=== PATIENT | male | born 1960 | race Caucasian/White ===

== ENCOUNTER 2019-10-19 20:19 | Outpatient (REF) | payer BC, SELFPAY ==
[2019-10-19 19:56] LABS: Bilirubin Negative (Negative); Blood Trace-intact (Negative); Clarity Clear (Clear); Glucose Negative (Negative); Ketones Negative (Negative); Leukocyte Esterase Negative (Negative); Nitrite Negative (Negative); Urobilinogen 0.2 EU/dL (Up TO 0.2)
[2019-10-19 19:57] LABS: Anion Gap 8.8 mmol/L (3-11); BUN 17 mg/dL (7-18); CO2 26.2 mmol/L (21.0-32.0); CREATININE 0.94 mg/dL (0.70-1.30); Chloride 100 mmol/L (98-107); Glucose 104 mg/dL (74-106); Potassium 4.2 mmol/L (3.5-5.1); Sodium 135 mmol/L (136-145)
[2019-10-19 20:12] LABS: Bacteria Negative HPF (Negative); Epithelial Cells Negative HPF (Negative); RBC 0-2 HPF (0-2)
[2019-10-19 20:13] LABS: C & S Indicated? No; Casts Negative LPF (Negative); Crystals Moderate Amorphous HPF (Negative); Mucus Negative (Negative)
[2019-10-21 11:04] LABS: Hepatitis C Ab w Rflx HCV PCR Negative (Negative)
== END 2019-10-19 20:39 ==
LOC: NCHCN 20:19
PROVIDERS: PCP Family Medicine; Visit Provider Family Medicine
DX: Z00.00 Encounter for general adult medical examination without abnormal findings (principal); I10 Essential (primary) hypertension; R60.0 Localized edema; Z11.59 Encounter for screening for other viral diseases; Z87.448 Personal history of other diseases of urinary system
CPT/HCPCS: 80048; 86803; 81003; 81015

== ENCOUNTER 2020-06-06 16:02 | Outpatient (REF) | payer BC, SELFPAY ==
[2020-06-08 10:07] LABS: COVID-19 RT-PCR Result NEGATIVE (Negative)
== END 2020-06-06 16:22 ==
LOC: NCHCN 16:02
PROVIDERS: PCP Family Medicine; Visit Provider Nurse Practitioner Family
DX: Z20.828 Contact with and (suspected) exposure to other viral communicable diseases (principal)
CPT/HCPCS: U0003

== ENCOUNTER 2020-06-23 16:52 | Outpatient (REF) | payer BC, SELFPAY ==
[2020-06-27 13:53] LABS: COVID-19 RT-PCR UVMMC Result Negative (Negative)
== END 2020-06-23 17:12 ==
LOC: NCHCN 16:52
PROVIDERS: Visit Provider Nurse Practitioner Family
DX: Z20.822 Contact with and (suspected) exposure to COVID-19 (principal)
CPT/HCPCS: U0003

== ENCOUNTER 2020-10-26 16:48 | Outpatient (REF) | payer BC, SELFPAY ==
[2020-10-26 18:40] LABS: HGB 14.4 g/dL (13.5-17.5); MCH 28.5 pg (27.0-33.0); MCHC 33.5 % (32.0-36.0); MPV 9.3 fL (8.0-11.0); Platelet Count 346 10^3/uL (130-400); RBC 5.06 10^6/uL (4.36-5.78); RDW 13.3 % (11.8-14.1); RDW-SD 41.1 fL; WBC 7.28 10^3/uL (4.4-10.8)
[2020-10-26 19:07] LABS: ALT 25 U/L (16-63); AST 13 U/L (15-37); Albumin 4.3 g/dL (3.4-5.0); Alkaline Phosphatase 78 U/L (46-116); Anion Gap 10.4 mmol/L (3-11); BUN 26 mg/dL (7-18); Bilirubin, Total 0.4 mg/dL (0.2-1.0); CO2 24.6 mmol/L (21.0-32.0); CREATININE 1.1 mg/dL (0.70-1.30); Calcium 9.1 mg/dL (8.5-10.1); Chloride 104 mmol/L (98-107); Glucose 99 mg/dL (74-106); Lipase 78 U/L (73-393); Potassium 4.4 mmol/L (3.5-5.1); Sodium 139 mmol/L (136-145); Total Protein 7.2 g/dL (6.4-8.2)
[2020-10-26 21:42] LABS: Hemoglobin A1C 5.9 % (<5.7)
== END 2020-10-26 16:49 | disposition home or self-care (01) ==
LOC: NCHCN 16:48
PROVIDERS: PCP Family Medicine; Visit Provider Family Medicine
DX: I10 Essential (primary) hypertension (principal); R11.0 Nausea; R73.03 Prediabetes
CPT/HCPCS: 80053; 83690; 85027; 83036

== ENCOUNTER 2022-03-05 16:48 | Outpatient (REF) | payer SELFPAY ==
[2022-03-05 19:53] LABS: Anion Gap 9.5 mmol/L (3-11); BUN 25 mg/dL (7-18); CO2 26.5 mmol/L (21.0-32.0); CREATININE 1.2 mg/dL (0.70-1.30); Chloride 102 mmol/L (98-107); Estimated GFR 69.66 (mL/min/1.73m2); Glucose 120 mg/dL (74-106); Potassium 3.8 mmol/L (3.5-5.1); Sodium 138 mmol/L (136-145)
[2022-03-05 19:54] LABS: Hemoglobin A1C 5.6 % (<5.7)
== END 2022-03-05 16:49 | disposition home or self-care (01) ==
LOC: NCHCN 16:48
PROVIDERS: PCP Family Medicine; Visit Provider Family Medicine
DX: I10 Essential (primary) hypertension (principal); R73.03 Prediabetes
CPT/HCPCS: 80048; 83036

== ENCOUNTER 2022-06-25 18:41 | Outpatient (REF) | payer SELFPAY ==
[2022-06-25 21:47] LABS: Bilirubin Negative (Negative); Blood Small (Negative); Clarity Clear (Clear); Glucose Negative (Negative); Ketones Negative (Negative); Leukocyte Esterase Negative (Negative); Nitrite Negative (Negative); Specific Gravity 1.015 (1.005-1.025); Urobilinogen 0.2 EU/dL (Up TO 0.2)
[2022-06-25 22:05] LABS: Bacteria Rare HPF (Negative); C & S Indicated? No; Casts Negative LPF (Negative); Crystals Negative HPF (Negative); Epithelial Cells Rare HPF (Negative); Mucus Negative (Negative); WBC 0-2 HPF (0-5)
== END 2022-06-25 18:42 | disposition home or self-care (01) ==
LOC: LBN 18:41
PROVIDERS: PCP Family Medicine; Visit Provider Nurse Practitioner Gerontology
DX: R31.9 Hematuria, unspecified (principal)
CPT/HCPCS: 81003; 81015

== ENCOUNTER 2023-06-13 14:28 | Outpatient (REF) | payer SELFPAY ==
[2023-06-13 16:50] LABS: Calculated LDL 90 mg/dL (<100); Cholesterol 149 mg/dL (<200); HDL Cholesterol 41 mg/dL (40-60); Triglyceride 91 mg/dL (<150)
[2023-06-13 16:52] LABS: Hemoglobin A1C 5.9 % (<5.7)
[2023-06-14 19:49] LABS: HIV-1/2 Ag & Ab Screen Negative (Negative)
== END 2023-06-13 14:29 | disposition home or self-care (01) ==
LOC: NCHCN 14:28
PROVIDERS: PCP Family Medicine; Visit Provider Family Medicine
DX: Z00.00 Encounter for general adult medical examination without abnormal findings (principal); R73.03 Prediabetes; Z11.4 Encounter for screening for human immunodeficiency virus [HIV]; Z13.220 Encounter for screening for lipoid disorders
CPT/HCPCS: 80061; 87389; 83036

== ENCOUNTER 2023-07-24 17:32 | Outpatient (REF) | payer BC, SELFPAY ==
[2023-07-24 17:36] LABS: Bilirubin Negative (Negative); Blood Moderate (Negative); Clarity Clear (Clear); Glucose Negative (Negative); Ketones Negative (Negative); Leukocyte Esterase Negative (Negative); Nitrite Negative (Negative); Specific Gravity >= 1.030 (1.005-1.025); Urobilinogen 0.2 mg/dL (Up to 0.2); pH 5.5 (5-8)
[2023-07-24 17:43] LABS: Bacteria Negative HPF (Negative); Crystals Negative HPF (Negative); Epithelial Cells Rare HPF (Negative); Mucus Trace (Negative); WBC 0-2 HPF (0-5)
[2023-07-24 17:44] LABS: C & S Indicated? No
== END 2023-07-24 17:33 | disposition home or self-care (01) ==
LOC: LBN 17:32
PROVIDERS: PCP Family Medicine; Visit Provider Nurse Practitioner Gerontology
DX: N39.0 Urinary tract infection, site not specified (principal)
CPT/HCPCS: 81003; 81015

== ENCOUNTER 2023-12-23 10:49 | Inpatient (IN) | payer BC, SELFPAY ==
[2023-12-23] VITALS (53 sets, daily range): BP systolic 100–150; BP diastolic 54–106; PULSE 62–128; RESP 14–43; TEMP 36.6–39.2; O2SAT 92–99
--- NOTE | 2023-12-23 10:45 | RT.EKG_ITS ---
APPROVED REPORT Exam: Resting ECG Reason for Exam: sob Patient Location: E HR:115 bpm ECG Measurements Heart Rate 115 AXIS MT 151 P 12 QRSd 85 QRS -12 QT 341 T 63 QTc 471 Conclusion Sinus tachycardia 115 no stemi
--- NOTE | 2023-12-23 11:03 | ED.GENADUL_ITS ---
Discharge Plan Disposition Patient Disposition: Admit to [facility] Condition: Stable Discharge Details Chief Complaint: GenMedical Clinical Impression: Sepsis Primary Care Provider: Rosie Bess ED Provider: Juan Hanna Home Meds and New Rx's Prescriptions: No Action finasteride 5 mg tablet 5 mg PO DAILY Qty: 90 4RF tamsulosin [Flomax] 0.4 mg capsule 0.4 mg PO DAILY Qty: 90 3RF omeprazole 20 MG capsule,delayed release(DR/EC) 40 mg PO DAILY Qty: 90 Rx Instructions: 1 CAP QAM venlafaxine 75 mg capsule,extended release 24hr 75 mg PO DAILY Patient Comments: Pt takes 75 mg for 4 days and then takes 35 for 3 days. Pt is trying to taper this medication. Ok'd by pt's provider HPI General Date/Time Provider Initiated Documentation: 12/23/23 11:02 . HPI Narrative: 63 year-old male presents to ED today by POV/ambulating with a chief complaint of febrile illness- ongoing and mostly nocturnal for 2 weeks- states he has int ermittent chills, fever, nausea, dizziness, abdominal bloating, and decreased appetite- denies known weight-loss. He appears pale, diaphoretic and has shortness of breath, denies chest pain. Quality described as generalized body aches, states he has been developing fevers later in the day most days- has been dealing with hematuria at Urology chronically who urged his ED evaluation today, no radiation to severe headache, visual changes, gait abnormalities, slurred speech. Severity is described as moderate to severe. Palliating factors include nothing specific attempted. Provoking factors include nothing specific, no sick contacts, and denies any tick bites. Events leading up to the incident/Associated Symptoms: Patient states he had an HIV panel back in August but is heterosexual and monogamous with his . Patient not anticoagulated. Related Data Home Medications ?Medication ?Instructions ?Recorded ?Confirmed omeprazole 20 mg capsule,delayed 40 mg PO DAILY #90 tab-caps 01/01/13 12/23/23 release venlafaxine 75 mg capsule,extended 75 mg PO DAILY 04/18/21 12/23/23 release 24 hr finasteride 5 mg tablet 5 mg PO DAILY #90 tab-caps 07/24/23 12/23/23 tamsulosin 0.4 mg capsule (Flomax) 0.4 mg PO DAILY #90 caps 07/24/23 12/23/23 Previous Rx's ?Medication ?Instructions ?Recorded finasteride 5 mg tablet 5 mg PO DAILY #90 tab-caps 07/24/23 tamsulosin 0.4 mg capsule (Flomax) 0.4 mg PO DAILY #90 caps 07/24/23 Allergies Allergy/AdvReac Type Severity Reaction Status Date / Time hydrocodone bitartrate (From AdvReac Intermediate Nausea & Unverified 12/23/23 10:56 Vicodin) vomiting General Stated Complaint: GenMedical LACY: 3 Review of Systems All systems reviewed & are unremarkable except as noted in HPI and below Exam Narrative Exam Narrative: GENERAL APPEARANCE: Well-nourished, toxic, awake and alert, atraumatic, no acute distress. SKIN: Warm, pale, diaphoretic, intact, without rashes/lesions/ulcerations. HEAD: Normocephalic, atraumatic, normal hair distribution for gender/age. EYES: Pupils PERRLA, EOMs intact without nystagmus, normal conjunctiva, no exudates on lids/lashes. ENT: Nares patent, no circumoral cyanosis, no facial swelling NECK: Supple, trachea midline, painless cervical ROM. LUNGS/CHEST: Lungs CTA bilaterally- no rhonchi/rales/wheezes diffusely, non- labored respirations, normal A/P diameter, symmetrical expansion, no chest wall deformity HEART (CV/PV): Regular rate and rhythm without murmur, no peripheral edema, no JVD. ABDOMEN: Normoactive bowel sounds, soft, non-distended, no guarding, no tenderness. MSK: Normal ROM, no swelling/deformity to bilateral UEs or LEs, moving all extremities without weakness, no cyanosis, spine midline without tenderness, normal curvature. NEURO: Mental Status AAOx4 - alert to person, place, time, events No facial droop, no forehead involvement. Motor: No focal weakness - strength 5/5 in bilateral UEs and LEs, proximal and distal, symmetric. Sensory: sensation intact to light touch globally. Gait normal: patient ambulated without ataxia into ED room. PSYCH: euthymic, cooperative, pleasant, appropriate speech Course Vital Signs Vital signs: Vital Signs Temperature 36.6 C 12/23/23 10:52 Pulse 62 12/23/23 10:52 Respiratory Rate 14 12/23/23 10:52 Blood Pressure 109/77 12/23/23 10:52 Pulse Oximetry 99 12/23/23 10:52 Temperature 36.6 C 12/23/23 10:52 Temperature Source Oral 12/23/23 10:52 Pulse 62 12/23/23 10:52 Respiratory Rate 14 12/23/23 10:52 Blood Pressure 109/77 12/23/23 10:52 Blood Pressure Position Sitting 12/23/23 10:52 Pulse Oximetry 99 12/23/23 10:52 Oxygen Delivery Method Room Air 12/23/23 10:52 Oxygen Flow Rate 0 12/23/23 10:52 Pain Level 0 12/23/23 10:52 Medical Decision Making This dictation utilizes [id number] dictation software and may contain unedited grammatical errors. 63 year-old male presents to ED today by POV/ambulating with a chief complaint of febrile illness- ongoing and mostly nocturnal for 2 weeks- states he has intermittent chills, fever, nausea, dizziness, abdominal bloating, and decreased appetite- denies known weight-loss. He appears pale, diaphoretic and has shortness of breath, denies chest pain. Quality described as generalized body aches, states he has been developing fevers later in the day most days- has been dealing with hematuria at Urology chronically who urged his ED evaluation today, no radiation to severe headache, visual changes, gait abnormalities, slurred speech. Severity is described as moderate to severe. Palliating factors include nothing specific attempted. Provoking factors include nothing specific, no sick contacts, and denies any tick bites. Events leading up to the incident/Associated Symptoms: Patient states he had an HIV panel back in August but is heterosexual and monogamous with his . Patients' medical history: GERD, anxiety, hematuria, BPH with LUTS, history of substance abuse. Family and social history: Denies active substance use, otherwise healthy. Pertinent exam findings / vital signs include pale and diaphoretic, febrile, tachycardic, benign abdomen, benign cardiopulmonary exam, neuro intact. Differential / pathologies of concern include malignancy, sepsis, pneumonia, gastroenteritis or colitis or diverticulitis, PE, ACS. Diagnostic studies of: -CBC, BMP, lipase, liver panel, magnesium, D-dimer, procalcitonin, lactate, troponin I, TSH, tick and Lyme panel, blood cultures, EKG, CTA chest abdomen pelvis with contrast. -CBC shows no leukocytosis, shows anemia hemoglobin 13.3 just below normal -Platelets are 97 -D-dimer is significantly elevated at 2024 -Initial lactate 2.1, giving IV fluids and rechecking, procalcitonin 0.8-concern sepsis -TSH is low with normal T4 -Marked increase in LFTs, will add acute hepatitis panel -Bilirubin 1.0 with marked increase in conjugated bilirubin of 0.[address] -ESR is mildly elevated -Patient had a UA outpatient today- shows no infection, large blood -EKG without concerning arrhythmia or STEMI -CTA Chest/Abdomen/Pelvis - no acute findings Interventions of: -2L IVF, IV Cefepime, IV Vancomycin, IV APAP. ED Course/Assessment/Plan: 63-year-old male has been dealing with hematuria managed by urology, had an outpatient UA over there today where they sent him to the ED, he is not infected urine with large blood, has enlarged prostate with some outflow obstruction intermittently. He states he has had 2-week onset of intermittent fevers and chills and dizziness and nausea with abdominal bloating and decreased appetite, appears pale cool and diaphoretic, tachycardic and fever developed while in the ED today. CTA of the chest abdomen and pelvis is negative for any source of infection, his initial lactate is 2.1 and procalcitonin is 0.8 concerning for sepsis, his platelets are 97 which is new but he has been dealing with hematuria, likely needs cystoscopy done by Dr. Ferreira who is aware of the case, has some marked LFT increase and mild increase of conjugated bilirubin with again nothing seen on CT. Acute hepatitis panel and tick and Lyme panel are pending, blood cultures pending. Presented the case to the hospitalist Dr. 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 Findings not consistent with biliary cholangitis, PE, pneumonia, UTI, perforated viscus, colitis or gastroenteritis or diverticulitis. Disposition of sepsis. Patient verbalized understanding of the plan and return to ED criteria and engaged in shared decision making. Medical Records Medical records reviewed: Yes I reviewed the patient's medical records. Imaging Data Radiologic Study: Attestation: I personally reviewed and interpreted this imaging study as follows: Imaging: CT Scan Radiologist's impression: EXAM: CT THORAX ABD/PEL CTA CLINICAL HISTORY: elev d-dimer, poss malig, eval PE ABD vasc. TECHNIQUE: Imaging Protocol: Axial CT angiography was performed with multi- slice acquisition and multi-planar and/or 3D reconstructions. CONTRAST MATERIAL: Intravenous: Omnipaque 350 Contrast volume:structured data in ml Oral: / no COMPARISON: No exams were available for comparison FINDINGS: CHEST: Pulmonary Arteries: No evidence of filling defect to suggest pulmonary emboli. Tracheobronchial tree: Patent where visualized. Mediastinum and Elena: No dominant adenopathy or fluid collection. Pulmonary parenchyma: No consolidation or dominant measurable mass. No architectural distortion. Pleura: No effusion or pneumothorax. Heart: The heart is not dilated. No coronary artery calcifications are seen. Aorta: Thoracic aorta non-dilated. Minimal atherosclerotic changes. Bones: Normal. Tubes, Catheters, and Lines: None ABDOMEN AND PELVIS: Abdomen: Celiac axis/mesenteric arteries: No evidence of occlusion or significant stenosis. Renal Arteries: No evidence of occlusion or significant stenosis. There is a single renal artery perfusing each kidney. Aorta: No evidence of occlusion or significant stenosis. No aneurysm or dissection. Pelvis: Iliac Arteries: No evidence of occlusion or significant stenosis. Minimal atherosclerotic changes. Common Femoral Arteries: No evidence of occlusion or significant stenosis. ABDOMEN: Liver: Normal density. No measurable mass. Portal, Superior Mesenteric, and Splenic Veins: Unremarkable. Gallbladder and Biliary Tract: Status post cholecystectomy. No radiodense calculus or dilation. Pancreas: Normal density, no abnormal calcifications or inflammatory process. Spleen: Normal. Adrenals: No masses seen. Kidneys: Normal size, contour and axis. No radiodense stones or obstructive uropathy. No masses seen. Circumaortic left renal vein. Bowel: No obstruction or bowel wall thickening. Appendix is unremarkable. Diverticulosis. No evidence of diverticulitis. Peritoneal Cavity: No ascites, collection or mesenteric inflammatory response. Lymph Nodes: Within normal limits. Bones: Degenerative changes in the lumbar spine. Soft Tissues: Unremarkable. Bladder: Contrast in urinary bladder. Symmetric distention, no gross wall thickening. Reproductive Organs: Unremarkable as visualized. Lymph Nodes: Within normal limits. IMPRESSION: Normal CT Angiogram of the chest, abdomen and pelvis. No evidence of pulmonary emboli. No acute abnormality in the chest abdomen or pelvis. Lab Data Lab results reviewed: Yes I reviewed the patient's lab results. Labs: 12/23/23 13:21 Blood Blood Culture - Pending 12/23/23 13:21 Blood Blood Culture - Pending Laboratory Tests Range/Units 12/23/23 12/23/23 12/23/23 11:16 11:16 11:16 WBC (4.4-10.8) 10^3/uL 5.82 RBC (4.36-5.78) 10^6/uL 4.81 Hgb (13.5-17.5) g/dL 13.3 L Hct (40.0-50.0) % 39.1 L MCV (80-95) fL 81 MCH (27.0-33.0) pg 27.7 MCHC (32.0-36.0) % 34.0 RDW (11.8-14.1) % 13.8 Plt Count (130-400) 10^3/uL 97 L MPV (8.0-11.0) fL 9.4 Immature Gran % % 0.0 Neutrophils % % 72.0 Band Neutrophils % % 0 Lymphocytes % % 14.0 Atypical Lymphs % % 7 Monocytes % % 6.0 Eosinophils % % 1.0 Basophils % % 0.0 Nucleated RBC % (0.0-0.3) % 0.0 Absolute Neutrophils (1.2-6.7) 10^3/uL 4.19 Absolute Lymphocytes (1.2-3.4) 10^3/uL 1.22 Absolute Monocytes (0.1-0.8) 10^3/uL 0.35 Absolute Eosinophils (0.0-0.7) 10^3/uL 0.06 Absolute Basophils (0.0-0.2) 10^3/uL 0.00 RBC Morphology Normal ESR (0-20) mm/hr 25 H D-Dimer (<500) ng/mlFEU 2025 H VBG Lactate (0.6-1.4) mmol/L Sodium (136-145) mmol/L 135 L Potassium (3.5-5.1) mmol/L 3.4 L Chloride (98-107) mmol/L 98 Carbon Dioxide (21.0-32.0) mmol/L 26.9 Anion Gap (3-11) mmol/L 10.1 BUN (7-18) mg/dL 13 Creatinine (0.70-1.30) mg/dL 1.1 Est GFR (CKD-EPI 2020) (mL/min/1.73m2) 76.37 Glucose (74-106) mg/dL 132 H Calcium (8.5-10.1) mg/dL 8.7 Magnesium (1.8-2.4) mg/dL 1.9 Total Bilirubin (0.2-1.0) mg/dL 1.00 Conjugated Bilirubin (0.0-0.2) mg/dL 0.5 H AST (15-37) U/L 64 H ALT (16-63) U/L 151 H Alkaline Phosphatase (46-116) U/L 273 H Troponin I (< or =60) ng/L < 50 Cancelled Total Protein (6.4-8.2) g/dL 7.4 Albumin (3.4-5.0) g/dL 2.9 L Lipase (16-77) U/L 41 Procalcitonin ng/mL 0.8 TSH (0.36-3.74) uIU/mL 0.20 L Cancelled Free T4 (0.76-1.46) ng/dL 1.36 Range/Units 12/23/23 11:42 WBC (4.4-10.8) 10^3/uL RBC (4.36-5.78) 10^6/uL Hgb (13.5-17.5) g/dL Hct (40.0-50.0) % MCV (80-95) fL MCH (27.0-33.0) pg MCHC (32.0-36.0) % RDW (11.8-14.1) % Plt Count (130-400) 10^3/uL MPV (8.0-11.0) fL Immature Gran % % Neutrophils % % Band Neutrophils % % Lymphocytes % % Atypical Lymphs % % Monocytes % % Eosinophils % % Basophils % % Nucleated RBC % (0.0-0.3) % Absolute Neutrophils (1.2-6.7) 10^3/uL Absolute Lymphocytes (1.2-3.4) 10^3/uL Absolute Monocytes (0.1-0.8) 10^3/uL Absolute Eosinophils (0.0-0.7) 10^3/uL Absolute Basophils (0.0-0.2) 10^3/uL RBC Morphology ESR (0-20) mm/hr D-Dimer (<500) ng/mlFEU VBG Lactate (0.6-1.4) mmol/L 2.1 H Sodium (136-145) mmol/L Potassium (3.5-5.1) mmol/L Chloride (98-107) mmol/L Carbon Dioxide (21.0-32.0) mmol/L Anion Gap (3-11) mmol/L BUN (7-18) mg/dL Creatinine (0.70-1.30) mg/dL Est GFR (CKD-EPI 2020) (mL/min/1.73m2) Glucose (74-106) mg/dL Calcium (8.5-10.1) mg/dL Magnesium (1.8-2.4) mg/dL Total Bilirubin (0.2-1.0) mg/dL Conjugated Bilirubin (0.0-0.2) mg/dL AST (15-37) U/L ALT (16-63) U/L Alkaline Phosphatase (46-116) U/L Troponin I (< or =60) ng/L Total Protein (6.4-8.2) g/dL Albumin (3.4-5.0) g/dL Lipase (16-77) U/L Procalcitonin ng/mL TSH (0.36-3.74) uIU/mL Free T4 (0.76-1.46) ng/dL Quality:SDOH Health Related Social Needs: No Data to Display PFSH All Active Problems (Updated 12/23/23 @ 16:18 by TIFFANY Slaughter) Sepsis (Acute) Hematuria (Acute) BPH w urinary obs/LUTS (Acute) Medical History (Updated 12/23/23 @ 16:18 by TIFFANY Slaughter) GERD (gastroesophageal reflux disease) Anxiety PTSD (post-traumatic stress disorder) Surgical History (System 10/18/20 @ 10:03 by Anastasia Davies) Repair of inguinal hernia Bilateral EGD - IV Sedation Colonoscopy - IV Sedation Social History (System 10/18/20 @ 10:03 by Anastasia Davies) Smoking/Tobacco Use Status: Never Smoking risk assessment performed?: Yes Drug use: Current Sobriety
[2023-12-23 11:48] LABS: ESR 25 mm/hr (0-20); HCT 39.1 % (40.0-50.0); HGB 13.3 g/dL (13.5-17.5); MCH 27.7 pg (27.0-33.0); MCV 81 fL (80-95); MPV 9.4 fL (8.0-11.0); RBC 4.81 10^6/uL (4.36-5.78); RDW 13.8 % (11.8-14.1); RDW-SD 41.1 fL; WBC 5.82 10^3/uL (4.4-10.8)
[2023-12-23 11:53] LABS: Lactate 2.1 mmol/L (0.6-1.4)
[2023-12-23 12:07] LABS: Absolute Eosinophil Count 0.06 10^3/uL (0.0-0.7); Absolute Lymphocyte Count 1.22 10^3/uL (1.2-3.4); Absolute Monocyte Count 0.35 10^3/uL (0.1-0.8); Absolute Neutrophil Count 4.19 10^3/uL (1.2-6.7); Atypical Lymphocytes % 7 %; Bands % 0 %
[2023-12-23] MEDS: Normal Saline 1,000 ML 1000 ML IV ×2 (12:07→16:27)
[2023-12-23 12:09] LABS: Diff Comment Manual Differential; RBC Morphology Normal
[2023-12-23 12:11] LABS: Platelet Count 97 10^3/uL (130-400)
[2023-12-23 12:12] LABS: ALT 151 U/L (16-63); AST 64 U/L (15-37); Albumin 2.9 g/dL (3.4-5.0); Alkaline Phosphatase 273 U/L (46-116); Anion Gap 10.1 mmol/L (3-11); BUN 13 mg/dL (7-18); Bilirubin, Direct 0.5 mg/dL (0.0-0.2); CO2 26.9 mmol/L (21.0-32.0); CREATININE 1.1 mg/dL (0.70-1.30); Calcium 8.7 mg/dL (8.5-10.1); Chloride 98 mmol/L (98-107); Estimated GFR 76.37 (mL/min/1.73m2); Glucose 132 mg/dL (74-106); Lipase 41 U/L (16-77); Magnesium 1.9 mg/dL (1.8-2.4); Potassium 3.4 mmol/L (3.5-5.1); Sodium 135 mmol/L (136-145); Total Protein 7.4 g/dL (6.4-8.2); Troponin I < 50 ng/L (< or =60)
[2023-12-23 12:17] LABS: D-Dimer 2025 ng/mlFEU (<500)
[2023-12-23 12:21] LABS: Procalcitonin 0.8 ng/mL
[2023-12-23 12:30] LABS: FREE T4 1.36 ng/dL (0.76-1.46)
[2023-12-23] MEDS: ACETAMINOPHEN 1,000 MG/100 ML BTL 400 MG IVPB (13:29)
[2023-12-23] MEDS: Promethazine 25 MG TAB (13:55)
[2023-12-23] MEDS: Omnipaque 350 MG/ML 100 ML BTL IJ ×2 (14:46→15:12)
[2023-12-23] MEDS: Normal Saline - Diluent 50 ML VIAL IJ ×2 (14:47→15:13)
--- NOTE | 2023-12-23 15:12 | DI.CT_ITS ---
Exam(s) CT THORAX ABD/PEL CTA EXAM: CT THORAX ABD/PEL CTA CLINICAL HISTORY: elev d-dimer, poss malig, eval PE ABD vasc. TECHNIQUE: Imaging Protocol: Axial CT angiography was performed with multi-slice acquisition and m ulti-planar and/or 3D reconstructions. CONTRAST MATERIAL: Intravenous: Omnipaque 350 Contrast volume:structured data in ml Oral: / no COMPARISON: No exams were available for comparison FINDINGS: CHEST: Pulmonary Arteries: No evidence of filling defect to suggest pulmonary emboli. Tracheobronchial tree: Patent where visualized. Mediastinum and Elena: No dominant adenopathy or fluid collection. Pulmonary parenchyma: No consolidation or dominant measurable mass. No architectural distortion. Pleura: No effusion or pneumothorax. Heart: The heart is not dilated. No coronary artery calcifications are seen. Aorta: Thoracic aorta non-dilated. Minimal atherosclerotic changes. Bones: Normal. Tubes, Catheters, and Lines: None ABDOMEN AND PELVIS: Abdomen: Celiac axis/mesenteric arteries: No evidence of occlusion or significant stenosis. Renal Arteries: No evidence of occlusion or significant stenosis. There is a single renal artery per fusing each kidney. Aorta: No evidence of occlusion or significant stenosis. No aneurysm or dissection. Pelvis: Iliac Arteries: No evidence of occlusion or significant stenosis. Minimal atherosclerotic changes . Common Femoral Arteries: No evidence of occlusion or significant stenosis. ABDOMEN: Liver: Normal density. No measurable mass. Portal, Superior Mesenteric, and Splenic Veins: Unremarkable. Gallbladder and Biliary Tract: Status post cholecystectomy. No radiodense calculus or dilation. Pancreas: Normal density, no abnormal calcifications or inflammatory process. Spleen: Normal. Adrenals: No masses seen. Kidneys: Normal size, contour and axis. No radiodense stones or obstructive uropathy. No masses seen. Circumaortic left renal vein. Bowel: No obstruction or bowel wall thickening. Appendix is unremarkable. Diverticulosis. No evide nce of diverticulitis. Peritoneal Cavity: No ascites, collection or mesenteric inflammatory response. Lymph Nodes: Within normal limits. Bones: Degenerative changes in the lumbar spine. Soft Tissues: Unremarkable. Bladder: Contrast in urinary bladder. Symmetric distention, no gross wall thickening. Reproductive Organs: Unremarkable as visualized. Lymph Nodes: Within normal limits. IMPRESSION: Normal CT Angiogram of the chest, abdomen and pelvis. No evidence of pulmonary emboli. No acute abnormality in the chest abdomen or pelvis. RADIATION DOSE DELIVERED: Total DLP DATA REPOSITORY: All CT scans at this facility are submitted to the National Radiology Data Registry (NRDR) Dose Index Registry (DIR) with the [employer] ([employer]). RADIATION OPTIMIZATION: All CT scans at this facility use at least one of these dose optimization te chniques: automated exposure control; mA and/or kV adjustment per patient size (includes targeted exa ms where dose is matched to clinical indication); or iterative reconstruction.
--- NOTE | 2023-12-23 16:24 | HPE_ITS ---
Date of service: 12/23/23 Time of Service: 16:24 Assessment and Plan Assessment and plan (1) Sepsis: Status: Acute Assessment and plan: T max 39.2, HR 109, procal 0.8 blood cultures pending NS 2 liters in the ED NS at 125cc/hr On cefepime and Vancomycin (2) Fever of unknown origin: Status: Acute Assessment and plan: PRN Acetaminophen and ibuprofen Hepatitis and tick born-illness panels pending (3) Hematuria: Status: Acute Assessment and plan: Urology consult labs in AM (4) BPH w urinary obs/LUTS: Status: Acute Assessment and plan: on finesteride and tamsulosin (5) On deep vein thrombosis (DVT) prophylaxis: Status: Acute Assessment and plan: On Lovenox (6) Depression: Status: Chronic Assessment and plan: On effexor (7) Nausea: Status: Acute Assessment and plan: PRN antiemetics (8) Discharge planning issues: Status: Acute Assessment and plan: CM to f/u discussed with Dr. Delgado History of Present Illness History of Present Illness Chief Complaint: febrile illness X 2 weeks N arrative: This 63 years old male patient with past medical history of PTSD, depression, gastro esophageal reflux disease, substance abuse microscopic and gross hematuria, BPH with LUTS seen in urology this morning presented to the ED as per urology services directions at [facility] on 12/23/2023 for evaluation of left nocturnal febrile illness for over 2 weeks. The workup in the ED was significant for lactate of 2.9, procalcitonin of 0.8 without leukocytosis, platelets of 97, sodium of 135, potassium of 3.4, ESR 25 D-dimer of 2024 with a CTA of the chest abdomen and pelvis without evidence of pulmonary embolism,and no other acute findings. Workup was negative for UTI, blood cultures were drawn and pending. The hospitalist was consulted and patient was accepted to the medical surgical floor for evaluation and management sepsis of unknown source, fever of unknown etiology, and thrombocytopenia. In the ED the patient was treated with 2 L of normal saline bolus, cefepime and vancomycin, and IV acetaminophen and IV ketorolac for a Tmax of 39.2. When seen in the ED, the patient was without acute distress, denied pain, recent traveling, recent trauma, neck stiffness, night sweats, recent weight loss, headaches, vomiting, diarrhea. Reported having multiple indoor cats and getting scratches at times, but no fresh ones or opened wounds reported. Patient reports mild headache, blurry vision and dizziness with high fevers, reports intermittent nausea and 1 episode of diarrhea 2 days ago, hematurai, and traveling to [place] back in May 2023. Patient reported history of bacterial meningitis as a child as well as pancreatitis and cholecystectomy 4 years ago with complications at [facility]. The patient agreed to receive CPR and short-term intubation does the patient is a full code. Review of Systems All systems reviewed & are unremarkable except as noted in HPI and below PFSH All Active Problems (Updated 12/23/23 @ 17:44 by Danitza Holt APRN) Nausea (Acute) Fever of unknown origin (Acute) Fever (Acute) Depression (Chronic) Discharge planning issues (Acute) On deep vein thrombosis (DVT) prophylaxis (Acute) Sepsis (Acute) Hematuria (Acute) BPH w urinary obs/LUTS (Acute) Medical History (Updated 12/23/23 @ 17:44 by Danitza Holt APRN) Bacterial meningitis Pancreatitis, gallstone GERD (gastroesophageal reflux disease) Anxiety PTSD (post-traumatic stress disorder) Surgical History (Updated 12/23/23 @ 17:34 by Danitza Holt APRN) History of cholecystectomy Repair of inguinal hernia Bilateral EGD - IV Sedation Colonoscopy - IV Sedation Social History (System 10/18/20 @ 10:03 by Anastasia Davies) Smoking/Tobacco Use Status: Never Smoking risk assessment performed?: Yes Drug use: Current Sobriety Meds Allergies and Home Medications Allergies Allergy/AdvReac Type Severity Reaction Status Date / Time hydrocodone bitartrate (From AdvReac Intermediate Nausea & Unverified 12/23/23 10:56 Vicodin) vomiting Home Medications ?Medication ?Instructions ?Recorded ?Confirmed ?Type omeprazole 20 mg capsule,delayed 40 mg PO DAILY #90 tab-caps 01/01/13 12/23/23 History release venlafaxine 75 mg capsule,extended 75 mg PO DAILY 04/18/21 12/23/23 History release 24 hr finasteride 5 mg tablet 5 mg PO DAILY #90 tab-caps 07/24/23 12/23/23 Rx tamsulosin 0.4 mg capsule (Flomax) 0.4 mg PO DAILY #90 caps 07/24/23 12/23/23 Rx Results Labs 12/23/23 11:16 12/23/23 11:16 Labs: Laboratory Results - last 24 hr 12/23/23 12/23/23 12/23/23 11:16 11:16 11:16 WBC 5.82 RBC 4.81 Hgb 13.3 L Hct 39.1 L MCV 81 MCH 27.7 MCHC 34.0 RDW 13.8 Plt Count 97 L MPV 9.4 Immature Gran % 0.0 Neutrophils % 72.0 Band Neutrophils % 0 Lymphocytes % 14.0 Atypical Lymphs % 7 Monocytes % 6.0 Eosinophils % 1.0 Basophils % 0.0 Nucleated RBC % 0.0 Absolute Neutrophils 4.19 Absolute Lymphocytes 1.22 Absolute Monocytes 0.35 Absolute Eosinophils 0.06 Absolute Basophils 0.00 RBC Morphology Normal ESR 25 H D-Dimer 2025 H VBG Lactate Sodium 135 L Potassium 3.4 L Chloride 98 Carbon Dioxide 26.9 Anion Gap 10.1 BUN 13 Creatinine 1.1 Est GFR (CKD-EPI 2020) 76.37 Glucose 132 H Calcium 8.7 Magnesium 1.9 Total Bilirubin 1.00 Conjugated Bilirubin 0.5 H AST 64 H ALT 151 H Alkaline Phosphatase 273 H Troponin I < 50 Cancelled Total Protein 7.4 Albumin 2.9 L Lipase 41 Procalcitonin 0.8 TSH 0.20 L Cancelled Free T4 1.36 12/23/23 11:42 WBC RBC Hgb Hct MCV MCH MCHC RDW Plt Count MPV Immature Gran % Neutrophils % Band Neutrophils % Lymphocytes % Atypical Lymphs % Monocytes % Eosinophils % Basophils % Nucleated RBC % Absolute Neutrophils Absolute Lymphocytes Absolute Monocytes Absolute Eosinophils Absolute Basophils RBC Morphology ESR D-Dimer VBG Lactate 2.1 H Sodium Potassium Chloride Carbon Dioxide Anion Gap BUN Creatinine Est GFR (CKD-EPI 2020) Glucose Calcium Magnesium Total Bilirubin Conjugated Bilirubin AST ALT Alkaline Phosphatase Troponin I Total Protein Albumin Lipase Procalcitonin TSH Free T4 Last Vital Signs Temp 39.2 C H 12/23/23 13:06 Pulse 116 H 12/23/23 13:06 Resp 20 12/23/23 13:06 BP 137/64 12/23/23 13:06 Pulse Ox 96 12/23/23 13:06 Time Spent Time spent with Patient: >75 minutes Time was spent: preparing to see the patient(eg.review tests), obtaining and/or reviewing separately otained hiistory, ordering medications,tests, procedures, referring, communicating with other health healthcare facility administrator, indepentently interpreting results, counseling the patient and care coordination
[2023-12-23] MEDS: CEFEPIME 2 GM in Normal Saline 100 ML IVPB ×2 (16:27→23:25)
[2023-12-23] MEDS: Ketorolac 15 MG/ML VIAL IVP (16:32)
[2023-12-23] MEDS: VANCOMYCIN/WATER (PEG) 1.5 GM/300 ML BAG IVPB (16:45)
[2023-12-23 17:29] LABS: Lactate 0.8 mmol/L (0.9-1.7)
--- NOTE | 2023-12-23 17:43 | W.PC.ACHO ---
Registration Status: Primary Language: Preferred Language: ED Information & Data Chief Complaint GenMedical 12/23/23 16:39 Chief Complaint GenMedical 12/23/23 11:03 Triage Note Pt arrives to ED, sent from 12/23/23 10:52 urology stating he has been feeling unwell x 2 weeks. Pt has had intermittent chills , fever, nausea, dizziness, abdominal bloating and decreased appetite. Pt appears pale, diaphoretic. Pt endorses SOB but no CP No recent sick contacts per pt Medical / Surgical History (This Medical Record has been edited. Action required.) Bacterial meningitis Pancreatitis, gallstone GERD (gastroesophageal reflux disease) Anxiety PTSD (post-traumatic stress disorder) (This Medical Record has been edited. Action required.) History of cholecystectomy Repair of inguinal hernia EGD - IV Sedation Colonoscopy - IV Sedation Most Recent Vital Signs Temperature 37.5 C 12/23/23 17:26 Temperature Source Temporal Artery Scan 12/23/23 17:26 Pulse 107 H 12/23/23 17:26 Pulse 104 H 12/23/23 17:10 Respiratory Rate 26 H 12/23/23 17:26 Respiratory Effort Normal 12/23/23 16:39 Respiratory Depth Normal 12/23/23 16:39 Respiratory Pattern Normal 12/23/23 16:39 Blood Pressure 120/80 12/23/23 17:26 Blood Pressure Mean 86 12/23/23 17:00 Blood Pressure Position Sitting 12/23/23 16:39 Pulse Oximetry 95 12/23/23 17:26 Oxygen Delivery Method Room Air 12/23/23 17:26 Oxygen Flow Rate 0 12/23/23 17:26 Pain Level 0 12/23/23 17:26 Allergies hydrocodone bitartrate (From Vicodin) Adverse Reaction (Intermediate, Unverified 12/23/23 10:56) Nausea & vomiting Active Medications Generic Name Dose Route Start Last Admin Trade Name Freq PRN Reason Stop Dose Admin Vancomycin/PEG/NADA/Lysine/Water 1.5 gm in 300 mls @ 200 mls/hr 12/23/23 16:30 12/23/23 16:45 Vancocin Injection IVPB 12/23/23 17:59 200 mls/hr NOW ONE Administration Iohexol 100 ml 12/23/23 15:00 12/23/23 15:12 Omnipaque 350 Mg/Ml 100 Ml Btl IJ 01/22/24 23:59 100 ml DIRECTED BARBARA Administration Sodium Chloride 50 ml 12/23/23 15:00 12/23/23 15:13 Normal Saline - Diluent 50 Ml Vial IJ 50 ml .FOR DI USE BARBARA Administration IV IV Catheter Type [Right Saline Lock Antecubital] IV Catheter Gauge [Right 18 Antecubital] Diet Orders Category Date Time Status Heart Healthy Eating [DIET] Nutrition 12/23/23 Dinner Active Diagnostics 12/23/23 12/23/23 12/23/23 Range/Units 17:08 16:23 13:21 WBC (4.4-10.8) 10^3/uL RBC (4.36-5.78) 10^6/uL Hgb (13.5-17.5) g/dL Hct (40.0-50.0) % MCV (80-95) fL MCH (27.0-33.0) pg MCHC (32.0-36.0) % RDW (11.8-14.1) % Plt Count (130-400) 10^3/uL MPV (8.0-11.0) fL Immature Gran % % Neutrophils % % Band Neutrophils % % Lymphocytes % % Atypical Lymphs % % Monocytes % % Eosinophils % % Basophils % % Nucleated RBC % (0.0-0.3) % Absolute Neutrophils (1.2-6.7) 10^3/uL Absolute Lymphocytes (1.2-3.4) 10^3/uL Absolute Monocytes (0.1-0.8) 10^3/uL Absolute Eosinophils (0.0-0.7) 10^3/uL Absolute Basophils (0.0-0.2) 10^3/uL RBC Morphology ESR (0-20) mm/hr D-Dimer (<500) ng/mlFEU VBG Lactate 0.8 L (0.6-1.4) mmol/L Sodium (136-145) mmol/L Potassium (3.5-5.1) mmol/L Chloride (98-107) mmol/L Carbon Dioxide (21.0-32.0) mmol/L Anion Gap (3-11) mmol/L BUN (7-18) mg/dL Creatinine (0.70-1.30) mg/dL Est GFR (CKD-EPI 2020) (mL/min/1.73m2) Glucose (74-106) mg/dL Calcium (8.5-10.1) mg/dL Magnesium (1.8-2.4) mg/dL Total Bilirubin (0.2-1.0) mg/dL Conjugated Bilirubin (0.0-0.2) mg/dL AST (15-37) U/L ALT (16-63) U/L Alkaline Phosphatase (46-116) U/L Troponin I (< or =60) ng/L Total Protein (6.4-8.2) g/dL Albumin (3.4-5.0) g/dL Lipase (16-77) U/L Procalcitonin ng/mL TSH (0.36-3.74) uIU/mL Free T4 (0.76-1.46) ng/dL B. divergens/MO-1 PCR Babesia duncani (PCR) Babesia microti DNA PCR Lyme Disease Antibody E.chaffeensis DNA (PCR) E.ewingii/canis DNA PCR E.muris eauclairensis (PCR) Hepatitis A IgM Ab Pending Hep Bs Antigen Pending Hep B Core Total Ab Pending Hepatitis C Antibody Pending Pathology Consult Spec Pending A. phagocytophilum (PCR) Blood B. miyamotoi (PCR) 12/23/23 12/23/23 12/23/23 Range/Units 11:42 11:16 11:16 WBC (4.4-10.8) 10^3/uL RBC (4.36-5.78) 10^6/uL Hgb (13.5-17.5) g/dL Hct (40.0-50.0) % MCV (80-95) fL MCH (27.0-33.0) pg MCHC (32.0-36.0) % RDW (11.8-14.1) % Plt Count (130-400) 10^3/uL MPV (8.0-11.0) fL Immature Gran % % Neutrophils % % Band Neutrophils % % Lymphocytes % % Atypical Lymphs % % Monocytes % % Eosinophils % % Basophils % % Nucleated RBC % (0.0-0.3) % Absolute Neutrophils (1.2-6.7) 10^3/uL Absolute Lymphocytes (1.2-3.4) 10^3/uL Absolute Monocytes (0.1-0.8) 10^3/uL Absolute Eosinophils (0.0-0.7) 10^3/uL Absolute Basophils (0.0-0.2) 10^3/uL RBC Morphology ESR (0-20) mm/hr D-Dimer (<500) ng/mlFEU VBG Lactate 2.1 H (0.6-1.4) mmol/L Sodium (136-145) mmol/L Potassium (3.5-5.1) mmol/L Chloride (98-107) mmol/L Carbon Dioxide (21.0-32.0) mmol/L Anion Gap (3-11) mmol/L BUN (7-18) mg/dL Creatinine (0.70-1.30) mg/dL Est GFR (CKD-EPI 2020) (mL/min/1.73m2) Glucose (74-106) mg/dL Calcium (8.5-10.1) mg/dL Magnesium (1.8-2.4) mg/dL Total Bilirubin (0.2-1.0) mg/dL Conjugated Bilirubin (0.0-0.2) mg/dL AST (15-37) U/L ALT (16-63) U/L Alkaline Phosphatase (46-116) U/L Troponin I Cancelled (< or =60) ng/L Total Protein 7.4 (6.4-8.2) g/dL Albumin 2.9 L (3.4-5.0) g/dL Lipase 41 (16-77) U/L Procalcitonin 0.8 ng/mL TSH Cancelled 0.20 L (0.36-3.74) uIU/mL Free T4 1.36 (0.76-1.46) ng/dL B. divergens/MO-1 PCR Pending Babesia duncani (PCR) Pending Babesia microti DNA PCR Pending Lyme Disease Antibody Pending E.chaffeensis DNA (PCR) Pending E.ewingii/canis DNA PCR Pending E.muris eauclairensis (PCR) Pending Hepatitis A IgM Ab Hep Bs Antigen Hep B Core Total Ab Hepatitis C Antibody Pathology Consult Spec A. phagocytophilum (PCR) Pending Blood B. miyamotoi (PCR) Pending 12/23/23 Range/Units 11:16 WBC 5.82 (4.4-10.8) 10^3/uL RBC 4.81 (4.36-5.78) 10^6/uL Hgb 13.3 L (13.5-17.5) g/dL Hct 39.1 L (40.0-50.0) % MCV 81 (80-95) fL MCH 27.7 (27.0-33.0) pg MCHC 34.0 (32.0-36.0) % RDW 13.8 (11.8-14.1) % Plt Count 97 L (130-400) 10^3/uL MPV 9.4 (8.0-11.0) fL Immature Gran % 0.0 % Neutrophils % 72.0 % Band Neutrophils % 0 % Lymphocytes % 14.0 % Atypical Lymphs % 7 % Monocytes % 6.0 % Eosinophils % 1.0 % Basophils % 0.0 % Nucleated RBC % 0.0 (0.0-0.3) % Absolute Neutrophils 4.19 (1.2-6.7) 10^3/uL Absolute Lymphocytes 1.22 (1.2-3.4) 10^3/uL Absolute Monocytes 0.35 (0.1-0.8) 10^3/uL Absolute Eosinophils 0.06 (0.0-0.7) 10^3/uL Absolute Basophils 0.00 (0.0-0.2) 10^3/uL RBC Morphology Normal ESR 25 H (0-20) mm/hr D-Dimer 2025 H (<500) ng/mlFEU VBG Lactate (0.6-1.4) mmol/L Sodium 135 L (136-145) mmol/L Potassium 3.4 L (3.5-5.1) mmol/L Chloride 98 (98-107) mmol/L Carbon Dioxide 26.9 (21.0-32.0) mmol/L Anion Gap 10.1 (3-11) mmol/L BUN 13 (7-18) mg/dL Creatinine 1.1 (0.70-1.30) mg/dL Est GFR (CKD-EPI 2020) 76.37 (mL/min/1.73m2) Glucose 132 H (74-106) mg/dL Calcium 8.7 (8.5-10.1) mg/dL Magnesium 1.9 (1.8-2.4) mg/dL Total Bilirubin 1.00 (0.2-1.0) mg/dL Conjugated Bilirubin 0.5 H (0.0-0.2) mg/dL AST 64 H (15-37) U/L ALT 151 H (16-63) U/L Alkaline Phosphatase 273 H (46-116) U/L Troponin I < 50 (< or =60) ng/L Total Protein (6.4-8.2) g/dL Albumin (3.4-5.0) g/dL Lipase (16-77) U/L Procalcitonin ng/mL TSH (0.36-3.74) uIU/mL Free T4 (0.76-1.46) ng/dL B. divergens/MO-1 PCR Babesia duncani (PCR) Babesia microti DNA PCR Lyme Disease Antibody E.chaffeensis DNA (PCR) E.ewingii/canis DNA PCR E.muris eauclairensis (PCR) Hepatitis A IgM Ab Hep Bs Antigen Hep B Core Total Ab Hepatitis C Antibody Pathology Consult Spec A. phagocytophilum (PCR) Blood B. miyamotoi (PCR) 12/23/23 13:21 Blood Culture - Pending Blood 12/23/23 13:21 Blood Culture - Pending Blood Intake and Output - 24 Hour Total 12/23/23 10:49 thru 12/23/23 16:50 Intake Total 1200 Balance 1200 Weight 79.379 kg Intake: IV 1200 Falls Risk Assessment History of Falls No History 12/23/23 16:39 Contributing Factors No Factors 12/23/23 16:39 Ambulatory Aids Independent 12/23/23 16:39 Tubes/Lines None 12/23/23 16:39 Gait Evaluation No gait disturbance 12/23/23 16:39 Cognition No cognitive impairment 12/23/23 16:39 Fall Total Score 0 12/23/23 16:39 Level of Risk Standard/Low Risk 12/23/23 16:39 Problems (This Medical Record has been edited. Action required.) Fever of unknown origin (Acute) Depression (Chronic) Discharge planning issues (Acute) On deep vein thrombosis (DVT) prophylaxis (Acute) Sepsis (Acute) Hematuria (Acute) BPH w urinary obs/LUTS (Acute) v v v v v v v v v Sending and/or Receiving Nurses: Please use comment section below to note any information pertinent to the patient hand-off not included above. Information / Comments: Report given by GALINDO Radford from ER. Patient is AOx 4. Denied of abdominal pain. Temp 37.5. has on going Vancomycin IV infusing well. Oriented to call lights system. Spouse at bedside and aware of visiting hrs policy. Report received from:
[2023-12-23] MEDS: Normal Saline Flush 10 ML SYR IVP ×2 (18:10→20:21)
[2023-12-23] MEDS: Pantoprazole 40 MG VIAL IVP (18:11)
[2023-12-23] MEDS: Venlafaxine 75 MG CAPCR PO (20:22)
[2023-12-23] MEDS: Albuterol 2.5 MG/3 ML INH SOLN VIAL UPD (20:23)
[2023-12-23] MEDS: Ibuprofen 400 MG TAB PO (20:34)
[2023-12-23] MEDS: Acetaminophen 325 MG TAB 650 MG PO (23:23)
[2023-12-23] MEDS: Normal Saline 1,000 ML 125 ML IV (23:24)
[2023-12-23] MEDS: Benzonatate 200 MG CAP PO (23:58)
[2023-12-24 03:28] VITALS: BP 105/73; PULSE 83; RESP 17; TEMP 35.9; O2SAT 95
[2023-12-24] MEDS: VANCOMYCIN/WATER (PEG) 750 MG/150 ML BAG 150 MG IVPB (05:28)
[2023-12-24 06:55] LABS: Abs Immature Grans 0.02 10^3/uL (0.0-0.06); HCT 35.1 % (40.0-50.0); MCH 27.8 pg (27.0-33.0); MCHC 34.2 % (32.0-36.0); MCV 81 fL (80-95); MPV 10.1 fL (8.0-11.0); RBC 4.31 10^6/uL (4.36-5.78); RDW 14.3 % (11.8-14.1); RDW-SD 42.5 fL; WBC 4.66 10^3/uL (4.4-10.8)
[2023-12-24 07:04] LABS: Anion Gap 9.8 mmol/L (3-11); BUN 15 mg/dL (7-18); CO2 23.2 mmol/L (21.0-32.0); Chloride 107 mmol/L (98-107); Estimated GFR 85.63 (mL/min/1.73m2); Glucose 111 mg/dL (74-106); Potassium 3.4 mmol/L (3.5-5.1); Sodium 140 mmol/L (136-145)
[2023-12-24] MEDS: Omeprazole 20 MG CAPCR 40 MG PO (07:17)
[2023-12-24 07:21] LABS: Absolute Eosinophil Count 0.05 10^3/uL (0.0-0.7); Absolute Lymphocyte Count 1.35 10^3/uL (1.2-3.4); Absolute Monocyte Count 0.09 10^3/uL (0.1-0.8); Absolute Neutrophil Count 3.17 10^3/uL (1.2-6.7); Atypical Lymphocytes % 11 %; Bands % 0 %
[2023-12-24 07:22] LABS: Diff Comment Manual Differential; Platelet Count 68 10^3/uL (130-400); RBC Morphology Normal
[2023-12-24 07:26] VITALS: BP 105/76; PULSE 78; RESP 18; TEMP 36.5; O2SAT 96
[2023-12-24] MEDS: Finasteride 5 MG TAB PO (07:39)
[2023-12-24] MEDS: Normal Saline Flush 10 ML SYR IVP (07:39)
[2023-12-24] MEDS: Tamsulosin 0.4 MG CAPCR PO (07:39)
[2023-12-24] MEDS: CEFEPIME 2 GM in Normal Saline 100 ML IVPB (07:40)
--- NOTE | 2023-12-24 08:42 | INITIAL_ITS ---
Date of service: 12/24/23 Time of Service: 08:42 Care Management Initial Assmt Initial Assessment Reason for Hospitalization: sepsis Functional Status/Living Situation Patient Presentation: Sher was sitting up in bed visiting with his when CM met with him. He was very pleasant and easily engaged with CM. Sher has 3 step children, none of whom live locally. 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 Sher was admitted with sepsis. He has had nocturnal fevers for the past couple of weeks and a workup is in progress to determine the cause. On admission his temperature was 39.2 but has been below 38 since and his WBC is WNL. His blood pressure was stable however he has been tachycardic. Blood cultures are negative at 24 hours and a tick panel and hepatitis testing are pending. 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[employer]) Instrumental Activities of Daily Living (ADLs): Independent Medications Medication Management: No Issues/Barriers identified Advance Directives Advance Directives: Do you have an Advance Directive: N 04/06/13 13:42 AD On File at [facility]: N 09/06/12 12:26 Date Asked 12/23/23 12/23/23 10:56 AD Date Reviewed COLST On File at [facility] COLST Date Scanned Code Status Resuscitation Status Full Code Care Team Visit Care Team Role Provider Type Rosie Bess MD Primary Care Provider [facility] STAFF PHYSICIAN Josue Ferreira MD Other Providers [facility] STAFF PHYSICIAN TIFFANY Slaughter Emergency Provider PHYSICIANS EQUITY DIRECTOR Ramiro Delgado MD Admit Provider [facility] STAFF PHYSICIAN Attending Provider Discharge Potential Discharge Needs: PCP F/U Appt Anticipated Barriers to Discharge: None Identified Patient/Family Education Needs: Review discharge instructions, discuss Ask Me Three Transportation: Private vehicle Plan: Anticipate Sher will be discharged home when medically cleared with no new services. He will follow up with his PCP and plan of care and transport with family. CM will follow and continue to assess for discharge needs. PFSH All Active Problems (Updated 12/24/23 @ 10:19 by Danitza Holt APRN) Thrombocytopenia (Chronic) Nausea (Acute) Fever of unknown origin (Acute) Fever (Acute) Depression (Chronic) Discharge planning issues (Acute) On deep vein thrombosis (DVT) prophylaxis (Acute) Sepsis (Acute) Hematuria (Acute) BPH w urinary obs/LUTS (Acute) Medical History (Updated 12/24/23 @ 10:19 by Danitza Holt APRN) Bacterial meningitis Pancreatitis, gallstone GERD (gastroesophageal reflux disease) Anxiety PTSD (post-traumatic stress disorder) Surgical History (Updated 12/23/23 @ 17:34 by Danitza Holt APRN) History of cholecystectomy Repair of inguinal hernia Bilateral EGD - IV Sedation Colonoscopy - IV Sedation Social History (System 10/18/20 @ 10:03 by Anastasia Davies) Smoking/Tobacco Use Status: Never Smoking risk assessment performed?: Yes Drug use: Current Sobriety Housing: house SDOH(Care Management) Screening Will the Patient Participate in the Screening?: Yes Do you worry about having a steady place to live?: no Problems where you live: no known problems In the past 12 months, have you had to go without electric, gas, oil or water in your home?: no Have you or anyone in your house had to go without enough food to eat?: no Has lack of transportation kept you from medical appointments or from doing things needed for daily living?: no Has anyone in your support network made you feel unsafe for any reason?: no
[2023-12-24 10:00] LABS: Lyme Ab w Rflx to Lyme Confirm Equivocal (Negative)
--- NOTE | 2023-12-24 10:04 | W.PM.PROGNOT ---
Date of Service Date of service: 12/24/23 Time of Service: 10:04 Assessment and Plan Assessment and plan (1) Sepsis: Status: Acute Assessment and plan: T max 39.2 in the ED , HR 109, procal 0.8- No fever overnight blood cultures negative at 24 hours NS 2 liters in the ED NS at 125cc/hr will d/c if oral fluid tolerated Stop cefepime and Vancomycin: Burgdorfei + -Starting doxycycline (2) Fever of unknown origin: Status: Acute Assessment and plan: PRN Acetaminophen and ibuprofen Hepatitis pending tick born-illness panels: positive and as above (3) Thrombocytopenia: Status: Chronic Assessment and plan: Pathology consult for blood smear ordered yesterday and pending plat down to 68 from 97 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 Ferreira: platelet down to 68 today , might warrant delay labs in AM (5) BPH w urinary obs/LUTS: Status: Acute Assessment and plan: Continue finesteride and tamsulosin (6) On deep vein thrombosis (DVT) prophylaxis: Status: Acute Assessment and plan: Considered Lovenox but d/t platelets at 97 initially and now 68 , will start SCD's (7) Depression: Status: Chronic Assessment and plan: Conitnue home dose effexor (8) Nausea: Status: Acute Assessment and plan: PRN antiemetics (9) Discharge planning issues: Status: Acute Assessment and plan: CM to f/u discussed with Dr. Delgado Subjective Subjective Patient reports: no new complaints, feels better, tolerating liquids well, tolerating a regular diet, voiding w/o difficulty and flatus; denies still having pain, diarrhea, blood in stool, nausea, vomiting, shortness of breath or fever Exam Narrative Exam Narrative: HENMT:Facial structures with normal appearance Eyes: Well aligned, sclera is not white but not icteric Neck: Normal ROM, no meningeal signs Neuro:alert and oriented to self, person, place, situation; time off by one day ; No neurological focal deficit, PERRLA Chest:Chest is symmetrical and normal appearance Resp: Normal respiratory pattern, speaks in full sentences, unlabored breathing, clear lung bilaterally Cardio: regular rhythm, S1, S2, no murmur, capillary refill<3 sec., bilateral radial and dorsalis pedis pulses are positive GI: Abdomen is not distended, soft and diffusely tender to lower quadrants, bowel sounds are present : Negative Costovertebral angle tenderness Back/spine/Pelvis: No back tenderness, normal alignment Integumentary: No skin lesions or rash, no open wound reported Psych: RASS 0, congruent mood and normal affect. Objective Last Vital Signs Temp 36.5 C 12/24/23 07:26 Pulse 78 12/24/23 07:26 Resp 18 12/24/23 07:26 BP 105/76 12/24/23 07:26 Pulse Ox 96 12/24/23 07:26 Laboratory Results - last 24 hr 12/23/23 12/23/23 12/23/23 11:16 11:16 11:16 WBC 5.82 RBC 4.81 Hgb 13.3 L Hct 39.1 L MCV 81 MCH 27.7 MCHC 34.0 RDW 13.8 Plt Count 97 L MPV 9.4 Immature Gran % 0.0 Neutrophils % 72.0 Band Neutrophils % 0 Lymphocytes % 14.0 Atypical Lymphs % 7 Monocytes % 6.0 Eosinophils % 1.0 Basophils % 0.0 Nucleated RBC % 0.0 Absolute Neutrophils 4.19 Absolute Lymphocytes 1.22 Absolute Monocytes 0.35 Absolute Eosinophils 0.06 Absolute Basophils 0.00 RBC Morphology Normal ESR 25 H D-Dimer 2024 H VBG Lactate Sodium 135 L Potassium 3.4 L Chloride 98 Carbon Dioxide 26.9 Anion Gap 10.1 BUN 13 Creatinine 1.1 Est GFR (CKD-EPI 2020) 76.37 Glucose 132 H Calcium 8.7 Magnesium 1.9 Total Bilirubin 1.00 Conjugated Bilirubin 0.5 H AST 64 H ALT 151 H Alkaline Phosphatase 273 H Troponin I < 50 Cancelled Total Protein 7.4 Albumin 2.9 L Lipase 41 Procalcitonin 0.8 TSH 0.20 L Cancelled Free T4 1.36 12/23/23 12/23/23 12/24/23 11:42 17:08 06:00 WBC 4.66 RBC 4.31 L Hgb 12.0 L Hct 35.1 L MCV 81 MCH 27.8 MCHC 34.2 RDW 14.3 H Plt Count 68 L MPV 10.1 Immature Gran % 0.0 Neutrophils % 68.0 Band Neutrophils % 0 Lymphocytes % 18.0 Atypical Lymphs % 11 Monocytes % 2.0 Eosinophils % 1.0 Basophils % 0.0 Nucleated RBC % 0.0 Absolute Neutrophils 3.17 Absolute Lymphocytes 1.35 Absolute Monocytes 0.09 L Absolute Eosinophils 0.05 Absolute Basophils 0.00 RBC Morphology Normal ESR D-Dimer VBG Lactate 2.1 H 0.8 L Sodium 140 Potassium 3.4 L Chloride 107 Carbon Dioxide 23.2 Anion Gap 9.8 BUN 15 Creatinine 1.0 Est GFR (CKD-EPI 2020) 85.63 Glucose 111 H Calcium 8.0 L Magnesium Total Bilirubin Conjugated Bilirubin AST ALT Alkaline Phosphatase Troponin I Total Protein Albumin Lipase Procalcitonin TSH Free T4 Time Spent with Patient Time Spent with Patient: >50 minutes Time was spent: preparing to see the patient(eg.review tests), obtaining and/or reviewing separately otained hiistory, ordering medications,tests, procedures, referring, communicating with other health healthcare economics manager, indepentently interpreting results, counseling the patient and care coordination
[2023-12-24] MEDS: Normal Saline 1,000 ML 125 ML IV (10:08)
[2023-12-24] MEDS: Potassium Chloride 20 MEQ TABCR 40 MEQ PO (10:22)
[2023-12-24 10:51] LABS: Lyme IgG Ab Negative (Negative); Lyme IgM Ab Positive (Negative)
[2023-12-24 11:17] LABS: PTT Activated 27.2 sec (23.6-32.8)
--- NOTE | 2023-12-24 11:23 | PHACLINREV_ITS ---
Pharmacy Admission Review Admission Clinical Review Admission Pharmacy Review: Nausea (Acute) Fever of unknown origin (Acute) Discharge planning issues (Acute) On deep vein thrombosis (DVT) prophylaxis (Acute) Sepsis (Acute) Hematuria (Acute) BPH w urinary obs/LUTS (Acute) hydrocodone bitartrate (From Vicodin) Adverse Reaction (Intermediate, Unverified 12/23/23 10:56) Nausea & vomiting Resuscitation Status Full Code Height 5 ft 7 in Weight 83.053 kg Pharmacy Admission Review Renal Dosing Renal Dosing: BUN 15 mg/dL (7-18) 12/24/23 06:00 Creatinine 1.0 mg/dL (0.70-1.30) 12/24/23 06:00 Medications needing adjustments: Reviewed (CrCl 79.97 mL/min) List of meds needing interventions: Current medications are okay Anticoagulation Anticoagulation: Hgb 12.0 g/dL (13.5-17.5) L 12/24/23 06:00 Hct 35.1 % (40.0-50.0) L 12/24/23 06:00 Plt Count 68 10^3/uL (130-400) L 12/24/23 06:00 Creatinine 1.0 mg/dL (0.70-1.30) 12/24/23 06:00 DVT Prophylaxis: Intervened (Provider mentioned in H+P yesterday that they were going to start Lovenox. Reached out to provider because order was never put in. Wants to hold off due to PLT count of 68, put in order for SCDs) Relevant Labs Relevant Labs: ESR 25 mm/hr (0-20) H 12/23/23 11:16 Sodium 140 mmol/L (136-145) 12/24/23 06:00 Potassium 3.4 mmol/L (3.5-5.1) L 12/24/23 06:00 Chloride 107 mmol/L (98-107) 12/24/23 06:00 Magnesium 1.9 mg/dL (1.8-2.4) 12/23/23 11:16 Electrolytes, C-Reactive P, ESR: Reviewed (K 3.4 - 40mEq x1 given today, glucose 111) Cardiac Review Cardiac Review: Troponin I < 50 ng/L (< or =60) 12/23/23 11:16 Troponin I Cancelled 12/23/23 11:16 Blood Pressure 105/76 0726 Blood Pressure 105/73 0328 BP, HR, EF%: Reviewed (BP and HR WNL) QTc Review QTc: Reviewed (471 from 12/23/23) IV to PO Switch IV Medications: Reviewed (Vancomycin, prochlorperazine, ondansetron, and c efepime) Home Meds Home Med List reviewed: Reviewed Current Meds Current Medication Order Review: Intervened Comments: Had order for omeprazole PO and pantoprazole IV. Discontinued order for IV pantoprazole. Pharmacy Antibiotic Review Relevant Labs: Relevant Labs 12/23/23 11:16 Procalcitonin 0.8 WBC 4.66 10^3/uL (4.4-10.8) 12/24/23 06:00 Procalcitonin 0.8 ng/mL 12/23/23 11:16 Temperature 36.5 C Temperature 35.9 C Pharmacy Antibiotic Activity: C/S review and Reviewed, no change Comments: Patient is on cefepime and vancomycin, day 1, for sepsis with unknown source. Vancomycin 750mg q12h with predicted AUC of 474 and trough of 15.7. Level pending for today at 1200 (after dose #2), will adjust dose as needed. Blood cultures pending. Had elevated temp of 37.7 yesterday at 2323.
[2023-12-24 11:28] VITALS: BP 113/85; PULSE 88; RESP 18; TEMP 36.6; O2SAT 98
[2023-12-24 12:08] LABS: MRSA PCR Negative (Negative)
[2023-12-24 12:56] LABS: Vancomycin, Random 8.3 ug/mL
[2023-12-24] MEDS: Acetaminophen 325 MG TAB 650 MG PO ×2 (13:31→23:35)
[2023-12-24 14:21] LABS: Fibrinogen (Stat) (Littleton) 463 mg/dL (208-434)
[2023-12-24 15:03] VITALS: BP 114/78; PULSE 89; RESP 18; TEMP 37; O2SAT 96
--- NOTE | 2023-12-24 16:23 | W.UROLOGYCON ---
Date of service: 12/24/23 Time of Service: 16:23 Assessment and Plan Assessment and plan (1) Hematuria: Status: Acute Assessment and plan: We still need to complete his hematuria workup with a cystoscopy. We do not need additional renal imaging after his CT scans were done through the emergency department. I do not think there is any urgency or emergency to doing the cystoscopy unless he develops clot retention. We will see how his clinical picture changes over the next day or 2 before deciding when to do the cystoscopy. History of Present Illness History of Present Illness Chief Complaint: Hematuria Narrative: This is a 63-year-old gentleman who was seen in our office for hematuria. As part of his workup, we were planning on doing a renal ultrasound and cystoscopy in the office. When he came to our office yesterday, he described fevers and nausea. He was sent to the emergency department for further evaluation. He was admitted for a fever of unknown origin workup. While in the emergency room, he had a CT of the chest abdomen and pelvis. No renal abnormalities were identified. Since his admission, he tells me that he is feeling a bit better. He is not seeing gross hematuria or clots as of today. PFSH All Active Problems (Updated 12/26/23 @ 00:09 by ENE CHRISTY) Lyme disease (Acute) Thrombocytopenia (Chronic) Fever of unknown origin (Acute) Fever (Acute) Depression (Chronic) Hematuria (Acute) BPH w urinary obs/LUTS (Acute) Medical History (Updated 12/26/23 @ 00:09 by ENE CHRISTY) Bacterial meningitis Pancreatitis, gallstone GERD (gastroesophageal reflux disease) Anxiety PTSD (post-traumatic stress disorder) Surgical History (Updated 12/23/23 @ 17:34 by Danitza Holt APRN) History of cholecystectomy Repair of inguinal hernia Bilateral EGD - IV Sedation Colonoscopy - IV Sedation Social History (System 10/18/20 @ 10:03 by Anastasia Davies) Smoking/Tobacco Use Status: Never Smoking risk assessment performed?: Yes Drug use: Current Sobriety Housing: house Exam Narrative Exam Narrative: He does not appear toxic at this time His vital signs are documented elsewhere His abdomen is soft with no guarding or rebound tenderness He is awake and alert I reviewed his CT scan on the PACS system. There is no evidence of renal mass, no hydronephrosis and no filling defect in the ureter on the contrast study. Results Last Vital Signs Temp 37.0 C 12/24/23 15:03 Pulse 89 12/24/23 15:03 Resp 18 12/24/23 15:03 BP 114/78 12/24/23 15:03 Pulse Ox 96 12/24/23 15:03 Labs 12/25/23 05:56 12/25/23 05:56 Labs: Laboratory Results - last 24 hr 12/23/23 12/23/23 12/23/23 11:16 11:51 17:08 WBC RBC Hgb Hct MCV MCH MCHC RDW Plt Count MPV Immature Gran % Neutrophils % Band Neutrophils % Lymphocytes % Atypical Lymphs % Monocytes % Eosinophils % Basophils % Nucleated RBC % Absolute Neutrophils Absolute Lymphocytes Absolute Monocytes Absolute Eosinophils Absolute Basophils RBC Morphology APTT Fibrinogen VBG Lactate 0.8 L Sodium Potassium Chloride Carbon Dioxide Anion Gap BUN Creatinine Est GFR (CKD-EPI 2020) Glucose Calcium Random Vancomycin B.burgdorferi IgG Negative B.burgdorferi IgM Positive A Lyme Disease Antibody Equivocal A Lyme Ab Interpretation See Comment MRSA (TEM-PCR) Pathology Consult Spec SEE COMMENT 12/24/23 12/24/23 12/24/23 06:00 10:22 10:55 WBC 4.66 RBC 4.31 L Hgb 12.0 L Hct 35.1 L MCV 81 MCH 27.8 MCHC 34.2 RDW 14.3 H Plt Count 68 L MPV 10.1 Immature Gran % 0.0 Neutrophils % 68.0 Band Neutrophils % 0 Lymphocytes % 18.0 Atypical Lymphs % 11 Monocytes % 2.0 Eosinophils % 1.0 Basophils % 0.0 Nucleated RBC % 0.0 Absolute Neutrophils 3.17 Absolute Lymphocytes 1.35 Absolute Monocytes 0.09 L Absolute Eosinophils 0.05 Absolute Basophils 0.00 RBC Morphology Normal APTT 27.2 Fibrinogen 463 H VBG Lactate Sodium 140 Potassium 3.4 L Chloride 107 Carbon Dioxide 23.2 Anion Gap 9.8 BUN 15 Creatinine 1.0 Est GFR (CKD-EPI 2020) 85.63 Glucose 111 H Calcium 8.0 L Random Vancomycin B.burgdorferi IgG B.burgdorferi IgM Lyme Disease Antibody Lyme Ab Interpretation MRSA (TEM-PCR) Negative Pathology Consult Spec 12/24/23 12:27 WBC RBC Hgb Hct MCV MCH MCHC RDW Plt Count MPV Immature Gran % Neutrophils % Band Neutrophils % Lymphocytes % Atypical Lymphs % Monocytes % Eosinophils % Basophils % Nucleated RBC % Absolute Neutrophils Absolute Lymphocytes Absolute Monocytes Absolute Eosinophils Absolute Basophils RBC Morphology APTT Fibrinogen VBG Lactate Sodium Potassium Chloride Carbon Dioxide Anion Gap BUN Creatinine Est GFR (CKD-EPI 2020) Glucose Calcium Random Vancomycin 8.3 B.burgdorferi IgG B.burgdorferi IgM Lyme Disease Antibody Lyme Ab Interpretation MRSA (TEM-PCR) Pathology Consult Spec
[2023-12-24] MEDS: DOXYCYCLINE 100 MG in Normal Saline 100 ML IVPB (16:26)
[2023-12-24 19:29] VITALS: BP 139/76; PULSE 87; RESP 19; TEMP 37.3; O2SAT 96
[2023-12-24 20:31] LABS: Hepatitis A Antibody IgM Negative (Negative); Hepatitis B Core Antibody Negative (Negative); Hepatitis B surface Ag Negative (Negative); Hepatitis C Ab w Rflx HCV PCR Reactive (Negative)
[2023-12-24] MEDS: Venlafaxine 75 MG CAPCR PO (20:31)
[2023-12-24 23:22] VITALS: BP 139/92; PULSE 87; RESP 17; TEMP 37.4; O2SAT 97
[2023-12-24] MEDS: Benzonatate 200 MG CAP PO (23:35)
[2023-12-25 03:25] VITALS: BP 121/79; PULSE 74; RESP 16; TEMP 36.4; O2SAT 96
[2023-12-25] MEDS: DOXYCYCLINE 100 MG in Normal Saline 100 ML IVPB (03:59)
[2023-12-25 06:46] LABS: Abs Immature Grans 0.02 10^3/uL (0.0-0.06); HCT 31.7 % (40.0-50.0); HGB 10.8 g/dL (13.5-17.5); MCH 27.4 pg (27.0-33.0); MCHC 34.1 % (32.0-36.0); MCV 81 fL (80-95); MPV 9.8 fL (8.0-11.0); Platelet Count 111 10^3/uL (130-400); RBC 3.94 10^6/uL (4.36-5.78); RDW 14.6 % (11.8-14.1); RDW-SD 42.8 fL
[2023-12-25 07:02] LABS: Anion Gap 9.5 mmol/L (3-11); BUN 10 mg/dL (7-18); CO2 22.5 mmol/L (21.0-32.0); CREATININE 0.8 mg/dL (0.70-1.30); Calcium 8.1 mg/dL (8.5-10.1); Chloride 108 mmol/L (98-107); Estimated GFR 100.69 (mL/min/1.73m2); Glucose 105 mg/dL (74-106); Potassium 3.7 mmol/L (3.5-5.1); Sodium 140 mmol/L (136-145)
[2023-12-25 07:11] LABS: Absolute Lymphocyte Count 3.53 10^3/uL (1.2-3.4); Absolute Neutrophil Count 1.51 10^3/uL (1.2-6.7); Atypical Lymphocytes % 2 %
[2023-12-25 07:12] LABS: Absolute Eosinophil Count 0.06 10^3/uL (0.0-0.7); Diff Comment Manual Differential
[2023-12-25 07:13] LABS: RBC Morphology Normal
[2023-12-25 07:33] VITALS: BP 115/82; PULSE 73; RESP 14; TEMP 37.1; O2SAT 97
[2023-12-25] MEDS: Finasteride 5 MG TAB PO (07:52)
[2023-12-25] MEDS: Omeprazole 20 MG CAPCR 40 MG PO (07:53)
[2023-12-25] MEDS: Tamsulosin 0.4 MG CAPCR PO (07:53)
[2023-12-25] MEDS: Normal Saline Flush 10 ML SYR IVP (07:54)
[2023-12-25] MEDS: Docusate Sodium 100 MG CAP PO (07:57)
--- NOTE | 2023-12-25 08:39 | PDOC.CMPRO ---
Date of service: 12/25/23 Time of Service: 08:39 Care Management Progress Note Discharge Potential Discharge Needs: PCP F/U Appt Anticipated Barriers to Discharge: None Identified Patient/Family Education Needs: Review discharge instructions, discuss Ask Me Three Transportation: Private vehicle Plan: Anticipate Sher will be discharged home, likely with no new services. He will follow up with his PCP and plan of care and transport with family. CM will follow and continue to support discharge needs. SDOH(Care Management) Screening Will the Patient Participate in the Screening?: Yes Do you worry about having a steady place to live?: no Problems where you live: no known problems In the past 12 months, have you had to go without electric, gas, oil or water in your home?: no Have you or anyone in your house had to go without enough food to eat?: no Has lack of transportation kept you from medical appointments or from doing things needed for daily living?: no Has anyone in your support network made you feel unsafe for any reason?: no
--- NOTE | 2023-12-25 09:15 | RT.EKG_ITS ---
APPROVED REPORT Exam: Resting ECG Reason for Exam: Lyme disease Patient Location: I HR:78 bpm ECG Measurements Heart Rate 78 AXIS NH 171 P 36 QRSd 91 QRS -21 QT 391 T 34 QTc 445 Conclusion Sinus rhythm...normal P axis, V-rate 60- 99 Normal Electrocardiogram
--- NOTE | 2023-12-25 09:16 | W.PM.PROGNOT ---
Date of Service Date of service: 12/25/23 Time of Service: 09:17 Objective Last Vital Signs Temp 37.1 C 12/25/23 07:33 Pulse 73 12/25/23 07:33 Resp 14 12/25/23 07:33 BP 115/82 12/25/23 07:33 Pulse Ox 97 12/25/23 07:33 Laboratory Results - last 24 hr 12/23/23 12/23/23 12/24/23 11:16 11:51 10:22 WBC RBC Hgb Hct MCV MCH MCHC RDW Plt Count MPV Immature Gran % Neutrophils % Lymphocytes % Atypical Lymphs % Monocytes % Eosinophils % Basophils % Nucleated RBC % Absolute Neutrophils Absolute Lymphocytes Absolute Monocytes Absolute Eosinophils Absolute Basophils RBC Morphology APTT Fibrinogen Sodium Potassium Chloride Carbon Dioxide Anion Gap BUN Creatinine Est GFR (CKD-EPI 2020) Glucose Calcium Random Vancomycin B.burgdorferi IgG Negative B.burgdorferi IgM Positive A Lyme Disease Antibody Equivocal A Lyme Ab Interpretation See Comment MRSA (TEM-PCR) Negative Pathology Consult Spec SEE COMMENT 12/24/23 12/24/23 12/25/23 10:55 12:27 05:56 WBC 5.60 RBC 3.94 L Hgb 10.8 L Hct 31.7 L MCV 81 MCH 27.4 MCHC 34.1 RDW 14.6 H Plt Count 111 L D MPV 9.8 Immature Gran % 0.0 Neutrophils % 27.0 Lymphocytes % 61.0 Atypical Lymphs % 2 Monocytes % 9.0 Eosinophils % 1.0 Basophils % 0.0 Nucleated RBC % 0.0 Absolute Neutrophils 1.51 Absolute Lymphocytes 3.53 H Absolute Monocytes 0.50 Absolute Eosinophils 0.06 Absolute Basophils 0.00 RBC Morphology Normal APTT 27.2 Fibrinogen 463 H Sodium 140 Potassium 3.7 Chloride 108 H Carbon Dioxide 22.5 Anion Gap 9.5 BUN 10 Creatinine 0.8 Est GFR (CKD-EPI 2020) 100.69 Glucose 105 Calcium 8.1 L Random Vancomycin 8.3 B.burgdorferi IgG B.burgdorferi IgM Lyme Disease Antibody Lyme Ab Interpretation MRSA (TEM-PCR) Pathology Consult Spec
[2023-12-25] MEDS: Normal Saline 1,000 ML 125 ML IV (10:33)
[2023-12-25 11:05] VITALS: BP 118/82; PULSE 80; RESP 17; TEMP 36.4; O2SAT 95
--- NOTE | 2023-12-25 11:26 | DSE_ITS ---
Date of service: 12/25/23 Time of Service: 11:26 DS: Diagnosis Discharge Diagnosis (1) Sepsis: Status: Deleted (2) Fever of unknown origin: Status: Acute (3) Lyme disease: Status: Acute (4) Thrombocytopenia: Status: Chronic (5) Hematuria: Status: Acute (6) BPH w urinary obs/LUTS: Status: Acute (7) Depression: Status: Chronic (8) Nausea: Status: Resolved Discharge Plan Disposition Patient Disposition: Home Condition: Improving Discharge Details Reason For Visit: sepsis wo source fvr of unknown nataliia thrombocytopen Admit Date/Time: 12/23/23 16:23 Admit Provider: Ramiro Delgado Attending Provider: Ramiro Delgado Primary Care Provider: Rosie Bess [facility] Course Hospital Course: This 63 years old male patient with a past medical history of posttraumatic stress disorder, depression, gastroesophageal reflux disease, Substance abuse, microscopic and gross hematuria, BPH with LUTS seen in urology the morning of presentation presented to the ED at [facility] on 12/23/2023 as per urology service directions for evaluation of nocturnal febrile illness starting approximately 2 weeks ago. The workup in the ED was significant for a lactate of 2.9, procalcitonin of 0.8 without leukocytosis, platelets of 97, sodium of 135, potassium of 3.4, ESR of 25, D-dimer of [address] a of the chest abdomen and pelvis showed no evidence of pulmonary embolism and no other acute findings. Workup was also negative for UTI. The hospitalist was consulted and the patient was admitted to the medical surgical floor for evaluation and management of sepsis of unknown source, fever of unknown etiology, and thrombocytopenia. In the ED the patient was treated with 2 L of normal saline bolus, cefepime and vancomycin, IV acetaminophen and IV ketorolac were also administered for Tmax of 39.2. The patient was without acute distress, denied pain recent traveling recent trauma, neck stiffness, night sweats, recent weight loss, headache. The patient reported having multiple indoor cats and getting scratched at the time but wit hout fresh scratches or open wounds and no rash. The patient later reported mild headache, blurry vision and dizziness with high fevers as well as intermittent nausea and acute light sensitivity. The patient reported no history of bacterial meningitis as a child as well as pancreatitis and cholecystectomy 4 years ago with complication at [facility]. In the stay the patient continued to receive cefepime and doxycycline, blood cultures were negative at 24 hours. B. Burgdorferi IgM were positive pointing to acute Lyme disease infection. Cefepime and vancomycin were discontinued. Treatment was initiated with of doxycycline IV. The patient will be discharged home on oral doxycycline 100 mg twice a day for total of 21 days. Patient will be discharged on MiraLAX to prevent constipation and should stop it if he develops liquid stools. Other tick-born illness and hepatitis panel results were pending to be reviewed during follow-up with primary care practitioner. Hepatitis C antibody was reactive but HCV RNA result to diagnose acute infection is still pending, follow-up necessary by PCP. Urology was consulted and could not proceed with cystoscopy while the patient was admitted due to thrombocytopenia with platelet going down to 68; now platelets are at 111. Urology will contact him for an appointment. The patient chronic conditions were treated as his home med regimen. The patient will have to have a follow-up with his primary care provider within 7 days of discharge or as soon as possible. Patient was concerned in returning to work at the [employer] of next week and should stay home until Saturday, December [address] Delgado Home Meds and New Rx's Prescriptions: New polyethylene glycol 3350 17 gram Powder In Packet 17 g PO DAILY Qty: 14 0RF doxycycline hyclate 100 mg Capsule 100 mg PO BID Qty: 34 0RF Continued finasteride 5 mg tablet 5 mg PO DAILY Qty: 90 4RF tamsulosin [Flomax] 0.4 mg capsule 0.4 mg PO DAILY Qty: 90 3RF omeprazole 20 MG capsule,delayed release(DR/EC) 40 mg PO DAILY Qty: 90 Rx Instructions: 1 CAP QAM venlafaxine 75 mg capsule,extended release 24hr 75 mg PO DAILY Patient Comments: Pt takes 75 mg for 4 days and then takes 35 for 3 days. Pt is trying to taper this medication. Ok'd by pt's provider Discharge Instructions Instructions: Sepsis, Adult (DC) Stand Alone Forms: Nursing Discharge Form Referrals: Rosie Bess MD [Primary Care Provider] - (Message left with office to call you and make a follow up appointment for 1-2. If you do not hear from them today please call them tomorrow for a follow up. ) Activity:: Activity as Tolerated Equipment/Supplies:: No Equipment Needed Diet:: As Tolerated Discharge Orders Discharge Orders: Discharge Order (Routine); Ordered 12/25/23 Ordered By: Danitza Holt Discharge Data Discharge Date/Time-TO BE ENTERED AT DEPARTURE: 12/25/23 14:25 DS: Summary Time Spent with Patient providing and/or coordinating discharge services: Greater than 30 minutes Status at Discharge Functional status at discharge: independent ambulation Overall status at discharge: patient is progressing back to baseline Mental Status: mental status grossly normal Speech and Movement: speech and movement normal Mood: congruent mood Affect: normal affect Quality:SDOH Health Related Social Needs: No Data to Display Exam Narrative Exam Narrative: HENMT:Facial structures with normal appearance Eyes: Well aligned, sclera is non-icteric, + light sensitivity Neck: Normal ROM, no meningeal signs Neuro:alert and oriented to self, person, place, situation; time off by one day ; No neurological focal deficit Resp: Normal respiratory pattern, speaks in full sentences, unlabored breathing, clear lung bilaterally Cardio:EKG showed no diffused or contiguous ST elevation, no ST depression, SR HR 78, no murmur GI: Abdomen is not distended, non-tender, bowel sounds are present : Negative Costovertebral angle tenderness Back/spine/Pelvis: No back tenderness, normal alignment Integumentary: No lesions or rash on exposed skin, nor reported Psych: RASS 0, congruent mood and normal affect. Psych Mental Status: mental status grossly normal Speech and Movement: speech and movement normal Mood: congruent mood Affect: normal affect DS: Data Vitals/I&O Vitals and I&O: Vital Signs Temperature 36.4 C L 12/25/23 11:05 Temperature Source Skin 12/25/23 11:05 Pulse 80 12/25/23 11:05 Pulse Rhythm Regular 12/24/23 20:30 Pulse 104 H 12/23/23 17:10 Respiratory Rate 17 12/25/23 11:05 Respiratory Effort Normal, Non-Labored 12/24/23 20:30 Respiratory Depth Normal 12/24/23 20:30 Respiratory Pattern Normal 12/24/23 20:30 Blood Pressure 118/82 12/25/23 11:05 Blood Pressure Mean 86 12/23/23 17:00 Blood Pressure Position Sitting 12/23/23 16:39 Pulse Oximetry 95 12/25/23 11:05 Oxygen Delivery Method Room Air 12/25/23 11:05 Oxygen Flow Rate 0 12/25/23 11:05 Pain Level 0 12/25/23 11:05 Intake & Output 12/24/23 12/24/23 12/25/23 11:59 23:59 11:59 Intake Total 1100 / 1200 100 / 1200 1100 / 1100 Output Total 1325 / 2775 1450 / 2775 1475 / 1475 Balance -225 / -1575 -1350 / -1575 -375 / -375 Intake: IV 1100 / 1200 100 / 1200 1100 / 1100 Output: Urine 1325 / 2775 1450 / 2775 1475 / 1475 Other: Urine Color Light Radhika Yellow Yellow Urine Appearance Clear Clear Clear Urine Odor Strong Normal Normal Voiding Methods Urinal Urinal Toilet Data Completed and Pending Labs on day of discharge: Labs from last 24 hours 12/25/23 12/24/23 12/24/23 05:56 12:27 10:55 WBC 5.60 RBC 3.94 L Hgb 10.8 L Hct 31.7 L MCV 81 MCH 27.4 MCHC 34.1 RDW 14.6 H Plt Count 111 L D MPV 9.8 Immature Gran % 0.0 Neutrophils % 27.0 Lymphocytes % 61.0 Atypical Lymphs % 2 Monocytes % 9.0 Eosinophils % 1.0 Basophils % 0.0 Nucleated RBC % 0.0 Absolute Neutrophils 1.51 Absolute Lymphocytes 3.53 H Absolute Monocytes 0.50 Absolute Eosinophils 0.06 Absolute Basophils 0.00 RBC Morphology Normal APTT 27.2 Fibrinogen 463 H Sodium 140 Potassium 3.7 Chloride 108 H Carbon Dioxide 22.5 Anion Gap 9.5 BUN 10 Creatinine 0.8 Est GFR (CKD-EPI 2020) 100.69 Glucose 105 Calcium 8.1 L Random Vancomycin 8.3 MRSA (TEM-PCR) Pathology Consult Spec 12/24/23 12/23/23 10:22 11:51 WBC RBC Hgb Hct MCV MCH MCHC RDW Plt Count MPV Immature Gran % Neutrophils % Lymphocytes % Atypical Lymphs % Monocytes % Eosinophils % Basophils % Nucleated RBC % Absolute Neutrophils Absolute Lymphocytes Absolute Monocytes Absolute Eosinophils Absolute Basophils RBC Morphology APTT Fibrinogen Sodium Potassium Chloride Carbon Dioxide Anion Gap BUN Creatinine Est GFR (CKD-EPI 2020) Glucose Calcium Random Vancomycin MRSA (TEM-PCR) Negative Pathology Consult Spec SEE COMMENT Preliminary micro results at discharge 12/23/23 13:21 Blood Culture - Preliminary Blood NO GROWTH 24 HOURS 12/23/23 13:21 Blood Culture - Preliminary Blood NO GROWTH 24 HOURS PFSH All Active Problems (Updated 12/26/23 @ 00:09 by ENE CHRISTY) Lyme disease (Acute) Thrombocytopenia (Chronic) Fever of unknown origin (Acute) Fever (Acute) Depression (Chronic) Hematuria (Acute) BPH w urinary obs/LUTS (Acute) Medical History (Updated 12/26/23 @ 00:09 by ENE CHRISTY) Bacterial meningitis Pancreatitis, gallstone GERD (gastroesophageal reflux disease) Anxiety PTSD (post-traumatic stress disorder) Surgical History (Updated 12/23/23 @ 17:34 by Danitza Holt APRN) History of cholecystectomy Repair of inguinal hernia Bilateral EGD - IV Sedation Colonoscopy - IV Sedation Social History (System 10/18/20 @ 10:03 by Anastasia Davies) Smoking/Tobacco Use Status: Never Smoking risk assessment performed?: Yes Drug use: Current Sobriety Housing: house Time Spent with Patient Time Spent with Patient: <45 minutes Time was spent: preparing to see the patient(eg.review tests), obtaining and/or reviewing separately otained hiistory, ordering medications,tests, procedures, referring, communicating with other health care associate, indepentently interpreting results, counseling the patient and care coordination
[2023-12-25 12:11] LABS: HCV RNA Qualitative Undetected (Undetected)
--- NOTE | 2023-12-25 13:47 | CMDISCH_ITS ---
Date of service: 12/25/23 Time of Service: 13:47 LACE Index Scoring Tool Questions: Length of Stay (in days): 2 Was the patient admitted via the E.D.?: Yes E.D. Visits: 1 Answers: Total Score: 6 Risk of Readmission: Low Risk Care Management Discharge Plan Reason for Hospitalization: sepsis Discharge Plan: Don will be discharged home with no new services. He will follow up with his PCP and plan of care and transport with family. Patient/Family Education Needs: Review discharge instructions, activity, limitations, follow up plan and discuss Ask Me Three [facility] Health Related Social Needs: No Data to Display
[2023-12-25 21:19] LABS: B. miyamotoi PCR Negative (Negative); Babesia divergens/MO-1 Negative (Negative); Babesia duncani Negative (Negative); Babesia microti Negative (Negative); Ehrlichia chaffeensis Negative (Negative); Ehrlichia ewingii/canis Negative (Negative); Ehrlichia muris eauclairensis Negative (Negative)
[2023-12-26 08:19] LABS: Anaplasma phagocytophilum Positive (Negative)
== END 2023-12-25 14:25 | disposition home or self-care (01) | DRG 872 ==
LOC: ER 16:18 → MS 17:24
PROVIDERS: Nurse Practitioner Acute Care; Admitting Provider Family Medicine; Emergency Provider Physician Assistant; PCP Family Medicine; Visit Provider Family Medicine
DX: A41.89 Other specified sepsis (principal); N13.8 Other obstructive and reflux uropathy; A69.20 Lyme disease, unspecified; N40.1 Benign prostatic hyperplasia with lower urinary tract symptoms; F32.A Depression, unspecified; Z79.899 Other long term (current) drug therapy; R11.0 Nausea; D69.6 Thrombocytopenia, unspecified; K21.9 Gastro-esophageal reflux disease without esophagitis; F41.9 Anxiety disorder, unspecified; F43.10 Post-traumatic stress disorder, unspecified; R31.0 Gross hematuria
CPT/HCPCS: 00123; 36415; 71275; 80048; 80076; 83690; 84145; 85384; 85652; 86617; 86704; 86709; 86803; 87040; 87340; 87522; 87641; 87798; 93005; 96361; 96365; 96367; 96368; 96375; 99285; 74174; 80202; 83605; 83735; 84439; 84443; 84484; 85025; 85379; 85730; 86618; 93010; 94640; 99223; 99233; 99238; J0131; J0692; J1885; J2470; J3372; J3490; J7613

== ENCOUNTER 2024-01-22 14:42 | Outpatient (REF) | payer BC, SELFPAY ==
--- OUTSIDE RECORDS SUMMARY | 2024-01-22 14:45 | XMS_ITS | Data Portability ---
Author Organization [facility] Address [address] [place] [address] Care Team Providers Care Rehabilitation Tech Name Role Phone JOSEPH FERREIRA Urologist Assessment No assessment recorded. Plan of Treatment Reminders Order Date Submit Date Provider Last Modified By Organization Details Last Modified Time Details Appointments Follow Up 2023 01:20P M Not available Not available Not available Nurse Visit 2024 02:00P M Not available Not available Not available Annual Wellness Exam 2024 01:00P M Not available Not available Not available Lab HbA1c (hemoglob in A1c), blood - Right AC 1 tiger 1 [facility] 1 lav 2023 024 [facility] (Registration ), [address] [place] [address] [place], [address], 06/20/2023 10:04:38 lipid panel, serum - Right AC 1 tig 1 [facility] 1 lav [address] [facility] (Registration ), [address] [place] [address] [place], [address], 06/19/2023 09:46:26 HIV (1+2) Ab screen, serum - Right AC 1 tiger 1 [facility] 1 lav [address] [facility] (Registration ), [address] [place] [address] [place], [address], 06/19/2023 09:47:08 HbA1c (hemoglob in A1c), blood 2023 025 [facility] (Registration ), [address] [place] [address] [place], [address], 06/21/2023 07:03:34 BMP, serum or plasma 2023 025 [facility] (Registration ), [address] [place] [address] [place], [address], 06/21/2023 07:03:34 fecal occult blood, immunoass ay, stool 2023 025 [facility] (Registration ), [address] [place] [address] [place], [address], 06/21/2023 07:03:34 CBC w/ diff 2023 [email or web address] [address] [place] [address] [place], [address], 01/22/2024 14:08:57 CMP, serum or plasma 2023 024 [email or web address] [facility] (Registration ), [address] [place] [address] [place], [address], 01/22/2024 14:08:57 Referral None recorded. Procedures None recorded. Surgeries None recorded. Imaging None recorded. Medication Orders venlafaxi ne ER 75 mg capsule,e xtended release 24 hr 2023 024 [facility], [address] [place] [address], [facility] [address], [address], 10/18/2023 15:55:30 omeprazol e 40 mg capsule,d elayed release 2023 024 [facility], [address] [facility], [facility], [place], [address], 06/19/2023 17:44:56 finasteri de 5 mg tablet 2023 024 [facility], [address] [place] [address], [address], [place], [address], 06/19/2023 17:44:55 Patient TargetsNo targets recorded. Patient Instructions Encounter Date Encounter Id Patient Instructions Last Modified By Organization Details Last Modified Time 06/19/2023 [id number] learning about healthy weight Not available 06/19/2023 17:36:38 exercise [email or web address] Not available 2023 16:48:41 Try taking the omeprazole 30 minutes prior to dinner. Consider using CETIRIZINE (zyrtec) 10 mg once a day to see if that helps with the itching. Start hiking again. Please fill out your advanced directive. Consider getting an OMRON 3 BP cuff. Your blood pressure goal: More than half of BP readings should be in the 125-145 range on the top and under 85 on the bottom Not available 06/19/2023 13:37:47 Reason for Referral None Reported. Results Created Date Observation Date Name Description Value Unit Range Abnormal Flag LastModifiedBy Organization Detail LastModifiedTime 06/13/19 24 06/13/2023 HEMOG LOBIN A1C hemoglobin A1C 5.9 % <5.7 high Not Available Yuliya garcia [address] [place], [address] 06/13/2023 17:16:19 06/13/19 24 06/13/2023 LIPID 2 cholesterol 149 mg/dL <200 Not Available Shaquille [address] [facility] [place], [address] 06/13/2023 17:16:22 06/13/19 24 06/13/2023 LIPID 2 triglyceride 91 mg/dL <150 Not Available [facility] [address] [facility] [place], [address] 06/13/2023 17:16:22 06/13/19 24 06/13/2023 LIPID 2 HDL cholesterol 41 mg/dL 40-60 Not Available Kaiden leal [address] [facility] [place], [address] 06/13/2023 17:16:22 06/13/19 24 06/13/2023 LIPID 2 calculated LDL 90 mg/dL <100 Not Available Yuliya garcia [address] [place], [address] 06/13/2023 17:16:22 06/13/19 24 06/14/2023 HIV-1 /2 AG AB PRIYA Garcia HIV-1/2 Ag Ab screen Negati ve negati ve Not Available [address] [place], [address] 06/17/2023 08:47:19 07/24/19 24 07/24/2023 URINA LYSIS color Yellow yellow Not Available [address] [place], [address] 07/24/2023 17:41:35 07/24/19 24 07/24/2023 URINA LYSIS clarity Clear clear Not Available [address] [place], [address] 07/24/2023 17:41:35 07/24/19 24 07/24/2023 URINA LYSIS specific gravity >= 1.030 1.005- 1.025 high Not Available [address] [place], [address] 07/24/2023 17:41:35 07/24/19 24 07/24/2023 URINA LYSIS pH 5.5 5-8 normal Not Available [address] [place], [address] 07/24/2023 17:41:35 07/24/19 24 07/24/2023 URINA LYSIS leukocyte esterase Negati ve negati ve Not Available [address] [place], [address] 07/24/2023 17:41:35 07/24/19 24 07/24/2023 URINA LYSIS nitrite Negati ve negati ve Not Available [address] [place], [address] 07/24/2023 17:41:35 07/24/19 24 07/24/2023 URINA LYSIS protein Negati ve mg/dL neg-tr alise Not Available [address] [place], [address] 07/24/2023 17:41:35 07/24/19 24 07/24/2023 URINA LYSIS glucose Negati ve mg/dL negati ve Not Available [address] [place], [address] 07/24/2023 17:41:35 07/24/19 24 07/24/2023 URINA LYSIS ketones Negati ve mg/dL negati ve Not Available [address] [place], [address] 07/24/2023 17:41:35 07/24/19 24 07/24/2023 URINA LYSIS urobilinogen 0.2 mg/dL up to 0.2 Not Available [address] [place], [address] 07/24/2023 17:41:35 07/24/19 24 07/24/2023 URINA LYSIS bilirubin Negati ve negati ve Not Available [address] [place], [address] 07/24/2023 17:41:35 07/24/19 24 07/24/2023 URINA LYSIS blood Modera te negati ve abnormal Not Available [address] [place], [address] 07/24/2023 17:41:35 07/24/19 24 07/24/2023 URINA LYSIS color Yellow yellow Not Available [address] [place], [address] 07/24/2023 17:46:36 07/24/19 24 07/24/2023 URINA LYSIS clarity Clear clear Not Available [address] [place], [address] 07/24/2023 17:46:36 07/24/19 24 07/24/2023 URINA LYSIS specific gravity >= 1.030 1.005- 1.025 high Not Available [address] [place], [address] 07/24/2023 17:46:36 07/24/19 24 07/24/2023 URINA LYSIS pH 5.5 5-8 normal Not Available [address] [place], [address] 07/24/2023 17:46:36 07/24/19 24 07/24/2023 URINA LYSIS leukocyte esterase Negati ve negati ve Not Available [address] [place], [address] 07/24/2023 17:46:36 07/24/19 24 07/24/2023 URINA LYSIS nitrite Negati ve negati ve Not Available [address] [place], [address] 07/24/2023 17:46:36 07/24/19 24 07/24/2023 URINA LYSIS protein Negati ve mg/dL neg-tr alise Not Available [address] [place], [address] 07/24/2023 17:46:36 07/24/19 24 07/24/2023 URINA LYSIS glucose Negati ve mg/dL negati ve Not Available [address] [place], [address] 07/24/2023 17:46:36 07/24/19 24 07/24/2023 URINA LYSIS ketones Negati ve mg/dL negati ve Not Available [address] [place], [address] 07/24/2023 17:46:36 07/24/19 24 07/24/2023 URINA LYSIS urobilinogen 0.2 mg/dL up to 0.2 Not Available [address] [place], [address] 07/24/2023 17:46:36 07/24/19 24 07/24/2023 URINA LYSIS bilirubin Negati ve negati ve Not Available [address] [place], [address] 07/24/2023 17:46:36 07/24/19 24 07/24/2023 URINA LYSIS blood Modera te negati ve abnormal Not Available [address] [place], [address] 07/24/2023 17:46:36 07/24/19 24 07/24/2023 MICRO SCOPI C FINDI NGS WBC 0-2 hpf 0-5 Not Available Morris [address] [place], [address] 07/24/2023 17:46:37 07/24/19 24 07/24/2023 MICRO SCOPI C FINDI NGS RBC 5-10 hpf 0-2 abnormal Not Available Fabian houseradha [address] [place], [address] 07/24/2023 17:46:37 07/24/19 24 07/24/2023 MICRO SCOPI C FINDI NGS epithelial cells Rare hpf negati ve Not Available [address] [place], [address] 07/24/2023 17:46:37 07/24/19 24 07/24/2023 MICRO SCOPI C FINDI NGS bacteria Negati ve hpf negati ve Not Available [address] [place], [address] 07/24/2023 17:46:37 07/24/19 24 07/24/2023 MICRO SCOPI C FINDI NGS crystals Negati ve hpf negati ve Not Available [address] [place], [address] 07/24/2023 17:46:37 07/24/19 24 07/24/2023 MICRO SCOPI C FINDI NGS mucus Trace negati ve Not Available [address] [place], [address] 07/24/2023 17:46:37 07/24/19 24 07/24/2023 MICRO SCOPI C FINDI NGS C S indicated? No Not Available Yuliya [address] [place], [address] 07/24/2023 17:46:37 12/23/19 24 12/23/2023 ESR ESR 25 mm/HR 0-20 high Not Available [address] [place], [address] 12/23/2023 11:52:37 12/23/19 24 12/23/2023 LACTA TE lactate 2.1 mmol/ L 0.6-1. 4 high Not Available [address] [place], [address] 12/23/2023 11:55:37 12/23/19 24 12/23/2023 COMPL ETE BLOOD COUNT W/DIF F WBC 5.82 10_3/ uL 4.4-10 .8 normal Not Available [address] [place], [address] 12/23/2023 12:15:54 12/23/19 24 12/23/2023 COMPL ETE BLOOD COUNT W/DIF F RBC 4.81 10_6/ uL 4.36-5 .78 normal Not Available [address] [place], [address] 12/23/2023 12:15:54 12/23/19 24 12/23/2023 COMPL ETE BLOOD COUNT W/DIF F HGB 13.3 g/dL 13.5-1 7.5 low Not Available [address] [place], [address] 12/23/2023 12:15:54 12/23/19 24 12/23/2023 COMPL ETE BLOOD COUNT W/DIF F HCT 39.1 % 40.0-5 0.0 low Not Available [address] [place], [address] 12/23/2023 12:15:54 12/23/19 24 12/23/2023 COMPL ETE BLOOD COUNT W/DIF F MCV 81 fL 80-95 normal Not Available [address] [place], [address] 12/23/2023 12:15:54 12/23/19 24 12/23/2023 COMPL ETE BLOOD COUNT W/DIF F MCH 27.7 pg 27.0-3 3.0 normal Not Available [address] [place], [address] 12/23/2023 12:15:54 12/23/19 24 12/23/2023 COMPL ETE BLOOD COUNT W/DIF F MCHC 34.0 % 32.0-3 6.0 normal Not Available [address] [place], [address] 12/23/2023 12:15:54 12/23/19 24 12/23/2023 COMPL ETE BLOOD COUNT W/DIF F RDW 13.8 % 11.8-1 4.1 normal Not Available [address] [place], [address] 12/23/2023 12:15:54 12/23/19 24 12/23/2023 COMPL ETE BLOOD COUNT W/DIF F platelet count 97 10_3/ uL 130-40 0 low Not Available [address] [place], [address] 12/23/2023 12:15:54 12/23/19 24 12/23/2023 COMPL ETE BLOOD COUNT W/DIF F MPV 9.4 fL 8.0-11 .0 normal Not Available [address] [place], [address] 12/23/2023 12:15:54 12/23/19 24 12/23/2023 COMPL ETE BLOOD COUNT W/DIF F neutrophils % 72.0 % Not Available [address] [place], [address] 12/23/2023 12:15:54 12/23/19 24 12/23/2023 COMPL ETE BLOOD COUNT W/DIF F bands % 0 % Not Available [address] [place], [address] 12/23/2023 12:15:54 12/23/19 24 12/23/2023 COMPL ETE BLOOD COUNT W/DIF F lymphocytes % 14.0 % Not Available [address] [place], [address] 12/23/2023 12:15:54 12/23/19 24 12/23/2023 COMPL ETE BLOOD COUNT W/DIF F atypical lymphocytes % 7 % Not Available [address] [place], [address] 12/23/2023 12:15:54 12/23/19 24 12/23/2023 COMPL ETE BLOOD COUNT W/DIF F monocytes % 6.0 % Not Available [address] [place], [address] 12/23/2023 12:15:54 12/23/19 24 12/23/2023 COMPL ETE BLOOD COUNT W/DIF F eosinophils % 1.0 % Not Available [address] [place], [address] 12/23/2023 12:15:54 12/23/19 24 12/23/2023 COMPL ETE BLOOD COUNT W/DIF F basophils % 0.0 % Not Available Shaquille rollinsradha [address] [place], [address] 12/23/2023 12:15:54 12/23/19 24 12/23/2023 COMPL ETE BLOOD COUNT W/DIF F immature grans % 0.0 % Not Available [address] [place], [address] 12/23/2023 12:15:54 12/23/19 24 12/23/2023 COMPL ETE BLOOD COUNT W/DIF F nucleated RBC 0.0 % 0.0-0. 3 normal Not Available [address] [place], [address] 12/23/2023 12:15:54 12/23/19 24 12/23/2023 COMPL ETE BLOOD COUNT W/DIF F absolute neutrophil count 4.19 10_3/ uL 1.2-6. 7 normal Not Available [address] [place], [address] 12/23/2023 12:15:54 12/23/19 24 12/23/2023 COMPL ETE BLOOD COUNT W/DIF F absolute lymphocyte count 1.22 10_3/ uL 1.2-3. 4 normal Not Available [address] [place], [address] 12/23/2023 12:15:54 12/23/19 24 12/23/2023 COMPL ETE BLOOD COUNT W/DIF F absolute monocyte count 0.35 10_3/ uL 0.1-0. 8 normal Not Available [address] [place], [address] 12/23/2023 12:15:54 12/23/19 24 12/23/2023 COMPL ETE BLOOD COUNT W/DIF F absolute eosinophil count 0.06 10_3/ uL 0.0-0. 7 normal Not Available [address] [place], [address] 12/23/2023 12:15:54 12/23/19 24 12/23/2023 COMPL ETE BLOOD COUNT W/DIF F absolute basophil count 0.00 10_3/ uL 0.0-0. 2 normal Not Available [address] [place], [address] 12/23/2023 12:15:54 12/23/19 24 12/23/2023 COMPL ETE BLOOD COUNT W/DIF F diff comment Manual Differ ential Not Available [address] [place], [address] 12/23/2023 12:15:54 12/23/19 24 12/23/2023 COMPL ETE BLOOD COUNT W/DIF F RBC morphology Normal Not Available [address] [place], [address] 12/23/2023 12:15:54 12/23/19 24 12/23/2023 LIVER PANEL total protein 7.4 g/dL 6.4-8. 2 normal Not Available [address] [place], [address] 12/23/2023 12:15:56 12/23/19 24 12/23/2023 LIVER PANEL albumin 2.9 g/dL 3.4-5. 0 low Not Available [address] [place], [address] 12/23/2023 12:15:56 12/23/19 24 12/23/2023 LIVER PANEL bilirubin, total 1.00 mg/dL 0.2-1. 0 normal Not Available [address] [place], [address] 12/23/2023 12:15:56 12/23/19 24 12/23/2023 LIVER PANEL alk phos 273 U/L 46-116 high Not Available [facility] [address] [place], [address] 12/23/2023 12:15:56 12/23/19 24 12/23/2023 LIVER PANEL AST 64 U/L 15-37 high Not Available [facility] [address] [place], [address] 12/23/2023 12:15:56 12/23/19 24 12/23/2023 LIVER PANEL ALT 151 U/L 16-63 high Not Available [address] [place], [address] 12/23/2023 12:15:56 12/23/19 24 12/23/2023 LIVER PANEL bilirubin, conjugated 0.5 mg/dL 0.0-0. 2 high Not Available [address] [place], [address] 12/23/2023 12:15:56 12/23/19 24 12/23/2023 BASIC METAB OLIC PANEL calcium 8.7 mg/dL 8.5-10 .1 normal Not Available [address] [place], [address] 12/23/2023 12:15:56 12/23/19 24 12/23/2023 BASIC METAB OLIC PANEL glucose 132 mg/dL 74-106 high Not Available [facility] [address] [place], [address] 12/23/2023 12:15:56 12/23/19 24 12/23/2023 BASIC METAB OLIC PANEL BUN 13 mg/dL 7-18 normal Not Available [facility] [address] [place], [address] 12/23/2023 12:15:56 12/23/19 24 12/23/2023 BASIC METAB OLIC PANEL creatinine 1.1 mg/dL 0.70-1 .30 normal Not Available [address] [place], [address] 12/23/2023 12:15:56 12/23/19 24 12/23/2023 BASIC METAB OLIC PANEL estimated GFR 76.37 mL/min /1.73m 2 Not Available [address] [place], [address] 12/23/2023 12:15:56 12/23/19 24 12/23/2023 BASIC METAB OLIC PANEL sodium 135 mmol/ L 136-14 5 low Not Available [address] [place], [address] 12/23/2023 12:15:56 12/23/19 24 12/23/2023 BASIC METAB OLIC PANEL potassium 3.4 mmol/ L 3.5-5. 1 low Not Available [address] [place], [address] 12/23/2023 12:15:56 12/23/19 24 12/23/2023 BASIC METAB OLIC PANEL chloride 98 mmol/ L 98-107 normal Not Available [address] [place], [address] 12/23/2023 12:15:56 12/23/19 24 12/23/2023 BASIC METAB OLIC PANEL CO2 26.9 mmol/ L 21.0-3 2.0 normal Not Available [address] [place], [address] 12/23/2023 12:15:56 12/23/19 24 12/23/2023 BASIC METAB OLIC PANEL anion gap 10.1 mmol/ L 3-11 normal Not Available [address] [place], [address] 12/23/2023 12:15:56 12/23/19 24 12/23/2023 MAGNE SIUM magnesium 1.9 mg/dL 1.8-2. 4 normal Not Available [address] [place], [address] 12/23/2023 12:15:57 12/23/19 24 12/23/2023 TSH (W/RE F FT4) TSH (w/ref FT4) 0.20 uIU/m L 0.36-3 .74 low Not Available [address] [place], [address] 12/23/2023 12:15:57 12/23/19 24 12/23/2023 LIPAS E lipase 41 U/L 16-77 normal Not Available Fabian tate [address] [place], [address] 12/23/2023 12:15:58 12/23/19 24 12/23/2023 TROPO EFREN I troponin I < 50 NG/L < or =60 Not Available [address] [place], [address] 12/23/2023 12:15:58 12/23/19 24 12/23/2023 D-DIM ER D-dimer 5 NG/ml feu <500 high Not Available [address] [place], [address] 12/23/2023 12:19:46 12/23/19 24 12/23/2023 PROCA LCITO EFREN procalcitoni n 0.8 NG/mL Not Available [address] [place], [address] 12/23/2023 12:23:49 12/23/19 24 12/23/2023 BASIC METAB OLIC PANEL calcium 8.7 mg/dL 8.5-10 .1 normal Not Available [address] [place], [address] 12/23/2023 12:33:56 12/23/19 24 12/23/2023 BASIC METAB OLIC PANEL glucose 132 mg/dL 74-106 high Not Available [address] [place], [address] 12/23/2023 12:33:56 12/23/19 24 12/23/2023 BASIC METAB OLIC PANEL BUN 13 mg/dL 7-18 normal Not Available [address] [place], [address] 12/23/2023 12:33:56 12/23/19 24 12/23/2023 BASIC METAB OLIC PANEL creatinine 1.1 mg/dL 0.70-1 .30 normal Not Available [address] [place], [address] 12/23/2023 12:33:56 12/23/19 24 12/23/2023 BASIC METAB OLIC PANEL estimated GFR 76.37 mL/min /1.73m 2 Not Available [address] [place], [address] 12/23/2023 12:33:56 12/23/19 24 12/23/2023 BASIC METAB OLIC PANEL sodium 135 mmol/ L 136-14 5 low Not Available [address] [place], [address] 12/23/2023 12:33:56 12/23/19 24 12/23/2023 BASIC METAB OLIC PANEL potassium 3.4 mmol/ L 3.5-5. 1 low Not Available [address] [place], [address] 12/23/2023 12:33:56 12/23/19 24 12/23/2023 BASIC METAB OLIC PANEL chloride 98 mmol/ L 98-107 normal Not Available [address] [place], [address] 12/23/2023 12:33:56 12/23/19 24 12/23/2023 BASIC METAB OLIC PANEL CO2 26.9 mmol/ L 21.0-3 2.0 normal Not Available [address] [place], [address] 12/23/2023 12:33:56 12/23/19 24 12/23/2023 BASIC METAB OLIC PANEL anion gap 10.1 mmol/ L 3-11 normal Not Available [address] [place], [address] 12/23/2023 12:33:56 12/23/19 24 12/23/2023 MAGNE SIUM magnesium 1.9 mg/dL 1.8-2. 4 normal Not Available [address] [place], [address] 12/23/2023 12:33:56 12/23/19 24 12/23/2023 TSH (W/RE F FT4) TSH (w/ref FT4) 0.20 uIU/m L 0.36-3 .74 low Not Available [address] [place], [address] 12/23/2023 12:33:57 12/23/19 24 12/23/2023 FREE T4 free T4 1.36 NG/dL 0.76-1 .46 normal Not Available [address] [place], [address] 12/23/2023 12:33:57 12/23/19 24 12/23/2023 LIPAS E lipase 41 U/L 16-77 normal Not Available Fabian tate [address] [place], [address] 12/23/2023 12:33:58 12/23/19 24 12/23/2023 LACTA TE lactate 0.8 mmol/ L 0.9-1. 7 low Not Available [address] [place], [address] 12/23/2023 17:31:53 12/23/19 24 12/24/2023 LYME AB W RFLX TO LYME CONFI RM lyme Ab W rflx to lyme confirm Equivo eliza negati ve abnormal Not Available [address] [place], [address] 12/24/2023 10:52:43 12/23/19 24 12/24/2023 LYME AB W RFLX TO LYME CONFI RM lyme Ab W rflx to lyme confirm Equivo eliza negati ve abnormal Not Available [address] [place], [address] 12/24/2023 10:54:46 12/23/19 24 12/24/2023 LYME AB CONFI RMATI ON lyme IgG Ab Negati ve negati ve Not Available [address] [place], [address] 12/24/2023 10:54:46 12/23/19 24 12/24/2023 LYME AB CONFI RMATI ON lyme IgM Ab Positi ve negati ve abnormal Not Available [address] [place], [address] 12/24/2023 10:54:46 12/23/19 24 12/24/2023 LYME AB CONFI RMATI ON lyme Ab confirm interpretati on See Commen t Not Available [address] [place], [address] 12/24/2023 10:54:46 12/23/19 24 12/24/2023 PATH CONSU LT (MD ORDER ) path consult (md order) SEE COMMEN T Not Available [address] [place], [address] 12/24/2023 14:35:28 12/23/19 24 12/24/2023 BLOOD CULTU RE ( AGE => 12 YRS) blood culture ( age => 12 yrs) Not Available [address] [place], [address] 12/24/2023 15:30:40 12/23/19 24 12/24/2023 BLOOD CULTU RE ( AGE => 12 YRS) blood culture ( age => 12 yrs) Not Available [address] [place], [address] 12/24/2023 15:32:40 12/23/19 24 12/24/2023 ACUTE HEPAT ITIS PROFI LE hepatitis B surface Ag Negati ve negati ve Not Available [address] [place], [address] 12/25/2023 11:39:20 12/23/19 24 12/24/2023 ACUTE HEPAT ITIS PROFI LE hepatitis C Ab W rflx HCV PCR Reacti ve negati ve abnormal Not Available [address] [place], [address] 12/25/2023 11:39:20 12/23/19 24 12/24/2023 ACUTE HEPAT ITIS PROFI LE hepatitis A antibody IgM Negati ve negati ve Not Available [address] [place], [address] 12/25/2023 11:39:20 12/23/19 24 12/24/2023 ACUTE HEPAT ITIS PROFI LE hepatitis B core antibody Negati ve negati ve Not Available [address] [place], [address] 12/25/2023 11:39:20 12/23/19 24 12/25/2023 HCV RNA DETEC TION QUANT ITATI VE HCV RNA qualitative Undete cted undete cted Not Available [address] [place], [address] 12/25/2023 14:35:28 12/23/19 24 12/25/2023 BLOOD CULTU RE ( AGE => 12 YRS) blood culture ( age => 12 yrs) Not Available [address] [place], [address] 12/25/2023 15:31:03 12/23/19 24 12/25/2023 BLOOD CULTU RE ( AGE => 12 YRS) blood culture ( age => 12 yrs) Not Available [address] [place], [address] 12/25/2023 15:31:04 12/23/19 24 12/24/2023 LYME AB W RFLX TO LYME CONFI RM lyme Ab W rflx to lyme confirm Equivo eliza negati ve abnormal Not Available [address] [place], [address] 12/26/2023 08:22:40 12/23/19 24 12/25/2023 TICK- BORNE DNA PANEL , PCR, B ehrlichia chaffeensis Negati ve negati ve Not Available [address] [place], [address] 12/26/2023 08:22:41 12/23/19 24 12/25/2023 TICK- BORNE DNA PANEL , PCR, B ehrlichia ewingii/cani s Negati ve negati ve Not Available [address] [place], [address] 12/26/2023 08:22:41 12/23/19 24 12/25/2023 TICK- BORNE DNA PANEL , PCR, B ehrlichia muris eauclairensi s Negati ve negati ve Not Available [address] [place], [address] 12/26/2023 08:22:41 12/23/19 24 12/25/2023 TICK- BORNE DNA PANEL , PCR, B babesia microti Negati ve negati ve Not Available [address] [place], [address] 12/26/2023 08:22:41 12/23/19 24 12/25/2023 TICK- BORNE DNA PANEL , PCR, B babesia duncani Negati ve negati ve Not Available [address] [place], [address] 12/26/2023 08:22:41 12/23/19 24 12/25/2023 TICK- BORNE DNA PANEL , PCR, B babesia divergens/MO -1 Negati ve negati ve Not Available [address] [place], [address] 12/26/2023 08:22:41 12/23/19 24 12/25/2023 TICK- BORNE DNA PANEL , PCR, B B. miyamotoi PCR Negati ve negati ve Not Available [address] [place], [address] 12/26/2023 08:22:41 12/23/19 24 12/26/2023 TICK- BORNE DNA PANEL , PCR, B anaplasma phagocytophi lum Positi ve negati ve abnormal Not Available [address] [place], [address] 12/26/2023 08:22:41 12/23/19 24 12/24/2023 LYME AB CONFI RMATI ON lyme IgG Ab Negati ve negati ve Not Available [address] [place], [address] 12/26/2023 08:22:41 12/23/19 24 12/24/2023 LYME AB CONFI RMATI ON lyme IgM Ab Positi ve negati ve abnormal Not Available [address] [place], [address] 12/26/2023 08:22:41 12/23/19 24 12/24/2023 LYME AB CONFI RMATI ON lyme Ab confirm interpretati on See Commen t Not Available [address] [place], [address] 12/26/2023 08:22:41 12/23/19 24 12/26/2023 BLOOD CULTU RE ( AGE => 12 YRS) blood culture ( age => 12 yrs) Not Available [address] [place], [address] 12/26/2023 15:30:50 12/23/19 24 12/26/2023 BLOOD CULTU RE ( AGE => 12 YRS) blood culture ( age => 12 yrs) Not Available [address] [place], [address] 12/26/2023 15:30:52 12/23/19 24 12/27/2023 BLOOD CULTU RE ( AGE => 12 YRS) blood culture ( age => 12 yrs) Not Available [address] [place], [address] 12/27/2023 15:31:43 12/23/19 24 12/27/2023 BLOOD CULTU RE ( AGE => 12 YRS) blood culture ( age => 12 yrs) Not Available [address] [place], [address] 12/27/2023 15:31:45 12/23/19 24 12/28/2023 BLOOD CULTU RE ( AGE => 12 YRS) blood culture ( age => 12 yrs) Not Available [address] [place], [address] 12/28/2023 15:31:04 12/23/19 24 12/28/2023 BLOOD CULTU RE ( AGE => 12 YRS) blood culture ( age => 12 yrs) Not Available [address] [place], [address] 12/28/2023 15:33:04 12/24/19 24 12/24/2023 BASIC METAB OLIC PANEL calcium 8.0 mg/dL 8.5-10 .1 low Not Available [address] [place], [address] 12/24/2023 07:08:49 12/24/19 24 12/24/2023 BASIC METAB OLIC PANEL glucose 111 mg/dL 74-106 high Not Available [address], [address] 12/24/2023 07:08:49 12/24/19 24 12/24/2023 BASIC METAB OLIC PANEL BUN 15 mg/dL 7-18 normal Not Available [address] [place], [address] 12/24/2023 07:08:49 12/24/19 24 12/24/2023 BASIC METAB OLIC PANEL creatinine 1.0 mg/dL 0.70-1 .30 normal Not Available [address] [place], [address] 12/24/2023 07:08:49 12/24/19 24 12/24/2023 BASIC METAB OLIC PANEL estimated GFR 85.63 mL/min /1.73m 2 Not Available [address] [place], [address] 12/24/2023 07:08:49 12/24/19 24 12/24/2023 BASIC METAB OLIC PANEL sodium 140 mmol/ L 136-14 5 normal Not Available [address] [place], [address] 12/24/2023 07:08:49 12/24/19 24 12/24/2023 BASIC METAB OLIC PANEL potassium 3.4 mmol/ L 3.5-5. 1 low Not Available [address] [place], [address] 12/24/2023 07:08:49 12/24/19 24 12/24/2023 BASIC METAB OLIC PANEL chloride 107 mmol/ L 98-107 normal Not Available [address] [place], [address] 12/24/2023 07:08:49 12/24/19 24 12/24/2023 BASIC METAB OLIC PANEL CO2 23.2 mmol/ L 21.0-3 2.0 normal Not Available [address] [place], [address] 12/24/2023 07:08:49 12/24/19 24 12/24/2023 BASIC METAB OLIC PANEL anion gap 9.8 mmol/ L 3-11 normal Not Available [address] [place], [address] 12/24/2023 07:08:49 12/24/19 24 12/24/2023 COMPL ETE BLOOD COUNT W/DIF F WBC 4.66 10_3/ uL 4.4-10 .8 normal Not Available [address] [place], [address] 12/24/2023 07:24:51 12/24/19 24 12/24/2023 COMPL ETE BLOOD COUNT W/DIF F RBC 4.31 10_6/ uL 4.36-5 .78 low Not Available [address] [place], [address] 12/24/2023 07:24:51 12/24/19 24 12/24/2023 COMPL ETE BLOOD COUNT W/DIF F HGB 12.0 g/dL 13.5-1 7.5 low Not Available [address] [place], [address] 12/24/2023 07:24:51 12/24/19 24 12/24/2023 COMPL ETE BLOOD COUNT W/DIF F HCT 35.1 % 40.0-5 0.0 low Not Available [address] [place], [address] 12/24/2023 07:24:51 12/24/19 24 12/24/2023 COMPL ETE BLOOD COUNT W/DIF F MCV 81 fL 80-95 normal Not Available [address], [address] 12/24/2023 07:24:51 12/24/19 24 12/24/2023 COMPL ETE BLOOD COUNT W/DIF F MCH 27.8 pg 27.0-3 3.0 normal Not Available [address] [place], [address] 12/24/2023 07:24:51 12/24/19 24 12/24/2023 COMPL ETE BLOOD COUNT W/DIF F MCHC 34.2 % 32.0-3 6.0 normal Not Available [address] [place], [address] 12/24/2023 07:24:51 12/24/19 24 12/24/2023 COMPL ETE BLOOD COUNT W/DIF F RDW 14.3 % 11.8-1 4.1 high Not Available [address] [place], [address] 12/24/2023 07:24:51 12/24/19 24 12/24/2023 COMPL ETE BLOOD COUNT W/DIF F platelet count 68 10_3/ uL 130-40 0 low Not Available [address] [place], [address] 12/24/2023 07:24:51 12/24/19 24 12/24/2023 COMPL ETE BLOOD COUNT W/DIF F MPV 10.1 fL 8.0-11 .0 normal Not Available [address] [place], [address] 12/24/2023 07:24:51 12/24/19 24 12/24/2023 COMPL ETE BLOOD COUNT W/DIF F neutrophils % 68.0 % Not Available [address] [place], [address] 12/24/2023 07:24:51 12/24/19 24 12/24/2023 COMPL ETE BLOOD COUNT W/DIF F bands % 0 % Not Available [address] [place], [address] 12/24/2023 07:24:51 12/24/19 24 12/24/2023 COMPL ETE BLOOD COUNT W/DIF F lymphocytes % 18.0 % Not Available [address] [place], [address] 12/24/2023 07:24:51 12/24/19 24 12/24/2023 COMPL ETE BLOOD COUNT W/DIF F atypical lymphocytes % 11 % Not Available [address] [place], [address] 12/24/2023 07:24:51 12/24/19 24 12/24/2023 COMPL ETE BLOOD COUNT W/DIF F monocytes % 2.0 % Not Available [address] [place], [address] 12/24/2023 07:24:51 12/24/19 24 12/24/2023 COMPL ETE BLOOD COUNT W/DIF F eosinophils % 1.0 % Not Available [address] [place], [address] 12/24/2023 07:24:51 12/24/19 24 12/24/2023 COMPL ETE BLOOD COUNT W/DIF F basophils % 0.0 % Not Available [address] [place], [address] 12/24/2023 07:24:51 12/24/19 24 12/24/2023 COMPL ETE BLOOD COUNT W/DIF F immature grans % 0.0 % Not Available [address] [place], [address] 12/24/2023 07:24:51 12/24/19 24 12/24/2023 COMPL ETE BLOOD COUNT W/DIF F nucleated RBC 0.0 % 0.0-0. 3 normal Not Available [address] [place], [address] 12/24/2023 07:24:51 12/24/19 24 12/24/2023 COMPL ETE BLOOD COUNT W/DIF F absolute neutrophil count 3.17 10_3/ uL 1.2-6. 7 normal Not Available [address] [place], [address] 12/24/2023 07:24:51 12/24/19 24 12/24/2023 COMPL ETE BLOOD COUNT W/DIF F absolute lymphocyte count 1.35 10_3/ uL 1.2-3. 4 normal Not Available [address] [place], [address] 12/24/2023 07:24:51 12/24/19 24 12/24/2023 COMPL ETE BLOOD COUNT W/DIF F absolute monocyte count 0.09 10_3/ uL 0.1-0. 8 low Not Available [address] [place], [address] 12/24/2023 07:24:51 12/24/19 24 12/24/2023 COMPL ETE BLOOD COUNT W/DIF F absolute eosinophil count 0.05 10_3/ uL 0.0-0. 7 normal Not Available [address] [place], [address] 12/24/2023 07:24:51 12/24/19 24 12/24/2023 COMPL ETE BLOOD COUNT W/DIF F absolute basophil count 0.00 10_3/ uL 0.0-0. 2 normal Not Available [address] [place], [address] 12/24/2023 07:24:51 12/24/19 24 12/24/2023 COMPL ETE BLOOD COUNT W/DIF F diff comment Manual Differ ential Not Available [address] [place], [address] 12/24/2023 07:24:51 12/24/19 24 12/24/2023 COMPL ETE BLOOD COUNT W/DIF F RBC morphology Normal Not Available [address] [place], [address] 12/24/2023 07:24:51 12/24/19 24 12/24/2023 PTT ACTIV ATED PTT activated 27.2 sec 23.6-3 2.8 normal Not Available [address] [place], [address] 12/24/2023 11:30:49 12/24/19 24 12/24/2023 MRSA PCR MRSA PCR Negati ve negati ve Not Available [address] [place], [address] 12/24/2023 12:10:59 12/24/19 24 12/24/2023 KRISTOPHER CRANDALL vancomycin, random 8.3 ug/mL Not Available [address] [place], [address] 12/24/2023 12:58:06 12/24/19 24 12/24/2023 FIBRI NOGEN (STAT ) (ARAVIND LETON ) fibrinogen (stat) (olivia) 463 mg/dL 208-43 4 high Not Available [address] [place], [address] 12/24/2023 14:22:24 12/25/19 24 12/25/2023 BASIC METAB OLIC PANEL calcium 8.1 mg/dL 8.5-10 .1 low Not Available [address] [place], [address] 12/25/2023 07:06:20 12/25/19 24 12/25/2023 BASIC METAB OLIC PANEL glucose 105 mg/dL 74-106 normal Not Available [address] [place], [address] 12/25/2023 07:06:20 12/25/19 24 12/25/2023 BASIC METAB OLIC PANEL BUN 10 mg/dL 7-18 normal Not Available [address] [place], [address] 12/25/2023 07:06:20 12/25/19 24 12/25/2023 BASIC METAB OLIC PANEL creatinine 0.8 mg/dL 0.70-1 .30 normal Not Available [address] [place], [address] 12/25/2023 07:06:20 12/25/19 24 12/25/2023 BASIC METAB OLIC PANEL estimated GFR 100.69 mL/min /1.73m 2 Not Available [address] [place], [address] 12/25/2023 07:06:20 12/25/19 24 12/25/2023 BASIC METAB OLIC PANEL sodium 140 mmol/ L 136-14 5 normal Not Available [address] [place], [address] 12/25/2023 07:06:20 12/25/19 24 12/25/2023 BASIC METAB OLIC PANEL potassium 3.7 mmol/ L 3.5-5. 1 normal Not Available [address] [place], [address] 12/25/2023 07:06:20 12/25/19 24 12/25/2023 BASIC METAB OLIC PANEL chloride 108 mmol/ L 98-107 high Not Available [address] [place], [address] 12/25/2023 07:06:20 12/25/19 24 12/25/2023 BASIC METAB OLIC PANEL CO2 22.5 mmol/ L 21.0-3 2.0 normal Not Available [address] [place], [address] 12/25/2023 07:06:20 12/25/19 24 12/25/2023 BASIC METAB OLIC PANEL anion gap 9.5 mmol/ L 3-11 normal Not Available [address] [place], [address] 12/25/2023 07:06:20 12/25/19 24 12/25/2023 COMPL ETE BLOOD COUNT W/DIF F WBC 5.60 10_3/ uL 4.4-10 .8 normal Not Available [address] [place], [address] 12/25/2023 07:15:21 12/25/19 24 12/25/2023 COMPL ETE BLOOD COUNT W/DIF F RBC 3.94 10_6/ uL 4.36-5 .78 low Not Available [address] [place], [address] 12/25/2023 07:15:21 12/25/19 24 12/25/2023 COMPL ETE BLOOD COUNT W/DIF F HGB 10.8 g/dL 13.5-1 7.5 low Not Available [address] [place], [address] 12/25/2023 07:15:21 12/25/19 24 12/25/2023 COMPL ETE BLOOD COUNT W/DIF F HCT 31.7 % 40.0-5 0.0 low Not Available [address] [place], [address] 12/25/2023 07:15:21 12/25/19 24 12/25/2023 COMPL ETE BLOOD COUNT W/DIF F MCV 81 fL 80-95 normal Not Available [address], [address] 12/25/2023 07:15:21 12/25/19 24 12/25/2023 COMPL ETE BLOOD COUNT W/DIF F MCH 27.4 pg 27.0-3 3.0 normal Not Available [address] [place], [address] 12/25/2023 07:15:21 12/25/19 24 12/25/2023 COMPL ETE BLOOD COUNT W/DIF F MCHC 34.1 % 32.0-3 6.0 normal Not Available [address] [place], [address] 12/25/2023 07:15:21 12/25/19 24 12/25/2023 COMPL ETE BLOOD COUNT W/DIF F RDW 14.6 % 11.8-1 4.1 high Not Available [address] [place], [address] 12/25/2023 07:15:21 12/25/19 24 12/25/2023 COMPL ETE BLOOD COUNT W/DIF F platelet count 111 10_3/ uL 130-40 0 low Not Available [address] [place], [address] 12/25/2023 07:15:21 12/25/19 24 12/25/2023 COMPL ETE BLOOD COUNT W/DIF F MPV 9.8 fL 8.0-11 .0 normal Not Available [address] [place], [address] 12/25/2023 07:15:21 12/25/19 24 12/25/2023 COMPL ETE BLOOD COUNT W/DIF F neutrophils % 27.0 % Not Available [address] [place], [address] 12/25/2023 07:15:21 12/25/19 24 12/25/2023 COMPL ETE BLOOD COUNT W/DIF F lymphocytes % 61.0 % Not Available [address] [place], [address] 12/25/2023 07:15:21 12/25/19 24 12/25/2023 COMPL ETE BLOOD COUNT W/DIF F atypical lymphocytes % 2 % Not Available [address] [place], [address] 12/25/2023 07:15:21 12/25/19 24 12/25/2023 COMPL ETE BLOOD COUNT W/DIF F monocytes % 9.0 % Not Available [address] [place], [address] 12/25/2023 07:15:21 12/25/19 24 12/25/2023 COMPL ETE BLOOD COUNT W/DIF F eosinophils % 1.0 % Not Available [address] [place], [address] 12/25/2023 07:15:21 12/25/19 24 12/25/2023 COMPL ETE BLOOD COUNT W/DIF F basophils % 0.0 % Not Available [address] [place], [address] 12/25/2023 07:15:21 12/25/19 24 12/25/2023 COMPL ETE BLOOD COUNT W/DIF F immature grans % 0.0 % Not Available [address] [place], [address] 12/25/2023 07:15:21 12/25/19 24 12/25/2023 COMPL ETE BLOOD COUNT W/DIF F nucleated RBC 0.0 % 0.0-0. 3 normal Not Available [address] [place], [address] 12/25/2023 07:15:21 12/25/19 24 12/25/2023 COMPL ETE BLOOD COUNT W/DIF F absolute neutrophil count 1.51 10_3/ uL 1.2-6. 7 normal Not Available [address] [place], [address] 12/25/2023 07:15:21 12/25/19 24 12/25/2023 COMPL ETE BLOOD COUNT W/DIF F absolute lymphocyte count 3.53 10_3/ uL 1.2-3. 4 high Not Available [address] [place], [address] 12/25/2023 07:15:21 12/25/19 24 12/25/2023 COMPL ETE BLOOD COUNT W/DIF F absolute monocyte count 0.50 10_3/ uL 0.1-0. 8 normal Not Available [address] [place], [address] 12/25/2023 07:15:21 12/25/19 24 12/25/2023 COMPL ETE BLOOD COUNT W/DIF F absolute eosinophil count 0.06 10_3/ uL 0.0-0. 7 normal Not Available [address] [place], [address] 12/25/2023 07:15:21 12/25/19 24 12/25/2023 COMPL ETE BLOOD COUNT W/DIF F absolute basophil count 0.00 10_3/ uL 0.0-0. 2 normal Not Available [address] [place], [address] 12/25/2023 07:15:21 12/25/19 24 12/25/2023 COMPL ETE BLOOD COUNT W/DIF F diff comment Manual Differ ential Not Available [address] [place], [address] 12/25/2023 07:15:21 12/25/19 24 12/25/2023 COMPL ETE BLOOD COUNT W/DIF F RBC morphology Normal Not Available [facility] [address] [place], [address] 12/25/2023 07:15:21 12/23/19 24 12/23/2023 CT, chest + abdom en + pelvi s, w/ contr ast Patien t Name: Nuzhat hu Do nald Unit #: [id number] Loc: ER Jp valle Provid er: Whit valleJuan C PA Accoun t #: [id number] Status : REG ER Primar y Care Provid er: Rosie Bess M.D. Date of Exam: Sex: M : 1960 Age: 63 Exam(s ) a CT:CT thorax abd/pe l CTA Exam(s ) CT THORAX ABD/PE L CTA EXAM: CT THORAX ABD/PE L CTA CLINIC AL HISTOR Y: elev d-dime r, poss malig, eval PE ABD vasc. TECHNI QUE: Imagin g Protoc ol: Axial CT angiog erlin was perfor med with multi- slice acquis ition and multi- planar and/or 3D recons tructi ons. CONTRA ST MATERI AL: Intrav enous: Omnipa que [address] volume :struc tured data in ml Oral: / no COMPAR AYSE: No exams were availa ble for compar ayse FINDIN GS: CHEST: Pulmon illo Arteri es: No eviden ce of fillin g defect to sugges t pulmon lilo emboli . Trache obronc hial tree: Patent where visual ized. Medias tinum and Elena: No domina nt adenop athy or fluid collec tion. Pulmon lilo parenc hyma: No consol idatio n or domina nt measur able mass. No shelley ectura l distor tion. Pleura : No effusi on or pneumo thorax . Heart: The heart is not dilate d. No núñez ry artery calcif icatio ns are seen. Aorta: Thorac ic aorta non-di lated. Minima l athero sclero tic change s. Bones: Normal . Tubes, Cathet ers, and Lines: None ABDOME N AND PELVIS : Abdome n: Celiac axis/m esente giovanny arteri es: No eviden ce of occlus ion or signif icant stenos is. Renal Arteri es: No eviden ce of occlus ion or signif icant stenos is. There is a single renal artery perfus ing each kidney . Aorta: No eviden ce of occlus ion or signif icant stenos is. No aneury sm or dissec tion. Pelvis : Iliac Arteri es: No eviden ce of occlus ion or signif icant stenos is. Minima l athero sclero tic change s. Common Femora l Arteri es: No eviden ce of occlus ion or signif icant stenos is. ABDOME N: Liver: Normal densit y. No measur able mass. Portal , Superi or Mesent mitchell, and Spleni c Veins: Unrema rkable . Gallbl adder and Biliar y Tract: Status post cholec ystect shabnam. No radiod ense calcul us or dilati on. Pancre as: Normal densit y, no abnorm al calcif icatio ns or inflam matory proces s. Spleen : Normal . Adrena ls: No masses seen. Kidney s: Normal size, contou r and axis. No radiod ense stones or obstru ctive uropat hy. No masses seen. Circum aortic left renal vein. Bowel: No obstru ction or bowel wall thicke cameron. Append ix is unrema rkable . Divert iculos is. No eviden ce of divert iculit is. Perito jean-claude Cavity : No ascite s, collec tion or mesent mitchell inflam matory respon se. Lymph Nodes: Within normal limits . Bones: Degene rative change s in the lumbar spine. Soft Tissue s: Unrema rkable . Bladde r: Contra st in urinar y bladde r. Symmet giovanny disten tion, no gross wall thicke cameron. Reprod uctive Organs : Unrema rkable as visual ized. Lymph Nodes: Within normal limits . IMPRES KEE: Normal CT Angiog albino of the chest, abdome n and pelvis . No eviden ce of pulmon lilo emboli . No acute abnorm ality in the chest abdome n or pelvis . RADIAT ION DOSE DELIVE RED: Total DLP DATA REPOSI TORY: All CT scans at this facili ty are submit earl to the [facility] al Radiol ogy Data Regist ry (NRDR) Dose Index Regist ry (DIR) with the [place] [employer] of Radiol ogy (ACR). RADIAT ION OPTIMI ZATION : All CT scans at this facili ty use at least one of these dose optimi zation techni ques: automa earl exposu re contro l; mA and/or kV adjust ment per patien t size (inclu dariusz target ed exams where dose is matche d to clinic al indica tion); or iterat lydia recons tructi on. 023: Total DLP = 0.00 mGy-cm Ordere d By: Juan C Conteh CC: ------ ------ ------ ------ ------ ------ ------ ------ ------ ------ ------ ------ ---- Dictat ed By: Charlotte Adkins [id number] Transc ribed By: Kaz Kent 1533 This is privil eged, confid ential inform ation intend ed only for the provid er named. Any use or distri bution by any person other than this provid er is strict ly prohib ited. If you receiv e this report in error, please notify us immedi remaly at and return the origin al report to us at the addres s above. Thank- you. [email or web address] [facility] [address] , [place], [address] 12/23/2023 16:49:14 Result Notes None recorded. Problems Name Status Onset Date Resolution Date Notes Provider Name and Address Organization Details Recorded Time Gastroesophag eal reflux disease without esophagitis Active 2004 ROSIE BESS MD [address], [place], [address] , [facility] 4 07:33:06 Anxiety disorder Active [address], [place], [address] , [facility] 4 20:32:39 Prediabetes Active [address], [place], [address] , [facility] 4 20:32:15 Adult health examination Active [address], [place], [address] , [facility] 4 20:31:17 Posttraumatic stress disorder Active [address], [place], [address] , [facility] 4 20:32:07 Essential hypertension Active [address], [place], [address] , [facility] 4 20:32:11 Traumatic or non-traumatic injury Completed 201502/07/2016 12/19/2015 - Comments only - Rosie Bess MD - He agrees that he does not require any further narcotics for this. He is to use [id number] ter nonsteroidals or Tylenol. Problem Code: T14.8; Problem Code Type: ICD-10; Not Available [facility] 3 05:12:36 Acute sinusitis Completed 201809/24/2018 08/25/2018 - Comments only - John Pagan MD - Given worsening after 2 weeks of symptoms, will treat as bacterial sinusitis with amox/clav. Continue supportive care with guafenicine and nasal saline. Problem Code: J01.90; Problem Code Type: ICD-10; Not Available [facility] 3 05:12:36 Visual disturbance Completed 201906/14/2023 10/19/2019 - Comments only - Rosie Bess MD - referral to optometery. ?atypical migraine, trial of magnesium 400 and vitamin B2 400 mg daily Problem Code: H53.9; Problem Code Type: ICD-10; MD [address], [place], [address] , [facility] 4 07:41:51 Nausea Completed 202011/09/2020 10/26/2020 - Comments only - Rosie Bess MD - S./p gall bladder removal for gall stone pancreatitis. Will check LFTs and lipase, referral to GI to consider EGD. Hold on imaging. Problem Code: R11.0; Problem Code Type: ICD-10; Not Available [facility] 3 05:12:36 Benign prostatic hyperplasia Active 202003/19/2022 restart finsateride MD [address], [place], [address] , [facility] 4 07:32:48 HIV screening Completed 202104/02/2022 Problem Code: Z11.4; Problem Code Type: ICD-10; Not Available [facility] 3 05:12:37 Blood in urine Completed 201503/06/2023 10/07/2015 - Comments only - Rosie Bess MD - He is scheduled to have a cystoscopy through Dr. Ferreira's office. Problem Code: R31.9; Problem Code Type: ICD-10; Not Available [facility] 3 05:12:51 Impaired fasting glycemia Completed 201403/06/2023 Not Available [facility] 3 05:12:51 Dehydration Completed 201508/20/2016 Problem Code: E86.0; Problem Code Type: ICD-10; Not Available [facility] 3 05:12:52 Gastroesophag eal reflux disease Completed 200403/06/2023 Not Available [facility] 3 05:12:53 Elevated blood-pressur e reading without diagnosis of hypertension Completed 201511/23/2015 Problem Code: R03.0; Problem Code Type: ICD-10; Not Available [facility] 3 05:12:54 Hypopituitari sm Completed 201510/19/2019 Problem Code: E23.0; Problem Code Type: ICD-10; Not Available [facility] 3 05:12:54 Microscopic hematuria Completed 201503/06/2023 10/19/2019 - Comments only - Rosie Bess MD - 4 years since cystoscopy. U/A collected today. Refer back to Dr. Ferreira if positive again. restart finasteride as also helps with nocturia. Problem Code: R31.2; Problem Code Type: ICD-10; Not Available [facility] 3 05:12:55 Blood chemistry outside reference range Completed 201609/06/2017 Problem Code: R79.89; Problem Code Type: ICD-10; Not Available [facility] 3 05:12:56 Nondependent alcohol abuse in remission Completed 201103/06/2023 Problem Code: 305.03; Problem Code Type: ICD-9; Not Available [facility] 3 05:12:58 Localized edema Completed 201610/19/2019 Problem Code: R60.0; Problem Code Type: ICD-10; Not Available [facility] 3 05:12:58 Right lower quadrant pain Completed 201410/26/2020 Problem Code: R10.31; Problem Code Type: ICD-10; Not Available [facility] 3 05:13:02 Exposure to communicable disease Completed 201910/26/2020 Problem Code: Z20.828; Problem Code Type: ICD-10; Not Available [facility] 3 05:13:05 Stomatitis Completed 201508/20/2016 Problem Code: K12.1; Problem Code Type: ICD-10; Not Available [facility] 3 05:13:06 Pruritic rash Active [address], [place], [address] , [facility]. 4 07:35:03 Recurrent hematuria Active 2015 normal cystoscopy 2015, followed by urology; normal CT scan 12/2023, plan- yearly urinalysis and a repeat workup in 3 to 5 years if the hematuria persists. presumed due to prostate MD [address], [place], [address] , [facility] 4 13:25:39 Chronic alcoholism in remission Active [address], [place], [address] , [facility] 4 07:41:33 Lyme disease Active 2023 Lanette campos, [facility] 4 09:26:40 Problem Notes None recorded. Procedures Surgical History None recorded. Imaging Results Imaging Date Name Status LastModified by Organiz ation Details LastModified Time 12/23/2023 CT, chest + abdomen + pelvis, w/ contrast completed [email or web address] [facility] [address] , [place], [address] 12/23/2023 16:49:14 Procedure Notes None recorded. Medical Equipment None Reported. Allergies Allergen ID Allergen Name Allergen Category Reaction Reaction Severity Criticality Documentation Date Start Date Code Code System Note Provider Name and Address Organization Details Recorded Time acetamino phen / hydrocodo ne medicatio n nausea mild Not available 04/19/20232005 01171 2 RxNorm NAUSE A Aller gyCod e: '0012 [id number] 10'; Aller gyNam e: 'DHAVAL DIN'; Aller gyCon ceptT ype: 'NDC' ; Not Available [facility] 3 16:13:43 Medications Name Sig Start Date Stop Date Status Note LastModified by Organization Details LastModified Time venlafaxi ne ER 75 mg capsule,e xtended release 24 hr Take 1 capsule by mouth every day 10/17 completed Not Available Not Available Not Available doxycycli ne hyclate 100 mg capsule TAKE ONE CAPSULE BY MOUTH TWICE A DAY FOR 7 DAYS 01/21 completed Not Available Not Available Not Available citalopra m 40 mg tablet 1TAB qd 01/09 completed Not Available Not Available Not Available Vitamin C 500 mg tablet 1 tablet once a day 06/19 completed Not Available Not Available Not Available Lidocaine Viscous 2 % mucosal solution mix 50:50 with benadryl , swish and spit 20ml 4 x day prn throat pain active Not Available Not Available No t Available prazosin 1 mg capsule 1-2 caps at bedtime 08/20 completed Not Available Not Available Not Available Benadryl Allergy 12.5 mg/5 mL oral elixir mix 50:50 with lidocain e, swish and spit 20ml 4 x day prn throat pain 08/20 completed Not Available Not Available Not Available lisinopri l 20 mg tablet Take 1 tablet by mouth once a day 03/19 completed Not Available Not Available Not Available ondansetr on HCl 4 mg tablet Take 1 tab by mouth every 8 hours as needed for nausea 08/20 completed Not Available Not Available Not Available Seroquel 25 mg tablet 1/2 tab QHS Take as needed. 09/06 completed Not Available Not Available Not Available venlafaxi ne ER 150 mg capsule,e xtended release 24 hr TAKE 1 CAPSULE BY MOUTH ONCE DAILY WITH 75MG CAPSULE FOR TOTAL DOSE OF 225MG DAILY 2018 active Not Available Not Available Not Avai lable amlodipin e 5 mg tablet Take 1 tab by mouth daily 08/25 completed Not Available Not Available Not Available omeprazol e 40 mg capsule,d elayed release Take 1 capsule by mouth every day 2023 active Not Available Not Available Not Avai lable tramadol 50 mg tablet Take 1 tab by mouth daily as needed Fill at RA in [facility] only 09/06 completed Not Available Not Available Not Available bupropion HCl SR 100 mg tablet,12 hr sustained -release 1 po BID 09/29 completed Not Available Not Available Not Available amoxicill in 250 mg chewable tablet Take 1 chew by mouth three times daily 03/12 completed [facility] Not Available Not Available Not Available cyprohept adine 4 mg tablet Take 1-3 tabs by mouth daily at bedtime 08/[address] Lai Not Available Not Available Not Available meloxicam 7.5 mg tablet Take 1-2 tab by mouth daily 08/20 completed Not Available Not Available Not Available oxycodone -acetamin ophen 5 mg-325 mg tablet Take 1-2 tabs by mouth q4-6 hr as needed for pain 09/[address] [facility] only Not Available Not Available Not Available citalopra m 20 mg tablet 1.5TAB qd 04/28 completed Not Available Not Available Not Available oxycodone -acetamin ophen 10 mg-325 mg tablet 1 by mouth every 4-6 hours as needed. 10/25 completed Not Available Not Available Not Available amitripty line 10 mg tablet 1-2 TABS at bedtime 09/05 completed Not Available Not Available Not Available amlodipin e 10 mg tablet TAKE 1/2 qhs 2015 active Not Available Not Available Not Avai lable venlafaxi ne 37.5 mg tablet Take 1 tablet every day by oral route. 2023 active Not Available Not Available Not Avai lable triamcino lone acetonide 0.1 % topical ointment Apply a small amount to the skin twice daily active Not Available Not Available No t Available misoprost ol 200 mcg tablet 1 tab twice daily prn, take any time you take indometh acin 08/25 completed Not Available Not Available Not Available indometha bentley 50 mg capsule 1 cap q 6hrs Take as needed. 08/25 completed Not Available Not Available Not Available Effexor 75 mg tablet 1TAB daily 01/23 completed Not Available Not Available Not Available gabapenti n 300 mg capsule Take 1 caps po three times daily 02/15 completed [facility] Not Available Not Available Not Available lisinopri l 5 mg tablet Tae k2 by mouth daily(10 mg) 2015 active Not Available Not Available Not Avai lable Levaquin 500 mg tablet 1 TAB daily 09/15 completed Not Available Not Available Not Available finasteri de 5 mg tablet TAKE 1 TABLET BY MOUTH EVERY EVENING 2023 active Not Available Not Available Not Avai lable amoxicill in 875 mg-potass ium clavulana te 125 mg tablet one po BID x 7 days 09/08 completed Not Available Not Available Not Available Vitamin-C 500 mg tablet 1TAB daily 2011 active Not Available Not Available Not Avai lable oxycodone 10 mg tablet Take 1 tab by mouth every 4-6 hours as needed for pain 10/11 completed Not Available Not Available Not Available OxyContin 10 mg tablet,cr ush resistant ,extended release Take 1 tab by mouth at HS for severe pain to last 3 months 02/19 completed Not Available Not Available Not Available Vitals Date Recorded Body temperature Heart rate Respiratory rate Body weight Body mass index (BMI) Body height Systolic blood pressure Diastolic blood pressure Provider Name and Address Organization Details Last Updated DateTime 4 97.9 [degF] 78 /min 18 /min 21852.1 8 g 28.6 kg/m2 171.81 cm 128 mm[Hg] 86 mm[Hg] NÉSTOR ROMAN LPN [facility] 13:09:49 Date Recorded Body height Body mass index (BMI) Body weight Body temperature Oxygen saturation Oxygen saturation in Arterial blood by Pulse oximetry Respiratory rate Heart rate Systolic blood pressure Diastolic blood pressure Provider Name and Address Organization Details Last Updated DateTime 4 171.81 cm 28.7 kg/m2 72038.7 7 g 97.3 [degF] 98 % 98 % 16 /min 84 /min 122 mm[Hg] 86 mm[Hg] NÉSTOR ROMAN LPN [facility] 13:12:17 Social History Question Answer Notes LastModified by Organizat ion Details LastModified Time Tobacco Smoking Status Never Smoker NÉSTOR ROMAN LPN [facility] 06/19/2023 12:53:25 Would You Say That, In General, Your Health Is Good Information not available 06/19/2023 How Often Does Anyone, Including Family, Physically Hurt You? Never Information not available 06/19/2023 How Often Does Anyone, Including Family, Insult Or Talk Down To You? Never Information no t available 06/19/2023 How Often Does Anyone, Including Family, Threaten You With Harm? Never Information not available 06/19/2023 How Often Does Anyone, Including Family, Scream Or Curse At You? Never Information not available 06/19/2023 Within The Past 12 Months, You Worried That Your Food Would Run Out Before You Got Money To Buy More. Never True Information n ot available 06/19/2023 Within The Past 12 Months, The Food You Bought Just Didn't Last And You Didn't Have Money To Get More. Never True Information not available 06/19/2023 How Hard Is It For You To Pay For The Very Basics Like Food, Housing, Medical Care, And Heating? Would You Say It Is: Somewhat Hard Information not available 06/19/2023 In The Past 12 Months, Has Lack Of Reliable Transportation Kept You From Medical Appointments, Meetings, Work Or From Getting Things Needed For Daily Living? No Information not available 06/19/2023 What Is Your Housing Situation Today? I Have Housing. Information not available 06/19/2023 How Often In The Past Year Have You Used Marijuana (including Smoking, Vaping, Dabbing, Or Edibles)? Never Information not available 06/19/2023 How Often In The Past Year Have You Used Prescription Medications That Were Not Prescribed To You? Never Information not available 06/19/2023 How Often In The Past Year Have You Taken Your Own Prescription Medication More Than The Way It Was Prescribed Or For Different Reasons Than Its Intended Purpose? Never Information not available 06/19/2023 How Often In The Past Year Have You Used Other Drugs (for Example, Heroin, Cocaine, Meth, Salvia, Inhalants)? Never Information not available 06/19/2023 Have You Ever Used IV Drugs? No Information not available 06/19/2023 Date Of Most Recent SBINS 06/19/2023 Information not available 06/19/2023 What Was The Date Of Your Most Recent Tobacco Screening? 01/22/2024 Information n ot available 01/22/2024 Has Tobacco Cessation Counseling Been Provided? No Information not available 06/19/2023 Do You Or Have You Ever Used Any Other Forms Of Tobacco Or Nicotine? No Information not available 06/19/2023 Sex: Male Functional Status None recorded. Mental Status None recorded. Family History Relationship Description Onset Age of this Age Resolved Age Notes Father Family history of Arthritis Mother alive Father Alive Father Family history of Depression Mother Family history of Arthritis Mother alive Father Alive Medical History No medical history recorded. Immunizations Vaccine Type Date Status Provider Name and Address Organization Details Recorded Time Tdap 03/10/2012 completed Not Available [facility] 06:29:24 Tdap 03/19/2022 completed Not Available [facility] 06:29:25 Influenza, split virus, quadrivalent, PF 03/03/2021 completed Not Available [facility] 04/19/2023 06:29:25 Influenza, split virus, quadrivalent, PF 03/19/2022 completed Not Available [facility] 04/19/2023 06:29:25 zoster recombinant 10/26/[address] [facility] 04/19/2023 06:29:25 zoster recombinant 12/26/[address] [facility] 04/19/2023 06:29:25 COVID-19, mRNA, LNP-S, PF, 100 mcg/0.5mL dose or 50 mcg/0.25mL dose 09/19/2020 completed Not Available [facility] 04/19/20 06:29:26 COVID-19, mRNA, LNP-S, PF, 100 mcg/0.5mL dose or 50 mcg/0.25mL dose 10/17/2020 completed Not Available [facility] 04/19/20 06:29:26 COVID-19, mRNA, LNP-S, bivalent, PF, 30 mcg/0.3 mL dose 04/24/2022 completed Not Available [facility] 04/19/2023 06:29:26 influenza, unspecified formulation 02/20/2013 completed Not Available [facility] 04/19/2023 06:29:26 influenza, unspecified formulation 06/07/2014 completed Not Available [facility] 04/19/2023 06:29:26 Past Encounters Encounter ID Performer Location Encounter Start Date Encounter Closed Date Diagnosis/Indication Diagnosis SNOMED-CT Code [id number] Sherrell Kumari RN [facility] [address] [place] [address] 06/13/2023 14:07:48 06/13/2023 14:17:42 Adult health examination 288026926 Prediabetes 644287035 HIV screening 852694082 [id number] ROSIE BESS MD [facility] [address] [place] [address] 06/19/2023 12:59:56 06/19/2023 13:51:34 Screening for malignant neoplasm of colon 319285350 Adult [facility] th examination 965955477 Overweight 275871055 Essential hypertension 49615718 Prediabetes 171085581 Anxiety disorder 06 Benign pro static hyperplasia 593498134 Gastroesop hageal reflux disease without esophagitis 558304927 [id number] ROSIE BESS MD [facility] [address] [place] [address] 01/22/2024 13:02:19 01/22/2024 13:47:32 History of sepsis 29512624732220 0 History of hepatitis C 97042738489244 Anxiety disorder 0404956 06 Health Concerns Section Related Observation LastModified by Organization Detai ls LastModified Time None Recorded Concern Status LastModified by Organization Details LastModified Time None Recorded Advance Directives Directive None Recorded Payers Encounter Date Sequence Insurance Name Policy Number Policy Oropeza Covered Member ID Oropeza Member ID Guarantor Name 06/13/2023 1 *SELF PAY* Do lynn Patel 06/19/2023 1 *SELF PAY* Do lynn Patel 01/22/2024 1 [place] [facility] [id number] Gamaliel Patel [id number] Gamaliel Patel Notes Date Note Type Note Provider Name and Address Organization Details Recorded Time 06/19/2023 text/html HPI Notes: Here for Annual Exam. Interval history form was reviewed, including comprehensive ROS form. occasionally feels a bit nauseated and dizzy, not positional, dramamine helps. No associated headache. Some tinnitus. Still some itching of his legs (swears it was related to vaccines). That is overall better. 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 Anxiety/PTSD- Still having bad dreams. 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 Has lowered his dose down to just 75 mg daily, eventually would like to try lowering the dose. Hematuria- has upcoming appointment with urology- they have discussed cystoscopy and possible CT scan- he now has insurance, though worried about deductible costs. GERD- even with the daily omeprazole occasionally has some symptoms. BPH- finasteride is helpful, less nocturia. HTN- stopped medications as BP was so good when he lost weight, prefers not to restart. MD [address], [place], [address], [place] [facility]. 06/20/2023 10:17:04 01/22/2024 text/html HPI Notes: Kerri mckeon presented at [facility] ER 12/22 with fever, chills, and nausea. He was admitted and dx with lyme disease and treated with doxycycline hyclate for 3 weeks. No headaches, no joint pains. No chest pain, no palpitations. He is really feeling fine now. He saw Dr. Ferreira and 01/08 for f/u of hematuria, underwent in the office cystoscopy, and for imaging had normal CT scan when he was an inpatient at [facility]. Plan is annual U/A, repeat workup if hematuria persists for 3-5 years. To be sooner if hematuria increases or he develops symptoms. Dr Ferreira feels this is most likely his prostate He notes some Memory loss, short term. 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 Planning to stop the low dose, his does tell him he is a bit more irritable. MD [address]ina [address], [place], [address], [facility]. 01/22/2024 14:17:12
--- OUTSIDE RECORDS SUMMARY | 2024-01-22 14:46 | XMS_ITS | Encounter Summary ---
Author Organization [facility] [place] [address] Care Team Providers Care Return To Vendor Name Role Phone Rosie Bess MD Primary Care Provider [phone] Encounter Details Date Type Department Care Team (Late st Contact Info) Description 08/10/2016 Telephone [place] [phone] Marcela Uribe Social History Tobacco Use Types Packs/Day Years Used Date Smoking Tobacco: Never Smokeless Tobacco: Never Alcohol Use Standard Drinks/Week Comments No 0 (1 standard drink = 0.6 oz pur e alcohol) quit 4 years ago Sex and Gender Information Value Date Recorded Sex Assigned at Not on file Gender Identity Not on file Sexual Orientation Not on file documented as of this encounter Miscellaneous Notes * Telephone Encounter - Marcela Uribe - 08/10/2016 1:13 PM EST Mr. Patel called stating he is recovering quite well. He feels everything is going great. He is cancelling his post operative appointment scheduled for Saturday08/13/16 and will not be rescheduling at this time. He will call us should anything change. documented in this encounter Plan of Treatment Not on file documented as of this encounter Visit Diagnoses Not on filedocumented in this encounter Care Teams Return To Vendor Relationship Specialty Start Date End Date Rosie Bess MD [facility] [address] [place] [address] PCP - General Family Medicine 06/16/15 documented as of this encounter
--- OUTSIDE RECORDS SUMMARY | 2024-01-22 14:46 | XMS_ITS | Encounter Summary ---
Author Organization [facility] [place] [address] Care Team Providers Care Functional Tester Typewriters Name Role Phone Rosie Bess MD Primary Care Provider [phone] Encounter Details Date Type Department Care Team (Late st Contact Info) Description 02/29/2016 Telephone Acute [place] [phone] Mati Molina MD [facility] [place] [address] Social History Tobacco Use Types Packs/Day Years [...] encounter Miscellaneous Notes * Telephone Encounter - Mati Molina MD - 03/01/2016 10:06 AM EDT error documented in this encounter Plan of Treatment Not on file documented as of this encounter Visit Diagnoses Not on filedocumented in this encounter Care Teams Functional Tester Typewriters Relationship Specialty Start Date End Date Rosie Bess MD [address] [place] [address] DR [address] [place] [id number] PCP - General Family Medicine 06/16/15 documented as of this encounter
--- OUTSIDE RECORDS SUMMARY | 2024-01-22 14:46 | XMS_ITS | Encounter Summary ---
Author Organization [facility] Address [address] [place] [address] Care Team Providers Care Safety Professional Name Role Phone Rosie Bess MD Primary Care Provider [phone] Encounter Details Date Type Department Care Team (Late st Contact Info) Description 06/06/2020 Lab Requisition [facility] [place] Pathology & Laboratory Medicine - [facility] [address] [place] [address] Outr Resulting Lab, Provider Social History Tobacco Use Types Packs/Day Years Used Date Smoking Tobacco: Never Assessed Sex and Gender Information Value Date Recorded Sex Assigned at Not on file Gender Identity Not on file Sexual Orientation Not on file documented as of this encounter Plan of Treatment Not on file documented as of this encounter Procedures Procedure Name Priority Date/Time Associated Diagnosis Comments DO NOT ORDER STANDALONE - [facility] COVID TEST Today 06/06/2020 13:56 EST COVID-19 TESTING Routine 06/06/2020 13:5 6 EST documented in this encounter Results * DO NOT ORDER STANDALONE - [facility] COVID TEST (06/06/2020 13:56 EST) COVID-19 rt-PCR Result NEGATIVE Negative 06/08/2020 8:37 EST [facility] Comment: 2019-novel Coronavirus (2019-nCoV) not detected by the qRT-PCR assay. Consider testing for other respiratory viruses or re-collecting for 2019-nCoV testing. Note: Optimum timing for peak viral levels during infections caused by 2019-nCoV have not been determined. Collection of multiple specimens from the same patient may be necessary to detect the virus. Limitations Positive results are indicative of active infection with SARS-CoV-2 but do not rule out bacterial infection or co-infection with other viruses. The agent detected may not be the definite cause of disease. In addition, detection of viral RNA may not indicate the presence of infectious virus or that SARS-CoV-2 is the causative agent for clinical symptoms. Negative results do not preclude SARS-CoV-2 infection and should not be used as the sole basis for patient management decisions. Negative results must be combined with clinical observations, patient history, and epidemiological information. False negative results may also occur if amplification inhibitors are present in the specimen or if inadequate numbers of organisms are present in the specimen. Optimum specimen types and timing for peak viral levels during infections caused by SARS-CoV-2 have not been fully determined. Collection of multiple specimens (types and time points) from the same patient may be necessary to detect the virus. The test was validated for use with upper respiratory specimens obtained via nasopharyngeal or oropharyngeal swabs in VTM, UTM, M4, M5, M6, saline, and MTM media. The performance of this test has not been established for other specimens. Specimens collected using other FDA recommended Specimen Collection Materials listed in the FDA COVID-19 [employer] communication (September 03, 2019) are processed with the caveat that they were not all validated for use with this test and the result must be interpreted in this context. Furthermore, a false negative results may occur if a specimen is improperly collected, transported or handled. If the virus mutates in the RT-PCR target region, SARS-CoV-2 may not be detected or may be detected less predictably. Inhibitors or other types of interference may produce a false negative result. An interference study evaluating the effect of common cold medications was not performed. This test is not FDA-cleared but its performance characteristics were established by our CLIA-certified, CAP-accredited, high complexity laboratory in accordance with CLIA regulations, [employer] (CAP) guidelines (Aug 27, 2019), and FDA guidance (Aug 08, 2019). This test is only for use under the Food and Drug Administration's Emergency Use Authorization. Swab ENTIRE NASOPHARYNX / Unknown 06/06/2020 13:56 EST 06/06/2020 20:41 EST Provider Outr Resulting Lab MICROBIOLOGY - GENERAL ORDERABLES [facility] [place] * COVID-19 TESTING (06/06/2020 13:56 EST) COVID-19 rt-PCR Result NEGATIVE Negative 06/08/2020 10:02 EST [facility] Comment: 2019-novel Coronavirus (2019-nCoV) not detected by the qRT-PCR assay. Consider testing for other respiratory viruses or re-collecting for 2019-nCoV testing. Note: Optimum timing for peak viral levels during infections caused by 2019-nCoV have not been determined. Collection of multiple specimens from the same patient may be necessary to detect the virus. Limitations Positive results are indicative of active infection with SARS-CoV-2 but do not rule out bacterial infection or co-infection with other viruses. The agent detected may not be the definite cause of disease. In addition, detection of viral RNA may not indicate the presence of infectious virus or that SARS-CoV-2 is the causative agent for clinical symptoms. Negative results do not preclude SARS-CoV-2 infection and should not be used as the sole basis for patient management decisions. Negative results must be combined with clinical observations, patient history, and epidemiological information. False negative results may also occur if amplification inhibitors are present in the specimen or if inadequate numbers of organisms are present in the specimen. Optimum specimen types and timing for peak viral levels during infections caused by SARS-CoV-2 have not been fully determined. Collection of multiple specimens (types and time points) from the same patient may be necessary to detect the virus. The test was validated for use with upper respiratory specimens obtained via nasopharyngeal or oropharyngeal swabs in VTM, UTM, M4, M5, M6, saline, and MTM media. The performance of this test has not been established for other specimens. Specimens collected using other FDA recommended Specimen Collection Materials listed in the FDA COVID-19 [employer] communication (September 03, 2019) are processed with the caveat that they were not all validated for use with this test and the result must be interpreted in this context. Furthermore, a false negative results may occur if a specimen is improperly collected, transported or handled. If the virus mutates in the RT-PCR target region, SARS-CoV-2 may not be detected or may be detected less predictably. Inhibitors or other types of interference may produce a false negative result. An interference study evaluating the effect of common cold medications was not performed. This test is not FDA-cleared but its performance characteristics were established by our CLIA-certified, CAP-accredited, high complexity laboratory in accordance with CLIA regulations, [employer] (CAP) guidelines (Aug 27, 2019), and FDA guidance (Aug 08, 2019). This test is only for use under the Food and Drug Administration's Emergency Use Authorization. Performing Lab [facility] 06/08/2020 10:02 EST [facility] Swab 06/06/2020 13:5 6 EST 06/06/2020 20:41 EST Provider Outr Resulting Lab MICROBIOLOGY - GENERAL ORDERABLES [facility] [address] [place] [address] [facility] [place], [place] documented in this encounter Visit Diagnoses Not on filedocumented in this encounter Care Teams Safety Professional Relationship Specialty Start Date End Date Rosie Bess MD [address] [place] [phone] PCP - General 05/15/11 documented as of this encounter
--- OUTSIDE RECORDS SUMMARY | 2024-01-22 14:46 | XMS_ITS | Encounter Summary ---
Author Organization [facility] [place] [address] Care Team Providers Care Furnace Tender Name Role Phone Rosie Bess MD Primary Care Provider [phone] Reason for Visit * Reason Comments Follow-up Encounter Details Date Type Department Care Team (Late st Contact Info) Description 05/16/2016 8:45 AM EST Office [place] [address] Laura Lo MD [facility] [place] [address] Groin pain, chronic, right Social History Tobacco Use Types Packs/Day Years Used Date Smoking Tobacco: Never Smokeless Tobacco: Never Alcohol Use Standard Drinks/Week Comments No 0 (1 standard drink = 0.6 oz pur e alcohol) quit 4 years ago Sex and Gender Information Value Date Recorded Sex Assigned at Not on file Gender Identity Not on file Sexual Orientation Not on file documented as of this encounter Last Filed Vital Signs Vital Sign Reading Time Taken Comments Blood Pressure 133/76 05/16/2016 9:04 AM EST Pulse 84 05/16/2016 9:04 AM EST Temperature - - Respiratory Rate - - Oxygen Saturation 100% 05/16/2016 9:04 AM EST Inhaled Oxygen Concentration - - Weight 83.5 kg (184 lb) 05/16/2016 9:04 AM EST Height 172 cm (5' 7.72) 05/16/2016 9:04 AM EST Body Mass Index 28.21 05/16/2016 9:04 AM EST documented in this encounter Progress Notes * Laura Lo MD - 05/16/2016 8:45 AM EST Mr. Patel is a 55-year-old gentleman who was recently evaluated by Dr. Jose Weston for right groin pain. He apparently has had open bilateral inguinal hernia repair back in 2008, and has had persistent pain on the right side, which is now worse with prolonged periods of sitting and laying down. He is being evaluated and seen by the pain service. He has had some benefit with injection, but then it slowly returns. He has had some radiation around to his hip and down his leg, but primarily in his right groin and testicle. The pain sometimes wakes him up from sleep. He was evaluated by Dr. Weston and his note suggests neurectomy by Neurosurgery. He did not feel any recurrent hernia at this time. The patient did have a CT scan in the past. Past history includes hypertension and lap cholecystectomy for gallstone pancreatitis in 2015. He also has had the above noted hernia repairs. Medications and allergies were updated in the current medical record. No family history of any major malignancy or lymphomas in the groin. He is and lives with his . 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 He is a nondrinker, nonsmoker, and denies any drug use. On examination, one finds a relatively healthy-appearing gentleman in no apparent distress. On examination of his groin, I do feel a palpable, reducible, very small hernia on the right side. It is difficult to say how much of this is neurogenic pain versus recurrence. Given his previous repair performed open, I did offer him the option of laparoscopic repair with injection. If this settles things down, then I think we have resolved his issue. If he has persistent pain, then we can reconsider neurolysis at that time. He is agreeable to this plan, and he will schedule sometime in the new year. cc: Rosie Bess MD documented in this encounter Plan of Treatment Not on file documented as of this encounter Visit Diagnoses Diagnosis Groin pain, chronic, right documented in this encounter Care Teams Furnace Tender Relationship Specialty Start Date End Date Rosie Bess MD [address] [place] [address] PCP - General Family Medicine 06/16/15 documented as of this encounter
--- OUTSIDE RECORDS SUMMARY | 2024-01-22 14:46 | XMS_ITS | Encounter Summary ---
Author Organization [facility] [place] [address] Care Team Providers Care Pilot Can Router Name Role Phone Rosie Bess MD Primary Care Provider [phone] Reason for Visit * Auth/Cert - Closed Specialty Diagnoses / Procedures Referred By Contac t Referred To Contact Diagnoses Pancreatitis, gallstone ? OBSTRUCTED COMMON BILE DUCT Procedures IPI Referral ID Status Reason Start Date Expiration Date Visits Re quested Visits Authorized [id number] Closed 1 1 Encounter Details Date Type Department Care Team (Latest Contact Info) Description 06/16/2015 8:56 PM EST - 06/23/2015 10:00 AM [facility] Hospital Encounter [address] [place] [address] [place] [address] [place] [address] [place] [address] Darrell Stephenson MD [facility] [place] [address] Pain; Cholangiolitis Discharge Disposition: Home Social History Tobacco Use Types Packs/Day Years [...] Sign Reading Time Taken Comments Blood Pressure 146/83 06/23/2015 9:55 AM EST Pulse 87 06/23/2015 9:55 AM EST Temperature 37 ??C (98.6 ??F) 06/23/2015 9:55 AM EST Respiratory Rate 16 06/23/2015 9:55 AM EST Oxygen Saturation 97% 06/23/2015 9:55 AM EST Inhaled Oxygen Concentration - - Weight 81.6 kg (180 lb) 06/16/2015 8:59 PM EST p er Pt report Height 172.7 cm (5' 8) 06/16/2015 8:59 PM EST Body Mass Index 27.37 06/16/2015 8:59 PM EST documented in this encounter Discharge Summaries * Prabhakar Rashid MD - 06/23/2015 9:36 AM EST Discharge Summary Patient Name: Gamaliel Queen Patient Age: 54 y.o. Language: Portuguese Race: White Ethnicity: Not nor Admit date: 06/16/2015 Discharge date and time: 06/23/2015 Attending Physician: Baljit Gutierrez MD Discharge Physician: Baljit Gutierrez MD Follow-up Recommendations for Providers: - Please follow up with pain after patient's laparoscopic cholecystectomy - Please follow up with healing of surgical sites after laparoscopic cholecystectomy - Patient given prescription for a week of narcotic pain medications, please follow up with bowel movements Inpatient Provider Contact Information: For questions regarding this document or issues relating to this hospitalization on the Medical Service, please contact your inpatient physician through the [facility] Institutional Research Director . Issues afterhours and on weekends will be handled by the Hospitalist staff on-call. Discharge Diagnoses (Hospital Problems) and Secondary Diagnoses (Chronic Problems): Active Hospital Problems Diagnosis ??? Pancreatitis, gallstone Resolved Hospital Problems Diagnosis Date Resolved No resolved problems to display. There are no active non-hospital problems to display for this patient. Operations/Major Procedures: Operations: Procedure(s): ERCP 06/17/2015 Procedure(s): LAPAROSCOPIC CHOLECYSTECTOMY WITH CHOLANGIOGRAM 06/21/2015 Other Major Procedures: None History of Presentation: Per Dr. Mann's H&P from 06/16/15: 54 y/o man with hx of PTSD, IVDA and prior etoh abuse (in remission for 3 years) who presents in transfer for management of suspected gallstone pancreatitis. 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 At roughly 10 AM, he noted development of severe epigastric pain. He has a hx of mild abdominal pain that is due to an inguinal hernia, for which he occasionally takes ibuprofen or indocin, resulting in occasional episodes of epigastric discomfort if he does not take it with food. Initially, he was wondering if this was one of these episodes, however the pain was of different character and intensity. Specifically, he notes that the pain was sharp, located in the epigastrium and nonradiating, has persisted since onset, and was quite severe. He has not eaten since the onset of pain. No relieving or aggrevating factors that he had noted. In addition to the abdominal pain, he also noted development of nausea as well as vomiting (and has had about 7-8 episodes of nonbloody emesis). He has been constipated and has noted a slight increase in abdominal distension since this began. Additionally, he noted low grade fevers as well. No other associated symptoms, specifically he denies wt changes, rigors, oral ulcers, nose bleeds, cp, palpitations, dyspnea, cough, dysphagia/odynophagia, diarrhea, or LE swelling. Urine has been a bit darker over yesterday. These symptoms caused him to present to [facility] yesterday afternoon forfurther evaluation. At [facility] yesterday on admission, he was noted to have an elevated amylase + lipase in addition to cholestatic LFT's. A CT of his abdomen revealed stranding of the peripancreatic fat c/w mild pancreatitis. RUQ US could not visualize the CBD due to habitus and bowel gas. Multiple small gallstones andsludge were identified within the GB. There was a question regarding a small amount of pericholecystic fluid. An MRCP was attempted but aborted due to patient being unable to tolerate the imaging. He was treated symptomatically (morphine and phenergan), hydrated and kept NPO. He is being transferred to [facility] for ERCP. At this time, he has no new symptoms. Nausea and abdominal pain are well controlled on current meds. Hospital Course: # Gallstone pancreatitis/Ascending cholangitis - Patient was transferred from [facility] for evaluation with an ERCP at our facility. ERCP was negative,and this was attributed to the likelihood that his gallstones have passed. The patient had main symptoms of pain and nausea. His pain was treated with oxycodone and his nausea was treated with phenergan. He was also treated with antibiotic therapy with zosyn. When his fever and abdominal pain remitted, he underwent a laparoscopic cholecystectomy. The procedure was well tolerated, and the patient was discharged two days post op. Vital Signs at Discharge: BP: 146/83 mmHg, Heart Rate: 87, Temp: 37 ??C (98.6 ??F), Resp: 16, BMI (Calculated): 27.4 Height: 172.7 cm (5' 8) (06/16/152058) Weight - Scale: 81.647 kg (180 lb) (per Pt report) (06/16/152058) Functional and Cognitive Status: - Patient mentating at baseline Important Studies and Lab Data: Labs: Last 3 wbc, hgb, hct plt Recent Labs 06/23/15 0358 06/22/15 0549 06/21/15 0441 WBC 11.8* 12.3* 10.6* HGB 12.0* 11.9* 12.4* HCT 35.7* 34.9* 36.5* PLATELET 397* 366 325 Last 3 Lytes Recent Labs 06/23/15 0358 06/22/15 0549 06/21/15 0441 NA 138 140 139 K 4.2 3.5 3.9 CL 101 102 100 CO2 23 25 26 BUN 13 14 10 CREATININE 0.79* 0.80 0.91 Last 3 LFTs Recent Labs 06/22/15 0549 06/21/15 0441 06/20/15 0807 AST 34 29 20 ALT 96* 100* 111* ALKPHOS 200* 227* 210* BILITOT 0.6 0.9 1.0 BILIDIR 0.3 0.4* 0.4* Last 3 Coags Recent Labs 06/21/15 0441 06/16/15 2211 PT 14.9 15.3* INR 1.1 1.2* Studies: ERCP (06/17/2014) Findings: The major papilla was normal. The bile duct was deeply cannulated with the short-nosed traction sphincterotome. Contrast was injected. I personally interpreted the bile duct images. Image quality was excellent. Opacification of the entire biliary tree was successful. The maximum diameter of the ducts was 8 mm. The intra-hepatic and extra-hepatic biliary duct system was normal. A 12 mm biliary sphincterotomy was made with a braided traction (standard) sphincterotome using ERBE electrocautery. The sphincterotomy oozed blood. To discover objects, the biliary tree was swept with an 11.5 mm balloon starting at the bifurcation. Nothing was found, no pus, no stone, no sludge. Impression: - The major papilla appeared normal. - The cholangiogram was normal including patent cystic duct. - A sphincterotomy was performed. - The biliary tree was swept and nothing was found. Recommendation: Stone ppears to have passed. Continue supportive care for pancreatitis. Consult surgery re cholecystectomy. Pending Studies and Lab Data: None Discharge Conditions/Prognosis: - Gallstone Pancreatitis: Stable. The patient was treated with antibiotics and then underwent a laparoscopic cholecystectomy. The patient's pain has been improving and the patient is able to ambulateindependently. Discharge to: Home Updated Allergies/ADRs: No Known Allergies Immunizations Given this Hospitalization: There is no immunization history on file for this patient. Discharge Medications: Your Medications New Medications Dose Details acetaminophen 325 mg Tab Commonly known as: TYLENOL Take 2 tablets by mouth every 4 hours as needed for Pain or Fever. 650 mg Quantity: 30 tablet Refills: 1 oxyCODONE 5 mg Tab Commonly known as: ROXICODONE Take 1-2 tablets by mouth every 4 hours as needed for Pain (mild to moderate pain (1-6) take 1 tablet, for severe pain > 7/10 take 2 tablets). 5-10 mg Quantity: 30 tablet Refills: 0 polyethylene glycol 17 gram Pwpk Commonly known as: MIRALAX Take 17 g by mouth daily. 17 g Quantity: 14 each Refills: 0 senna-docusate 8.6-50 mg Tab Commonly known as: PERICOLACE Take 2 tablets by mouth 2 times daily. 2 tablet Quantity: 28 tablet Refills: 3 Continued medications, unchanged Dose Details ibuprofen 400 mg Tab Commonly known as: ADVIL;MOTRIN Take 400 mg by mouth every 6 hours as needed for Pain. 400 mg Refills: 0 omeprazole 40 mg Cpdr Commonly known as: PriLOSEC Take 40 mg by mouth daily. 40 mg Refills: 0 * venlafaxine 150 mg Cp24 Commonly known as: EFFEXOR-XR Take 150 mg by mouth daily. 150 mg Refills: 0 * venlafaxine 75 mg Cp24 Commonly known as: EFFEXOR-XR Take 75 mg by mouth daily. 75 mg Refills: 0 * Notice: This list has 2 medication(s) that are the same as other medications prescribed for you. Read the directions carefully, and ask your doctor or other care provider to review them with you. Smoking Status at Discharge: History Smoking status ??? Never Smoker Smokeless tobacco ??? Never Used Instructions Given to Patient at Discharge: Patient Instructions Instructions on Discharge to Home Why you were hospitalized - You were hospitalized after having sharp abdominal pain which prevented you from having an appetite. After getting a CT scan and ultrasound, you were diagnosed with gallstone pancreatitis. You were transferred to our hospital, and upon an ERCP the gallstones were revealed to have passed. Call your doctor or seek medical attention if you develop the following - chest pain, shortness of breath, fever, cough, abdominal pain, nausea/vomiting, or weakness in an arm or leg Specific instructions related to your condition: Changes in Your Medications: New Medications: Tylenol, Oxycodone, Miralax, and Senna Medication dose changes: None Stop these medications: None, please continue home ibuprofen, omeprazole, and venlafaxine Follow-up: Future Appointments Date Time Provider Department Center 07/20/2015 10:00 AM Maribell Au, SE[facility] Your Inpatient Doctor: Baljit Gutierrez MD Your Primary Care Provider: ROSIE BESS MD [phone] For questions regarding this document or issues relating to this hospitalization on the Medical Service, please contact your inpatient physician through the [facility] Institutional Research Director . Issues afterhours and on weekends will be handled by the Hospitalist staff on-call. Call your doctor for: ?? fevers greater than 101.3 ?? severe nausea or vomiting ?? increasing pain not controlled by pain medications ?? increasing redness or drainage from incisions ?? decreased urine output ?? if you stop passing gas or stop having bowel movements ?? any other new or concerning symptoms The number for questions is [phone] before 5 PM weekdays and [phone] after 5 PM and on weekends (ask for the General Surgery resident network operations specialist). Activity level: No heavy lifting greater than 10 pounds (about equal to a full gallon jug) for the next 4 weeks or until cleared to do so at follow-up appointment. Otherwise activity as tolerated by comfort level. Diet: Low fat diet Driving: No driving if you are taking narcotic pain medications (wait at least 6-8 hours since last dose). No driving if you are still sore from surgery as it may limit your ability to react quickly. Shower/Bath & Wound Care: You may shower and get the incision(s) wet. Do not scrub the incisions vigorously for the next 2-3 weeks. Do not soak the incision(s) (i.e. soaking in bath or swimming) until told you may do so by a doctor, as this may promote a wound infection. After your shower, gently pat the incisions dry with a towel, and leave them open to the air. If your incisions rub against your clothing and this causesirritation you may cover the incisions with simple gauze dressings until they heal completely. Yourstiches will dissolve and do not need to be removed. Narcotic bowel regimen: - Taking the narcotics that you will be taking puts you at high risk for severe constipation which can block your bowels. - Every day, take senna twice a day. Take 1 pill normally. - If you don't have a bowel movement in 24 hours, start taking 2 senna pills at a time (still twicea day) AND start taking.the miralax every daily until you have a bowel movement. - If you don't have a bowel movement in 48 hours, take a ducolax suppository or dulcolax pill - All of these meds are over the counter from a pharmacy/supermarket and are cheap General Instructions None Future Appointments Provider Department Dept Phone 07/20/2015 10:00 AM Maribell Au APRN General Surgery [phone] Discharge References/Attachments None documented in this encounter Discharge Instructions * Patient Instructions* Rosemary Teixeira MD - 06/18/2015 1:34 PM EST Instructions on Discharge to Home Why you were hospitalized - You were hospitalized after having sharp abdominal pain which prevented you from having an appetite. After getting a CT scan and ultrasound, you were diagnosed with gallstone pancreatitis. You were transferred to our hospital, and upon an ERCP the gallstones were revealed to have passed. Call your doctor or seek medical attention if you develop the following - chest pain, shortness of breath, fever, cough, abdominal pain, nausea/vomiting, or weakness in an arm or leg Specific instructions related to your condition: Changes in Your Medications: New Medications: Tylenol, Oxycodone, Miralax, and Senna Medication dose changes: None Stop these medications: None, please continue home ibuprofen, omeprazole, and venlafaxine Follow-up: Future Appointments Date Time Provider Department Center 07/20/2015 10:00 AM Maribell Au APRN [facility] Your Inpatient Doctor: Baljit Gutierrez MD Your Primary Care Provider: ROSIE BESS MD [phone] For questions regarding this document or issues relating to this hospitalization on the Medical Service, please contact your inpatient physician through the [facility] Institutional Research Director . Issues afterhours and on weekends will be handled by the Hospitalist staff on-call. Call your doctor for: ?? fevers greater than 101.3 ?? severe nausea or vomiting ?? increasing pain not controlled by pain medications ?? increasing redness or drainage from incisions ?? decreased urine output ?? if you stop passing gas or stop having bowel movements ?? any other new or concerning symptoms The number for questions is [phone] before 5 PM weekdays and [phone] after 5 PM and on weekends (ask for the General Surgery resident network operations specialist). Activity level: No heavy lifting greater than 10 pounds (about equal to a full gallon jug) for the next 4 weeks or until cleared to do so at follow-up appointment. Otherwise activity as tolerated by comfort level. Diet: Low fat diet Driving: No driving if you are taking narcotic pain medications (wait at least 6-8 hours since last dose). No driving if you are still sore from surgery as it may limit your ability to react quickly. Shower/Bath & Wound Care: You may shower and get the incision(s) wet. Do not scrub the incisions vigorously for the next 2-3 weeks. Do not soak the incision(s) (i.e. soaking in bath or swimming) until told you may do so by a doctor, as this may promote a wound infection. After your shower, gently pat the incisions dry with a towel, and leave them open to the air. If your incisions rub against your clothing and this causesirritation you may cover the incisions with simple gauze dressings until they heal completely. Yourstiches will dissolve and do not need to be removed. Narcotic bowel regimen: - Taking the narcotics that you will be taking puts you at high risk for severe constipation which can block your bowels. - Every day, take senna twice a day. Take 1 pill normally. - If you don't have a bowel movement in 24 hours, start taking 2 senna pills at a time (still twicea day) AND start taking.the miralax every daily until you have a bowel movement. - If you don't have a bowel movement in 48 hours, take a ducolax suppository or dulcolax pill - All of these meds are over the counter from a pharmacy/supermarket and are cheap documented in this encounter Medications at Time of Discharge Medication Sig Dispensed Refills Start Date End Date acetaminophen (TYLENOL) 325 mg Tablet Take 2 tablets by mouth every 4 hours as needed for Pain or Fever. 30 tablet 1 06/23/2015 omeprazole (PRILOSEC) 40 mg Capsule, Delayed Release(E.C.) Take 40 mg by mouth daily. venlafaxine (EFFEXOR-XR) 150 mg Capsule, Sust. Release 24 hr Take 150 mg by mouth daily. venlafaxine (EFFEXOR-XR) 75 mg Capsule, Sust. Release 24 hr Take 75 mg by mouth daily. oxyCODONE (ROXICODONE) 5 mg Tablet Take 1-2 tablets by mouth every 4 hours as needed for Pain (mild to moderate pain (1-6) take 1 tablet, for severe pain > 7/10 take 2 tablets). 30 tablet 0 06/23/2015 07/20/2015 senna-docusate (PERICOLACE) 8.6-50 mg Tablet Take 2 tablets by mouth 2 times daily. 28 tablet 3 06/23/2015 07/20/2015 polyethylene glycol (MIRALAX) 17 gram Powder in Packet Take 17 g by mouth daily. 14 each 0 06/23/2015 07/20/2015 ibuprofen (ADVIL;MOTRIN) 400 mg Tablet Take 400 mg by mouth every 6 hours as needed for Pain. 07/11/2016 documented as of this encounter Progress Notes * Baljit Gutierrez MD - 06/23/2015 3:04 PM EST Hospital Medicine - Attending Day of Discharge Documentation Discharge diagnosis Active Hospital Problems Diagnosis ??? Pancreatitis, gallstone Resolved Hospital Problems Diagnosis Date Resolved No resolved problems to display. Secondary Issues There are no active non-hospital problems to display for this patient. I have personally seen and examined the patient and they are ready for discharge. I spent <30 minutes (Day of Discharge Code 74654) involved in the final examination of the patient, discussion of the hospital stay, instructions for continuing care to all relevant caregivers, and preparation of discharge records, prescriptions and referral forms. Plans ? Discharge to home ? Follow-up scheduled with general surgery ? Please see the Discharge Summary for complete details of any medication changes and additional plans. * Lindsey Neil RN - 06/23/2015 9:51 AM EST Pt assessment benign this morning. Pt complained of minor pain in lap incision sites on RLQ and LLQof the abdomen. Oxycodone PRN was given before change of shift, pt reported having positive effects. Pt up independently in nation and room this morning. Ambulated multiple times around the unit with no noted effects. Pt ready for discharge today. arrived to bedside to bring pt home in personal vehicle. IV taken out. AVS reviwed with pt, questions were answered. Discharge paperwork completed. Pt given one time dose PRN oxycodone for pain management during transportation home. * Dori Zapata MD - 06/22/2015 9:31 AM EST General Surgery Inpatient Progress Note ID: Gamaliel Queen is a 54 y.o. male with hx of PTSD, IVDU, and prior [facility]OH [facility] ERCP on 06/17 was negative for stones; cholangiogram normal. Presumed to have resolving choledocholithiasis. Now s/p lap cholecystectomy with failed intraoperative IOC. 24hr events: - Taken to the OR for lap cholecystectomy, attempted IOC without adequate visualization of ductal anatomy - Afebrile, HD stable - No acute events overnight Subjective: Pain is well controlled. Tolerating full liquid diet, no n/v. Voiding spontaneously. No cp/sob. O: Last value Range last 24 hrs Temperature Temp: 37 ??C (98.6 ??F) Temp: [36.4 ??C (97.5 ??F)-37.2 ??C (99 ??F)] Heart Rate Heart Rate: 91 Heart Rate: [64-100] Blood Pressure BP: 127/69 mmHg BP: (88-131)/(48-83) BP (Arterial Line): -- Respiratory Rate Resp: 16 Resp: [13-26] SpO2 SpO2: 96 % SpO2: [91 %-99 %] I/O: 06/21 0701 - 06/22 0700 In: 3130 [P.O.:1520; I.V.:1610] Out: 1460 [Urine:1450] Diet: 45 gm Fat Restricted diet (Low Fat) Labs: Recent Labs 06/22/15 0549 06/21/15 0441 06/20/15 0807 WBC 12.3* 10.6* 9.7 HGB 11.9* 12.4* 12.6* HCT 34.9* 36.5* 37.7* PLATELET 366 325 311 NA 140 139 140 K 3.5 3.9 3.4* CL 102 100 101 CO2 25 26 25 BUN 14 10 8* CREATININE 0.80 0.91 0.82 GLUCOSE -- 99 94 INR -- 1.1 -- Physical Exam: General: Resting comfortably in bed, NAD HEENT: Anicteric sclerae, MMM CVS: RRR, no m/r/g Pulm: CTAB anteriorly Abd: Soft, NT, non distended. Incisions c/d/i. Skin: Warm, dry Ext: WWP, no edema Neuro: Grossly intact, nonfocal, moving all four extremities spontaneously ASSESSMENT: Gamaliel Queen is a 54 y.o. male admitted 06/16 for gallstone pancreatitis, clinical picture and labs suggest that this is resolving. Now s/p lap cholecystectomy with failed intraoperative IOC. Doing well, reports adequate pain control, no nausea/emesis, tolerating full liquid diet. Abdomen soft, incisions c/d/i, voiding. Total bilirubin of 0.6 (0.9), transaminits resolved. PLAN - Regular diet - PO pain regimen - Encourage ambulating, out of bed - Discharge per primary team criteria, would recommend f/u with Maribell Au in the General surgery clinic in 4 weeks. - He can shower tomorrow AM, wound care instructions added to provider instructions (in chart) - General surgery will continue to follow. DORI ZAPATA MD 06/22/2015 9:31 AM * Baljit Gutierrez MD - 06/22/2015 7:01 AM EST [facility] Medicine Progress Note Patient Name: Gamaliel Queen Date of Admission: 06/16/2015 ( Hospital Day 6 days ) Responsible Attending: Baljit Gutierrez MD ID: Gamaliel Queen is a 54 y.o. male with a history of PTSD, IVDU, EtOH, who present with acute epigastric pain found to have likely gallstone pancreatitis, and possible ascending cholangitis. Active Problems: Patient Active Problem List Diagnosis Code ??? Pancreatitis, gallstone K85.1 24 hr events/Subjective: - Had laparoscopic cholecystectomy yesterday AM - Patient had worsening pain refractory to oral agents last night, pain required IV medication - Has been able to pass gas, but has not yet had a bowel movement - This morning, abdominal pain more manageable at a level of 3-4/10 - Patient has been able to ambulate well since surgery - Denies nausea or vomiting - Denies chest pain, shortness of breath, or other complaints ROS: Denies CP, SOB, palpitations, dizziness/LH, LE swelling or pain Vitals: Last value Range last 24 hrs Temperature Temp: 36.7 ??C (98.1 ??F) Temp: [36.4 ??C (97.5 ??F)-37.2 ??C (99 ??F)] Heart Rate Heart Rate: 87 Heart Rate: [64-100] Blood Pressure BP: 125/83 mmHg BP: (88-131)/(48-83) Respiratory Rate Resp: 16 Resp: [13-26] SpO2 SpO2: 97 % SpO2: [91 %-99 %] Intake/Output Summary (Last 24 hours) at 06/22/15 0702 Last data filed at 06/22/15 0650 Gross per 24 hour Intake 3130 ml Output 1460 ml Net 1670 ml Patient Vitals for the past 168 hrs: Weight 06/16/159 81.647 kg (180 lb) Physical Exam: GEN: Male appearing stated age, sitting upright in bed in no apparent distress, no diaphoresis HEENT: Oropharynx clear CV: Normal rate and rhythm, nl S1 & S2, no m/r/g Pulm: Good inspiratory effort, CTAB, no w/r/r Abd: Soft and nondistended, mild tenderness to palpation near surgical sites and on right side of the abdomen. Surgical sites clean and non-irritated. Bowel sounds normal. Extremities: No edema, warm Neuro: A&O x 3, no focal deficits noted Lines: PIV Labs: Reviewed in eDH. WBC 12.3 BMP: Potassium now 3.5; Cr now 0.80 Cholestatic LFTs; ALT: 100 / AST: 29 yesterday - Today: ALT: 96 / AST: 34 Tbili: 0.6 (Dbili 0.3) AP: 200 Microbiology: Blood Culture (06/16/2015) - No growth after five days Blood Culture (06/19/2015) - No growth after three days Pertinent radiology/diagnostic studies: CT abdomen and pelvis with contrast (06/20/15) IMPRESSION: - 1 x 1 cm posterior pancreatic fluid collection the setting of peripancreatic and pancreatic parenchymal edema and inflammatory change without necrotic segment. ERCP (06/17/2015) Impression: - The major papilla appeared normal. - The cholangiogram was normal including patent cystic duct. - A sphincterotomy was performed. - The biliary tree was swept and nothing was found. Recommendation: Stone ppears to have passed. Continue supportive care for pancreatitis. Consult surgery re cholecystectomy. Assessment: Gamaliel Queen is a 54 y.o. male with a history of PTSD, IVDU in remission, EtOH in remission, who presents with acute epigastric pain found to have likely gallstone pancreatitis, and possible ascending cholangitis. No recent alcohol; TGs and calcium were normal. ERCP without evidenceof gallstones, likely passed. Plan to continue antibiotics for a short course (just defervesced andcultures pending). Supportive therapy for pancreatitis w/ fluids (transitioned to LR), antiemetics,early feeding if tolerated. Patient still febrile, although other symptoms are improving. Per surgery recommendation, the patient will likely undergo a cholecystectomy before discharge. The patient underwent a laparoscopic cholecystectomy yesterday and tolerated the procedure well. Hehas had pain requiring IV medications and has not yet had a bowel movement. If the patient's pain improves and he is able to have a bowel movement, he will be discharged. Plan: # Gallstone pancreatitis/Ascending cholangitis - ERCP w/o gallstones; TG and calcium normal; No recent alcohol - Oxycodone range order - If patient's pain continues to require IV medications, discharge must be delayed - Phenergan for nausea - Nausea continues to improve - Continue low fat diet - Per ID recommendation, patient's antibiotics can be discontinued prior to discharge - CT of abdomen yesterday revealed 1 cm x 1 cm posterior pancreatic fluid collection - Patient underwent laparoscopic cholecystectomy yesterday # Hx of depression/ PTSD - Continue venlafaxine at 225 mg daily # History of opiate abuse - Continue to treat abd pain, however be wary of potential for abuse # GERD - Continue pantoprazole 40 mg daily # Other Potassium repleted, at 3.9 today Lines: PIV Diet: Advanced to low fat diet DVT: ambulatory Code status: Full Code PRABHAKAR RASHID MD Blue Team - Pager [phone] 06/22/2015 Attending Attestation Please see Dr. Rashid's note for details of the patient history of presentation and data. I have discussed, reviewed and agree with the documented History, Physical findings, Assessment and Plan of care. I have examined the patient myself and personally reviewed all studies. In addition, I certify thatI am a D-H credentialed attending provider with admitting privileges and that the patient meets or has met medical necessity to require an inpatient IPI level of care meeting a minimum of two midnights or is on the [facility] inpatient only procedure list (status C) due to: uncontrolled pain requiring titration of medications to achieve optimal effect and to minimize immediate or severe side effects BALJIT GUTIERREZ MD 06/22/2015 * Joseph Valencia RN - 06/21/2015 11:50 AM EST 1150 PACU resident text paged to come see patient regarding low BP's when possible. Patient appropriate, no issues with mentation. 1152 Dr Tran at bedside to see patient. Aware of current vitals. No new orders received. Willcontinue to monitor. Patient relates decreasing pain levels and improved nausea after medication. 1155 at bedside. * Adele Rosales RN - 06/21/2015 10:53 AM EST Pt arrived restless to agitated. Not coherent of situation. Anesthesia gave precedex for help pt settle. Now back to sleep. 1116: Now awake, coherent, c/o right side abd pain. Repositioned self on left side. Tx pain with dilaudid. 1210: Pt now sleepy from compazine. left for lunch. 1218: Anesthesia OK with BP 95/57. He feels that his bp is related to precedex given upon arrival in the PACU. * Dori Zapata MD - 06/21/2015 8:25 AM EST General Surgery Inpatient Progress Note ID: Gamaliel Queen is a 54 y.o. male with hx of PTSD, IVDU, and prior [facility] ERCP on 06/17 was negative for stones; cholangiogram normal. Presumed to have resolving choledocholithiasis. 24hr events: - Afebrile, HD stable - No acute events overnight Subjective: Pain is well controlled. Tolerating low fat diet, no n/v. + flatus, +BM. Ambulating well. Voiding spontaneously. No cp/sob. O: Last value Range last 24 hrs Temperature Temp: 37.8 ??C (100 ??F) Temp: [36.4 ??C (97.5 ??F)-37.8 ??C (100 ??F)] Heart Rate Heart Rate: 89 Heart Rate: [79-89] Blood Pressure BP: 128/74 mmHg BP: (109-128)/(74-83) BP (Arterial Line): -- Respiratory Rate Resp: 18 Resp: [17-18] SpO2 SpO2: 97 % SpO2: [95 %-98 %] I/O: 06/20 0701 - 06/21 0700 In: 1800 [P.O.:1590; I.V.:10] Out: 1725 [Urine:1725] Diet: NPO diet (Hold Meds) Labs: Recent Labs 06/21/15 0441 06/20/15 0807 WBC 10.6* 9.7 HGB 12.4* 12.6* HCT 36.5* 37.7* PLATELET 325 311 NA 139 140 K 3.9 3.4* CL 100 101 CO2 26 25 BUN 10 8* CREATININE 0.91 0.82 GLUCOSE 99 94 INR 1.1 -- Physical Exam: General: Resting comfortably in bed, NAD HEENT: Anicteric sclerae, MMM CVS: RRR, no m/r/g Pulm: CTAB anteriorly Abd: Soft, NT, mildly distended Skin: Warm, dry Ext: WWP, no edema Neuro: Grossly intact, nonfocal, moving all four extremities spontaneously Imaging: XR abd - 06/19 - 1. Mild gaseous distention of ascending and transverse colon with non-distention of the proximal descending colon. This may be secondary to adjacent inflammation, as the single image from the outside hospital MRCP was suggestive of pancreatitis. Clinical correlation needed. 2. No small bowel dilatation to indicate obstruction. ERCP - 06/17 - Impression: - The major papilla appeared normal. - The cholangiogram was normal including patent cystic duct. - A sphincterotomy was performed. - The biliary tree was swept and nothing was found. RUQ U/S - 06/16 - the common duct was not visualized in this patient due to body habitus and bowel gas. Note is made of multiple small gallstones and sludge in the gallbladder CT Abdomen - 06/15 - mild, acute pancreatitis Micro: Blood cx 06/19: pending Blood cx 06/16: NGTD ASSESSMENT: Gamaliel Queen is a 54 y.o. male admitted 06/16 for gallstone pancreatitis, clinical picture and labs suggest that this is resolving. Plan to perform laparoscopic cholecystectomy with intraoperative cholangiogram today. Consent in the chart. PLAN Neuro: - Pain well-controlled with tylenol 650mg prn, 5-10mg oxycodone prn - Home venlafaxine CV: - HDS, no active issues Pulm: - Encourage IS and ambulation GI: - NPO for operative procedure. /FEK: - Voiding spontaneously ID: - No leukocytosis Heme: - SCDs - h/h stable Endo: - No active issues PPX: - SCDs, Protonix DISPO: Floor status Code status: Full DORI ZAPATA MD 06/21/2015 8:25 AM * Baljit Gutierrez MD - 06/21/2015 6:21 AM EST Hospital Medicine Progress Note Patient Name: Gamaliel Queen Date of Admission: 06/16/2015 ( Hospital Day 5 days ) Responsible Attending: Baljit Gutierrez MD ID: Gamaliel Queen is a 54 y.o. male with a history of PTSD, IVDU, EtOH, who present with acute epigastric pain found to have likely gallstone pancreatitis, and possible ascending cholangitis. Active Problems: Patient Active Problem List Diagnosis Code ??? Pancreatitis, gallstone K85.1 24 hr events/Subjective: - No acute overnight events - Abdominal pain remitted after yesterday morning and did not recur - Patient tolerated food well yesterday, notes that he did not eat much - Will get surgery today, somewhat apprehensive but relieved that his gallbladder will finally get removed - No abdominal pain now, no nausea - Denies chest pain, shortness of breath, or other complaints ROS: Denies CP, SOB, palpitations, dizziness/LH, LE swelling or pain Vitals: Last value Range last 24 hrs Temperature Temp: 37.8 ??C (100 ??F) Temp: [36.4 ??C (97.5 ??F)-37.8 ??C (100 ??F)] Heart Rate Heart Rate: 89 Heart Rate: [79-100] Blood Pressure BP: 128/74 mmHg BP: (109-145)/(74-89) Respiratory Rate Resp: 18 Resp: [17-18] SpO2 SpO2: 97 % SpO2: [95 %-98 %] Intake/Output Summary (Last 24 hours) at 06/21/15 0621 Last data filed at 06/21/15 0615 Gross per 24 hour Intake 1740 ml Output 1950 ml Net -210 ml Patient Vitals for the past 168 hrs: Weight 06/16/159 81.647 kg (180 lb) Physical Exam: GEN: Male appearing stated age, sitting comfortably in chair in no apparent distress, no diaphoresis HEENT: oropharynx clear CV: Normal rate and rhythm, nl S1 & S2, no m/r/g Pulm: Good inspiratory effort, CTAB, no w/r/r Abd: Soft and nondistended, mild diffuse tenderness to palpation improving greatly today. No rebound or guarding Extremities: No edema, warm Neuro: A&O x 3, no focal deficits Lines: PIV Labs: Reviewed in eDH. WBC 10.6 BMP: Potassium now 3.9; Cr now 0.91 Cholestatic LFTs; ALT: 111 / AST: 20 yesterday - Today: ALT: 100 / AST: 29 Tbili: 0.9 (Dbili 0.4) AP: 227 Lipase: 11 Microbiology: Blood Culture (06/16/2015) - No growth after four days Blood Culture (06/19/2015) - No growth after two days Pertinent radiology/diagnostic studies: CT abdomen and pelvis with contrast (06/20/15) IMPRESSION: - 1 x 1 cm posterior pancreatic fluid collection the setting of peripancreatic and pancreatic parenchymal edema and inflammatory change without necrotic segment. ERCP (06/17/2015) Impression: - The major papilla appeared normal. - The cholangiogram was normal including patent cystic duct. - A sphincterotomy was performed. - The biliary tree was swept and nothing was found. Recommendation: Stone ppears to have passed. Continue supportive care for pancreatitis. Consult surgery re cholecystectomy. Assessment: Gamaliel Queen is a 54 y.o. male with a history of PTSD, IVDU in remission, EtOH in remission, who presents with acute epigastric pain found to have likely gallstone pancreatitis, and possible ascending cholangitis. No recent alcohol; TGs and calcium were normal. ERCP without evidenceof gallstones, likely passed. Plan to continue antibiotics for a short course (just defervesced andcultures pending). Supportive therapy for pancreatitis w/ fluids (transitioned to LR), antiemetics,early feeding if tolerated. Patient still febrile, although other symptoms are improving. Per surgery recommendation, the patient will likely undergo a cholecystectomy before discharge. The patient had worsening abdominal pain yesterday, so surgery was delayed. After CT evaluation which showed only a 1 cm x 1 cm posterior pancreatic fluid collection and improvement of his pain throughout the day, cholecystectomy will take place today. Plan: # Gallstone pancreatitis/Ascending cholangitis - ERCP w/o gallstones; TG and calcium normal; No recent alcohol - Oxycodone range order - No pain this morning - Phenergan for nausea - Nausea continues to improve - Continue low fat diet - Continue zosyn (started 06/17/15) for a 7 day course STARTING TODAY AFTER SURGERY - CT of abdomen yesterday revealed 1 cm x 1 cm posterior pancreatic fluid collection - Patient will undergo cholecystectomy today # Hx of depression/ PTSD - Continue venlafaxine at 225 mg daily # History of opiate abuse - Continue to treat abd pain, however be wary of potential for abuse # GERD - Continue pantoprazole 40 mg daily # Other Potassium repleted, at 3.9 today Lines: PIV Diet: Advanced to low fat diet DVT: ambulatory Code status: Full Code PRABHAKAR RASHID MD Blue Team - Pager [phone] 06/21/2015 Attending Attestation Please see Dr. Rashid's note for details of the patient history of presentation and data. I have discussed, reviewed and agree with the documented History, Physical findings, Assessment and Plan of care. I have examined the patient myself and personally reviewed all studies. In addition, I certify thatI am a D-H credentialed attending provider with admitting privileges and that the patient meets or has met medical necessity to require an inpatient IPI level of care meeting a minimum of two midnights or is on the [facility] inpatient only procedure list (status C) due to: uncontrolled pain requiring titration of medications to achieve optimal effect and to minimize immediate or severe side effects BALJIT GUTIERREZ MD 06/21/15 * Baljit Gutierrez MD - 06/20/2015 7:18 AM EST [facility] Medicine Progress Note Patient Name: Gamaliel Queen Date of Admission: 06/16/2015 ( Hospital Day 4 days ) Responsible Attending: Baljit Gutierrez MD ID: Gamaliel Queen is a 54 y.o. male with a history of PTSD, IVDU, EtOH, who present with acute epigastric pain found to have likely gallstone pancreatitis, and possible ascending cholangitis. Active Problems: Patient Active Problem List Diagnosis Code ??? Pancreatitis, gallstone K85.1 24 hr events/Subjective: - No acute overnight events - Patient tolerated advancing of diet well yesterday - When patient awoke, he noted increased abdominal pain that felt like pancreatitis pain, feels that distention is less - Patient felt a little febrile - Patient denies nausea, chest pain, shortness of breath, or other complaints - Patient not having difficulty with bowel movements or difficulty urinating ROS: Denies CP, SOB, palpitations, dizziness/LH, LE swelling or pain Vitals: Last value Range last 24 hrs Temperature Temp: 37.6 ??C (99.7 ??F) Temp: [36.7 ??C (98.1 ??F)-37.6 ??C (99.7 ??F)] Heart Rate Heart Rate: 85 Heart Rate: [85-99] Blood Pressure BP: 138/89 mmHg BP: (119-149)/(78-92) Respiratory Rate Resp: 16 Resp: [16-22] SpO2 SpO2: 97 % SpO2: [96 %-99 %] Intake/Output Summary (Last 24 hours) at 06/20/15 0718 Last data filed at 06/20/15 0637 Gross per 24 hour Intake 2196 ml Output 2725 ml Net -529 ml Patient Vitals for the past 168 hrs: Weight 06/16/159 81.647 kg (180 lb) Physical Exam: GEN: Male appearing stated age, laying comfortably in bed in only mild distress, no diaphoresis HEENT: oropharynx clear CV: Normal rate and rhythm, nl S1 & S2, no m/r/g Pulm: Good inspiratory effort, CTAB, no w/r/r Abd: Soft and nondistended, mild diffuse tenderness to palpation, less tenderness in the epigastrium Extremities: No edema, warm Neuro: A&O x 3, no focal deficits Lines: PIV Labs: Reviewed in eDH. WBC 10.5 BMP significant for potassium of 3.1; Cr 0.77 Cholestatic LFTs; ALT: 191 / AST: 31 yesterday - Today: ALT: 139 / AST: 16 Tbili: 1.4 (Dbili 0.7) AP: 155 Lipase: 16 Microbiology: Blood Culture (06/16/2015) - No growth after two days Blood Culture (06/19/2015) - Pending Pertinent radiology/diagnostic studies: ERCP (06/17/2015) Impression: - The major papilla appeared normal. - The cholangiogram was normal including patent cystic duct. - A sphincterotomy was performed. - The biliary tree was swept and nothing was found. Recommendation: Stone ppears to have passed. Continue supportive care for pancreatitis. Consult surgery re cholecystectomy. Assessment: Gamaliel Queen is a 54 y.o. male with a history of PTSD, IVDU in remission, EtOH in remission, who presents with acute epigastric pain found to have likely gallstone pancreatitis, and possible ascending cholangitis. No recent alcohol; TGs and calcium were normal. ERCP without evidenceof gallstones, likely passed. Plan to continue antibiotics for a short course (just defervesced andcultures pending). Supportive therapy for pancreatitis w/ fluids (transitioned to LR), antiemetics,early feeding if tolerated. Patient still febrile, although other symptoms are improving. Per surgery recommendation, the patient will likely undergo a cholecystectomy before discharge. Due to some wo rsening abdominal pain today, the patient will not undergo cholecystectomy today. His worsening abdominal pain will be evaluated with a CT scan of the abdomen. Plan: # Gallstone pancreatitis/Ascending cholangitis - ERCP w/o gallstones; TG and calcium normal; No recent alcohol - Oxycodone range order - Pain tolerable at the moment, improving - Phenergan for nausea - Nausea continues to improve - Continue low fat diet - Continue zosyn (started 06/17/15) for a 5 day course - General surgery consulted, declines cholecystectomy today - CT of abdomen ordered to assess for necrotic pancreas or pancreatic pseudocyst # Hx of depression/ PTSD - Continue venlafaxine at 225 mg daily # History of opiate abuse - Continue to treat abd pain, however be wary of potential for abuse # GERD - Continue pantoprazole 40 mg daily # Other Replete hypokalemia (3.4) with oral K 40 meq. Recheck tomorrow Lines: PIV Diet: Advanced to low fat diet DVT: ambulatory Code status: Full Code PRABHAKAR RASHID MD Blue Team - Pager [phone] 06/20/2015 Attending Attestation Please see Dr. Rashid's note for details of the patient history of presentation and data. I have discussed, reviewed and agree with the documented History, Physical findings, Assessment and Plan of care. I have examined the patient myself and personally reviewed all studies. In addition, I certify thatI am a D-H credentialed attending provider with admitting privileges and that the patient meets or has met medical necessity to require an inpatient IPI level of care meeting a minimum of two midnights or is on the [facility] inpatient only procedure list (status C) due to: monitoring of fluid status given an inability to regulate fluid balance and the need for administration or restriction of fluids and uncontrolled pain requiring titration of medications to achieve optimal effect and to minimize immediate or severe side effects BALJIT GUTIERREZ MD 06/20/2015 * Marianne Greenwood MD - 06/19/2015 10:24 AM EST ID: Gamaliel Queen is a 54 y.o. male with hx of PTSD, IVDU, and prior [facility]. ERCP on 06/17 was negative for stones; cholangiogram normal. Presumed to have resolving choledocholithiasis. 24hr events: - Slept well, good pain control - Febrile at 3AM, no intervention Subjective: Feeling better this AM, just a bit bloated. Pain is well controlled. Tolerating low fat diet, no n/v. + flatus, +BM. Ambulating well. Voiding spontaneously. No cp/sob. O: Last value Range last 24hrs Temperature Temp: 37.5 ??C (99.5 ??F) Temp: [37 ??C (98.6 ??F)-39.2 ??C (102.6 ??F)] Heart Rate Heart Rate: 99 Heart Rate: [67-104] Blood Pressure BP: (!) 149/92 mmHg BP: (132-149)/(80-94) Respiratory Rate Resp: 22 Resp: [16-23] SpO2 SpO2: 96 % SpO2: [93 %-97 %] 06/18 0701 - 06/19 0700 In: 5552 [P.O.:3314; I.V.:1188] Out: 1375 [Urine:1375] 45 gm Fat Restricted diet (Low Fat) Physical Exam: General: Resting comfortably in bed, NAD HEENT: Anicteric sclerae, MMM CVS: RRR, no m/r/g Pulm: CTAB anteriorly Abd: Soft, NT, mildly distended Skin: Warm, dry Ext: WWP, no edema Neuro: Grossly intact, nonfocal, moving all four extremities spontaneously Lines/Drains: PIV Recent Labs 06/19/15 0520 06/18/15 0536 06/17/15 0634 06/16/15 2211 WBC 10.5* 11.6* 12.8* 12.0* HGB 11.8* 12.0* 13.2* 13.6* HCT 34.2* 35.1* 39.8* 41.2 PLATELET 274 243 236 232 PT -- -- -- 15.3* INR -- -- -- 1.2* Recent Labs 06/19/15 0520 06/18/15 0536 06/17/15 0634 06/16/15 2211 NA 136 138 142 142 K 3.1* 3.3* 3.7 4.3 CL 99 101 103 104 CO2 24 24 25 25 BUN 7* 10 11 14 CREATININE 0.77* 0.70* 0.90 0.88 GLUCOSE 94 117 95 90 CALCIUM 8.6 8.4* 8.7 8.8 MAGNESIUM -- -- -- 0.77 Lactate 1.1 Lipase 16 Imaging: XR abd - 06/19 - 1. Mild gaseous distention of ascending and transverse colon with non-distention of the proximal descending colon. This may be secondary to adjacent inflammation, as the single image from the outside hospital MRCP was suggestive of pancreatitis. Clinical correlation needed. 2. No small bowel dilatation to indicate obstruction. ERCP - 06/17 - Impression: - The major papilla appeared normal. - The cholangiogram was normal including patent cystic duct. - A sphincterotomy was performed. - The biliary tree was swept and nothing was found. RUQ U/S - 06/16 - the common duct was not visualized in this patient due to body habitus and bowel gas. Note is made of multiple small gallstones and sludge in the gallbladder CT Abdomen - 06/15 - mild, acute pancreatitis Micro: Blood cx 06/19: pending Blood cx 06/16: NGTD ASSESSMENT: Gamaliel Queen is a 54 y.o. male admitted 06/16 for gallstone pancreatitis, clinical picture and labs suggest that this is resolving. Will continue to follow and likely perform cholecystectomy prior to discharge. PLAN Neuro: - Pain well-controlled with tylenol 650mg prn, 5-10mg oxycodone prn - Home venlafaxine CV: - HDS, no active issues Pulm: - Encourage IS and ambulation GI: - Pancreatitis resolving, will likely perform cholecystectomy prior to discharge. Will discuss timing with staff, likely 06/20 or . - Low fat diet and NPO at 0000 06/20/2015 (Saturday night/Saturday morning) - Bowel regimen /FEK: - Voiding spontaneously ID: - Febrile x 1, self-limited, continue to monitor - No leukocytosis Heme: - SCDs - h/h stable Endo: - No active issues PPX: - SCDs, Protonix DISPO: Floor status Code status: Full MARIANNE GREENWOOD MD 06/19/2015 10:24 AM * Baljit Gutierrez MD - 06/19/2015 7:31 AM EST Hospital Medicine Progress Note Patient Name: Gamaliel Queen Date of Admission: 06/16/2015 ( Hospital Day 3 days ) Responsible Attending: Baljit Gutierrez MD ID: Gamaliel Queen is a 54 y.o. male with a history of PTSD, IVDU, EtOH, who present with acute epigastric pain found to have likely gallstone pancreatitis, and possible ascending cholangitis. Active Problems: Patient Active Problem List Diagnosis Code ??? Pancreatitis, gallstone K85.1 24 hr events/Subjective: - Overnight was febrile to 102.6 degrees with worsening abdominal pain and distention but no rebound or guarding - Episode seemed to resolve after bowel movement - Feels bloated this morning, no firmness in abdomen - Patient able to have bowel movements, denies urinary symptoms - Believes fevers, chills, and diaphoresis is improving - Nausea continues to improve, able to tolerate clear liquids. Would like diet to be advanced - Despite events of last night, he notes that abdominal pain is still overall improving ROS: Denies CP, SOB, palpitations, dizziness/LH, LE swelling or pain Vitals: Last value Range last 24 hrs Temperature Temp: 37.4 ??C (99.3 ??F) Temp: [37 ??C (98.6 ??F)-39.2 ??C (102.6 ??F)] Heart Rate Heart Rate: 104 Heart Rate: [67-104] Blood Pressure BP: 136/84 mmHg BP: (132-142)/(78-94) Respiratory Rate Resp: 23 Resp: [16-23] SpO2 SpO2: 93 % SpO2: [93 %-97 %] Intake/Output Summary (Last 24 hours) at 06/19/15 0731 Last data filed at 06/19/15 0700 Gross per 24 hour Intake 5552 ml Output 1375 ml Net 4177 ml Patient Vitals for the past 168 hrs: Weight 06/16/15 2059 81.647 kg (180 lb) Physical Exam: GEN: Male appearing stated age, sitting upright comfortably in bed in no apparent distress, no diaphoresis HEENT: oropharynx clear CV: Normal rate and rhythm, nl S1 & S2, no m/r/g Pulm: Good inspiratory effort, CTAB, no w/r/r Abd: soft, tenderness to palpation in the epigastrium but less tenderness in RUQ today, no rebound or guarding Extremities: No edema, warm Neuro: A&O x 3, no focal deficits Lines: PIV Labs: Reviewed in eDH. WBC 10.5 BMP significant for potassium of 3.1; Cr 0.77 Cholestatic LFTs; ALT: 191 / AST: 31 yesterday - Today: ALT: 139 / AST: 16 Tbili: 1.4 (Dbili 0.7) AP: 155 Lipase: 16 Microbiology: Blood Culture (06/16/2015) - No growth after two days Blood Culture (06/19/2015) - Pending Pertinent radiology/diagnostic studies: ERCP (06/17/2015) Impression: - The major papilla appeared normal. - The cholangiogram was normal including patent cystic duct. - A sphincterotomy was performed. - The biliary tree was swept and nothing was found. Recommendation: Stone ppears to have passed. Continue supportive care for pancreatitis. Consult surgery re cholecystectomy. Assessment: Gamaliel Queen is a 54 y.o. male with a history of PTSD, IVDU in remission, EtOH in remission, who presents with acute epigastric pain found to have likely gallstone pancreatitis, and possible ascending cholangitis. No recent alcohol; TGs and calcium were normal. ERCP without evidenceof gallstones, likely passed. Plan to continue antibiotics for a short course (just defervesced andcultures pending). Supportive therapy for pancreatitis w/ fluids (transitioned to LR), antiemetics,early feeding if tolerated. Patient still febrile, although other symptoms are improving. Per surgery recommendation, the patient will likely undergo a cholecystectomy before discharge. Plan: # Gallstone pancreatitis/Ascending cholangitis - ERCP w/o gallstones; TG and calcium normal; No recent alcohol - Oxycodone range order - Pain tolerable at the moment, improving - Phenergan for nausea - Nausea continues to improve - IV LR at 200cc/hr discontinued, as diet is being advanced - Continue zosyn (started 06/17/15) for a 5 day course - General surgery consulted, recommends cholecystectomy before discharge # Hx of depression/ PTSD - Continue venlafaxine at 225 mg daily # History of opiate abuse - Continue to treat abd pain, however be wary of potential for abuse # GERD - Continue pantoprazole 40 mg daily # Other Replete hypokalemia with oral K 40 meq for two doses. Recheck tomorrow Lines: PIV Diet: Advanced to low fat diet DVT: ambulatory Code status: Full Code PRABHAKAR RASHID MD Blue Team - Pager [phone] 06/19/2015 Attending Attestation Please see Dr. Rashid's note for details of the patient history of presentation and data. I have discussed, reviewed and agree with the documented History, Physical findings, Assessment and Plan of care. I have examined the patient myself and personally reviewed all studies. In addition, I certify thatI am a D-H credentialed attending provider with admitting privileges and that the patient meets or has met medical necessity to require an inpatient IPI level of care meeting a minimum of two midnights or is on the [facility] inpatient only procedure list (status C) due to: monitoring of fluid status given an inability to regulate fluid balance and the need for administration or restriction of fluids and uncontrolled pain requiring titration of medications to achieve optimal effect and to minimize immediate or severe side effects BALJIT GUTIERREZ MD 06/19/2015 * Anam Keating RN - 06/19/2015 5:12 AM EST made aware of Temp. Increase---in to see-------See N.O.--- * Baljit Gutierrez MD - 06/18/2015 7:42 AM EST [facility] Medicine Progress Note Patient Name: Gamaliel Queen Date of Admission: 06/16/2015 ( Hospital Day 2 days ) Responsible Attending: Ricardo Van MD ID: Gamaliel Queen is a 54 y.o. male with a history of PTSD, IVDU, EtOH, who present with acute epigastric pain found to have likely gallstone pancreatitis, and possible ascending cholangitis. Active Problems: Patient Active Problem List Diagnosis Code ??? Pancreatitis, gallstone K85.1 24 hr events/Subjective: - No acute events overnight - Has been febrile to 100 degrees - Believes fevers, chills, and diaphoresis is improving - Nausea seems to be improving, able to tolerate clear liquids - Abdominal pain also seems to be improving per patietn ROS: Denies CP, SOB, palpitations, dizziness/LH, LE swelling or pain Vitals: Last value Range last 24 hrs Temperature Temp: 37.8 ??C (100 ??F) Temp: [36.5 ??C (97.7 ??F)-37.8 ??C (100 ??F)] Heart Rate Heart Rate: 93 Heart Rate: [78-97] Blood Pressure BP: 132/82 mmHg BP: (109-144)/(57-82) Respiratory Rate Resp: 16 Resp: [16-18] SpO2 SpO2: 94 % SpO2: [94 %-98 %] Intake/Output Summary (Last 24 hours) at 06/18/15 0742 Last data filed at 06/17/15 1350 Gross per 24 hour Intake 725 ml Output 0 ml Net 725 ml Patient Vitals for the past 168 hrs: Weight 06/16/15 2059 81.647 kg (180 lb) Physical Exam: GEN: Man appearing stated age, sitting upright comfortably in bed in no apparent distress, no diaphoresis HEENT: oropharynx clear CV: Less tachycardic, normal rhythm, nl S1 & S2, no m/r/g Pulm: Good inspiratory effort, CTAB, no w/r/r Abd: soft, tenderness to palpation in the epigastrium and RUQ, no rebound or guarding Extrem: no edema, warm Neuro: A&O x 3, no focal deficits Lines: PIV Labs: Reviewed in eDH. WBC 11.6 BMP normal; Cr 0.70 Cholestatic LFTs; ALT 316 / AST 46 yesterday - Today: ALT 191 / AST 31 Tbili 3.6 (Dbili 2.8) AP 144 Microbiology: Blood Culture (06/16/2015)- pending Pertinent radiology/diagnostic studies: ERCP (06/17/2015) Impression: - The major papilla appeared normal. - The cholangiogram was normal including patent cystic duct. - A sphincterotomy was performed. - The biliary tree was swept and nothing was found. Recommendation: Stone ppears to have passed. Continue supportive care for pancreatitis. Consult surgery re cholecystectomy. Assessment: Gamaliel Queen is a 54 y.o. male with a history of PTSD, IVDU in remission, EtOH in remission, who presents with acute epigastric pain found to have likely gallstone pancreatitis, and possible ascending cholangitis. No recent alcohol; TGs and calcium were normal. ERCP without evidenceof gallstones, likely passed. Plan to continue antibiotics for a short course (just defervesced andcultures pending). Supportive therapy for pancreatitis w/ fluids (transitioned to LR), antiemetics,early feeding if tolerated. Patient still febrile, although other symptoms are improving. Will consult surgery for cholecystectomy when pancreatitis is resolved. Plan: # Gallstone pancreatitis/Ascending cholangitis - ERCP w/o gallstones; TG and calcium normal; No recent alcohol - Oxycodone range order - Pain tolerable at the moment - Phenergan for nausea - Nausea appears to be improving - IV LR at 200cc/hr - Continue zosyn (06/17-), consider transition to augmentin - Consider general surgery consult for cholecystectomy once pancreatitis resolves # Hx of depression/ PTSD - Continue venlafaxine at 225 mg daily # History of opiate abuse - Continue to treat abd pain, however be wary of potential for abuse # GERD - Continue pantoprazole 40 mg daily Lines: PIV DVT: ambulatory Code status: Full Code PRABHAKAR RASHID MD Blue Team - Pager [phone] 06/18/2015 Attending Attestation Please see Dr. Rashid's note for details of the patient history of presentation and data. I have discussed, reviewed and agree with the documented History, Physical findings, Assessment and Plan of care. I have examined the patient myself and personally reviewed all studies. In addition, I certify thatI am a D-H credentialed attending provider with admitting privileges and that the patient meets or has met medical necessity to require an inpatient IPI level of care meeting a minimum of two midnights or is on the [facility] inpatient only procedure list (status C) due to: monitoring of fluid status given an inability to regulate fluid balance and the need for administration or restriction of fluids, uncontrolled pain requiring titration of medications to achieve optimal effect and to minimize immediate or severe side effects and acute pancreatitis requiring urgent IV fluids/pain relief and ERCP. BALJIT GUTIERREZ MD 06/18/2015 * Gordon Vicente MD - 06/17/2015 6:55 PM EST [facility] Medicine Progress Note Patient Name: Gamaliel Queen Date of Admission: 06/16/2015 ( Hospital Day 1 day ) Responsible Attending: Ricardo Van MD ID: Gamaliel Queen is a 54 y.o. male with a history of PTSD, IVDU, EtOH, who present with acute epigastric pain found to have likely gallstone pancreatitis, and possible ascending cholangitis. Active Problems: Patient Active Problem List Diagnosis Code ??? Pancreatitis, gallstone K85.1 24 hr events/Subjective: - Admitted overnight - Febrile to 101F; started on zosyn and fluids (200 cc/hr) - Reports fever, chills, sweats - Tachycardic, but bps stable - Reports that his abdominal pain is improved this AM ROS: Denies CP, SOB, palpitations, dizziness/LH, LE swelling or pain Vitals: Last value Range last 24 hrs Temperature Temp: 37 ??C (98.6 ??F) Temp: [37 ??C (98.6 ??F)-38.4 ??C (101.1 ??F)] Heart Rate Heart Rate: 90 Heart Rate: [78-103] Blood Pressure BP: 133/78 mmHg BP: (125-151)/(72-97) Respiratory Rate Resp: 16 Resp: [16-24] SpO2 SpO2: 97 % SpO2: [93 %-97 %] Intake/Output Summary (Last 24 hours) at 06/17/15 1325 Last data filed at 06/17/15 0545 Gross per 24 hour Intake 1104 ml Output 250 ml Net 854 ml Patient Vitals for the past 168 hrs: Weight 06/16/15 2059 81.647 kg (180 lb) Physical Exam: GEN: diaphoretic man, lying uncomfortably in bed HEENT: oropharynx clear CV: tachycardic, nl S1 & S2, no m/r/g Pulm: comfortable, CTAB, no w/r/r Abd: soft, tenderness to palpation in the epigastrium and RUQ, no rebound or guarding Extrem: no edema, warm Neuro: A&O x 3, no focal deficits Lines: PIV Labs: Reviewed in eDH. WBC 12.8 BMP normal; Cr 0.90 Cholestatic LFTs; ALT 316 / AST 46 Tbili 2.1 (Dbili 1.4) AP 149 Microbiology: Blood Culture (06/16/2015)- pending Pertinent radiology/diagnostic studies: ERCP (06/17/2015) Impression: - The major papilla appeared normal. - The cholangiogram was normal including patent cystic duct. - A sphincterotomy was performed. - The biliary tree was swept and nothing was found. Recommendation: Stone ppears to have passed. Continue supportive care for pancreatitis. Consult surgery re cholecystectomy. Assessment: Gamaliel Queen is a 54 y.o. male with a history of PTSD, IVDU in remission, EtOH in remission, who presents with acute epigastric pain found to have likely gallstone pancreatitis, and possible ascending cholangitis. No recent alcohol; TGs and calcium were normal. ERCP without evidenceof gallstones, likely passed. Plan to continue antibiotics for a short course (just defervesced andcultures pending). Supportive therapy for pancreatitis w/ fluids (transitioned to LR), antiemetics,early feeding if tolerated. Plan: # Gallstone pancreatitis / Ascending cholangitis - ERCP w/o gallstones; TG and calcium normal; No recent alcohol - Oxycodone range order - Phenergan for nausea (zofran did not provide relief at [facility]) - IV LR at 200cc/hr - Continue zosyn (06/17-), consider transition to augmentin - Consider general surgery consult for cholecystectomy once pancreatitis resolves # Hx of depression/ PTSD - Continue effexor at home dose # History of opiate abuse - Continue to treat abd pain, however be wary of potential for abuse #GERD - Protonix Lines: PIV DVT: ambulatory Code status: Full Code GORDON VICENTE MD (PGY-3) Hospital Medicine- pager [phone] 06/17/2015 Associated attestation - Ricardo Van MD - 06/17/2015 7:20 PM EST M2 [facility] Medicine Service Attending Documentation Please see Dr. Vicente's note for details of the patient history of presentation and data. I have discussed, reviewed and agree with the documented History, Physical findings, Assessment and Plan ofcare. I have examined the patient myself and personally reviewed all studies. Additions to the history, physical, assessment and plan include the following: Please see addendum to initial H&P for full additions/plan for 06/17/2015. RICARDO VAN MD 06/17/2015 7:20 PM * Chelsie Rivas RN - 06/17/2015 11:21 AM EST Office of Care Management (OCM) / Field Reviewer(CM)/ Initial Assessment Discussed patient with Provider Team and in multidisciplinary discharge-planning rounds. Reviewed record and interviewed patient. Introduced/reviewed CM role and services accepted. REASON for HOSPITALIZATION: pancreatitis, gallstone PMH: No past medical history on file. PREVIOUS FUNCTIONAL STATUS: Patient reports that he functions independently at home and that he canperform all necessary ADL's and IADL's. Patient lives with his Michelle in a single family home in [place], [place]. 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 Patient denies the use of assistive devicesfor ambulation/mobility. CURRENT FUNCTIONAL STATUS: Patient is lying in bed during this interview. SOCIAL / FAMILY SUPPORTS: Patient reports good support consisting of family and friends ADVANCE DIRECTIVES: none on file HEALTH /PRESCRIPTION COVERAGE: [facility] CURRENT HOME/COMMUNITY SERVICES/EQUIPMENT: DME: none Home Health Agency: none Other: none [employer] AND FORMER [employer] REFERRAL: as needed PRIMARY CARE PHYSICIAN: ROSIE BESS MD [facility] [phone] / [facility] [id number] POTENTIAL DISCHARGE NEEDS: no needs anticipated, pending hospital course PATIENT/FAMILY EDUCATION NEEDS: plan of care, DC plan ANTICIPATED BARRIERS TO DISCHARGE: none TRANSPORTATION @ D/C: - Michelle PLAN: CM will continue to monitor progress, follow for continuity of care and assist with dischargeplanning while hospitalized. Chelsie Rivas RN, BSN Field Reviewer Pager [phone] Office of Care Management documented in this encounter H&P Notes * Christal Cadena MD - 06/17/2015 12:27 PM EST Gastroenterology & Hepatology Pre-Procedure History and Physical Procedure: ERCP Indication: choledocholithiasis possible ascending cholangitis Patient Active Problem List Diagnosis Code ??? Pancreatitis, gallstone K85.1 Medications: Reviewed in EDH No Known Allergies Social History/Family History: Reviewed in EDH. No changes Exam: Filed Vitals: 06/17/15 1155 BP: 133/78 Pulse: 90 Temp: Resp: 16 GEN: NAD, AAOX3 HEENT: NC/AT dryMM, anicteric Chest: CTAB Heart: RRR, nl s1, s2 Abdomen: normal bowel sounds, soft, non tender Assessment and Plan: Proceed with ERCP: ASA Grade: ASA 3 - Patient with moderate systemic disease with functional limitations Sedation plan: NAC Risks and benefits of the procedure were discussed with the patient. Consent has been signed. Christal Cadena MD Gastroenterology Fellow * Ricardo Van MD - 06/16/2015 9:31 PM EST Inpatient Internal Medicine- H&P Problem List: Active Hospital Problems Diagnosis ??? Pancreatitis, gallstone Resolved Hospital Problems Diagnosis Date Resolved No resolved problems to display. There are no active non-hospital problems to display for this patient. ID: Gamaliel Queen is a 54 y/o man with hx of PTSD, IVDA and prior etoh abuse (in remission for 3 years) who presents in transfer for management of suspected gallstone pancreatitis. PCP: ROSIE BESS MD History of Present Illness: 54 y/o man with hx of PTSD, IVDA and prior etoh abuse (in remission for 3 years) who presents in transfer for management of suspected gallstone pancreatitis. 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 At roughly 10 AM, he noted development of severe epigastric pain. He has a hx of mild abdominal pain that is due to an inguinal hernia, for which he occasionally takes ibuprofen or indocin, resulting in occasional episodes of epigastric discomfort if he does not take it with food. Initially, he was wondering if this was one of these episodes, however the pain was of different character and intensity. Specifically, he notes that the pain was sharp, located in the epigastrium and nonradiating, has persisted since onset, and was quite severe. He has not eaten since the onset of pain. No relieving or aggrevating factors that he had noted. In addition to the abdominal pain, he also noted development of nausea as well as vomiting (and has had about 7-8 episodes of nonbloody emesis). He has been constipated and has noted a slight increase in abdominal distension since this began. Additionally, he noted low grade fevers as well. No other associated symptoms, specifically he denies wt changes, rigors, oral ulcers, nose bleeds, cp, palpitations, dyspnea, cough, dysphagia/odynophagia, diarrhea, or LE swelling. Urine has been a bit darker over yesterday. These symptoms caused him to present to [facility] yesterday afternoon forfurther evaluation. At [facility] yesterday on admission, he was noted to have an elevated amylase + lipase in addition to cholestatic LFT's. A CT of his abdomen revealed stranding of the peripancreatic fat c/w mild pancreatitis. RUQ US could not visualize the CBD due to habitus and bowel gas. Multiple small gallstones andsludge were identified within the GB. There was a question regarding a small amount of pericholecystic fluid. An MRCP was attempted but aborted due to patient being unable to tolerate the imaging. He was treated symptomatically (morphine and phenergan), hydrated and kept NPO. He is being transferred to [facility] for ERCP. At this time, he has no new symptoms. Nausea and abdominal pain are well controlled on current meds. 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) Depression ETOH abuse (sober x 3 years) Opiate abuse (diverted morphine, has been through rehab and is fully detoxed) Prior To Admission Medications: Omeprazole Venlafaxine Indocin or ibuprofen prn Allergies: No Known Allergies Family History: No family hx of biliary disease or stones No fam history of pancreatitis or hepatitis Social History and Habits: Re , lives with Lifelong nonsmoker Has abstained from etoh for 3 years (former heavy drinker) No recent IVDA or opiate abuse (past abuse) Physical Exam: Last Set of Vitals and range of vitals over past 24 hours: Last value Range last 24 hrs Temperature Temp: 37.5 ??C (99.5 ??F) Temp: [37.5 ??C (99.5 ??F)] Heart Rate Heart Rate: 98 Heart Rate: [98] Blood Pressure BP: (!) 151/97 mmHg BP: (151)/(97) Respiratory Rate Resp: 22 Resp: [22] SpO2 SpO2: 95 % SpO2: [95 %] Gen:AAOX3, pleasant and in NAD HEENT: sclera anicteric, EOMI, no conjunctival pallor, no oral lesions Neck: no cervical LAD, Full range of motion, thyroid nontender without nodules and not enlarged, carotid pulses 2+, no bruits, JVP at 7cm Pulm: Normal respiratory effort, Lungs CTAB CV: RRR, s1 s2 normal, no murmurs, S3 gallop appreciated Abd: soft, ttp in epigastrium, no rebound or guarding, mildly distended, hypoactive BS throughout, no hepatosplenomegaly Ext: no edema, no clubbing, no cyanosis. DP pulses equal and full b/l. No active track reed Neuro: no focal deficits grossly noted. Laboratory (Last 24 Hours): From OSH WBC 13.7 Hgb: 13.1 Plts: 321 Na: 141 K: 3.4 Cl: 108 CO2: 27 BUN: 15 Cr: 1 Ca: 8 T bili: 2.4 D bili: 2.6 AST: 102 ALT: 502 Alk P: 162 T protein: 6.2 Albumin: 3.2 Triglycerides: 76 Amylase: 2559 Lipase: 2291 Trop: neg UA: moderate biluria Urine Tox Screen: positive for opiates (unclear if this was done after receiving morphine in their ed) Microbiology: 06/16/2015 Blood Cultures: pending Radiology: CXR - No acute CP process CT - stranding of the peripancreatic fat c/w mild pancreatitis. Ultrasound - could not visualize the CBD due to habitus and bowel gas. Multiple small gallstones andsludge were identified within the GB. There was a question regarding a small amount of pericholecystic fluid. MRCP - attempted but aborted due to patient being unable to tolerate the imaging. Other Studies: none Assessment: 54 y/o man with hx of PTSD, IVDA and prior etoh abuse (in remission for 3 years) who presents in transfer for management of suspected gallstone pancreatitis. At this time, he is HD stable and does not appear to be developing ascending cholangitis. Will continue with conservative mgmt for mild pancreatitis (npo, IVF, pain and nausea mgmt). Will admit to medicine with GI consult (must be called tomorrow AM), for likely ERCP tomorrow AM. Will defer on general surgery consultation at this time, however it may be reasonable to involve him once his biliary obstruction is resolved for discussion of elective cholecystectomy. Rest of plan as below: Plan: #Gallstone pancreatitis -NPO -oxycodone range order -Phenergan for nausea (zofran did not provide relief at [facility]) -IV NS at 200cc/hr -GI consult for ERCP -Consider general surgery consult once pancreatitis resolves #Hx of depression/ PTSD -Continue effexor at home dose #History of opiate abuse -Continue to treat abd pain, however be wary of potential for abuse #GERD -protonix FEN: IVNS / replete prn / npo T/L/D: PIV PPx: DVT: ambulatory GI (N/V/BM): none indicated Pain/Sedation/Anxiety/Sleep: oxy Code Status: Full Code Dispo: admit to medicine PCP: ROSIE BESS MD at [phone] A copy of this document will be sent to the patient's Primary Care Physician and/or Referring Physician. SANTI MANN MD 06/16/[address] Medicine Service Attending Documentation I certify that the patient requires: [X] inpatient care status due to IV antibiotics Please see Dr. Mann's note for details of the patient history of presentation and data. I havediscussed, reviewed and agree with the documented History, Physical findings, Assessment and Plan of care. I have examined the patient myself and personally reviewed all studies. Additions to the history, physical, assessment and plan include the following: Pt still has epigastric pain and diaphoresis. A/P: #. Pancreatitis: likely gallstone related. ERCP without obstruction (likely stone passed). Will c/ssurgery for discussion of cholecystectomy. Cont IVF. Advance diet as tolerated. #. Cholangitis: Given fever and obstructive LFTs agree with zosyn for likely cholangitis. As above,no obstruction currently on ERCP. F/u blood cultures. RICARDO VAN MD 06/17/2015 2:31 PM documented in this encounter Miscellaneous Notes * Plan of Care - Daylin Noe RN - 06/23/2015 5:44 AM EST Problem: General Plan of Care Goal: Plan of Care Review Outcome: Ongoing (Interventions Implemented as Appropriate) 06/23/15 0539 Plan of Care Review Plan of Care Outcome Status ongoing (interventions implemented as appropriate) Progress improving Coping/Psychosocial Response Interventions Plan of Care Reviewed with patient OUTCOME EVALUATION NOTE: OUTCOME SUMMARY: A/O X4. Calm and cooperative. Appeared to be awake most of night. C/O RUQ abdominal pain. Describedas a deep pain. PRN oxycodone utilized (see MAR) as well as one time order for IV dilaudid for break through pain. Dilaudid w/ good relief per pt report. Abdomen rounded, somewhat distended. + bowel sounds. Scheduled senna given as well as miralax and prune juice. Pt frequently ambulating independently. BM overnight per pt report. X4 bandaids covering lap sites. No new drainage. LL site w/ slight increase in bruising surrounding site. MD aware. Tolerating diet well. Denied N/V. Pt independentw/ turn/repositioning self in bed. Will cont to monitor. PLAN MOVING FORWARD: Pain management. INDIVIDUALIZED FALL PREVENTION: At medium risk to fall based on scoring system. Non skid socks worn. Call light w/ in reach. Bed in low position. Will cont to monitor. Assistance: Independent. Supervision: Able to make needs known. Surveillance: Purposeful roundingterence q4h VS. CPG GOAL OUTCOME EVALUATION: Goal: Individualization and Mutuality 06/16/152101 Mutuality/Individual Preferences What anxieties, fears or concerns do you have about your health or care? no What questions do you have about your health or care? no What information would help us give you more personalized care? history of PTSD, has bad dreams at times. If asleep pls talk first prior to touch Goal: Fall Prevention-Safe Patient Handling 06/22/15219906/23/15 0503 Musculoskeletal Interventions Activity/Level of Assistance independently -- Positioning -- independent Muscle Strengthening activity/mobility promoted;personal routines for BADL/IADL promoted;mobility in bed promoted -- Espinal Fall Risk History of Falling 0 -- Secondary Diagnosis 15 -- Ambulatory Aids 0 -- Intravenous Therapy/Heparin/Saline Lock 20 -- Gait/Transferring 0 -- Mental Status 0 -- Score 35 -- OTHER Espinal Fall Risk Med -- Safety Interventions Safety Precautions/Fall Reduction -- environmental modification;fall reduction program maintained;lighting adjusted for task/safety;low bed;nonskid shoes/slippers when out of bed;room near unit station Goal: Infection Control 06/22/152199 Coping/Psychosocial Response Interventions Counseling calming techniques promoted;emotional support provided;verbalization of feelings encouraged;understanding of situation facilitated;relaxation techniques promoted;reassurance provided;personal strengths integrated Safety Interventions Isolation Precautions standard precautions maintained Infection Prevention rest/sleep promoted;promote handwashing;nutrition promoted;hydration promoted;environmental surveillance Goal: Discharge Needs Assessment 06/16/15210106/20/15 0359 Discharge Needs Assessment Concerns to be Addressed -- no discharge needs identified Readmission Within the Last 30 Days -- no previous admission in last 30 days Equipment Needed After Discharge -- none Current Health Anticipated Changes Related to Illness -- none Self-Care Equipment Currently Used at Home -- none Living Environment Transportation Available family or friend will provide -- Problem: Skin Integrity Impairment, Risk/Actual (Adult, Obstetrics) Goal: Identify Signs and Symptoms and Related Risk Factors Signs and symptoms and related risk factors are identified upon initiation of Human Response Clinical Practice Guideline (CPG) 06/20/15 0359 Skin Integrity Impairment, Risk/Actual Personal Related Risk Factors (Skin Integrity Impairment, Risk/Actual) stress Physiological Related Risk Factors (Skin Integrity Impairment, Risk/Actual) infection;nutritional/hydration deficiency Treatment Related Related Risk Factors (Skin Integrity Impairment, Risk/Actual) medication Goal: Skin Integrity/Wound Healing Patient will demonstrate the desired outcomes. 06/23/15 0539 Skin Integrity Impairment, Risk/Actual (Adult, Obstetrics) Skin Integrity/Wound Healing making progress toward outcome Problem: Pain, Acute (Adult, Obstetrics) Goal: Identify Signs and Symptoms and Related Risk Factors Signs and symptoms and related risk factors are identified upon initiation of Human Response Clinical Practice Guideline (CPG) 06/20/15 0359 Pain, Acute Related Risk Factors (Acute Pain) disease process;stress Signs and Symptoms (Acute Pain) facial mask of pain/grimace;fatigue/weakness;verbalization of pain descriptors Goal: Acceptable Pain Control/Comfort Level Patient will demonstrate the desired outcomes. 06/23/15 0539 Pain, Acute (Adult, Obstetrics) Acceptable Pain Control/Comfort Level making progress toward outcome * Plan of Care - Deana Jha RN - 06/22/2015 5:49 PM EST Problem: General Plan of Care Goal: Plan of Care Review Outcome: Ongoing (Interventions Implemented as Appropriate) 06/22/15 0518 06/22/15 0832 Plan of Care Review Plan of Care Outcome Status ongoing (interventions implemented as appropriate) -- Progress improving -- Coping/Psychosocial Response Interventions Plan of Care Reviewed with -- patient OUTCOME EVALUATION NOTE: OUTCOME SUMMARY: Patient alert and oriented x 4. Patient admitted with pancreatitis - laparoscopic cholecystectomy completed - 4 incisional sites. Patient has upper right quadrant pain in his abdomen - PRN oxycodone given with only little affect. Team notified of patient's pain level - IV dilaudid one time dose orde red and on hold due to compromised IV site. Vascular access paged several times for new access site- have been reassured that they will come JOSR, though patient has been waiting 2+ hrs due to ill calls. Patient's diet has been advanced and doing well. Goal is for patient to have bettr pain control, continue to advance diet, and have a bowel movement before discharge. Incision sites are dry and intact with steri-trips and band-aids. PLAN MOVING FORWARD: Pain control, goal for bowel movement INDIVIDUALIZED FALL PREVENTION: call light in reach, non-skid socks, room near nurse station Assistance: independent Supervision: Patient rings appropriately, makes needs known Surveillance: Rounding hourly and as needed, masimo CPG GOAL OUTCOME EVALUATION: Goal: Individualization and Mutuality Outcome: Ongoing (Interventions Implemented as Appropriate) 06/16/152101 Mutuality/Individual Preferences What anxieties, fears or concerns do you have about your health or care? no What questions do you have about your health or care? no What information would help us give you more personalized care? history of PTSD, has bad dreams at times. If asleep pls talk first prior to touch Goal: Fall Prevention-Safe Patient Handling Outcome: Ongoing (Interventions Implemented as Appropriate) 06/22/15 0832 06/22/15 1734 Musculoskeletal Interventions Activity/Level of Assistance independently -- Positioning -- independent Muscle Strengthening activity/mobility promoted;mobility in bed promoted;personal routines for BADL/IADL promoted;up in chair encouraged for meals and activities -- Espinal Fall Risk History of Falling 0 -- Secondary Diagnosis 15 -- Ambulatory Aids 0 -- Intravenous Therapy/Heparin/Saline Lock 20 -- Gait/Transferring 0 -- Mental Status 0 -- Score 35 -- OTHER Espinal Fall Risk Med -- Safety Interventions Safety Precautions/Fall Reduction -- fall reduction program maintained Goal: Infection Control Outcome: Ongoing (Interventions Implemented as Appropriate) 06/22/15 0832 06/22/15 1734 Coping/Psychosocial Response Interventions Counseling verbalization of feelings encouraged -- Safety Interventions Isolation Precautions -- standard precautions maintained Infection Prevention hydration promoted;nutrition promoted;promote handwashing;rest/sleep promoted;environmental surveillance;bronchial hygiene promoted -- Goal: Discharge Needs Assessment Outcome: Ongoing (Interventions Implemented as Appropriate) 06/16/15210106/20/15358 Discharge Needs Assessment Concerns to be Addressed -- no discharge needs identified Readmission Within the Last 30 Days -- no previous admission in last 30 days Equipment Needed After Discharge -- none Current Health Anticipated Changes Related to Illness -- none Self-Care Equipment Currently Used at Home -- none Living Environment Transportation Available family or friend will provide -- Problem: Skin Integrity Impairment, Risk/Actual (Adult, Obstetrics) Goal: Identify Signs and Symptoms and Related Risk Factors Signs and symptoms and related risk factors are identified upon initiation of Human Response Clinical Practice Guideline (CPG) Outcome: Ongoing (Interventions Implemented as Appropriate) 06/20/15358 Skin Integrity Impairment, Risk/Actual Personal Related Risk Factors (Skin Integrity Impairment, Risk/Actual) stress Physiological Related Risk Factors (Skin Integrity Impairment, Risk/Actual) infection;nutritional/hydration deficiency Treatment Related Related Risk Factors (Skin Integrity Impairment, Risk/Actual) medication Goal: Skin Integrity/Wound Healing Patient will demonstrate the desired outcomes. Outcome: Ongoing (Interventions Implemented as Appropriate) 06/22/15517 Skin Integrity Impairment, Risk/Actual (Adult, Obstetrics) Skin Integrity/Wound Healing making progress toward outcome Problem: Pain, Acute (Adult, Obstetrics) Goal: Identify Signs and Symptoms and Related Risk Factors Signs and symptoms and related risk factors are identified upon initiation of Human Response Clinical Practice Guideline (CPG) Outcome: Ongoing (Interventions Implemented as Appropriate) 06/20/15358 Pain, Acute Related Risk Factors (Acute Pain) disease process;stress Signs and Symptoms (Acute Pain) facial mask of pain/grimace;fatigue/weakness;verbalization of pain descriptors Goal: Acceptable Pain Control/Comfort Level Patient will demonstrate the desired outcomes. Outcome: Ongoing (Interventions Implemented as Appropriate) 06/22/15517 Pain, Acute (Adult, Obstetrics) Acceptable Pain Control/Comfort Level making progress toward outcome * Plan of Care - Daylin Noe RN - 06/22/2015 5:32 AM EST Problem: General Plan of Care Goal: Plan of Care Review Outcome: Ongoing (Interventions Implemented as Appropriate) 06/22/15 0518 Plan of Care Review Plan of Care Outcome Status ongoing (interventions implemented as appropriate) Progress improving Coping/Psychosocial Response Interventions Plan of Care Reviewed with patient OUTCOME EVALUATION NOTE: OUTCOME SUMMARY: A/O X4. Calm and cooperative. Appeared to rest intermittently between care. C/O RUQ abdominal pain.Described as a deep soreness. PRN oxycodone utilized (see MAR) w/ fair effect. Break through pain7/10 this AM. No PRNs available. MD notified. One time of 0.3 mg IV dilaudid ordered and given (seeMMAILE). Good effect. Pain decreased to 3/10. Will cont to monitor. Lap sites X4. Band-aids in place. Scant drainage from previous shift. No new drainage noted. Tolerating clear diet well. Denies N/V. Able to turn/reposition self in bed. Will cont to monitor. PLAN MOVING FORWARD: Pain management. Advance diet as tolerated. INDIVIDUALIZED FALL PREVENTION: At medium risk to fall based on scoring system. Non skid socks worn. Call light w/ in reach. Bed in low position. Will cont to monitor. Assistance: Independent. Supervision: Able to make needs known. Surveillance: Purposeful rounding, terence, q4h VS. CPG GOAL OUTCOME EVALUATION: Goal: Individualization and Mutuality 06/16/152101 Mutuality/Individual Preferences What anxieties, fears or concerns do you have about your health or care? no What questions do you have about your health or care? no What information would help us give you more personalized care? history of PTSD, has bad dreams at times. If asleep pls talk first prior to touch Goal: Fall Prevention-Safe Patient Handling 06/21/15200506/22/15 0232 Musculoskeletal Interventions Activity/Level of Assistance independently -- Positioning -- independent Muscle Strengthening activity/mobility promoted;mobility in bed promoted;personal routines for BADL/IADL promoted -- Espinal Fall Risk History of Falling 0 -- Secondary Diagnosis 15 -- Ambulatory Aids 0 -- Intravenous Therapy/Heparin/Saline Lock 20 -- Gait/Transferring 0 -- Mental Status 0 -- Score 35 -- OTHER Espinal Fall Risk Med -- Safety Interventions Safety Precautions/Fall Reduction -- environmental modification;fall reduction program maintained;commode/urinal/bedpan at bedside;lighting adjusted for task/safety;low bed;room near unit station;nonskid shoes/slippers when out of bed Goal: Infection Control 06/21/152005 Coping/Psychosocial Response Interventions Counseling calming techniques promoted;emotional support provided;verbalization of feelings encouraged;understanding of situation facilitated;relaxation techniques promoted;reassurance provided;personal strengths integrated Safety Interventions Isolation Precautions standard precautions maintained Infection Prevention rest/sleep promoted;promote handwashing;nutrition promoted;environmental surveillance;hydration promoted Goal: Discharge Needs Assessment 06/16/15210106/20/15 0359 Discharge Needs Assessment Concerns to be Addressed -- no discharge needs identified Readmission Within the Last 30 Days -- no previous admission in last 30 days Equipment Needed After Discharge -- none Current Health Anticipated Changes Related to Illness -- none Self-Care Equipment Currently Used at Home -- none Living Environment Transportation Available family or friend will provide -- Problem: Skin Integrity Impairment, Risk/Actual (Adult, Obstetrics) Goal: Identify Signs and Symptoms and Related Risk Factors Signs and symptoms and related risk factors are identified upon initiation of Human Response Clinical Practice Guideline (CPG) 06/20/15 0359 Skin Integrity Impairment, Risk/Actual Personal Related Risk Factors (Skin Integrity Impairment, Risk/Actual) stress Physiological Related Risk Factors (Skin Integrity Impairment, Risk/Actual) infection;nutritional/hydration deficiency Treatment Related Related Risk Factors (Skin Integrity Impairment, Risk/Actual) medication Goal: Skin Integrity/Wound Healing Patient will demonstrate the desired outcomes. 06/22/15517 Skin Integrity Impairment, Risk/Actual (Adult, Obstetrics) Skin Integrity/Wound Healing making progress toward outcome Problem: Pain, Acute (Adult, Obstetrics) Goal: Identify Signs and Symptoms and Related Risk Factors Signs and symptoms and related risk factors are identified upon initiation of Human Response Clinical Practice Guideline (CPG) 06/20/15 0359 Pain, Acute Related Risk Factors (Acute Pain) disease process;stress Signs and Symptoms (Acute Pain) facial mask of pain/grimace;fatigue/weakness;verbalization of pain descriptors Goal: Acceptable Pain Control/Comfort Level Patient will demonstrate the desired outcomes. 06/22/15517 Pain, Acute (Adult, Obstetrics) Acceptable Pain Control/Comfort Level making progress toward outcome * Plan of Care - Emilia Patel RN - 06/21/2015 9:11 PM EST Problem: General Plan of Care Goal: Plan of Care Review Outcome: Ongoing (Interventions Implemented as Appropriate) 06/18/1531406/21/152005 Plan of Care Review Plan of Care Outcome Status ongoing (interventions implemented as appropriate) -- Progress improving -- Coping/Psychosocial Response Interventions Plan of Care Reviewed with -- patient OUTCOME EVALUATION NOTE: OUTCOME SUMMARY: Pt off unit for most of day, returning to unit just before 1400, from OR. Lap sites dressed with steri-strips and bandaids, all dressings c/d/i. Pt sleepy but easily aroused, oriented x4. On 3 L o2 from OR, titrated to 2L. Deferred taking AM meds until 1800. Pain 5/10 at 1800, 10 mg oxycodone administered. Pt making adequate amount of urine. On clear liq diet, advance as tolerated, taking in adequate fluids, popsicle and ice cream. PLAN MOVING FORWARD: Monitor lap sites for s/s infection/bleeding. Continue titrating O2 to room air, per pt baseline. Monitor and treat pain PRN. INDIVIDUALIZED FALL PREVENTION: Assistance: Independent with repositioning in bed. Surveillance: Terence, purposeful rounding. CPG GOAL OUTCOME EVALUATION: Goal: Infection Control Outcome: Ongoing (Interventions Implemented as Appropriate) 06/21/152005 Coping/Psychosocial Response Interventions Counseling calming techniques promoted;emotional support provided;verbalization of feelings encouraged;understanding of situation facilitated;relaxation techniques promoted;reassurance provided;personal strengths integrated Safety Interventions Isolation Precautions standard precautions maintained Infection Prevention rest/sleep promoted;promote handwashing;nutrition promoted;environmental surveillance;hydration promoted Problem: Skin Integrity Impairment, Risk/Actual (Adult, Obstetrics) Goal: Skin Integrity/Wound Healing Patient will demonstrate the desired outcomes. Outcome: Ongoing (Interventions Implemented as Appropriate) 06/18/15314 Skin Integrity Impairment, Risk/Actual (Adult, Obstetrics) Skin Integrity/Wound Healing making progress toward outcome Problem: Pain, Acute (Adult, Obstetrics) Goal: Acceptable Pain Control/Comfort Level Patient will demonstrate the desired outcomes. Outcome: Ongoing (Interventions Implemented as Appropriate) 06/18/15314 Pain, Acute (Adult, Obstetrics) Acceptable Pain Control/Comfort Level making progress toward outcome * Op Note - Lin Marquez - 06/21/2015 10:34 AM EST [facility] [place] Operative Note Patient Name: Gamaliel Queen : [id number] MR#: [id number] Case Date: 06/21/2015 Surgeon: Surgeon(s) and Role: * Darrell Stephenson MD - Primary * Lin Marquez MD Preoperative diagnosis: gallstone pancreatitis Postoperative diagnosis: gallstone pancreatitis Procedure(s): LAPAROSCOPIC CHOLECYSTECTOMY WITH CHOLANGIOGRAM Findings: Inflamed gallbladder with infundibulum bent on itself and long cystic duct. Attempted intraoperative cholangiogram, but unable to flush adequately without leaking around ductotomy. After several attempts and intraoperative consult by Dr. Lo, cholangiogram was aborted. Laparoscopic cholecystectomy performed. Anesthesia: General Estimated Blood Loss: 50ml Specimens removed during surgery: Gallbladder Drains: None Surgical Closure: Primary Closure - closure of ALL tissue levels during the original surgery regardless of wires, wickes, drains, or other devices extruding through the incision Disposition: awakened from anesthesia, extubated and taken to the recovery room in a stable condition, having suffered no apparent untoward event. Condition: doing well without problems (Please see the Surgical Encounter Summary for any Implant and Specimen details pertinent to this patient.) HPI/Surgical Indications: Gamaliel Queen is a 54 y.o. male with hx of PTSD, IVDU, and prior EtOH abuse transferred from [facility] on 06/16 for gallstone pancreatitis. ERCP on 06/17 was negative for stones; cholangiogram normal. His labs normalized and pain resolved. Plan was made for laparoscopic cholecystectomy with cholangiogram. Procedure Description: The patient was brought to the operating room and placed in the supine position on the operating table. General endotracheal anesthesia was induced. The abdomen was prepped and draped in the usual sterile fashion. Time out was performed where the correct patient, procedure, site, DVT prophylaxis, and preoperative antibiotics were confirmed prior to the beginning of the procedure. We first anesthetized the skin below the umbilicus with local anesthetic. A 2cm infraumbilical skinincision was made. Blunt dissection was used to separate the subcutaneous tissues to the level of the fascia. The fascia was exposed, gasped, elevated, and divided sharply. Two 0-vicryl sutures were placed through the fascia on either side of the wound in order to secure the Michelle trocar and for fascial closure at the completion of the case. The peritoneum was then grasped, elevated, and dividedsharply. A finger-sweep technique was used to confirm entry into the peritoneal cavity and to ensure that there were no adhesions of bowel to the anterior abdominal wall. The Michelle trocar was then inserted and secured with the previously placed vicryl sutures. Pneumoperitoneum was established. We inserted the 10 mm 30 degree laparoscope and surveyed the abdomen. We inspected the bowel beneath the Michelle trocar site and did not see any damage caused by our entry. Three additional trocars were then placed under direct vision. For each, the entry point into the peritoneal cavity was localized under direct vision using a small bore needle and the peritoneum, skin, and subcutaneous tissues were then infiltrated with local anesthetic. A 12 mm trocar was placed in an epigastric position such that it entered the abdomen to the right of the falciform ligament, and two additional 5 mm trocars were placed beneath the right costal margin along the midclavicular and anterior axillary lines. The gallbladder was then grasped with a locking grasper and elevated high into the right upper quadrant. The patient was placed in a head up position with the right side elevated. Dissection began atthe infundibulum which was bent on itself due to adhesions. These adhesions were freed bluntly. Theperitoneal sleeve covering the infundibulum of the gallbladder was divided and this was stripped away on the medial and lateral surfaces of the infundibulum. The peritoneal sleeve was divided at its junction with the liver on the medial and lateral surfaces of the body of the gallbladder. The infundibulum was grasped and retracted laterally. A gentle combination of sharp and blunt dissection was used to gradually expose and encircle both the cystic duct and cystic artery. Dissection continued until a critical view of safety was obtained where liver parenchyma was visible through an aperture between the gallbladder, cystic artery, and cystic duct. At this point in the procedure we elected to perform a cholangiogram. The cystic duct was occluded with clips at its junction with the gallbladder. A ductotomy was made sharply. The cholagiocatheter was introduced, fed into the cystic duct, secured with a clamp. When flushing with saline, however, significant leaking was noted around the catheter. Several attempts were made to re-thread the catheter without improvement. Dr. Lo was called as an intraoperative consult. Two more attempts were made to thread the cholangiogram catheter, but the leak persisted. A more distal ductotomy was then made and cholangiogram attempted again without success likely due to distal obstruction in the cystic duct. No stones were able to be milked out of the duct. Cholangiogram was then aborted. The cystic duct was completely dissected free and clearly entered the gallbladder so there was not concern aboutthe anatomy. We next placed two clips on the proximal end of the cystic duct, one on the distal end, and we divided the duct sharply between. In similar fashion the cystic artery was clipped twice proximally, once distally, and divided sharply in between. The gallbladder was then from the liver using the electrocautery and removed from the abdomen through the umbilical port site in a specimen bag. The gallbladder was sent to pathology as a specimen. Pneumoperitoneum was re-established. The gallbladder fossa was checked for hemostasis. The clips left on the cystic duct and artery were visualized and confirmed to be in good position. The RUQ was irrigated and all irrigant removed. The subcostal and epigastric trocars were removed under direct vision. Pneumoperitoneum was released. The fascia at the umbilicus was closed with the previously placed 0-vicryl. Bleeding from subcutaneous tissues in the port sites was closed with the electrocautery. The skin at all sites was closed with monocryl.The abdomen was washed and dried. Steri-strips and bandaids were applied. Pt tolerated the procedure well and without complication. He was awaken from anesthesia, extubated and taken back to PACU in stable condition having suffered no adverse events throughout the entiretyof the procedure. All counts were correct at the end of the procedure and Dr. Stephenson was scrubbed throughout the procedure. Infection Bundle used? N/A Associated attestation - Darrell Stephenson MD - 06/24/2015 5:40 PM EST Attestation: Case Date: 06/21/2015 I was present and I participated during the entire procedure (does not need to include opening and closing). DARRELL STEPHENSON MD 06/24/2015 * Brief Op Note - Lin Marquez - 06/21/2015 10:30 AM EST Brief Operative Note Patient Name: Gamaliel Queen : [id number] MR#: [id number] Case Date: 06/21/2015 Surgeon: Surgeon(s) and Role: * Darrell Stephenson MD - Primary * Lin Marquez MD Preoperative diagnosis: gallstone pancreatitis Postoperative diagnosis: gallstone pancreatitis Procedure(s): LAPAROSCOPIC CHOLECYSTECTOMY WITH CHOLANGIOGRAM Anesthesia: General Findings: Inflamed gallbladder with infundibulum bent on itself and long cystic duct. Attempted intraoperative cholangiogram, but unable to flush adequately without leaking around ductotomy. After several attempts and intraoperative consult by Dr. Lo, cholangiogram was aborted. Laparoscopic cholecystectomy performed. Complications: None Fluids: 1L crystalloid Estimated Blood Loss: 50ml Drains: None Disposition: awakened from anesthesia, extubated and taken to the recovery room in a stable condition, having suffered no apparent untoward event. Condition: doing well without problems (Please see the Surgical Encounter Summary for any Implant and Specimen details pertinent to this patient.) Infection Bundle used? N/A * Plan of Care - Dasha Olmedo RN - 06/21/2015 6:20 AM EST Problem: General Plan of Care Goal: Plan of Care Review Outcome: Ongoing (Interventions Implemented as Appropriate) 06/18/15 0315 06/20/15 2209 Plan of Care Review Plan of Care Outcome Status ongoing (interventions implemented as appropriate) -- Progress improving -- Coping/Psychosocial Response Interventions Plan of Care Reviewed with -- patient OUTCOME EVALUATION NOTE: OUTCOME SUMMARY: Pt admitted 06/16/15 with gallstone pancreatitis. Pt stable, plan for OR today for cholecystectomy. VSS. Pt continues to report mid upper abdominal pain - requested and received prn oxycodone 10 mg with fair reported effect. Pt denies n/v. NPO since MN except for sips of water with meds. IV abx administered as ordered. Will continue to monitor. PLAN MOVING FORWARD: Plan for OR today. Continue meds, assessments and to monitor VS as ordered. Medicate as needed and as ordered. INDIVIDUALIZED FALL PREVENTION: Call preutt within easy reach. Nonslip socks on when OOB. Assist as needed OOB. PT consult if needed. Assistance: Independent Supervision: Independent Surveillance: masimo monitor, monitor VS q 4 hours, hourly rounding CPG GOAL OUTCOME EVALUATION: Goal: Individualization and Mutuality Outcome: Ongoing (Interventions Implemented as Appropriate) 06/16/152101 Mutuality/Individual Preferences What anxieties, fears or concerns do you have about your health or care? no What questions do you have about your health or care? no What information would help us give you more personalized care? history of PTSD, has bad dreams at times. If asleep pls talk first prior to touch Goal: Fall Prevention-Safe Patient Handling Outcome: Ongoing (Interventions Implemented as Appropriate) 06/20/15220806/21/15 0532 06/21/15 0600 Musculoskeletal Interventions Activity/Level of Assistance -- independently -- Positioning -- -- independent Muscle Strengthening activity/mobility promoted -- -- Espinal Fall Risk History of Falling 0 -- -- Secondary Diagnosis 15 -- -- Ambulatory Aids 0 -- -- Intravenous Therapy/Heparin/Saline Lock 20 -- -- Gait/Transferring 0 -- -- Mental Status 0 -- -- Score 35 -- -- OTHER Espinal Fall Risk Med -- -- Safety Interventions Safety Precautions/Fall Reduction -- -- commode/urinal/bedpan at bedside;environmental modification;fall reduction program maintained;lighting adjusted for task/safety;low bed;nonskid shoes/slippers when out of bed;room near unit station Goal: Infection Control Outcome: Ongoing (Interventions Implemented as Appropriate) 06/20/152208 Coping/Psychosocial Response Interventions Counseling emotional support provided;reassurance provided Safety Interventions Isolation Precautions standard precautions maintained Infection Prevention environmental surveillance;rest/sleep promoted Goal: Discharge Needs Assessment Outcome: Ongoing (Interventions Implemented as Appropriate) 06/16/15210106/20/15 0359 Discharge Needs Assessment Concerns to be Addressed -- no discharge needs identified Readmission Within the Last 30 Days -- no previous admission in last 30 days Equipment Needed After Discharge -- none Current Health Anticipated Changes Related to Illness -- none Self-Care Equipment Currently Used at Home -- none Living Environment Transportation Available family or friend will provide -- Problem: Skin Integrity Impairment, Risk/Actual (Adult, Obstetrics) Goal: Identify Signs and Symptoms and Related Risk Factors Signs and symptoms and related risk factors are identified upon initiation of Human Response Clinical Practice Guideline (CPG) Outcome: Ongoing (Interventions Implemented as Appropriate) 06/20/15358 Skin Integrity Impairment, Risk/Actual Personal Related Risk Factors (Skin Integrity Impairment, Risk/Actual) stress Physiological Related Risk Factors (Skin Integrity Impairment, Risk/Actual) infection;nutritional/hydration deficiency Treatment Related Related Risk Factors (Skin Integrity Impairment, Risk/Actual) medication Goal: Skin Integrity/Wound Healing Patient will demonstrate the desired outcomes. Outcome: Ongoing (Interventions Implemented as Appropriate) 06/18/15314 Skin Integrity Impairment, Risk/Actual (Adult, Obstetrics) Skin Integrity/Wound Healing making progress toward outcome Problem: Pain, Acute (Adult, Obstetrics) Goal: Identify Signs and Symptoms and Related Risk Factors Signs and symptoms and related risk factors are identified upon initiation of Human Response Clinical Practice Guideline (CPG) Outcome: Ongoing (Interventions Implemented as Appropriate) 06/20/15358 Pain, Acute Related Risk Factors (Acute Pain) disease process;stress Signs and Symptoms (Acute Pain) facial mask of pain/grimace;fatigue/weakness;verbalization of pain descriptors Goal: Acceptable Pain Control/Comfort Level Patient will demonstrate the desired outcomes. Outcome: Ongoing (Interventions Implemented as Appropriate) 06/18/15314 Pain, Acute (Adult, Obstetrics) Acceptable Pain Control/Comfort Level making progress toward outcome * Plan of Care - Emilia Patel RN - 06/20/2015 8:00 PM EST Problem: General Plan of Care Goal: Plan of Care Review Outcome: Ongoing (Interventions Implemented as Appropriate) 06/18/1531406/20/15903 Plan of Care Review Plan of Care Outcome Status ongoing (interventions implemented as appropriate) -- Progress improving -- Coping/Psychosocial Response Interventions Plan of Care Reviewed with -- patient OUTCOME EVALUATION NOTE: OUTCOME SUMMARY: Pt alert and oriented, ringing call pruett appropriately for needs. NPO order removed for day, had abdominal CT, tolerated breakfast and lunch well but stated that he wasn't really interested in his dinner. Asked for ice cream for a snack. C/o pain 3-5/10 throughout day in generalized abdomen, stating it's not such a sharp pain anymore, but it just hurts all over. IV antibiotics infused as ordered. Independent in room and with all ALDs today, steady gait. PLAN MOVING FORWARD: NPO at midnight for cholecystectomy tomorrow. Monitor pain and treat PRN. INDIVIDUALIZED FALL PREVENTION: Assistance: Independent with all repositioning and ADLs. Surveillance: Masimo, purposeful rounding. CPG GOAL OUTCOME EVALUATION: Goal: Infection Control Outcome: Ongoing (Interventions Implemented as Appropriate) 06/20/15 0904 06/20/15 1005 Coping/Psychosocial Response Interventions Counseling calming techniques promoted;emotional support provided;reassurance provided;relaxation techniques promoted -- Safety Interventions Isolation Precautions -- standard precautions maintained Infection Prevention environmental surveillance;rest/sleep promoted -- Problem: Skin Integrity Impairment, Risk/Actual (Adult, Obstetrics) Goal: Skin Integrity/Wound Healing Patient will demonstrate the desired outcomes. Outcome: Ongoing (Interventions Implemented as Appropriate) 06/18/15314 Skin Integrity Impairment, Risk/Actual (Adult, Obstetrics) Skin Integrity/Wound Healing making progress toward outcome Problem: Pain, Acute (Adult, Obstetrics) Goal: Acceptable Pain Control/Comfort Level Patient will demonstrate the desired outcomes. Outcome: Ongoing (Interventions Implemented as Appropriate) 06/18/15314 Pain, Acute (Adult, Obstetrics) Acceptable Pain Control/Comfort Level making progress toward outcome * Plan of Care - Dasha Olmedo RN - 06/20/2015 4:07 AM EST Problem: General Plan of Care Goal: Plan of Care Review Outcome: Ongoing (Interventions Implemented as Appropriate) 06/18/1531406/19/152112 Plan of Care Review Plan of Care Outcome Status ongoing (interventions implemented as appropriate) -- Progress improving -- Coping/Psychosocial Response Interventions Plan of Care Reviewed with -- patient OUTCOME EVALUATION NOTE: OUTCOME SUMMARY: Pt admitted 06/16/15 with gallstone pancreatitis. Pt currently improving but continues to experience abdominal pain. Medicated prn several times overnight with 10 mg oxycodone with fair effect. VSS. Denies n/v, tolerating liquids overnight until 2400 when he was made NPO in anticipation of possible surgery. Will continue to monitor. PLAN MOVING FORWARD: Continue to monitor VS, labs, assessments. NPO for possible OR today 06/20/15. IV abx and other meds as ordered. Medicate as needed for pain and nausea. Inform MD of any changes. INDIVIDUALIZED FALL PREVENTION: Call pruett within easy reach. Assist as needed OOB. Nonslip socks onwhen OOB, PT consult if needed. Assistance: Independent Supervision: Independent Surveillance: Terence, monitor VS q 4 hours, hourly rounding CPG GOAL OUTCOME EVALUATION: Goal: Individualization and Mutuality Outcome: Ongoing (Interventions Implemented as Appropriate) 06/16/152101 Mutuality/Individual Preferences What information would help us give you more personalized care? history of PTSD, has bad dreams at times. If asleep pls talk first prior to touch Goal: Fall Prevention-Safe Patient Handling Outcome: Ongoing (Interventions Implemented as Appropriate) 06/19/15211206/20/15 0000 06/20/15 0355 Musculoskeletal Interventions Activity/Level of Assistance -- independently -- Positioning -- -- independent Muscle Strengthening -- -- -- Espinal Fall Risk History of Falling 0 -- -- Secondary Diagnosis 15 -- -- Ambulatory Aids 0 -- -- Intravenous Therapy/Heparin/Saline Lock 20 -- -- Gait/Transferring 0 -- -- Mental Status 0 -- -- Score 35 -- -- OTHER Espinal Fall Risk Med -- -- Safety Interventions Safety Precautions/Fall Reduction -- -- commode/urinal/bedpan at bedside;environmental modification;lighting adjusted for task/safety;low bed 06/20/15 0359 Musculoskeletal Interventions Activity/Level of Assistance -- Positioning -- Muscle Strengthening activity/mobility promoted Espinal Fall Risk History of Falling -- Secondary Diagnosis -- Ambulatory Aids -- Intravenous Therapy/Heparin/Saline Lock -- Gait/Transferring -- Mental Status -- Score -- OTHER Espinal Fall Risk -- Safety Interventions Safety Precautions/Fall Reduction -- Goal: Infection Control Outcome: Ongoing (Interventions Implemented as Appropriate) 06/19/15211206/20/15 0000 Coping/Psychosocial Response Interventions Counseling emotional support provided;reassurance provided -- Safety Interventions Isolation Precautions -- standard precautions maintained Infection Prevention environmental surveillance;rest/sleep promoted -- Goal: Discharge Needs Assessment Outcome: Ongoing (Interventions Implemented as Appropriate) 06/16/15210106/20/15 035 Discharge Needs Assessment Concerns to be Addressed -- no discharge needs identified Readmission Within the Last 30 Days -- no previous admission in last 30 days Equipment Needed After Discharge -- none Current Health Anticipated Changes Related to Illness -- none Self-Care Equipment Currently Used at Home -- none Living Environment Transportation Available family or friend will provide -- Problem: Skin Integrity Impairment, Risk/Actual (Adult, Obstetrics) Goal: Identify Signs and Symptoms and Related Risk Factors Signs and symptoms and related risk factors are identified upon initiation of Human Response Clinical Practice Guideline (CPG) Outcome: Ongoing (Interventions Implemented as Appropriate) 06/20/15358 Skin Integrity Impairment, Risk/Actual Personal Related Risk Factors (Skin Integrity Impairment, Risk/Actual) stress Physiological Related Risk Factors (Skin Integrity Impairment, Risk/Actual) infection;nutritional/hydration deficiency Treatment Related Related Risk Factors (Skin Integrity Impairment, Risk/Actual) medication Goal: Skin Integrity/Wound Healing Patient will demonstrate the desired outcomes. Outcome: Ongoing (Interventions Implemented as Appropriate) 06/18/15314 Skin Integrity Impairment, Risk/Actual (Adult, Obstetrics) Skin Integrity/Wound Healing making progress toward outcome Problem: Pain, Acute (Adult, Obstetrics) Goal: Identify Signs and Symptoms and Related Risk Factors Signs and symptoms and related risk factors are identified upon initiation of Human Response Clinical Practice Guideline (CPG) Outcome: Ongoing (Interventions Implemented as Appropriate) 06/20/15358 Pain, Acute Related Risk Factors (Acute Pain) disease process;stress Signs and Symptoms (Acute Pain) facial mask of pain/grimace;fatigue/weakness;verbalization of pain descriptors Goal: Acceptable Pain Control/Comfort Level Patient will demonstrate the desired outcomes. Outcome: Ongoing (Interventions Implemented as Appropriate) 06/18/15314 Pain, Acute (Adult, Obstetrics) Acceptable Pain Control/Comfort Level making progress toward outcome * Plan of Care - Annie Herr RN - 06/19/2015 11:24 AM EST Problem: General Plan of Care Goal: Plan of Care Review Outcome: Ongoing (Interventions Implemented as Appropriate) 06/18/1531406/19/15 0735 Plan of Care Review Plan of Care Outcome Status ongoing (interventions implemented as appropriate) -- Progress improving -- Coping/Psychosocial Response Interventions Plan of Care Reviewed with -- patient OUTCOME EVALUATION NOTE: OUTCOME SUMMARY: Pt A&Ox4. Lung sounds clear to dim throughout all lobes. Sating in high 90's on RA. No cardiovascular s/s. VSS. Pt advanced to low fat diet. Tolerating food and liquids well. Pain more adequatelycontrolled than previous days. No other occurences. Nursing staff will continue to closely monitor and notify MD of any acute changes. PLAN MOVING FORWARD: Possible d/c home tomorrow if pt continues to tolerate diet and pain stays controlled. INDIVIDUALIZED FALL PREVENTION: urinal at bedside. Non-skid shoes worn when OOB. Room near nurses station. Assistance: Independent. Supervision: Independent. Surveillance: Terence monitored. Purposeful rounding. CPG OUTCOME EVALUATION: Goal: Individualization and Mutuality Outcome: Ongoing (Interventions Implemented as Appropriate) 06/16/152101 Mutuality/Individual Preferences What anxieties, fears or concerns do you have about your health or care? no What questions do you have about your health or care? no What information would help us give you more personalized care? history of PTSD, has bad dreams at times. If asleep pls talk first prior to touch Goal: Fall Prevention-Safe Patient Handling Outcome: Ongoing (Interventions Implemented as Appropriate) 06/19/1535 06/19/15 0744 06/19/15 1003 Espinal Fall Risk History of Falling 0 -- -- Secondary Diagnosis 15 -- -- Ambulatory Aids 0 -- -- Intravenous Therapy/Heparin/Saline Lock 20 -- -- Gait/Transferring 0 -- -- Mental Status 0 -- -- Score 35 -- -- OTHER Espinal Fall Risk Med -- -- Safety Interventions Safety Precautions/Fall Reduction -- -- commode/urinal/bedpan at bedside;lighting adjusted for task/safety;nonskid shoes/slippers when out of bed;room near unit station Musculoskeletal Interventions Activity/Level of Assistance -- up ad pamela -- Positioning -- -- independent Goal: Infection Control Outcome: Ongoing (Interventions Implemented as Appropriate) 06/19/15 0735 06/19/15 1003 Coping/Psychosocial Response Interventions Counseling calming techniques promoted -- Safety Interventions Isolation Precautions -- standard precautions maintained Infection Prevention hydration promoted;nutrition promoted;rest/sleep promoted -- Goal: Discharge Needs Assessment Outcome: Ongoing (Interventions Implemented as Appropriate) 06/16/152101 Living Environment Transportation Available family or friend will provide Problem: Skin Integrity Impairment, Risk/Actual (Adult, Obstetrics) Goal: Identify Signs and Symptoms and Related Risk Factors Signs and symptoms and related risk factors are identified upon initiation of Human Response Clinical Practice Guideline (CPG) Outcome: Ongoing (Interventions Implemented as Appropriate) Goal: Skin Integrity/Wound Healing Patient will demonstrate the desired outcomes. Outcome: Ongoing (Interventions Implemented as Appropriate) 06/18/15314 Skin Integrity Impairment, Risk/Actual (Adult, Obstetrics) Skin Integrity/Wound Healing making progress toward outcome Problem: Pain, Acute (Adult, Obstetrics) Goal: Identify Signs and Symptoms and Related Risk Factors Signs and symptoms and related risk factors are identified upon initiation of Human Response Clinical Practice Guideline (CPG) Outcome: Ongoing (Interventions Implemented as Appropriate) Goal: Acceptable Pain Control/Comfort Level Patient will demonstrate the desired outcomes. Outcome: Ongoing (Interventions Implemented as Appropriate) 06/18/15314 Pain, Acute (Adult, Obstetrics) Acceptable Pain Control/Comfort Level making progress toward outcome * Med Student Consult - My [facility] - 06/19/2015 9:31 AM EST SURGICAL ONCOLOGY DAILY PROGRESS NOTE Patient Name: Gamaliel Queen Patient Age: 54 y.o. Birthdate: 1960 Admit date: 06/16/2015 Attending Physician: Baljit Gutierrez MD ID: Gamaliel Queen is a 54 y.o. male with hx of PTSD, IVDU, and prior [facility] ERCP on 06/17 was negative for stones; cholangiogram normal. Presumed to have resolving choledocholithiasis. 24hr events: - Slept well, good pain control - Febrile at 3AM, no intervention Subjective: Feeling better this AM, just a bit bloated. Pain is well controlled. Tolerating low fat diet, no n/v. + flatus, +BM. Ambulating well. Voiding spontaneously. No cp/sob. O: Last value Range last 24hrs Temperature Temp: 37.5 ??C (99.5 ??F) Temp: [37 ??C (98.6 ??F)-39.2 ??C (102.6 ??F)] Heart Rate Heart Rate: 99 Heart Rate: [67-104] Blood Pressure BP: (!) 149/92 mmHg BP: (132-149)/(80-94) Respiratory Rate Resp: 22 Resp: [16-23] SpO2 SpO2: 96 % SpO2: [93 %-97 %] 06/18 700 - 06/19 699 In: 5552 [P.O.:3314; I.V.:1188] Out: 1375 [Urine:1375] 45 gm Fat Restricted diet (Low Fat) Physical Exam: General: Resting comfortably in bed, NAD HEENT: Anicteric sclerae, MMM CVS: RRR, no m/r/g Pulm: CTAB anteriorly Abd: Soft, NT, mildly distended Skin: Warm, dry Ext: WWP, no edema Neuro: Grossly intact, nonfocal, moving all four extremities spontaneously Lines/Drains: PIV Recent Labs 06/19/15 0520 06/18/15 0536 06/17/15 0634 06/16/15 2211 WBC 10.5* 11.6* 12.8* 12.0* HGB 11.8* 12.0* 13.2* 13.6* HCT 34.2* 35.1* 39.8* 41.2 PLATELET 274 243 236 232 PT -- -- -- 15.3* INR -- -- -- 1.2* Recent Labs 06/19/15 0520 06/18/15 0536 06/17/15 0634 06/16/15 2211 NA 136 138 142 142 K 3.1* 3.3* 3.7 4.3 CL 99 101 103 104 CO2 24 24 25 25 BUN 7* 10 11 14 CREATININE 0.77* 0.70* 0.90 0.88 GLUCOSE 94 117 95 90 CALCIUM 8.6 8.4* 8.7 8.8 MAGNESIUM -- -- -- 0.77 Lactate 1.1 Lipase 16 Imaging: XR abd - 06/19 - 1. Mild gaseous distention of ascending and transverse colon with non-distention of the proximal descending colon. This may be secondary to adjacent inflammation, as the single image from the outside hospital MRCP was suggestive of pancreatitis. Clinical correlation needed. 2. No small bowel dilatation to indicate obstruction. ERCP - 06/17 - Impression: - The major papilla appeared normal. - The cholangiogram was normal including patent cystic duct. - A sphincterotomy was performed. - The biliary tree was swept and nothing was found. RUQ U/S - 06/16 - the common duct was not visualized in this patient due to body habitus and bowel gas. Note is made of multiple small gallstones and sludge in the gallbladder CT Abdomen - 06/15 - mild, acute pancreatitis Micro: Blood cx 06/19: pending Blood cx 06/16: NGTD ASSESSMENT: Gamaliel Queen is a 54 y.o. male admitted 06/16 for gallstone pancreatitis, clinical picture and labs suggest that this is resolving. Will continue to follow and likely perform cholecystectomy prior to discharge. PLAN Neuro: - Pain well-controlled with tylenol 650mg prn, 5-10mg oxycodone prn - Home venlafaxine CV: - HDS, no active issues Pulm: - Encourage IS and ambulation GI: - Pancreatitis resolving, will likely perform cholecystectomy prior to discharge - Low fat diet - Bowel regimen /FEK: - Voiding spontaneously ID: - Febrile x 1, self-limited, continue to monitor - No leukocytosis Heme: - SCDs - h/h stable Endo: - No active issues PPX: - SCDs, Protonix DISPO: Floor status Code status: Full My Garza, MS4 Pgr. [phone] * Plan of Care - Anam Keating RN - 06/19/2015 4:14 AM EST Problem: General Plan of Care Goal: Plan of Care Review Outcome: Ongoing (Interventions Implemented as Appropriate) 06/18/1531406/18/152047 Plan of Care Review Plan of Care Outcome Status ongoing (interventions implemented as appropriate) -- Progress improving -- Coping/Psychosocial Response Interventions Plan of Care Reviewed with -- patient OUTCOME EVALUATION NOTE: OUTCOME SUMMARY: Oxycodone for pain control about Q 4 hr--Tolerating clears well---Able to sleep between care--- PLAN MOVING FORWARD: ADAT--Monitor pain level-- INDIVIDUALIZED FALL PREVENTION: Assistance: Independent in room--will ring if assist needed--- Supervision: RN/LESLEY--- Surveillance: PRIMITIVO and Q1hr purposeful rounding--- CPG GOAL OUTCOME EVALUATION: Goal: Individualization and Mutuality Outcome: Ongoing (Interventions Implemented as Appropriate) 06/16/152101 Mutuality/Individual Preferences What anxieties, fears or concerns do you have about your health or care? no What questions do you have about your health or care? no What information would help us give you more personalized care? history of PTSD, has bad dreams at times. If asleep pls talk first prior to touch Goal: Fall Prevention-Safe Patient Handling Outcome: Ongoing (Interventions Implemented as Appropriate) 06/18/152047 Espinal Fall Risk History of Falling 0 Secondary Diagnosis 15 Ambulatory Aids 0 Intravenous Therapy/Heparin/Saline Lock 20 Gait/Transferring 0 Mental Status 0 Score 35 OTHER Espinal Fall Risk Med Safety Interventions Safety Precautions/Fall Reduction environmental modification;lighting adjusted for task/safety;nonskid shoes/slippers when out of bed;room near unit station Musculoskeletal Interventions Activity/Level of Assistance up ad pamela Positioning independent Goal: Infection Control Outcome: Ongoing (Interventions Implemented as Appropriate) 06/18/1573906/18/152047 Coping/Psychosocial Response Interventions Counseling calming techniques promoted -- Safety Interventions Isolation Precautions -- standard precautions maintained Infection Prevention hydration promoted;rest/sleep promoted -- Goal: Discharge Needs Assessment Outcome: Ongoing (Interventions Implemented as Appropriate) 06/16/152101 Living Environment Transportation Available family or friend will provide Problem: Skin Integrity Impairment, Risk/Actual (Adult, Obstetrics) Goal: Identify Signs and Symptoms and Related Risk Factors Signs and symptoms and related risk factors are identified upon initiation of Human Response Clinical Practice Guideline (CPG) Outcome: Ongoing (Interventions Implemented as Appropriate) Goal: Skin Integrity/Wound Healing Patient will demonstrate the desired outcomes. Outcome: Ongoing (Interventions Implemented as Appropriate) 06/18/15 0315 Skin Integrity Impairment, Risk/Actual (Adult, Obstetrics) Skin Integrity/Wound Healing making progress toward outcome Problem: Pain, Acute (Adult, Obstetrics) Goal: Identify Signs and Symptoms and Related Risk Factors Signs and symptoms and related risk factors are identified upon initiation of Human Response Clinical Practice Guideline (CPG) Outcome: Ongoing (Interventions Implemented as Appropriate) Goal: Acceptable Pain Control/Comfort Level Patient will demonstrate the desired outcomes. Outcome: Ongoing (Interventions Implemented as Appropriate) 06/18/15 0315 Pain, Acute (Adult, Obstetrics) Acceptable Pain Control/Comfort Level making progress toward outcome * Plan of Care - Annie Herr RN - 06/18/2015 6:40 PM EST Problem: General Plan of Care Goal: Plan of Care Review Outcome: Ongoing (Interventions Implemented as Appropriate) 06/18/1531406/18/15 0740 Plan of Care Review Plan of Care Outcome Status ongoing (interventions implemented as appropriate) -- Progress improving -- Coping/Psychosocial Response Interventions Plan of Care Reviewed with -- patient OUTCOME EVALUATION NOTE: OUTCOME SUMMARY: Pt A&Ox4. Lung sounds clear throughout all lobes. Sating in high 90's on RA. No cardiovascular s/s. VSS. Pt tolerating clear liquids without any problems. Drinking plenty of fluids. Pain and nausea meds administered x2. Family at bedside. Resting comfortably throughout shift. No other occurences. Nursing staff will continue to closely monitor and notify MD of any acute changes. PLAN MOVING FORWARD: Advance diet tomorrow and d/c on Saturday if pt tolerates. INDIVIDUALIZED FALL PREVENTION: urinal at bedside. Room near nurses station. Non-skid shoes worn when OOB. Assistance: Independent. Supervision: Independent. Surveillance: Masimo monitored. Purposeful rounding. CPG OUTCOME EVALUATION: Goal: Individualization and Mutuality Outcome: Ongoing (Interventions Implemented as Appropriate) 06/16/152101 Mutuality/Individual Preferences What anxieties, fears or concerns do you have about your health or care? no What questions do you have about your health or care? no What information would help us give you more personalized care? history of PTSD, has bad dreams at times. If asleep pls talk first prior to touch Goal: Fall Prevention-Safe Patient Handling Outcome: Ongoing (Interventions Implemented as Appropriate) 06/18/15 0740 06/18/15 1600 Espinal Fall Risk History of Falling 0 -- Secondary Diagnosis 15 -- Ambulatory Aids 0 -- Intravenous Therapy/Heparin/Saline Lock 20 -- Gait/Transferring 0 -- Mental Status 0 -- Score 35 -- OTHER Espinal Fall Risk Med -- Safety Interventions Safety Precautions/Fall Reduction -- commode/urinal/bedpan at bedside;environmental modification;fall reduction program maintained;lighting adjusted for task/safety;low bed;nonskid shoes/slippers when out of bed;room near unit station Musculoskeletal Interventions Activity/Level of Assistance independently -- Positioning -- independent Goal: Infection Control Outcome: Ongoing (Interventions Implemented as Appropriate) 06/18/15 0740 06/18/15 1600 Coping/Psychosocial Response Interventions Counseling calming techniques promoted -- Safety Interventions Isolation Precautions -- standard precautions maintained Infection Prevention hydration promoted;rest/sleep promoted -- Goal: Discharge Needs Assessment Outcome: Ongoing (Interventions Implemented as Appropriate) 06/16/15 210 Living Environment Transportation Available family or friend will provide Problem: Skin Integrity Impairment, Risk/Actual (Adult, Obstetrics) Goal: Identify Signs and Symptoms and Related Risk Factors Signs and symptoms and related risk factors are identified upon initiation of Human Response Clinical Practice Guideline (CPG) Outcome: Ongoing (Interventions Implemented as Appropriate) Goal: Skin Integrity/Wound Healing Patient will demonstrate the desired outcomes. Outcome: Ongoing (Interventions Implemented as Appropriate) 06/18/15 0315 Skin Integrity Impairment, Risk/Actual (Adult, Obstetrics) Skin Integrity/Wound Healing making progress toward outcome Problem: Pain, Acute (Adult, Obstetrics) Goal: Identify Signs and Symptoms and Related Risk Factors Signs and symptoms and related risk factors are identified upon initiation of Human Response Clinical Practice Guideline (CPG) Outcome: Ongoing (Interventions Implemented as Appropriate) Goal: Acceptable Pain Control/Comfort Level Patient will demonstrate the desired outcomes. Outcome: Ongoing (Interventions Implemented as Appropriate) 06/18/15 0315 Pain, Acute (Adult, Obstetrics) Acceptable Pain Control/Comfort Level making progress toward outcome * Consult Note - Karli Roman MD - 06/18/2015 2:02 PM EST [facility] Department of Surgery Inpatient Consult Note Consultation Requested by: Baljit Gutierrez MD History of Present Illness: We are seeing Gamaliel Queen today at the request of Baljit Lorenz MD for evaluation and advice about gallstone pancreatitis. This patient was admitted two days ago after presenting to [facility] with complaints of abdominal pain and nausea and vomiting. He was found to have elevated LFTs and lipase at the OSH and a CT Abdomen with findings of mild pancreatitis. A RUQ U/S was performed but could not visualize the CBD. The patient underwent ERCP yesterday, the duct was successfully cannulated and swept and there were no stones. The cholangiogram was normal. The impression is that the patient likely had choledocholithiasis that has passed and is symptomatically improving from his pancreatitis. Past Medical History: PTSD IVDA H/O Alcohol abuse Past Surgical History Bilateral inguinal hernia repair Medications Omeprazole Venlafaxine Allergies No Known Allergies Family History: noncontributory Social History: and lives with his Non smoker Has been sober for 3 years but previously abused alcohol No recent drug use Review of Systems: As stated above, otherwise negative Physical Exam: Temp: [36.5 ??C (97.7 ??F)-37.8 ??C (100 ??F)] Heart Rate: [78-97] Resp: [16-18] BP: (132-144)/(68-87) SpO2: [94 %-97 %] Gen: NAD, pleasant gentleman CV:RRR Pulm: CTAB Abd: protuberant, nontympanitic, tender to deep palpation in the epigastrium, no rebound or guarding Ext:warm and well perfused Data independently reviewed: Recent Results (from the past 24 hour(s)) Basic Metabolic Panel (non-fasting) Result Value Ref Range Glucose Lvl 117 65 - 199 mg/dL BUN 10 10 - 20 mg/dL Creatinine 0.70 (L) 0.80 - 1.50 mg/dL Sodium 138 135 - 145 mmol/L Potassium 3.3 (L) 3.5 - 5.0 mmol/L Chloride 101 98 - 107 mmol/L CO2 24 22 - 31 mmol/L Anion Gap 13 5 - 15 mmol/L Calcium 8.4 (L) 8.5 - 10.5 mg/dL Estimated GFR >60 >=60 Hepatic Function Panel Result Value Ref Range Total Protein 5.8 (L) 6.1 - 8.0 gm/dL Albumin 3.1 (L) 3.2 - 5.2 gm/dL AST 31 0 - 39 unit/L ALT 191 (H) 0 - 55 unit/L Alk Phos 144 (H) 40 - 120 unit/L Total Bilirubin 3.3 (H) 0.2 - 1.3 mg/dL Bili, Direct 2.8 (H) 0.0 - 0.3 mg/dL Hemogram Result Value Ref Range WBC 11.6 (H) 4.0 - 10.0 x10(3)/mcL RBC 4.27 (L) 4.63 - 6.08 x10(6)/mcL Hemoglobin 12.0 (L) 13.7 - 17.5 gm/dL Hematocrit 35.1 (L) 40.0 - 51.0 % MCV 82.2 79.0 - 92.0 fL MCH 28.1 25.6 - 32.2 pg MCHC 34.2 32.0 - 36.5 gm/dL Platelets 243 145 - 370 x10(3)/mcL RDWSD 43.1 35.0 - 46.0 fL RDWCV 14.4 10.9 - 14.4 % MPV 9.4 9.0 - 12.0 fL Differential, Automated Result Value Ref Range Neutrophils % 81.0 % Neutr Abs (ANC) 9.41 (H) 1.50 - 6.30 x10(3)/mcL Lymphocytes % 9.6 % Lymphocytes Abs 1.1 1.0 - 3.6 x10(3)/mcL Monocytes % 8.2 % Monocyte Abs 1.0 0.2 - 1.0 x10(3)/mcL Eosinophils % 0.9 % Eosinophils Abs 0.1 0.0 - 0.5 x10(3)/mcL Basophils % 0.1 % Basophils Abs 0.0 0.0 - 0.2 x10(3)/mcL Immature Gran % 0.20 % Christy Gran Abs 0.02 0.00 - 0.05 x10(3)/mcL CT Abdomen - 06/15 - mild, acute pancreatitis RUQ U/S - 06/16 - the common duct was not visualized in this patient due to body habitus and bowel gas. Note is made of multiple small gallstones and sludge in the gallbladder ERCP - 06/17 - Impression: - The major papilla appeared normal. - The cholangiogram was normal including patent cystic duct. - A sphincterotomy was performed. - The biliary tree was swept and nothing was found. Impression: 54yoM with resolving gallstone pancreatitis. We recommend interval cholecystectomy during this hospitalization, once the patient's pain has entirely resolved. This plan was communicated with the patient and he is agreeable. We will continue to follow. - Would recommend trending lipase as another indicator of his resolving pancreatitis. - Will continue to follow with abdominal exams. Interval cholecystectomy recommended before discharge. Thank you for this consult. * Plan of Care - Srinivasa Black RN - 06/18/2015 3:24 AM EST Problem: General Plan of Care Goal: Plan of Care Review Outcome: Ongoing (Interventions Implemented as Appropriate) 06/18/15 0315 Plan of Care Review Plan of Care Outcome Status ongoing (interventions implemented as appropriate) Progress improving Coping/Psychosocial Response Interventions Plan of Care Reviewed with patient OUTCOME EVALUATION NOTE: OUTCOME SUMMARY: Pt AO, VSS. Able to make needs known appropriately. Up ad pamela. Repositioning independently in bed. Pt c/o constant abdominal pain, medicated w/ IV dilaudid and Toradol w/ good effect per report. C/o intermittent nausea, medicated w/ IV phenergan w/ good effect. Maintenance fluids infusing as ordered. NPO overnight as ordered. Appeared to rest comfortably between care, will continue to monitor andnotify MD of acute changes. PLAN MOVING FORWARD: IV hydration Pain and nausea control Possible NG placement? INDIVIDUALIZED FALL PREVENTION: Assistance: None Supervision: Independent Surveillance: Room near nurses station, hourly rounding, call light w/ in reach, Masimo on. CPG GOAL OUTCOME EVALUATION: Goal: Individualization and Mutuality Outcome: Ongoing (Interventions Implemented as Appropriate) Goal: Fall Prevention-Safe Patient Handling Outcome: Ongoing (Interventions Implemented as Appropriate) 06/17/15 1940 06/17/15 2200 Espinal Fall Risk History of Falling 0 -- Secondary Diagnosis 15 -- Ambulatory Aids 0 -- Intravenous Therapy/Heparin/Saline Lock 20 -- Gait/Transferring 0 -- Mental Status 0 -- Score 35 -- OTHER Espinal Fall Risk Med -- Safety Interventions Safety Precautions/Fall Reduction -- commode/urinal/bedpan at bedside;fall reduction program maintained;environmental modification;lighting adjusted for task/safety;low bed Musculoskeletal Interventions Activity/Level of Assistance up ad pamela -- Positioning -- independent Goal: Infection Control Outcome: Ongoing (Interventions Implemented as Appropriate) 06/17/15 194 Coping/Psychosocial Response Interventions Counseling emotional support provided;calming techniques promoted Safety Interventions Isolation Precautions standard precautions maintained Infection Prevention environmental surveillance;bronchial hygiene promoted;hydration promoted;rest/sleep promoted;promote handwashing;nutrition promoted Goal: Discharge Needs Assessment Outcome: Ongoing (Interventions Implemented as Appropriate) Problem: Skin Integrity Impairment, Risk/Actual (Adult, Obstetrics) Goal: Identify Signs and Symptoms and Related Risk Factors Signs and symptoms and related risk factors are identified upon initiation of Human Response Clinical Practice Guideline (CPG) Outcome: Ongoing (Interventions Implemented as Appropriate) Goal: Skin Integrity/Wound Healing Patient will demonstrate the desired outcomes. Outcome: Ongoing (Interventions Implemented as Appropriate) 06/18/15 0315 Skin Integrity Impairment, Risk/Actual (Adult, Obstetrics) Skin Integrity/Wound Healing making progress toward outcome Problem: Pain, Acute (Adult, Obstetrics) Goal: Identify Signs and Symptoms and Related Risk Factors Signs and symptoms and related risk factors are identified upon initiation of Human Response Clinical Practice Guideline (CPG) Outcome: Ongoing (Interventions Implemented as Appropriate) Goal: Acceptable Pain Control/Comfort Level Patient will demonstrate the desired outcomes. Outcome: Ongoing (Interventions Implemented as Appropriate) 06/18/15 0315 Pain, Acute (Adult, Obstetrics) Acceptable Pain Control/Comfort Level making progress toward outcome * Plan of Care - Annie Herr RN - 06/17/2015 6:48 PM EST Problem: General Plan of Care Goal: Plan of Care Review Outcome: Ongoing (Interventions Implemented as Appropriate) 06/17/15 0745 Coping/Psychosocial Response Interventions Plan of Care Reviewed with patient;spouse OUTCOME EVALUATION NOTE: OUTCOME SUMMARY: Pt A&Ox4. Lung sounds clear to dim throughout all lobes. Sating in high 90's on RA. No cardiovascular s/s. VSS. Pt down for ERCP at approximately 1300. No abnormal pancreas findings. MD believes stone must have passed on its own. Nausea and pain meds administered once during day shift. Pt resting comfortably. No other occurences. Nursing staff will continue to closely monitor and notify MD ofany acute changes. PLAN MOVING FORWARD: Consult with surgery about possible cholecystectomy. INDIVIDUALIZED FALL PREVENTION: non-skid shoes worn when OOB. Room near nurses station. Assistance: SBA Supervision: Eyes on per 24 hour protocol Surveillance: Masimo monitored. Purposeful rounding. Bed alarm. CPG OUTCOME EVALUATION: Goal: Individualization and Mutuality Outcome: Ongoing (Interventions Implemented as Appropriate) 06/16/152101 Mutuality/Individual Preferences What anxieties, fears or concerns do you have about your health or care? no What questions do you have about your health or care? no What information would help us give you more personalized care? history of PTSD, has bad dreams at times. If asleep pls talk first prior to touch Goal: Fall Prevention-Safe Patient Handling Outcome: Ongoing (Interventions Implemented as Appropriate) 06/17/1574406/17/1584406/17/151751 Espinal Fall Risk History of Falling 0 -- -- Secondary Diagnosis 15 -- -- Ambulatory Aids 0 -- -- Intravenous Therapy/Heparin/Saline Lock 20 -- -- Gait/Transferring 0 -- -- Mental Status 0 -- -- Score 35 -- -- OTHER Espinal Fall Risk Med -- -- Safety Interventions Safety Precautions/Fall Reduction -- -- environmental modification;lighting adjusted for task/safety;nonskid shoes/slippers when out of bed;room near unit station Musculoskeletal Interventions Activity/Level of Assistance -- up ad pamela;with stand by assist -- Positioning -- -- independent Goal: Infection Control Outcome: Ongoing (Interventions Implemented as Appropriate) 06/17/1574406/17/151751 Safety Interventions Isolation Precautions -- standard precautions maintained Infection Prevention hydration promoted;rest/sleep promoted -- Coping/Psychosocial Response Interventions Counseling calming techniques promoted -- Goal: Discharge Needs Assessment Outcome: Ongoing (Interventions Implemented as Appropriate) 06/16/152101 Living Environment Transportation Available family or friend will provide Problem: Skin Integrity Impairment, Risk/Actual (Adult, Obstetrics) Goal: Identify Signs and Symptoms and Related Risk Factors Signs and symptoms and related risk factors are identified upon initiation of Human Response Clinical Practice Guideline (CPG) Outcome: Ongoing (Interventions Implemented as Appropriate) Goal: Skin Integrity/Wound Healing Patient will demonstrate the desired outcomes. Outcome: Ongoing (Interventions Implemented as Appropriate) Problem: Pain, Acute (Adult, Obstetrics) Goal: Identify Signs and Symptoms and Related Risk Factors Signs and symptoms and related risk factors are identified upon initiation of Human Response Clinical Practice Guideline (CPG) Outcome: Ongoing (Interventions Implemented as Appropriate) Goal: Acceptable Pain Control/Comfort Level Patient will demonstrate the desired outcomes. Outcome: Ongoing (Interventions Implemented as Appropriate) * Consult Note - Filomena York MD - 06/17/2015 11:13 AM EST [facility] Section of Gastroenterology and Hepatology Initial Inpatient Consultation Patient Name: Gamaliel Queen : 1960 Referring provider: Medicine Date of Consult: 06/17/14 Reason for Consult: Gallstone pancreatitis History of Present Illness: Gamaliel Queen is a 54 y.o. with pMH of PTSD, IVDA and prior ETOH abuse (in remission for 3 years) transfer for suspected gallstone pancreatitis. Patient reports being well until yesterday when he notice severe epigastric pain with associated nausea but no vomiting. Denies any fever, chills. Found to have cholestatic LFT's AST/ALT: 43/316 T.bili: 2.1 Alk phos: 149. Overnight fevers 101.4 with tachycardia started on zosyn with fevers defervesce. A CT of his abdomen revealed stranding of the peripancreatic fat c/w mild pancreatitis. RUQ US could not visualize the CBD but noted to have multiple small gallstones and sludge were identified within the GB. There was a question regarding a small amount of pericholecystic fluid. An MRCP attempted however patient did not tolerated. Currently reports ongoing epigastric with some nausea, sweats andchills. Review of Systems: Constitutional: no weight loss HEENT: no visual changes, no URI symptoms Cardio: no chest pain Resp: no SOB, wheezing or cough Heme: denies easy bruising GI: see HPI : no dysuria Integumentary: no new rashes Musculoskeletal: no new joint pains Neuro: no new numbness, weakness in extremities All other systems negative except as above in HPI PMHx PTSD, IVDA and prior ETOH abuse PSHx None Social History: reports that he has never smoked. He has never used smokeless tobacco. He reports that he does not drink alcohol or use illicit drugs. Family History: family history is not on file. No hx of colon Cancer, pancreatic cancer No Known Allergies Prescriptions prior to admission Medication Sig Dispense Refill Last Dose ??? ibuprofen (ADVIL;MOTRIN) 400 mg Tablet Take 400 mg by mouth every 6 hours as needed for Pain. ??? omeprazole (PRILOSEC) 40 mg Capsule, Delayed Release(E.C.) Take 40 mg by mouth daily. ??? venlafaxine (EFFEXOR-XR) 150 mg Capsule, Sust. Release 24 hr Take 150 mg by mouth daily. ??? venlafaxine (EFFEXOR-XR) 75 mg Capsule, Sust. Release 24 hr Take 75 mg by mouth daily. Current meds: ??? venlafaxine 225 mg Oral Daily ??? sodium chloride 0.9 % 5 mL Intravenous BID ??? senna-docusate 2 tablet Oral BID ??? piperacillin-tazobactam 3.375 g Intravenous Q8H ??? pantoprazole 40 mg Oral Daily Physical exam: Filed Vitals: 06/17/15 0749 BP: 125/72 Pulse: 78 Temp: 37 ??C (98.6 ??F) Resp: 18 Gen: WN/WD, alert, NAD HEENT: sweats, dry MM Neck: soft, supple, no cervical LAD CVS: RRR s1 s2 present no m/r/g Lungs: CTABL, no wheezing Abd: soft, NT, BS+ tenderness LUQ Rectal: deferred Ext: no c/c/e Skin: No rash, lesion Labs: Lab Results Component Value Date SODIUM 142 06/17/2015 POTASSIUM 3.7 06/17/2015 CHLORIDE 103 06/17/2015 CO2 25 06/17/2015 BUN 11 06/17/2015 CREATININE 0.90 06/17/2015 GLUCOSE LVL 95 06/17/2015 Lab Results Component Value Date ALT 316* 06/17/2015 AST 46* 06/17/2015 ALKPHOS 149* 06/17/2015 BILITOT 2.1* 06/17/2015 Lab Results Component Value Date WBC 12.8* 06/17/2015 HGB 13.2* 06/17/2015 HCT 39.8* 06/17/2015 MCV 85.2 06/17/2015 PLATELET 236 06/17/2015 Radiology: A CT of his abdomen revealed stranding of the peripancreatic fat c/w mild pancreatitis. RUQ US could not visualize the CBD but noted to have multiple small gallstones and sludge were identified within the GB. Endoscopy: None Impression: Gamaliel Queen is a 54 y.o. with pMH of PTSD, IVDA and prior ETOH abuse (in remissionfor 3 years) transfer for suspected gallstone pancreatitis found to have cholestatic LFT's concerning for choledocholithiasis vs passing of stone with possible ascending cholangitis. He will eventually need his gallbladder removed prior to discharge after resolution of his pancreatitis. Recommendations: # please change NS to LR aggressive fluid LR at 250 cc/hr # ERCP today at 1pm anesthesia # trend daily LFT's # continue zosyn # consult surgery for CCY Patient was seen and discussed with Dr. York. Recommendations reviewed with Primary team. Christal Cadena MD Gastroenterology Fellow Attending Addendum: I have seen and examined the patient with Dr. Cadena and agree with her note as above. Filomena York MD * Plan of Care - Emilia Mclain RN - 06/17/2015 8:32 AM EST Problem: General Plan of Care Goal: Plan of Care Review Outcome: Ongoing (Interventions Implemented as Appropriate) OUTCOME EVALUATION NOTE: OUTCOME SUMMARY: Patient arrived to unit via stretcher; transfer from outside hospital. Patient is alert and oriented x4; Pleasant, calm, and cooperative with all tasks this shift. Patient c/o abdominal pain this shift -12/17 receiving prn Oxycodone per order x2 with good effect noted as patient denies any pain at this time. Pt c/o nausea with prn Phenergan given per order with good effect. Patient's HR low 100s-90s, respirations 22-24, BP initially slightly elevated 151/97 decreased to 125/72, T: 101.1 at 00:00; MD Mann made aware of SIRS bundle triggered and increased temperature; states not wantingto draw lactate at this time.New prn Tylenol received and given per order with good effect as temp 99.1 at 05:13. Patient c/o headache, but has subsided shortly after receiving Tylenol. Pt receiving 200ml normal saline IVF tolerating well and Zosyn per order, see AUG. UA sent, blood cultures drawn,and labs drawn this shift. Will continue to monitor patient and update MD with any changes. PLAN MOVING FORWARD: Continue to monitor cardiac status. Continue to monitor and treat nausea and pain as needed. Continue to monitor temperature and for signs/symptoms of infection. Continue with IV antibiotics and IVF. INDIVIDUALIZED FALL PREVENTION:Room near nurses station, bed in low position with wheels locked, and non skid slipper socks utilized. Assistance: Independently; SBA Supervision: Bed alarm; Call light in reach and has been ringing appropriately. Surveillance: Masimo and purposeful rounding. CPG OUTCOME EVALUATION: Goal: Individualization and Mutuality Outcome: Ongoing (Interventions Implemented as Appropriate) Goal: Fall Prevention-Safe Patient Handling Outcome: Ongoing (Interventions Implemented as Appropriate) Goal: Infection Control Outcome: Ongoing (Interventions Implemented as Appropriate) Goal: Discharge Needs Assessment Outcome: Ongoing (Interventions Implemented as Appropriate) Problem: Skin Integrity Impairment, Risk/Actual (Adult, Obstetrics) Goal: Identify Signs and Symptoms and Related Risk Factors Signs and symptoms and related risk factors are identified upon initiation of Human Response Clinical Practice Guideline (CPG) Outcome: Ongoing (Interventions Implemented as Appropriate) Goal: Skin Integrity/Wound Healing Patient will demonstrate the desired outcomes. Outcome: Ongoing (Interventions Implemented as Appropriate) Problem: Pain, Acute (Adult, Obstetrics) Goal: Identify Signs and Symptoms and Related Risk Factors Signs and symptoms and related risk factors are identified upon initiation of Human Response Clinical Practice Guideline (CPG) Outcome: Ongoing (Interventions Implemented as Appropriate) Goal: Acceptable Pain Control/Comfort Level Patient will demonstrate the desired outcomes. Outcome: Ongoing (Interventions Implemented as Appropriate) documented in this encounter Plan of Treatment Pending Results Name Type Priority Associated Diagnoses Date /Time XR ERCP Imaging Routine 06/17/2015 12: 37 PM EST FILM LIBRARY-FLUORO OR [id number] ONL Imaging Routine 06/21/2015 9:4 0 AM EST Scheduled Orders Name Type Priority Associated Diagnoses Orde r Schedule XR ERCP Imaging Routine Once PRN (for Radiant use) for 1 Occurrences starting 06/17/2015 until 06/17/2015 FILM LIBRARY-FLUORO OR [id number] ONL Imaging Routine Once PRN (f or Radiant use) for 1 Occurrences starting 06/21/2015 until 06/21/2015 documented as of this encounter Procedures Procedure Name Priority Date/Time Associated Diagnosis Comments TERRITORY SALES EXECUTIVE SCAN 06/24/2015 12:00 AM EST BMP W/FASTING GLUCOSE Routine 06/23/2015 3:58 AM EST HEMOGRAM Routine 06/23/2015 3:58 AM EST DIFFERENTIAL, AUTOMATED Routine 06/23/19 16 3:58 AM EST CBC (WITH DIFF) Routine 06/23/2015 3:58 AM EST BMP W/FASTING GLUCOSE Routine 06/22/2015 5:49 AM EST HEMOGRAM Routine 06/22/2015 5:49 AM EST DIFFERENTIAL, AUTOMATED Routine 06/22/19 16 5:49 AM EST CBC (WITH DIFF) Routine 06/22/2015 5:49 AM EST HEPATIC FUNCTION PANEL Routine 6 5:49 AM EST SPECIMEN TO PATHOLOGY Routine 06/21/2015 10:03 AM EST LAPAROSCOPIC CHOLECYSTECTOMY WITH CHOLANGIOGRAM (WRVU 11.47) Yes 06/21/2015 7:32 AM EST gallstone pancreatitis HEMOGRAM Routine 06/21/2015 4:41 AM EST DIFFERENTIAL, AUTOMATED Routine 06/21/19 16 4:41 AM EST ABO/RH TYPING Routine 06/21/2015 4:41 AM EST PROTHROMBIN TIME Routine 06/21/2015 4:41 AM EST CBC (WITH DIFF) Routine 06/21/2015 4:41 AM EST ANTIBODY SCREEN Routine 06/21/2015 4:41 AM EST TYPE AND SCREEN ([facility]P/MAURICE) Routine 06/21/2015 4:41 AM EST LIPASE Routine 06/21/2015 4:41 AM EST COMPREHENSIVE METABOLIC PANEL Routine 06/21/2015 4:[address] ABDOMEN AND PELVIS W CONTRAST Routine 06/20/2015 11:34 AM EST LAPAROSCOPIC CHOLECYSTECTOMY WITH CHOLANGIOGRAM Routine 06/20/2015 10:39 AM EST HEMOGRAM Routine 06/20/2015 8:07 AM EST DIFFERENTIAL, AUTOMATED Routine 06/20/19 16 8:07 AM EST CBC (WITH DIFF) Routine 06/20/2015 8:07 AM EST COMPREHENSIVE METABOLIC PANEL Routine 06/20/2015 8:07 AM EST XR ABDOMEN 1 VIEW STAT 06/19/2015 8:0 9 AM EST BLOOD CULTURE STAT 06/19/2015 5:30 AM EST HEMOGRAM Routine 06/19/2015 5:20 AM EST DIFFERENTIAL, AUTOMATED Routine 06/19/19 16 5:20 AM EST LACTATE, WHOLE BLOOD Routine 06/19/2015 5:20 AM EST BLOOD CULTURE STAT 06/19/2015 5:20 AM EST CBC (WITH DIFF) Routine 06/19/2015 5:20 AM EST LIPASE Routine 06/19/2015 5:20 AM EST AMYLASE Routine 06/19/2015 5:20 AM EST HEPATIC FUNCTION PANEL Routine 6 5:20 AM EST BASIC METABOLIC PANEL Routine 06/19/2015 5:20 AM EST HEMOGRAM Routine 06/18/2015 5:36 AM EST DIFFERENTIAL, AUTOMATED Routine 06/18/19 16 5:36 AM EST CBC (WITH DIFF) Routine 06/18/2015 5:36 AM EST HEPATIC FUNCTION PANEL Routine 6 5:36 AM EST BASIC METABOLIC PANEL Routine 06/18/2015 5:36 AM EST ERCP Routine 06/17/2015 12:57 PM EST ERCP (WRVU 5.85) 06/17/2015 12:5 6 PM EST choledochiliathsis HEMOGRAM Routine 06/17/2015 6:34 AM EST DIFFERENTIAL, AUTOMATED Routine 06/17/19 16 6:34 AM EST CBC (WITH DIFF) Routine 06/17/2015 6:34 AM EST HEPATIC FUNCTION PANEL Routine 6 6:34 AM EST BASIC METABOLIC PANEL Routine 06/17/2015 6:34 AM EST URINALYSIS WITH REFLEX CULTURE Routine 06/16/2015 11:01 PM EST HEMOGRAM Routine 06/16/2015 10:11 PM EST DIFFERENTIAL, AUTOMATED Routine 06/16/19 16 10:11 PM EST BLOOD CULTURE STAT 06/16/2015 10:11 PM EST PROTHROMBIN TIME Routine 06/16/2015 10:1 1 PM EST CBC (WITH DIFF) Routine 06/16/2015 10:11 PM EST MAGNESIUM Routine 06/16/2015 10:11 PM EST HEPATIC FUNCTION PANEL Routine 6 10:11 PM EST BASIC METABOLIC PANEL Routine 06/16/2015 10:11 PM EST BLOOD CULTURE STAT 06/16/2015 10:07 PM EST FILM LIBRARY STORAGE ONLY MR ABDOMEN Routine 06/16/2015 12:05 AM EST Pain documented in this encounter Results * 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 (06/24/2015 12:00 AM EST) Anatomical Region Laterality Modality Other Scanning Provider MEDIA MGR SCAN EXT O RDR/RSLT * (ABNORMAL) Differential, Automated (06/23/2015 3:58 AM EST) Neutrophil % 78.9 % CERNER MILLENNIUM Neutrophil Absolute 9.29(H) 1.50 - 6.30 x10(3)/mc L CERNER MILLENNIUM Lymph % 11.7 % CERNER MILLENNIUM Lymphocytes Abs 1.4 1.0 - 3.6 x10(3)/mc L CERNER MILLENNIUM Monocyte % 7.0 % CERNER MILLENNIUM Monocyte Abs 0.8 0.2 - 1.0 x10(3)/mc L CERNER MILLENNIUM Eos % 1.7 % CERNER MILLENNIUM Eosinophils Abs 0.2 0.0 - 0.5 x10(3)/mc L CERNER MILLENNIUM Basophil % 0.3 % CERNER MILLENNIUM Baso Absolute 0.0 0.0 - 0.2 x10(3)/mc L CERNER MILLENNIUM Immature Gran % 0.40 % CERN ER MILLENNIUM Comment: Immature granulocytes(IG's)percentage and absolute count will include metamyelocytes, myelocytes, and promyelocytes. Blood smears from CBCs yielding IG's will be scanned manually for concordance. If this scan disagrees with the automated IG or if promyelocytes are noted, a manual differential will be performed. Immature Gran Absolute 0.05 0.00 - 0.05 x10(3)/mc L CERNER MILLENNIUM Blood specimen (specimen) 06/23/2015 3:58 AM EST 06/23/2015 4:11 AM EST Narrative Resulting Agency Comment Spec In Lab Baljit Gutierrez MD HEMATOLOGY ORDERABLE S CERNER MILLENNIUM * (ABNORMAL) Hemogram (06/23/2015 3:58 AM EST) White Blood Cell 11.8(H) 4.0 - 10.0 x10(3)/mc L CERNER MILLENNIUM Red Blood Cell 4.27(L) 4.63 - 6.08 x10(6)/mc L CERNER MILLENNIUM Hemoglobin 12.0(L) 13.7 - 17.5 gm/dL CERNER MILLENNIUM Hematocrit 35.7(L) 40.0 - 51.0 % CERNER MILLENNIUM Mean Cell Volume 83.6 79.0 - 92.0 fL CERNER MILLENNIUM Mean Cell Hemoglobin 28.1 25.6 - 32.2 pg CERNER MILLENNIUM Mean Cell Hemoglobin Concentration 33.6 32.0 - 36.5 gm/dL CERNER MILLENNIUM Platelet 397(H) 145 - 370 x10(3)/mc L CERNER MILLENNIUM RDW Standard Deviation 45.1 35.0 - 46.0 fL CERNER MILLENNIUM RDW coefficient of variation 14.7(H) 10.9 - 14.4 % CERNER MILLENNIUM Mean Platelet Volume 9.3 9.0 - 12.0 fL CERNER MILLENNIUM Blood specimen (specimen) 06/23/2015 3:58 AM EST 06/23/2015 4:11 AM EST Narrative Resulting Agency Comment Spec In Lab Baljit Gutierrez MD HEMATOLOGY ORDERABLE S PORSCHE WELSH * (ABNORMAL) BMP w/fasting Glucose (06/23/2015 3:58 AM EST) Glucose Fasting 108(H) 65 - 99 mg/dL CERNER MILLENNIUM Comment: ?Fasting* Glucose Interpretive Criteria Normal ?65-99 mg/dL Impaired Fasting glucose ?100-125 mg/dL Consistent with Diabetes Mellitus ? >or= 126 mg/dL *Fasting is defined as no caloric intake for at least 8 hours In the absence of unequivocal hyperglycemia a plasma glucose value of >or= 126 mg/dL should be repeated on a subsequent day. Diagnosis and Classification of Diabetes Mellitus, Position Statement from the [place] [employer]. ??Diabetes Care, Volume 33, Supplement 1, Jun 2009 Blood Urea Nitrogen 13 10 - 20 mg/dL CERNER MILLENNIUM Creatinine 0.79(L) 0.80 - 1.50 mg/dL CERNER MILLENNIUM Comment: Please note that the pediatric reference intervals supplied above were not validated at [facility]. Results from pediatric patients should be interpreted in conjunction to the patient's age, height and muscle mass. Sodium 138 135 - 145 mmol/L CERNER MILLENNIUM Potassium 4.2 3.5 - 5.0 mmol/L CERNER MILLENNIUM Comment: Please note: ??Patients with WBC >100,000 may have falsely elevated Potassium levels. ??For accurate Potassium quantification in these patients send serum separator tube (gold top) for subsequent determinations. ??Contact the Clinical Chemistry Laboratory if there are any questions. Chloride 101 98 - 107 mmol/L CERNER MILLENNIUM Carbon Dioxide 23 22 - 31 mmol/L CERNER MILLENNIUM Anion Gap 14 5 - 15 mmol/L CERNER MILLENNIUM Calcium 8.8 8.5 - 10.5 mg/dL CERNER MILLENNIUM Est Glomerular Filtration Rate >60 >=60 CERNER MILLENNIUM Comment: This estimated GFR (eGFR) value was calculated using the MDRD equation which has been validated on patients between the ages of 18 and 70. The MDRD should not be used to assess kidney function in patients < 18 years of age or in patients with extremes of body mass, or in patients with acute kidney failure. This value should be multiplied by 1.2 for patients. For further information please copy and paste the following links into your internet browser. [email or web address] Blood specimen (specimen) 06/23/2015 3:58 AM EST 06/23/2015 4:11 AM EST Narrative Resulting Agency Comment Spec In Lab Baljit Gutierrez MD CHEMISTRY ORDERABLES Performing Organization Address City/State/[facility] de Phone Number CERGILLES MILLENNIUM * (ABNORMAL) Hepatic Function Panel (06/22/2015 5:49 AM EST) Pathologist [facility] Protein, Total 6.6 6.1 - 8.0 gm/dL CERNER MILLENNIUM Albumin 3.3 3.2 - 5.2 gm/dL CERNER MILLENNIUM Aspartate Aminotransferase 34 0 - 39 unit/L CERNER MILLENNIUM Alanine Aminotransferase 96(H) 0 - 55 unit/L CERNER MILLENNIUM Alkaline Phosphatase 200(H) 40 - 120 unit/L CERNER MILLENNIUM Bilirubin, Total 0.6 0.2 - 1.3 mg/dL CERNER MILLENNIUM Bilirubin, Direct 0.3 0.0 - 0.3 mg/dL CERNER MILLENNIUM Blood specimen (specimen) Venous Draw / Unknown 06/22/2015 5:49 AM EST 06/22/2015 6:18 AM EST Narrative Resulting Agency Comment Spec In Lab Baljit Gutierrez MD CHEMISTRY ORDERABLES Performing Organization Address [facility] Co de Phone Number PORSCHE FARFANENNIUM * (ABNORMAL) Differential, Automated (06/22/2015 5:49 AM EST) Pathologist [facility] Neutrophil % 77.6 % CERNER MILLENNIUM Neutrophil Absolute 9.58(H) 1.50 - 6.30 x10(3)/mc L CERNER MILLENNIUM Lymph % 12.2 % CERNER MILLENNIUM Lymphocytes Abs 1.5 1.0 - 3.6 x10(3)/mc L CERNER MILLENNIUM Monocyte % 9.2 % CERNER MILLENNIUM Monocyte Abs 1.1(H) 0.2 - 1.0 x10(3)/mc L CERNER MILLENNIUM Eos % 0.5 % CERNER MILLENNIUM Eosinophils Abs 0.1 0.0 - 0.5 x10(3)/mc L CERNER MILLENNIUM Basophil % 0.2 % CERNER MILLENNIUM Baso Absolute 0.0 0.0 - 0.2 x10(3)/mc L CERNER MILLENNIUM Immature Gran % 0.30 % CERN ER MILLENNIUM Comment: Immature granulocytes(IG's)percentage and absolute count will include metamyelocytes, myelocytes, and promyelocytes. Blood smears from CBCs yielding IG's will be scanned manually for concordance. If this scan disagrees with the automated IG or if promyelocytes are noted, a manual differential will be performed. Immature Gran Absolute 0.04 0.00 - 0.05 x10(3)/mc L CERNER MILLENNIUM Blood specimen (specimen) 06/22/2015 5:49 AM EST 06/22/2015 6:16 AM EST Narrative Resulting Agency Comment Spec In Lab Baljit Gutierrez MD HEMATOLOGY ORDERABLE S Performing Organization Address City/State/[facility] Co de Phone Number CERGILLES FARFANENNIUM * (ABNORMAL) Hemogram (06/22/2015 5:49 AM EST) White Blood Cell 12.3(H) 4.0 - 10.0 x10(3)/mc L CERNER MILLENNIUM Red Blood Cell 4.20(L) 4.63 - 6.08 x10(6)/mc L CERNER MILLENNIUM Hemoglobin 11.9(L) 13.7 - 17.5 gm/dL CERNER MILLENNIUM Hematocrit 34.9(L) 40.0 - 51.0 % CERNER MILLENNIUM Mean Cell Volume 83.1 79.0 - 92.0 fL CERNER MILLENNIUM Mean Cell Hemoglobin 28.3 25.6 - 32.2 pg CERNER MILLENNIUM Mean Cell Hemoglobin Concentration 34.1 32.0 - 36.5 gm/dL CERNER MILLENNIUM Platelet 366 145 - 370 x10(3)/mc L CERNER MILLENNIUM RDW Standard Deviation 44.9 35.0 - 46.0 fL CERNER MILLENNIUM RDW coefficient of variation 14.8(H) 10.9 - 14.4 % CERNER MILLENNIUM Mean Platelet Volume 9.3 9.0 - 12.0 fL CERNER MILLENNIUM Blood specimen (specimen) 06/22/2015 5:49 AM EST 06/22/2015 6:16 AM EST Narrative Resulting Agency Comment Spec In Lab Baljit Gutierrez MD HEMATOLOGY ORDERABLE S PORSCHE PINKIUM * BMP w/fasting Glucose (06/22/2015 5:49 AM EST) [facility] Glucose Fasting 96 65 - 99 mg/dL CERNER MILLENNIUM Comment: ?Fasting* Glucose Interpretive Criteria Normal ?65-99 mg/dL Impaired Fasting glucose ?100-125 mg/dL Consistent with Diabetes Mellitus ? >or= 126 mg/dL *Fasting is defined as no caloric intake for at least 8 hours In the absence of unequivocal hyperglycemia a plasma glucose value of >or= 126 mg/dL should be repeated on a subsequent day. Diagnosis and Classification of Diabetes Mellitus, Position Statement from the [place] [employer]. ??Diabetes Care, Volume 33, Supplement 1, Jun 2009 Blood Urea Nitrogen 14 10 - 20 mg/dL CERNER MILLENNIUM Creatinine 0.80 0.80 - 1.50 mg/dL CERNER MILLENNIUM Comment: Please note that the pediatric reference intervals supplied above were not validated at [facility]. Results from pediatric patients should be interpreted in conjunction to the patient's age, height and muscle mass. Sodium 140 135 - 145 mmol/L CERNER MILLENNIUM Potassium 3.5 3.5 - 5.0 mmol/L CERNER MILLENNIUM Comment: Please note: ??Patients with WBC >100,000 may have falsely elevated Potassium levels. ??For accurate Potassium quantification in these patients send serum separator tube (gold top) for subsequent determinations. ??Contact the Clinical Chemistry Laboratory if there are any questions. Chloride 102 98 - 107 mmol/L CERNER MILLENNIUM Carbon Dioxide 25 22 - 31 mmol/L CERNER MILLENNIUM Anion Gap 13 5 - 15 mmol/L CERNER MILLENNIUM Calcium 8.7 8.5 - 10.5 mg/dL CERNER MILLENNIUM Est Glomerular Filtration Rate >60 >=60 CERNER MILLENNIUM Comment: This estimated GFR (eGFR) value was calculated using the MDRD equation which has been validated on patients between the ages of 18 and 70. The MDRD should not be used to assess kidney function in patients < 18 years of age or in patients with extremes of body mass, or in patients with acute kidney failure. This value should be multiplied by 1.2 for patients. For further information please copy and paste the following links into your internet browser. [email or web address] Blood specimen (specimen) 06/22/2015 5:49 AM EST 06/22/2015 6:16 AM EST Narrative Resulting Agency Comment Spec In Lab Baljit Gutierrez MD CHEMISTRY ORDERABLES Performing Organization Address City/[facility] Co de Phone Number PORSCHE WELSH * Specimen to Pathology (surgical or derm) (06/21/2015 10:03 AM EST) AP Specimen 06/21/2015 10:0 3 AM EST 06/21/2015 10:03 AM EST Narrative PORSCHE PINKIUM - 06/21/2015 10:03 AM EST Specimen requisition ordered. ??Separate Pathology report to follow Baljit Gutierrez MD PATHOLOGY/CYTOLOGY O RDERABLES Performing Organization Address [facility] Co de Phone Number PORSCHE WELSH * Antibody screen (06/21/2015 4:41 AM EST) Ab Screen Interp Negative PORSCHE PINKIUM Expires at [id number] on: 06/24/2015 PORSCHE PINKIUM Blood specimen (specimen) 06/21/2015 4:41 AM EST 06/21/2015 5:25 AM EST Narrative Resulting Agency Comment Spec In Lab Baljit Gutierrez MD BLOOD BANK LAB ORDER EMMANUEL Performing Organization Address City/[facility]/ZIP Co de Phone Number PORSCHE WELSH * ABO/Rh Typing (06/21/2015 4:41 AM EST) ABORH Type A Neg PORSCHE PINKIUM Blood specimen (specimen) 06/21/2015 4:41 AM EST 06/21/2015 5:25 AM EST Narrative Resulting Agency Comment Spec In Lab Baljit Gutierrez MD BLOOD BANK LAB ORDER EMMANUEL CERGILLES MILLENNIUM * (ABNORMAL) Differential, Automated (06/21/2015 4:41 AM EST) Neutrophil % 82.3 % CERNER MILLENNIUM Neutrophil Absolute 8.76(H) 1.50 - 6.30 x10(3)/mc L CERNER MILLENNIUM Lymph % 8.3 % CERNER MILLENNIUM Lymphocytes Abs 0.9(L) 1.0 - 3.6 x10(3)/mc L CERNER MILLENNIUM Monocyte % 6.7 % CERNER MILLENNIUM Monocyte Abs 0.7 0.2 - 1.0 x10(3)/mc L CERNER MILLENNIUM Eos % 2.3 % CERNER MILLENNIUM Eosinophils Abs 0.2 0.0 - 0.5 x10(3)/mc L CERNER MILLENNIUM Basophil % 0.2 % CERNER MILLENNIUM Baso Absolute 0.0 0.0 - 0.2 x10(3)/mc L CERNER MILLENNIUM Immature Gran % 0.20 % CERN ER MILLENNIUM Comment: Immature granulocytes(IG's)percentage and absolute count will include metamyelocytes, myelocytes, and promyelocytes. Blood smears from CBCs yielding IG's will be scanned manually for concordance. If this scan disagrees with the automated IG or if promyelocytes are noted, a manual differential will be performed. Immature Gran Absolute 0.02 0.00 - 0.05 x10(3)/mc L CERNER MILLENNIUM Blood specimen (specimen) 06/21/2015 4:41 AM EST 06/21/2015 5:15 AM EST Narrative Resulting Agency Comment Spec In Lab Baljit Gutierrez MD HEMATOLOGY ORDERABLE S CERGILLES FARFANENNIUM * (ABNORMAL) Hemogram (06/21/2015 4:41 AM EST) White Blood Cell 10.6(H) 4.0 - 10.0 x10(3)/mc L CERNER MILLENNIUM Red Blood Cell 4.39(L) 4.63 - 6.08 x10(6)/mc L CERNER MILLENNIUM Hemoglobin 12.4(L) 13.7 - 17.5 gm/dL CERNER MILLENNIUM Hematocrit 36.5(L) 40.0 - 51.0 % CERNER MILLENNIUM Mean Cell Volume 83.1 79.0 - 92.0 fL CERNER MILLENNIUM Mean Cell Hemoglobin 28.2 25.6 - 32.2 pg CERNER MILLENNIUM Mean Cell Hemoglobin Concentration 34.0 32.0 - 36.5 gm/dL CERNER MILLENNIUM Platelet 325 145 - 370 x10(3)/mc L CERNER MILLENNIUM RDW Standard Deviation 43.1 35.0 - 46.0 fL CERNER MILLENNIUM RDW coefficient of variation 14.2 10.9 - 14.4 % CERNER MILLENNIUM Mean Platelet Volume 9.3 9.0 - 12.0 fL CERNER MILLENNIUM Blood specimen (specimen) 06/21/2015 4:41 AM EST 06/21/2015 5:15 AM EST Narrative Resulting Agency Comment Spec In Lab Baljit Gutierrez MD HEMATOLOGY ORDERABLE S Performing Organization Address City/[facility] Co de Phone Number PORSCHE WELSH * Prothrombin Time (06/21/2015 4:41 AM EST) Prothrombin Time 14.9 12.0 - 15.0 sec CERNER MILLENNIUM Comment: Transfusion Committee Guidelines: INR less than 2.0, PTT less than OR equal to 43.5 seconds, or Fibrinogen greater than or equal to 100 mg/dl indicate adequate procoagulant activity for hemostasis in patients without underlying bleeding disorders. International Normalization Ratio 1.1 0.9 - 1.1 CERNER MILLENNIUM Blood specimen (specimen) 06/21/2015 4:41 AM EST 06/21/2015 5:15 AM EST Narrative Resulting Agency Comment Spec In Lab Baljit Gutierrez MD HEMATOLOGY ORDERABLE S PORSCHE PINKIUM * Lipase (06/21/2015 4:41 AM EST) Lipase 11 0 - 60 unit/L CERNER MILLENNIUM Blood specimen (specimen) 06/21/2015 4:41 AM EST 06/21/2015 5:15 AM EST Narrative Resulting Agency Comment Spec In Lab Baljit Gutierrez MD CHEMISTRY ORDERABLES CERNER MILLENNIUM * (ABNORMAL) Comprehensive metabolic panel (non-fasting) (06/21/2015 4:41 AM EST) Glucose 99 65 - 199 mg/dL CERNER MILLENNIUM Comment:Diabetes: >=200 mg/d L plus symptoms Blood Urea Nitrogen 10 10 - 20 mg/dL CERNER MILLENNIUM Creatinine 0.91 0.80 - 1.50 mg/dL CERNER MILLENNIUM Comment: Please note that the pediatric reference intervals supplied above were not validated at [facility]. Results from pediatric patients should be interpreted in conjunction to the patient's age, height and muscle mass. Sodium 139 135 - 145 mmol/L CERNER MILLENNIUM Potassium 3.9 3.5 - 5.0 mmol/L CERNER MILLENNIUM Comment: Please note: ??Patients with WBC >100,000 may have falsely elevated Potassium levels. ??For accurate Potassium quantification in these patients send serum separator tube (gold top) for subsequent determinations. ??Contact the Clinical Chemistry Laboratory if there are any questions. Chloride 100 98 - 107 mmol/L CERNER MILLENNIUM Carbon Dioxide 26 22 - 31 mmol/L CERNER MILLENNIUM Anion Gap 13 5 - 15 mmol/L CERNER MILLENNIUM Calcium 9.1 8.5 - 10.5 mg/dL CERNER MILLENNIUM Protein, Total 6.7 6.1 - 8.0 gm/dL CERNER MILLENNIUM Albumin 3.6 3.2 - 5.2 gm/dL CERNER MILLENNIUM Aspartate Aminotransferase 29 0 - 39 unit/L CERNER MILLENNIUM Alanine Aminotransferase 100(H) 0 - 55 unit/L CERNER MILLENNIUM Alkaline Phosphatase 227(H) 40 - 120 unit/L CERNER MILLENNIUM Bilirubin, Total 0.9 0.2 - 1.3 mg/dL CERNER MILLENNIUM Bilirubin, Direct 0.4(H) 0.0 - 0.3 mg/dL CERNER MILLENNIUM Est Glomerular Filtration Rate >60 >=60 CERNER MILLENNIUM Comment: This estimated GFR (eGFR) value was calculated using the MDRD equation which has been validated on patients between the ages of 18 and 70. The MDRD should not be used to assess kidney function in patients < 18 years of age or in patients with extremes of body mass, or in patients with acute kidney failure. This value should be multiplied by 1.2 for patients. For further information please copy and paste the following links into your internet browser. [email or web address] Blood specimen (specimen) 06/21/2015 4:41 AM EST 06/21/2015 5:15 AM EST Narrative Resulting Agency Comment Spec In Lab Baljit Gutierrez MD CHEMISTRY ORDERABLES [facility] * CT Abdomen And Pelvis With Contrast (GENERIC) (06/20/2015 11:34 AM EST) Anatomical Region Laterality Modality Abdomen, Pelvis Computed Tomogra phy Impressions 06/20/2015 11:53 AM EST IMPRESSION: 1 x 1 cm posterior pancreatic fluid collection the setting of peripancreatic and pancreatic parenchymal edema and inflammatory change without necrotic segment. Narrative 06/20/2015 11:53 AM EST EXAMINATION: ??CT ABDOMEN AND PELVIS WITH CONTRAST CLINICAL HISTORY: ??Pancreatitis with worsening abdominal pain rule out pseudocysts and pancreatic necrosis, fevers in last 48 hours, Pancreatitis with worsening abdominal pain rule out pseudocysts and pancreatic necrosis, fevers in last 48 hours TECHNIQUE: Helical CT of the abdomen and pelvis was performed following the intravenous administration of contrast. 110 cc of Omnipaque 350 was given. ? COMPARISON: ??None FINDINGS: Lung bases: ??Right lower lobe atelectasis/scar. No pleural effusion. Liver: ??Normal size, no focal lesions Bile ducts: ??Mild dilation intrahepatic bile ducts with normal caliber common bile duct. Gallbladder: ??Vicarious excretion of contrast from ERCP June 17, 2015 Pancreas: ??Pancreatic and peripancreatic edema and inflammatory change without necrotic segment. Pancreatic duct not dilated. Spleen: ??Normal Adrenals: ??Normal Kidneys: ??Normal Lymph Nodes: ??No enlarged lymph nodes. Bowel: Stomach moderately distended. Reactive edema/thickening about the second portion of the duodenum. Remaining loops of small and large bowel are of normal caliber. Diverticulosis without acuity. Peritoneum: No ascites. No free air. 1 x 1 cm fluid collection deep to the pancreas superjacent to the splenic artery Vasculature: No arterial pseudoaneurysm. Portable, splenic and superior mesenteric veins patent. Urinary Bladder: Normal Bones: No suspicious lesions. Procedure Note Cony Mendes MD - 06/20/2015 EXAMINATION: CT ABDOMEN AND PELVIS WITH CONTRAST CLINICAL HISTORY: Pancreatitis with worsening abdominal pain rule out pseudocysts and pancreatic necrosis, fevers in last 48 hours, Pancreatitiswith worsening abdominal pain rule out pseudocysts and pancreatic necrosis,fevers in last 48 hours TECHNIQUE: Helical CT of the abdomen and pelvis was performed followingthe intravenous administration of contrast. 110 cc of Omnipaque 350 was given. COMPARISON: None FINDINGS: Lung bases: Right lower lobe atelectasis/scar. No pleural effusion. Liver: Normal size, no focal lesions Bile ducts: Mild dilation intrahepatic bile ducts with normal calibercommon bile duct. Gallbladder: Vicarious excretion of contrast from ERCP June 17, 2015 Pancreas: Pancreatic and peripancreatic edema and inflammatory changewithout necrotic segment. Pancreatic duct not dilated. Spleen: Normal Adrenals: Normal Kidneys: Normal Lymph Nodes: No enlarged lymph nodes. Bowel: Stomach moderately distended. Reactive edema/thickening about thesecond portion of the duodenum. Remaining loops of small and large bowel are ofnormal caliber. Diverticulosis without acuity. Peritoneum: No ascites. No free air. 1 x 1 cm fluid collection deep tothe pancreas superjacent to the splenic artery Vasculature: No arterial pseudoaneurysm. Portable, splenic and superior mesenteric veins patent. Urinary Bladder: Normal Bones: No suspicious lesions. IMPRESSION IMPRESSION: 1 x 1 cm posterior pancreatic fluid collection the setting ofperipancreatic and pancreatic parenchymal edema and inflammatory change without necroticsegment. Baljit Gutierrez MD IM CT ORDERABLES * (ABNORMAL) Differential, Automated (06/20/2015 8:07 AM EST) Neutrophil % 77.2 % CERNER MILLENNIUM Neutrophil Absolute 7.52(H) 1.50 - 6.30 x10(3)/mc L CERNER MILLENNIUM Lymph % 12.4 % CERNER MILLENNIUM Lymphocytes Abs 1.2 1.0 - 3.6 x10(3)/mc L CERNER MILLENNIUM Monocyte % 7.5 % CERNER MILLENNIUM Monocyte Abs 0.7 0.2 - 1.0 x10(3)/mc L CERNER MILLENNIUM Eos % 2.3 % CERNER MILLENNIUM Eosinophils Abs 0.2 0.0 - 0.5 x10(3)/mc L CERNER MILLENNIUM Basophil % 0.3 % CERNER MILLENNIUM Baso Absolute 0.0 0.0 - 0.2 x10(3)/mc L CERNER MILLENNIUM Immature Gran % 0.30 % CERN ER MILLENNIUM Comment: Immature granulocytes(IG's)percentage and absolute count will include metamyelocytes, myelocytes, and promyelocytes. Blood smears from CBCs yielding IG's will be scanned manually for concordance. If this scan disagrees with the automated IG or if promyelocytes are noted, a manual differential will be performed. Immature Gran Absolute 0.03 0.00 - 0.05 x10(3)/mc L CERNER MILLENNIUM Blood specimen (specimen) 06/20/2015 8:07 AM EST 06/20/2015 8:39 AM EST Narrative Resulting Agency Comment Spec In Lab Baljit Gutierrez MD HEMATOLOGY ORDERABLE S CERGILLES FARFANENNIUM * (ABNORMAL) Hemogram (06/20/2015 8:07 AM EST) White Blood Cell 9.7 4.0 - 10.0 x10(3)/mc L CERNER MILLENNIUM Red Blood Cell 4.50(L) 4.63 - 6.08 x10(6)/mc L CERNER MILLENNIUM Hemoglobin 12.6(L) 13.7 - 17.5 gm/dL CERNER MILLENNIUM Hematocrit 37.7(L) 40.0 - 51.0 % CERNER MILLENNIUM Mean Cell Volume 83.8 79.0 - 92.0 fL CERNER MILLENNIUM Mean Cell Hemoglobin 28.0 25.6 - 32.2 pg CERNER MILLENNIUM Mean Cell Hemoglobin Concentration 33.4 32.0 - 36.5 gm/dL CERNER MILLENNIUM Platelet 311 145 - 370 x10(3)/mc L CERNER MILLENNIUM RDW Standard Deviation 44.1 35.0 - 46.0 fL CERNER MILLENNIUM RDW coefficient of variation 14.3 10.9 - 14.4 % CERNER MILLENNIUM Mean Platelet Volume 9.3 9.0 - 12.0 fL CERNER MILLENNIUM Blood specimen (specimen) 06/20/2015 8:07 AM EST 06/20/2015 8:39 AM EST Narrative Resulting Agency Comment Spec In Lab Baljit Gutierrez MD HEMATOLOGY ORDERABLE S CERNER MILLENNIUM * (ABNORMAL) Comprehensive metabolic panel (non-fasting) (06/20/2015 8:07 AM EST) Glucose 94 65 - 199 mg/dL CERNER MILLENNIUM Comment:Diabetes: >=200 mg/d L plus symptoms Blood Urea Nitrogen 8(L) 10 - 20 mg/dL CERNER MILLENNIUM Creatinine 0.82 0.80 - 1.50 mg/dL CERNER MILLENNIUM Comment: Please note that the pediatric reference intervals supplied above were not validated at [facility]. Results from pediatric patients should be interpreted in conjunction to the patient's age, height and muscle mass. Sodium 140 135 - 145 mmol/L CERNER MILLENNIUM Potassium 3.4(L) 3.5 - 5.0 mmol/L CERNER MILLENNIUM Comment: Please note: ??Patients with WBC >100,000 may have falsely elevated Potassium levels. ??For accurate Potassium quantification in these patients send serum separator tube (gold top) for subsequent determinations. ??Contact the Clinical Chemistry Laboratory if there are any questions. Chloride 101 98 - 107 mmol/L CERNER MILLENNIUM Carbon Dioxide 25 22 - 31 mmol/L CERNER MILLENNIUM Anion Gap 14 5 - 15 mmol/L CERNER MILLENNIUM Calcium 9.1 8.5 - 10.5 mg/dL CERNER MILLENNIUM Protein, Total 6.8 6.1 - 8.0 gm/dL CERNER MILLENNIUM Albumin 3.7 3.2 - 5.2 gm/dL CERNER MILLENNIUM Aspartate Aminotransferase 20 0 - 39 unit/L CERNER MILLENNIUM Alanine Aminotransferase 111(H) 0 - 55 unit/L CERNER MILLENNIUM Alkaline Phosphatase 210(H) 40 - 120 unit/L CERNER MILLENNIUM Bilirubin, Total 1.0 0.2 - 1.3 mg/dL CERNER MILLENNIUM Bilirubin, Direct 0.4(H) 0.0 - 0.3 mg/dL CERNER MILLENNIUM Est Glomerular Filtration Rate >60 >=60 CERNER MILLENNIUM Comment: This estimated GFR (eGFR) value was calculated using the MDRD equation which has been validated on patients between the ages of 18 and 70. The MDRD should not be used to assess kidney function in patients < 18 years of age or in patients with extremes of body mass, or in patients with acute kidney failure. This value should be multiplied by 1.2 for patients. For further information please copy and paste the following links into your internet browser. [email or web address] Blood specimen (specimen) 06/20/2015 8:07 AM EST 06/20/2015 8:39 AM EST Narrative Resulting Agency Comment Spec In Lab Baljit Gutierrez MD CHEMISTRY ORDERABLES PORSCHE PINKIUM * XR Abdomen 1 View (GENERIC) (06/19/2015 8:09 AM EST) Anatomical Region Laterality Modality Abdomen N/A Digital Radiogra phy Impressions 06/19/2015 8:20 AM EST IMPRESSION: 1. ??Mild gaseous distention of ascending and transverse colon with non-distention of the proximal descending colon. This may be secondary to adjacent inflammation, as the single image from the outside hospital MRCP was suggestive of pancreatitis. Clinical correlation needed. 2. ??No small bowel dilatation to indicate obstruction. Narrative 06/19/2015 8:20 AM EST EXAMINATION: XR ABDOMEN ONE VIEW CLINICAL HISTORY: distended, concern for peritonitis, distended, concern for peritonitis TECHNIQUE: Supine abdomen COMPARISON: 06/15/2015, ERCP 06/17/2015, MRCP 06/16/2015 from outside hospital FINDINGS: Four new disc shaped radiopacities in left upper quadrant most likely represent ingested pills within the stomach. The gallbladder is radiopaque secondary to ERCP performed 06/17/2015. There is a paucity of air in the small intestine. The Ascending and transverse colon are mildly distended, and there is lack of distention of the proximal descending colon, however there is air distal to this to the rectum. The fold pattern at the splenic flexure does not appear normal however this segment of bowel is underdistended and evaluation therefore is limited. No secondary signs of free air on these supine images. Right hemidiaphragm is elevated, and there is blunting of the right costophrenic angle suggestive of small pleural effusion or pleural scarring. Mild degenerative changes are noted in the lower lumbar spine. Procedure Note Gi Francisco MD - 06/19/2015 EXAMINATION: XR ABDOMEN ONE VIEW CLINICAL HISTORY: distended, concern for peritonitis, distended, concernfor peritonitis TECHNIQUE: Supine abdomen COMPARISON: 06/15/2015, ERCP 06/17/2015, MRCP 06/16/2015 from outside hospital FINDINGS: Four new disc shaped radiopacities in left upper quadrant most likelyrepresent ingested pills within the stomach. The gallbladder is radiopaque secondaryto ERCP performed 06/17/2015. There is a paucity of air in the small intestine. The Ascending andtransverse colon are mildly distended, and there is lack of distention of theproximal descending colon, however there is air distal to this to the rectum. Thefold pattern at the splenic flexure does not appear normal however this segmentof bowel is underdistended and evaluation therefore is limited. No secondary signs of free air on these supine images. Right hemidiaphragmis elevated, and there is blunting of the right costophrenic angle suggestiveof small pleural effusion or pleural scarring. Mild degenerative changes arenoted in the lower lumbar spine. IMPRESSION IMPRESSION: 1. Mild gaseous distention of ascending and transverse colon with non-distention of the proximal descending colon. This may be secondaryto adjacent inflammation, as the single image from the outside hospital MRCPwas suggestive of pancreatitis. Clinical correlation needed. 2. No small bowel dilatation to indicate obstruction. Baljit Gutierrez MD IMG DX ORDERABLES * Blood culture (06/19/2015 5:30 AM EST) Blood Culture No growth at 5 days. CERNER MILLENNIUM Blood specimen (specimen) PERIPHERAL BLOOD / Unknown 06/19/2015 5:30 AM EST 06/19/2015 5:45 AM EST Comment:R HAND Narrative Resulting Agency Comment Spec In Lab Baljit Gutierrez MD MICROBIOLOGY - BLOOD ORDERABLES PORSCHE FARFANENNIUM * Amylase (06/19/2015 5:20 AM EST) Amylase 50 28 - 100 unit/L CERNER NAHEEDENNIUM Blood specimen (specimen) Venous Draw / Unknown 06/19/2015 5:20 AM EST 06/19/2015 5:32 AM EST Narrative Resulting Agency Comment Spec In Lab Baljit Gutierrez MD CHEMISTRY ORDERABLES PORSCHE FARFANENNIUM * (ABNORMAL) Differential, Automated (06/19/2015 5:20 AM EST) Neutrophil % 77.9 % CERNER MILLENNIUM Neutrophil Absolute 8.18(H) 1.50 - 6.30 x10(3)/mc L CERNER MILLENNIUM Lymph % 11.1 % CERNER MILLENNIUM Lymphocytes Abs 1.2 1.0 - 3.6 x10(3)/mc L CERNER MILLENNIUM Monocyte % 8.9 % CERNER MILLENNIUM Monocyte Abs 0.9 0.2 - 1.0 x10(3)/mc L CERNER MILLENNIUM Eos % 1.6 % CERNER MILLENNIUM Eosinophils Abs 0.2 0.0 - 0.5 x10(3)/mc L CERNER MILLENNIUM Basophil % 0.2 % CERNER MILLENNIUM Baso Absolute 0.0 0.0 - 0.2 x10(3)/mc L CERNER MILLENNIUM Immature Gran % 0.30 % CERN ER MILLENNIUM Comment: Immature granulocytes(IG's)percentage and absolute count will include metamyelocytes, myelocytes, and promyelocytes. Blood smears from CBCs yielding IG's will be scanned manually for concordance. If this scan disagrees with the automated IG or if promyelocytes are noted, a manual differential will be performed. Immature Gran Absolute 0.03 0.00 - 0.05 x10(3)/mc L CERNER MILLENNIUM Blood specimen (specimen) 06/19/2015 5:20 AM EST 06/19/2015 5:31 AM EST Narrative Resulting Agency Comment Spec In Lab Baljit Gutierrez MD HEMATOLOGY ORDERABLE S CERNER MILLENNIUM * (ABNORMAL) Hemogram (06/19/2015 5:20 AM EST) White Blood Cell 10.5(H) 4.0 - 10.0 x10(3)/mc L CERNER MILLENNIUM Red Blood Cell 4.15(L) 4.63 - 6.08 x10(6)/mc L CERNER MILLENNIUM Hemoglobin 11.8(L) 13.7 - 17.5 gm/dL CERNER MILLENNIUM Hematocrit 34.2(L) 40.0 - 51.0 % CERNER MILLENNIUM Mean Cell Volume 82.4 79.0 - 92.0 fL CERNER MILLENNIUM Mean Cell Hemoglobin 28.4 25.6 - 32.2 pg CERNER MILLENNIUM Mean Cell Hemoglobin Concentration 34.5 32.0 - 36.5 gm/dL CERNER MILLENNIUM Platelet 274 145 - 370 x10(3)/mc L CERNER MILLENNIUM RDW Standard Deviation 43.8 35.0 - 46.0 fL CERNER MILLENNIUM RDW coefficient of variation 14.5(H) 10.9 - 14.4 % CERNER MILLENNIUM Mean Platelet Volume 9.2 9.0 - 12.0 fL CERNER MILLENNIUM Blood specimen (specimen) 06/19/2015 5:20 AM EST 06/19/2015 5:31 AM EST Narrative Resulting Agency Comment Spec In Lab Baljit Gutierrez MD HEMATOLOGY ORDERABLE S Performing Organization Address [facility] Co de Phone Number PORSCHE PINKIUM * Lactate, whole blood, send to lab (06/19/2015 5:20 AM EST) Lactate WB 1.1 0.5 - 2.2 mmol/L CERNER MILLENNIUM Blood specimen (specimen) 06/19/2015 5:20 AM EST 06/19/2015 5:30 AM EST Narrative Resulting Agency Comment Spec In Lab Baljit Gutierrez MD CHEMISTRY ORDERABLES Performing Organization Address [facility] Phone Number PORSCHE PINKIUM * Lipase (06/19/2015 5:20 AM EST) Lipase 16 0 - 60 unit/L CERNER MILLENNIUM Blood specimen (specimen) 06/19/2015 5:20 AM EST 06/19/2015 5:31 AM EST Narrative Resulting Agency Comment Spec In Lab Baljit Gutierrez MD CHEMISTRY ORDERABLES Performing Organization Address [facility] Phone Number PORSCHE PINKIUM * (ABNORMAL) Hepatic Function Panel (06/19/2015 5:20 AM EST) Protein, Total 6.4 6.1 - 8.0 gm/dL CERNER MILLENNIUM Albumin 3.4 3.2 - 5.2 gm/dL CERNER MILLENNIUM Aspartate Aminotransferase 16 0 - 39 unit/L CERNER MILLENNIUM Alanine Aminotransferase 139(H) 0 - 55 unit/L CERNER MILLENNIUM Alkaline Phosphatase 155(H) 40 - 120 unit/L CERNER MILLENNIUM Bilirubin, Total 1.4(H) 0.2 - 1.3 mg/dL CERNER MILLENNIUM Bilirubin, Direct 0.7(H) 0.0 - 0.3 mg/dL CERNER MILLENNIUM Blood specimen (specimen) 06/19/2015 5:20 AM EST 06/19/2015 5:31 AM EST Narrative Resulting Agency Comment Spec In Lab Baljit Gutierrez MD CHEMISTRY ORDERABLES CERNER MILLENNIUM * (ABNORMAL) Basic Metabolic Panel (non-fasting) (06/19/2015 5:20 AM EST) Glucose 94 65 - 199 mg/dL CERNER MILLENNIUM Comment:Diabetes: >=200 mg/d L plus symptoms Blood Urea Nitrogen 7(L) 10 - 20 mg/dL CERNER MILLENNIUM Creatinine 0.77(L) 0.80 - 1.50 mg/dL CERNER MILLENNIUM Comment: Please note that the pediatric reference intervals supplied above were not validated at [facility]. Results from pediatric patients should be interpreted in conjunction to the patient's age, height and muscle mass. Sodium 136 135 - 145 mmol/L CERNER MILLENNIUM Potassium 3.1(L) 3.5 - 5.0 mmol/L CERNER MILLENNIUM Comment: recheck pv Please note: ??Patients with WBC >100,000 may have falsely elevated Potassium levels. ??For accurate Potassium quantification in these patients send serum separator tube (gold top) for subsequent determinations. ??Contact the Clinical Chemistry Laboratory if there are any questions. Chloride 99 98 - 107 mmol/L CERNER MILLENNIUM Carbon Dioxide 24 22 - 31 mmol/L CERNER MILLENNIUM Anion Gap 13 5 - 15 mmol/L CERNER MILLENNIUM Calcium 8.6 8.5 - 10.5 mg/dL CERNER MILLENNIUM Est Glomerular Filtration Rate >60 >=60 CERNER MILLENNIUM Comment: This estimated GFR (eGFR) value was calculated using the MDRD equation which has been validated on patients between the ages of 18 and 70. The MDRD should not be used to assess kidney function in patients < 18 years of age or in patients with extremes of body mass, or in patients with acute kidney failure. This value should be multiplied by 1.2 for patients. For further information please copy and paste the following links into your internet browser. [email or web address]/[facility] Blood specimen (specimen) 06/19/2015 5:20 AM EST 06/19/2015 5:31 AM EST Narrative Resulting Agency Comment Spec In Lab Baljit Gutierrez MD CHEMISTRY ORDERABLES PORSCHE PINKIUM * Blood culture (06/19/2015 5:20 AM EST) Blood Culture No growth at 5 days. CERGILLES FARFANENNIUM Blood specimen (specimen) ANTECUBITAL REGION STRUCTURE / Unknown 06/19/2015 5:20 AM EST 06/19/2015 5:45 AM EST Narrative Resulting Agency Comment Spec In Lab Baljit Gutierrez MD MICROBIOLOGY - BLOOD ORDERABLES Performing Organization Address [place]/[facility] Co de Phone Number PORSCHE PINKIUM * (ABNORMAL) Differential, Automated (06/18/2015 5:36 AM EST) Neutrophil % 81.0 % CERNER MILLENNIUM Neutrophil Absolute 9.41(H) 1.50 - 6.30 x10(3)/mc L CERNER MILLENNIUM Lymph % 9.6 % CERNER MILLENNIUM Lymphocytes Abs 1.1 1.0 - 3.6 x10(3)/mc L CERNER MILLENNIUM Monocyte % 8.2 % CERNER MILLENNIUM Monocyte Abs 1.0 0.2 - 1.0 x10(3)/mc L CERNER MILLENNIUM Eos % 0.9 % CERNER MILLENNIUM Eosinophils Abs 0.1 0.0 - 0.5 x10(3)/mc L CERNER MILLENNIUM Basophil % 0.1 % CERNER MILLENNIUM Baso Absolute 0.0 0.0 - 0.2 x10(3)/mc L CERNER MILLENNIUM Immature Gran % 0.20 % CERN ER MILLENNIUM Comment: Immature granulocytes(IG's)percentage and absolute count will include metamyelocytes, myelocytes, and promyelocytes. Blood smears from CBCs yielding IG's will be scanned manually for concordance. If this scan disagrees with the automated IG or if promyelocytes are noted, a manual differential will be performed. Immature Gran Absolute 0.02 0.00 - 0.05 x10(3)/mc L CERNER MILLENNIUM Blood specimen (specimen) 06/18/2015 5:36 AM EST 06/18/2015 6:06 AM EST Narrative Resulting Agency Comment Spec In Lab Blu Pascual MD HEMATOLOGY ORDERABLE S CERNER MILLENNIUM * (ABNORMAL) Hemogram (06/18/2015 5:36 AM EST) White Blood Cell 11.6(H) 4.0 - 10.0 x10(3)/mc L CERNER MILLENNIUM Red Blood Cell 4.27(L) 4.63 - 6.08 x10(6)/mc L CERNER MILLENNIUM Hemoglobin 12.0(L) 13.7 - 17.5 gm/dL CERNER MILLENNIUM Hematocrit 35.1(L) 40.0 - 51.0 % CERNER MILLENNIUM Mean Cell Volume 82.2 79.0 - 92.0 fL CERNER MILLENNIUM Mean Cell Hemoglobin 28.1 25.6 - 32.2 pg CERNER MILLENNIUM Mean Cell Hemoglobin Concentration 34.2 32.0 - 36.5 gm/dL CERNER MILLENNIUM Platelet 243 145 - 370 x10(3)/mc L CERNER MILLENNIUM RDW Standard Deviation 43.1 35.0 - 46.0 fL CERNER MILLENNIUM RDW coefficient of variation 14.4 10.9 - 14.4 % CERNER MILLENNIUM Mean Platelet Volume 9.4 9.0 - 12.0 fL CERNER MILLENNIUM Blood specimen (specimen) 06/18/2015 5:36 AM EST 06/18/2015 6:06 AM EST Narrative Resulting Agency Comment Spec In Lab Blu Pascual MD HEMATOLOGY ORDERABLE S CERGILLES FARFANENNIUM * (ABNORMAL) Hepatic Function Panel (06/18/2015 5:36 AM EST) Protein, Total 5.8(L) 6.1 - 8.0 gm/dL CERNER MILLENNIUM Albumin 3.1(L) 3.2 - 5.2 gm/dL CERNER MILLENNIUM Aspartate Aminotransferase 31 0 - 39 unit/L CERNER MILLENNIUM Alanine Aminotransferase 191(H) 0 - 55 unit/L CERNER MILLENNIUM Alkaline Phosphatase 144(H) 40 - 120 unit/L CERNER MILLENNIUM Bilirubin, Total 3.3(H) 0.2 - 1.3 mg/dL CERNER MILLENNIUM Bilirubin, Direct 2.8(H) 0.0 - 0.3 mg/dL CERNER MILLENNIUM Comment:result rechecked-enzo Blood specimen (specimen) 06/18/2015 5:36 AM EST 06/18/2015 6:06 AM EST Narrative Resulting Agency Comment Spec In Lab lBu Pascual MD CHEMISTRY ORDERABLES CERNER MILLENNIUM * (ABNORMAL) Basic Metabolic Panel (non-fasting) (06/18/2015 5:36 AM EST) [facility] Glucose 117 65 - 199 mg/dL CERNER MILLENNIUM Comment:Diabetes: >=200 mg/d L plus symptoms Blood Urea Nitrogen 10 10 - 20 mg/dL CERNER MILLENNIUM Creatinine 0.70(L) 0.80 - 1.50 mg/dL CERNER MILLENNIUM Comment: Please note that the pediatric reference intervals supplied above were not validated at [facility]. Results from pediatric patients should be interpreted in conjunction to the patient's age, height and muscle mass. Sodium 138 135 - 145 mmol/L CERNER MILLENNIUM Potassium 3.3(L) 3.5 - 5.0 mmol/L CERNER MILLENNIUM Comment: rechecked enzo Please note: ??Patients with WBC >100,000 may have falsely elevated Potassium levels. ??For accurate Potassium quantification in these patients send serum separator tube (gold top) for subsequent determinations. ??Contact the Clinical Chemistry Laboratory if there are any questions. Chloride 101 98 - 107 mmol/L CERNER MILLENNIUM Carbon Dioxide 24 22 - 31 mmol/L CERNER MILLENNIUM Anion Gap 13 5 - 15 mmol/L CERNER MILLENNIUM Calcium 8.4(L) 8.5 - 10.5 mg/dL CERNER MILLENNIUM Est Glomerular Filtration Rate >60 >=60 [facility] Comment: This estimated GFR (eGFR) value was calculated using the MDRD equation which has been validated on patients between the ages of 18 and 70. The MDRD should not be used to assess kidney function in patients < 18 years of age or in patients with extremes of body mass, or in patients with acute kidney failure. This value should be multiplied by 1.2 for patients. For further information please copy and paste the following links into your internet browser. [email or web address] Blood specimen (specimen) 06/18/2015 5:36 AM EST 06/18/2015 6:06 AM EST Narrative Resulting Agency Comment Spec In Lab Blu Pascual MD CHEMISTRY ORDERABLES [facility] * ERCP (06/17/2015 12:57 PM EST) ERCP [facility] Endoscopy Patient Name: Gamaliel Queen ? Procedure Date: 06/17/2015 12:57 PM ? Date of : 1960 ? Age: 54 ? Order #: [id number] ? Procedure: ? ERCP Indications: ? Suspected ascending cholangitis, ? Gallstone associated acute ? pancreatitis Providers: ? Filomena York MD, Joby Daigle MD, ? Brittany Bradley RN, Loli ? Adeel, Trade Economist Referring : ?Rosie Bess MD Medicines: ? Monitored Anesthesia Care Complications: ? No immediate complications. Procedure: ? Pre-Anesthesia Assessment: ? - Prior to the procedure, a History ? and Physical was performed, and ? patient medications, allergies and ? sensitivities were reviewed. The ? patient's tolerance of previous ? anesthesia was reviewed. ? - The risks and benefits of the ? procedure and the sedation options ? and risks were discussed with the ? patient. All questions were answered ? and informed consent was obtained. ? The procedure, indications, benefits, ? risks and alternatives were explained ? to the patient. Specifically ? discussed were potential ? complications including, but not ? limited to, bleeding, perforation, ? infection, pancreatitis, missing a ? cancer, and adverse medication ? reactions. The Duodenoscope was ? introduced through the mouth, and ? advanced to the duodenum where it was ? used to inject contrast into and used ? to inject contrast into the bile ? duct. The ERCP was accomplished ? without difficulty. The patient ? tolerated the procedure well. ? Findings: ? The major papilla was normal. The bile duct was ? deeply cannulated with the short-nosed traction ? sphincterotome. Contrast was injected. I personally ? interpreted the bile duct images. Image quality was ? excellent. Opacification of the entire biliary tree ? was successful. The maximum diameter of the ducts was ? 8 mm. The intra-hepatic and extra-hepatic biliary ? duct system was normal. A 12 mm biliary ? sphincterotomy was made with a braided traction ? (standard) sphincterotome using ERBE electrocautery. ? The sphincterotomy oozed blood. To discover objects, ? the biliary tree was swept with an 11.5 mm balloon ? starting at the bifurcation. Nothing was found, no ? pus, no stone, no sludge. ? Impression: ?- The major papilla appeared normal. ? - The cholangiogram was normal ? including patent cystic duct. ? - A sphincterotomy was performed. ? - The biliary tree was swept and ? nothing was found. Recommendation: ?Stone ppears to have passed. ? Continue supportive care for ? pancreatitis. ? Consult surgery re cholecystectomy. ? Filomena York MD 06/17/2015 1:46 PM This report has been signed electronically. Number of Addenda: 0 Note Initiated On: 06/17/2015 12:57 PM PROVATION 06/17/2015 12:5 7 PM EST Ricardo Van MD GENERAL SURGICAL ORD ERABLES PROVATION * (ABNORMAL) Differential, Automated (06/17/2015 6:34 AM EST) Neutrophil % 82.3 % CERNER MILLENNIUM Neutrophil Absolute 10.50(H) 1.50 - 6.30 x10(3)/mc L CERNER MILLENNIUM Lymph % 10.0 % CERNER MILLENNIUM Lymphocytes Abs 1.3 1.0 - 3.6 x10(3)/mc L CERNER MILLENNIUM Monocyte % 7.2 % CERNER MILLENNIUM Monocyte Abs 0.9 0.2 - 1.0 x10(3)/mc L CERNER MILLENNIUM Eos % 0.2 % CERNER MILLENNIUM Eosinophils Abs 0.0 0.0 - 0.5 x10(3)/mc L CERNER MILLENNIUM Basophil % 0.1 % CERNER MILLENNIUM Baso Absolute 0.0 0.0 - 0.2 x10(3)/mc L CERNER MILLENNIUM Immature Gran % 0.20 % CERN ER MILLENNIUM Comment: Immature granulocytes(IG's)percentage and absolute count will include metamyelocytes, myelocytes, and promyelocytes. Blood smears from CBCs yielding IG's will be scanned manually for concordance. If this scan disagrees with the automated IG or if promyelocytes are noted, a manual differential will be performed. Immature Gran Absolute 0.03 0.00 - 0.05 x10(3)/mc L CERNER MILLENNIUM Blood specimen (specimen) 06/17/2015 6:34 AM EST 06/17/2015 6:40 AM EST Narrative Resulting Agency Comment Spec In Lab Blu Pascual MD HEMATOLOGY ORDERABLE S CERNER MILLENNIUM * (ABNORMAL) Hemogram (06/17/2015 6:34 AM EST) White Blood Cell 12.8(H) 4.0 - 10.0 x10(3)/mc L CERNER MILLENNIUM Red Blood Cell 4.67 4.63 - 6.08 x10(6)/mc L CERNER MILLENNIUM Hemoglobin 13.2(L) 13.7 - 17.5 gm/dL CERNER MILLENNIUM Hematocrit 39.8(L) 40.0 - 51.0 % CERNER MILLENNIUM Mean Cell Volume 85.2 79.0 - 92.0 fL CERNER MILLENNIUM Mean Cell Hemoglobin 28.3 25.6 - 32.2 pg CERNER MILLENNIUM Mean Cell Hemoglobin Concentration 33.2 32.0 - 36.5 gm/dL CERNER MILLENNIUM Platelet 236 145 - 370 x10(3)/mc L CERNER MILLENNIUM RDW Standard Deviation 44.5 35.0 - 46.0 fL CERNER MILLENNIUM RDW coefficient of variation 14.4 10.9 - 14.4 % CERNER MILLENNIUM Mean Platelet Volume 8.9(L) 9.0 - 12.0 fL CERNER MILLENNIUM Blood specimen (specimen) 06/17/2015 6:34 AM EST 06/17/2015 6:40 AM EST Narrative Resulting Agency Comment Spec In Lab Blu Pascual MD HEMATOLOGY ORDERABLE S Performing Organization Address [place]/[facility] Co de Phone Number PORSCHE PINKIUM * (ABNORMAL) Hepatic Function Panel (06/17/2015 6:34 AM EST) [facility] Protein, Total 6.5 6.1 - 8.0 gm/dL CERNER MILLENNIUM Albumin 3.7 3.2 - 5.2 gm/dL CERNER MILLENNIUM Aspartate Aminotransferase 46(H) 0 - 39 unit/L CERNER MILLENNIUM Alanine Aminotransferase 316(H) 0 - 55 unit/L CERNER MILLENNIUM Alkaline Phosphatase 149(H) 40 - 120 unit/L CERNER MILLENNIUM Bilirubin, Total 2.1(H) 0.2 - 1.3 mg/dL CERNER MILLENNIUM Bilirubin, Direct 1.4(H) 0.0 - 0.3 mg/dL CERNER MILLENNIUM Blood specimen (specimen) 06/17/2015 6:34 AM EST 06/17/2015 6:40 AM EST Narrative Resulting Agency Comment Spec In Lab Blu Pascual MD CHEMISTRY ORDERABLES Performing Organization Address [facility] Co de Phone Number PORSCHE WELSH * Basic Metabolic Panel (non-fasting) (06/17/2015 6:34 AM EST) [facility] Glucose 95 65 - 199 mg/dL CERNER MILLENNIUM Comment:Diabetes: >=200 mg/d L plus symptoms Blood Urea Nitrogen 11 10 - 20 mg/dL CERNER MILLENNIUM Creatinine 0.90 0.80 - 1.50 mg/dL CERNER MILLENNIUM Comment: Please note that the pediatric reference intervals supplied above were not validated at [facility]. Results from pediatric patients should be interpreted in conjunction to the patient's age, height and muscle mass. Sodium 142 135 - 145 mmol/L CERNER MILLENNIUM Potassium 3.7 3.5 - 5.0 mmol/L CERNER MILLENNIUM Comment: Please note: ??Patients with WBC >100,000 may have falsely elevated Potassium levels. ??For accurate Potassium quantification in these patients send serum separator tube (gold top) for subsequent determinations. ??Contact the Clinical Chemistry Laboratory if there are any questions. Chloride 103 98 - 107 mmol/L CERNER MILLENNIUM Carbon Dioxide 25 22 - 31 mmol/L CERNER MILLENNIUM Anion Gap 14 5 - 15 mmol/L CERNER MILLENNIUM Calcium 8.7 8.5 - 10.5 mg/dL CERNER MILLENNIUM Est Glomerular Filtration Rate >60 >=60 CERNER MILLENNIUM Comment: This estimated GFR (eGFR) value was calculated using the MDRD equation which has been validated on patients between the ages of 18 and 70. The MDRD should not be used to assess kidney function in patients < 18 years of age or in patients with extremes of body mass, or in patients with acute kidney failure. This value should be multiplied by 1.2 for patients. For further information please copy and paste the following links into your internet browser. [email or web address] Blood specimen (specimen) 06/17/2015 6:34 AM EST 06/17/2015 6:40 AM EST Narrative Resulting Agency Comment Spec In Lab Blu Pascual MD CHEMISTRY ORDERABLES [facility] * (ABNORMAL) Urinalysis with reflex Culture (06/16/2015 11:01 PM EST) Glucose, Urine Dipstick Negative Negative mg/dL CERNER MILLENNIUM Protein, Urine Dipstick Negative Negative mg/dL CERNER MILLENNIUM Bilirubin, Urine Dipstick Negative Negative mg/dL CERNER MILLENNIUM Comment: Clinical correlation required for positive Urine Bilirubin results as false positive may occur with some drugs and drug related products. If a false positive is suspected a serum total bilirubin should be considered if clinically indicated. Urobilinogen, Urine Dipstick 2.0(A) Normal mg/dL CERNER MILLENNIUM pH, Urn (dipstick) 5.0 5.0 - 8.0 CERNER MILLENNIUM Blood, Urine Dipstick Moderate(A) Negative mg/dL CERNER MILLENNIUM Ketone, Urine Dipstick >=80(Critica l) Negative mg/dL CERNER MILLENNIUM Comment: Urinalysis result NOT critical without a combination of Glucose greater than or equal to 500mg/dl AND Ketones greater than or equal to 80mg/dl. Nitrite, Urine Dipstick Negative Negative CERNER MILLENNIUM Leukocytes, Urine Dipstick Negative Negative mcL CERNER MILLENNIUM Appearance, Urine Dipstick Clear Clear CERNER MILLENNIUM Specific [place] Urine Automated 1.017 1.002 - 1.030 CERNER MILLENNIUM Color, Urine Dipstick Yellow Yellow CERNER MILLENNIUM RBC, Urine 7(H) 0 - 3 /HPF CERNER MILLENNIUM WBC, Urine 2 0 - 3 /HPF CERNER MILLENNIUM Bacteria, Urine Rare(A) None /HPF CERN ER MILLENNIUM Reflex to Culture No CERNER MILLENNIUM Urine specimen obtained by clean catch procedure (specimen) 06/16/2015 11:01 PM EST 06/16/2015 11:20 PM EST Narrative Resulting Agency Comment Spec In Lab Blu Pascual MD URINE ORDERABLES CERNER MILLENNIUM * (ABNORMAL) Differential, Automated (06/16/2015 10:11 PM EST) Neutrophil % 80.6 % CERNER MILLENNIUM Neutrophil Absolute 9.71(H) 1.50 - 6.30 x10(3)/mc L CERNER MILLENNIUM Lymph % 9.5 % CERNER MILLENNIUM Lymphocytes Abs 1.1 1.0 - 3.6 x10(3)/mc L CERNER MILLENNIUM Monocyte % 9.3 % CERNER MILLENNIUM Monocyte Abs 1.1(H) 0.2 - 1.0 x10(3)/mc L CERNER MILLENNIUM Eos % 0.2 % CERNER MILLENNIUM Eosinophils Abs 0.0 0.0 - 0.5 x10(3)/mc L CERNER MILLENNIUM Basophil % 0.2 % CERNER MILLENNIUM Baso Absolute 0.0 0.0 - 0.2 x10(3)/mc L CERNER MILLENNIUM Immature Gran % 0.20 % CERN ER MILLENNIUM Comment: Immature granulocytes(IG's)percentage and absolute count will include metamyelocytes, myelocytes, and promyelocytes. Blood smears from CBCs yielding IG's will be scanned manually for concordance. If this scan disagrees with the automated IG or if promyelocytes are noted, a manual differential will be performed. Immature Gran Absolute 0.02 0.00 - 0.05 x10(3)/mc L CERNER MILLENNIUM Blood specimen (specimen) 06/16/2015 10:11 PM EST 06/16/2015 10:18 PM EST Narrative Resulting Agency Comment Spec In Lab Blu Pascual MD HEMATOLOGY ORDERABLE S CERNER MILLENNIUM * (ABNORMAL) Hemogram (06/16/2015 10:11 PM EST) White Blood Cell 12.0(H) 4.0 - 10.0 x10(3)/mc L CERNER MILLENNIUM Red Blood Cell 4.79 4.63 - 6.08 x10(6)/mc L CERNER MILLENNIUM Hemoglobin 13.6(L) 13.7 - 17.5 gm/dL CERNER MILLENNIUM Hematocrit 41.2 40.0 - 51.0 % CERNER MILLENNIUM Mean Cell Volume 86.0 79.0 - 92.0 fL CERNER MILLENNIUM Mean Cell Hemoglobin 28.4 25.6 - 32.2 pg CERNER MILLENNIUM Mean Cell Hemoglobin Concentration 33.0 32.0 - 36.5 gm/dL CERNER MILLENNIUM Platelet 232 145 - 370 x10(3)/mc L CERNER MILLENNIUM RDW Standard Deviation 44.5 35.0 - 46.0 fL CERNER MILLENNIUM RDW coefficient of variation 14.4 10.9 - 14.4 % CERNER MILLENNIUM Mean Platelet Volume 9.0 9.0 - 12.0 fL CERNER MILLENNIUM Blood specimen (specimen) 06/16/2015 10:11 PM EST 06/16/2015 10:18 PM EST Narrative Resulting Agency Comment Spec In Lab Blu Pascual MD HEMATOLOGY ORDERABLE S Performing Organization Address [facility] Co de Phone Number PORSCHE WELSH * Blood culture (06/16/2015 10:11 PM EST) Blood Culture No growth at 5 days. PORSCHE WELSH Blood specimen (specimen) ANTECUBITAL REGION STRUCTURE / Unknown 06/16/2015 10:11 PM EST 06/16/2015 10:44 PM EST Narrative Resulting Agency Comment Spec In Lab Blu Pascual MD MICROBIOLOGY - BLOOD ORDERABLES Performing Organization Address [facility] Co de Phone Number PORSCHE WELSH * (ABNORMAL) Prothrombin Time (06/16/2015 10:11 PM EST) Prothrombin Time 15.3(H) 12.0 - 15.0 sec PORSCHE PINKIUM Comment: Transfusion Committee Guidelines: INR less than 2.0, PTT less than OR equal to 43.5 seconds, or Fibrinogen greater than or equal to 100 mg/dl indicate adequate procoagulant activity for hemostasis in patients without underlying bleeding disorders. International Normalization Ratio 1.2(H) 0.9 - 1.1 PORSCHE PINKIUM Blood specimen (specimen) 06/16/2015 10:11 PM EST 06/16/2015 10:18 PM EST Narrative Resulting Agency Comment Spec In Lab Blu Pascual MD HEMATOLOGY ORDERABLE S Performing Organization Address City/[facility]/ZIP Co de Phone Number PORSCHE WELSH * Magnesium (06/16/2015 10:11 PM EST) Magnesium 0.77 0.69 - 1.07 mmol/L PORSCHE PINKIUM Blood specimen (specimen) 06/16/2015 10:11 PM EST 06/16/2015 10:18 PM EST Narrative Resulting Agency Comment Spec In Lab Blu Pascual MD CHEMISTRY ORDERABLES Performing Organization Address [facility] Co de Phone Number CERGILLES PINKIUM * (ABNORMAL) Hepatic Function Panel (06/16/2015 10:11 PM EST) Pathologist [facility] Protein, Total 6.5 6.1 - 8.0 gm/dL CERNER MILLENNIUM Albumin 3.8 3.2 - 5.2 gm/dL CERNER MILLENNIUM Aspartate Aminotransferase 79(H) 0 - 39 unit/L CERNER MILLENNIUM Alanine Aminotransferase 390(H) 0 - 55 unit/L CERNER MILLENNIUM Alkaline Phosphatase 164(H) 40 - 120 unit/L CERNER MILLENNIUM Bilirubin, Total 2.2(H) 0.2 - 1.3 mg/dL CERNER MILLENNIUM Bilirubin, Direct 1.5(H) 0.0 - 0.3 mg/dL CERNER MILLENNIUM Blood specimen (specimen) 06/16/2015 10:11 PM EST 06/16/2015 10:18 PM EST Narrative Resulting Agency Comment Spec In Lab Blu Pascual MD CHEMISTRY ORDERABLES Performing Organization Address [facility] Co de Phone Number PORSCHE PINKIUM * Basic Metabolic Panel (non-fasting) (06/16/2015 10:11 PM EST) Pathologist [facility] Glucose 90 65 - 199 mg/dL CERNER MILLENNIUM Comment:Diabetes: >=200 mg/d L plus symptoms Blood Urea Nitrogen 14 10 - 20 mg/dL CERNER MILLENNIUM Creatinine 0.88 0.80 - 1.50 mg/dL CERNER MILLENNIUM Comment: Please note that the pediatric reference intervals supplied above were not validated at [facility]. Results from pediatric patients should be interpreted in conjunction to the patient's age, height and muscle mass. Sodium 142 135 - 145 mmol/L CERNER MILLENNIUM Potassium 4.3 3.5 - 5.0 mmol/L CERNER MILLENNIUM Comment: Please note: ??Patients with WBC >100,000 may have falsely elevated Potassium levels. ??For accurate Potassium quantification in these patients send serum separator tube (gold top) for subsequent determinations. ??Contact the Clinical Chemistry Laboratory if there are any questions. Chloride 104 98 - 107 mmol/L CERNER MILLENNIUM Carbon Dioxide 25 22 - 31 mmol/L CERNER MILLENNIUM Anion Gap 13 5 - 15 mmol/L CERNER MILLENNIUM Calcium 8.8 8.5 - 10.5 mg/dL CERNER MILLENNIUM Est Glomerular Filtration Rate >60 >=60 CERNER MILLENNIUM Comment: This estimated GFR (eGFR) value was calculated using the MDRD equation which has been validated on patients between the ages of 18 and 70. The MDRD should not be used to assess kidney function in patients < 18 years of age or in patients with extremes of body mass, or in patients with acute kidney failure. This value should be multiplied by 1.2 for patients. For further information please copy and paste the following links into your internet browser. [email or web address] Blood specimen (specimen) 06/16/2015 10:11 PM EST 06/16/2015 10:18 PM EST Narrative Resulting Agency Comment Spec In Lab Blu Pascual MD CHEMISTRY ORDERABLES PORSCHE WELSH * Blood culture (06/16/2015 10:07 PM EST) Blood Culture No growth at 5 days. PORSCHE PINKIUM Blood specimen (specimen) STRUCTURE OF LEFT HAND / Unknown 06/16/2015 10:07 PM EST 06/16/2015 10:45 PM EST Narrative Resulting Agency Comment Spec In Lab Blu Pascual MD MICROBIOLOGY - BLOOD ORDERABLES PORSCHE WELSH * Film Library- Storage only MR Abdomen (06/16/2015 12:05 AM EST) Narrative User, Generic Transmittal - 06/16/2015 10:06 PM EST See PACS for result report. Dr [facility] FILM LIBRARY ORD ERABLES documented in this encounter Visit Diagnoses Diagnosis Pain Generalized pain Cholangiolitis Cholangitis Pancreatitis, gallstone Acute pancreatitis documented in this encounter Admitting Diagnoses Diagnosis Pancreatitis, gallstone Acute pancreatitis documented in this encounter Administered Medications Inactive Administered Medications - up to 3 most recent administrations Medication Order MAR Action Action Date Dose Rate Site acetaminophen (TYLENOL) tablet 650 mg 650 mg, Oral, EVERY 4 HOURS PRN, Starting on Sat06/17/15 at 0049, Until Neha 06/23/15 at 1232, Pain, Fever, Maximum dose of acetaminophen is 4000 mg from all sources in 24 hours., Routine Given 06/20/2015 8:24 AM EST 650 mg Given 06/17/2015 5:44 AM EST 650 mg Given 06/17/2015 1:14 AM EST 650 mg HYDROmorphone (DILAUDID) injection 0.3 mg 0.3 mg, Intravenous, ONCE, 1 dose, On Sat06/22/15 at 0630, Routine Given 06/22/2015 6:12 AM EST 0.3 mg HYDROmorphone (DILAUDID) injection 0.3 mg 0.3 mg, Intravenous, ONCE, 1 dose, On Sat06/22/15 at 1415, Routine Given 06/22/2015 6:07 PM EST 0.3 mg HYDROmorphone (DILAUDID) injection 0.3 mg 0.3 mg, Intravenous, ONCE, 1 dose, On Sat06/22/15 at 2315, Routine Given 06/22/2015 11:22 PM EST 0.3 mg HYDROmorphone (DILAUDID) syringe 0.2-0.4 mg 0.2-0.4 mg, Intravenous, EVERY 5 MIN PRN, Pain, Starting on Sat06/21/15 at 1010, Until Sat06/21/15 at 1325, For moderate pain (4-6) give: 0.2 mg every 5 minute prn For severe pain (7-10) give: 0.4 mg every 5 minutes prn Maximum dose: 4 mg per hour Hold for respiratory rate less than 10 per minute., PACU Recovery Given 06/21/2015 11:37 AM EST 0.4 mg Given 06/21/2015 11:29 AM EST 0.4 mg Given 06/21/2015 11:13 AM EST 0.4 mg iohexol (OMNIPAQUE) 350 mg/mL solution 38,500 mg 38,500 mg (110 mL), Intravenous, ONCE PRN, 1 dose, Starting on 06/20/15 at 1135, Until 06/20/15 at 1135, Per Protocol, Routine Given 06/20/2015 11:35 AM EST 38,500 mg lactated ringers infusion 200 mL/hr, Intravenous, CONTINUOUS, Starting on Sat06/17/15 at 1900, Until Sat06/19/15 at 0742 New Bag 06/19/2015 2:34 AM EST 200 mL/hr 200 mL/hr New Bag 06/18/2015 8:48 PM EST 200 mL/hr 200 mL/hr New Bag 06/18/2015 3:14 PM EST 200 mL/hr 200 mL/hr oxyCODONE (ROXICODONE) immediate release tablet 10 mg 10 mg, Oral, EVERY 4 HOURS PRN, Starting on Neha 06/16/15 at 2149, Until Neha 06/23/15 at 1232, Pain, severe pain (7-10), May give an additional 5 mg in 30 minutes once if pain not relieved., Routine Given 06/23/2015 6:51 AM EST 10 mg Given 06/23/2015 2:23 AM EST 10 mg Given 06/22/2015 9:13 PM EST 10 mg oxyCODONE (ROXICODONE) immediate release tablet 5 mg 5 mg, Oral, EVERY 4 HOURS PRN, Starting on Neha 06/16/15 at 2149, Until Neha 06/23/15 at 1232, Pain, mild to moderate pain (1-6), May give an additional 5 mg in 30 minutes once if pain not relieved., Routine Given 06/16/2015 10:11 PM EST 5 mg oxyCODONE (ROXICODONE) immediate release tablet 5 mg 5 mg, Oral, ONCE, 1 dose, On 06/18/15 at 2100, May give an additional 5 mg in 30 minutes once if pain not relieved., Routine Given 06/18/2015 8:48 PM EST 5 mg oxyCODONE (ROXICODONE) immediate release tablet 5 mg 5 mg, Oral, ONCE, 1 dose, On 06/20/15 at 0900, Routine Given 06/20/2015 9:04 AM EST 5 mg oxyCODONE (ROXICODONE) immediate release tablet 5 mg 5 mg, Oral, ONCE, 1 dose, On Neha 1/14/16 at 1030, STAT Given 06/23/2015 10:14 AM EST 5 mg pantoprazole (PROTONIX) tablet 40 mg 40 mg, Oral, DAILY, First dose on Sat06/17/15 at 0900, Until Discontinued, DO NOT CRUSH OR OPEN, Routine Given 06/20/2015 8:24 AM EST 40 mg Given 06/19/2015 8:45 AM EST 40 mg Given 06/18/2015 9:23 AM EST 40 mg piperacillin-tazobactam (ZOSYN) 3.375 g in dextrose 5% 50 mL 3.375 g, Intravenous, EVERY 8 HOURS, First dose on Sat06/16/15 at 2215, Until Discontinued, Administer over 4 Hours, Indication for (Active or Suspected): GI/Intra-abdominal Given 06/21/2015 6:23 AM EST 3.375 g 12.5 mL/hr Given 06/20/2015 10:10 PM EST 3.375 g 12.5 mL/hr Given 06/20/2015 2:48 PM EST 3.375 g 12.5 mL/hr polyethylene glycol (MIRALAX) packet 17 g 17 g, Oral, DAILY, First dose on Sat06/22/15 at 2330, Until Discontinued, Routine Given 06/22/2015 11:22 PM EST 17 g potassium chloride (K-DUR/KLOR-CON) extended release tablet 40 mEq 40 mEq, Oral, EVERY HOUR, 2 doses, First dose (after last modification) on Sat06/19/15 at 0815, Last dose on Sat06/19/15 at 0900, STAT Given 06/19/2015 8:45 AM EST 40 mEq Given 06/19/2015 7:52 AM EST 40 mEq potassium chloride (K-DUR/KLOR-CON) extended release tablet 40 mEq 40 mEq, Oral, ONCE, 1 dose, On Sat06/20/15 at 1230, STAT Given 06/20/2015 1:07 PM EST 40 mEq prochlorperazine (COMPAZINE) injection 10 mg 10 mg, Intravenous, EVERY 6 HOURS PRN, Starting on Neha 06/16/15 at 2149, Until Neha 06/23/15 at 1232, Nausea, Nausea/Vomiting, If multiple antiemetics are ordered, use ondansetron first. If ondansetron ineffective use prochlorperazine. , Routine Given 06/21/2015 11:42 AM EST 10 mg prochlorperazine (COMPAZINE) tablet 10 mg 10 mg, Oral, EVERY 6 HOURS PRN, Starting on Sat06/16/15 at 2149, Until Sat06/23/15 at 1232, Nausea, Nausea/Vomiting, If multiple antiemetics are ordered, use ondansetron first. If ondansetron ineffective use prochlorperazine. PO Preferred. If patient unable to take PO, may give IV if ordered., Routine Given 06/18/2015 1:44 PM EST 10 mg Given 06/18/2015 5:41 AM EST 10 mg Given 06/17/2015 11:12 PM EST 10 mg senna-docusate (PERICOLACE) 8.6-50 mg per tablet 2 tablet 2 tablet, Oral, 2 TIMES DAILY, First dose on Sat06/16/15 at 2215, Until Discontinued, Routine Given 06/23/2015 8:30 AM EST 2 tablets Given 06/22/2015 9:13 PM EST 2 tablets Given 06/22/2015 8:27 AM EST 2 tablets sodium chloride 0.9 % flush 5 mL 5 mL, Intravenous, 2 TIMES DAILY, First dose on Sat06/16/15 at 2215, Until Discontinued, Routine Given 06/23/2015 8:31 AM EST 5 mLs Given 06/22/2015 9:13 PM EST 5 mLs Given 06/22/2015 8:32 AM EST 10 mLs sodium chloride 0.9% infusion 200 mL/hr, Intravenous, CONTINUOUS, Starting on Sat06/16/15 at 2215, Until Sat06/17/15 at 1838 New Bag 06/17/2015 5:07 PM EST 200 mL/hr 200 mL/hr New Bag 06/17/2015 5:45 AM EST 200 mL/hr 200 mL/hr New Bag 06/16/2015 10:19 PM EST 200 mL/hr 200 mL/hr venlafaxine (EFFEXOR-XR) XR Capsule 225 mg 225 mg, Oral, DAILY, First dose on Sat06/17/15 at 0900, Until Discontinued, DO NOT CRUSH OR OPEN, Routine Given 06/23/2015 8:30 AM EST 225 mg Given 06/22/2015 8:26 AM EST 225 mg Given 06/21/2015 5:57 PM EST 225 mg documented in this encounter Active and Recently Administered Medications Times are shown in EST. Scheduled Medication Order 06/21/2015 06/22/2015 06/23/2015 HYDROmorphone (DILAUDID) injection 0.3 mg (COMPLETED) 0.3 mg, Intravenous, ONCE, 1 dose, On Sat06/22/15 at 0630, Routine 0612 (Given - Provider: Daylin Noe RN) HYDROmorphone (DILAUDID) injection 0.3 mg (COMPLETED) 0.3 mg, Intravenous, ONCE, 1 dose, On Sat06/22/15 at 1415, Routine 1807 (Given - Provider: Deana Jha RN) HYDROmorphone (DILAUDID) injection 0.3 mg (COMPLETED) 0.3 mg, Intravenous, ONCE, 1 dose, On Sat06/22/15 at 2315, Routine 2322 (Given - Provider: Daylin Noe RN) oxyCODONE (ROXICODONE) immediate release tablet 5 mg (COMPLETED) 5 mg, Oral, ONCE, 1 dose, On Neha 06/23/15 at 1030, STAT 1014 (Given - Provider: Lindsey Neil RN - Comment: aware of medication frequencyt, okay to give, pt discharging would like pain medication for ride home) piperacillin-tazobact am (ZOSYN) 3.375 g in dextrose 5% 50 mL (CANCELED) 3.375 g, Intravenous, EVERY 8 HOURS, First dose on Neha 06/16/15 at 2215, Until Discontinued, Administer over 4 Hours, Indication for (Active or Suspected): GI/Intra-abdominal 0623 (Given - Provider: Dasha Olmedo RN)0700 (MAR Hold - Provider: Admin Adt - Reason: Transfer to a Procedural area) polyethylene glycol (MIRALAX) packet 17 g 17 g, Oral, DAILY, First dose on Sat06/22/15 at 2330, Until Discontinued, Routine 2322 (Given - Provider: Daylin Noe RN) senna-docusate (PERICOLACE) 8.6-50 mg per tablet 2 tablet 2 tablet, Oral, 2 TIMES DAILY, First dose on Sat06/16/15 at 2215, Until Discontinued, Routine 0700 (AUG Hold - Provider: Admin Adt - Reason: Transfer to a Procedural area)0900 (Automatically Held - Provider: Admin Adt)1340 (AUG Unhold - Provider: Admin Adt)1756 (Given - Provider: Emilia Patel, GALINDO)2000 (Given - Provider: Daylin Noe RN) 826 (Given - Provider: Deana Jha RN)2112 (Given - Provider: Dalyin Noe, GALINDO) 829 (Given - Provider: Lindsey Neil, GALINDO) sodium chloride 0.9 % flush 5 mL (CANCELED) 5 mL, Intravenous, 2 TIMES DAILY, First dose on Sat06/16/15 at 2215, Until Discontinued, Routine 0700 (AUG Hold - Provider: Admin Adt - Reason: Transfer to a Procedural area)09 (Automatically Held - Provider: Admin Adt)1339 (AUG Unhold - Provider: Admin Adt)1756 (Given - Provider: Emilia Patel RN)2000 (Given - Provider: Daylin Noe, GALINDO) 831 (Given - Provider: Deana Jha, GALINDO)2112 (Given - Provider: Daylin Noe, GALINDO) 830 (Given - Provider: Lindsey Neil, GALINDO) venlafaxine (EFFEXOR-XR) XR Capsule 225 mg (CANCELED) 225 mg, Oral, DAILY, First dose on Sat06/17/15 at 0900, Until Discontinued, DO NOT CRUSH OR OPEN, Routine 0700 (AUG Hold - Provider: Admin Adt - Reason: Transfer to a Procedural area)0900 (Automatically Held - Provider: Admin Adt)134 (AUG Unhold - Provider: Admin Adt)1756 (Given - Provider: Emilia Patel, GALINDO) 825 (Given - Provider: Deana Jha, GALINDO) 829 (Given - Provider: Lindsey Neil, GALINDO) PRN Medication Order 06/21/2015 06/22/2015 06/23/2015 acetaminophen (TYLENOL) tablet 650 mg 650 mg, Oral, EVERY 4 HOURS PRN, Starting on 06/17/15 at 0049, Until Neha 06/23/15 at 1232, Pain, Fever, Maximum dose of acetaminophen is 4000 mg from all sources in 24 hours., Routine 0700 (AUG Hold - Provider: Admin Adt - Reason: Transfer to a Procedural area)1052 (AUG Unhold - Provider: Adele Rosales RN) BUpivacaine (PF) (MARCAINE) 0.25 % (2.5 mg/mL) injection (CANCELED) ONCE PRN, Starting on Sat06/21/15 at 0800, Until Sat06/21/15 at 1052, Intra-Operative (Intra-Procedure), Routine 0800 (Given - Provider: Darrell Stehpenson MD) HYDROmorphone (DILAUDID) syringe 0.2-0.4 mg (CANCELED) 0.2-0.4 mg, Intravenous, EVERY 5 MIN PRN, Pain, Starting on Sat06/21/15 at 1010, Until Sat06/21/15 at 1325, For moderate pain (4-6) give: 0.2 mg every 5 minute prn For severe pain (7-10) give: 0.4 mg every 5 minutes prn Maximum dose: 4 mg per hour Hold for respiratory rate less than 10 per minute., PACU Recovery 1113 (Given - Provider: Adele Rosales RN)1129 (Given - Provider: Adele Rosales RN)1137 (Given - Provider: Joseph Valencia RN) oxyCODONE (ROXICODONE) immediate release tablet 10 mg (CANCELED)(Linked Group 1) 10 mg, Oral, EVERY 4 HOURS PRN, Starting on Neha 06/16/15 at 2149, Until Neha 06/23/15 at 1232, Pain, severe pain (7-10), May give an additional 5 mg in 30 minutes once if pain not relieved., Routine 0443 (Given - Provider: Dasha Olmedo RN)0700 (AUG Hold - Provider: Admin Adt - Reason: Transfer to a Procedural area)1052 (AUG Unhold - Provider: Adele Rosales RN)1759 (Given - Provider: Emilia Patel RN)2250 (Given - Provider: Daylin Noe RN) 0250 (Given - Provider: Daylin Noe RN)0832 (Given - Provider: Deana Jha RN)1244 (Given - Provider: Deana Jha RN)1646 (Given - Provider: Deana Jha RN)2113 (Given - Provider: Daylin Noe, GALINDO) 0223 (Given - Provider: Daylin Noe RN)0651 (Given - Provider: Daylin Noe, GALINDO) oxyCODONE (ROXICODONE) immediate release tablet 5 mg(Linked Group 1) 5 mg, Oral, EVERY 4 HOURS PRN, Starting on Neha 06/16/15 at 2149, Until Neha 06/23/15 at 1232, Pain, mild to moderate pain (1-6), May give an additional 5 mg in 30 minutes once if pain not relieved., Routine 0443 (See Alternative - Provider: Dasha Olmedo RN)0700 (MAR Hold - Provider: Admin Adt - Reason: Transfer to a Procedural area)1052 (MAR Unhold - Provider: Adele Rosales RN)1759 (See Alternative - Provider: Emilia Patel, GALINDO)2250 (See Alternative - Provider: Daylin Noe RN) 0250 (See Alternative - Provider: Daylin Noe, GALINDO)0832 (See Alternative - Provider: Deana Jha RN)1244 (See Alternative - Provider: Deana Jha RN)1646 (See Alternative - Provider: Deana Jha RN)2113 (See Alternative - Provider: Daylin Noe, GALINDO) 0223 (See Alternative - Provider: Daylin Noe, GALINDO)0651 (See Alternative - Provider: Daylin Noe, GALINDO) prochlorperazine (COMPAZINE) injection 10 mg (CANCELED)(Linked Group 2) 10 mg, Intravenous, EVERY 6 HOURS PRN, Starting on Neha 06/16/15 at 2149, Until Neha 06/23/15 at 1232, Nausea, Nausea/Vomiting, If multiple antiemetics are ordered, use ondansetron first. If ondansetron ineffective use prochlorperazine. , Routine 0700 (AUG Hold - Provider: Admin Adt - Reason: Transfer to a Procedural area)1052 (MAR Unhold - Provider: Adele Rosales, GALINDO)1142 (Given - Provider: Joseph Valencia RN) Linked Groups Order Group 1: oxyCODONE (ROXICODONE) immediate release tablet 5 mgJump to med 5 mg, Oral, EVERY 4 HOURS PRN, Starting on Neha 06/16/15 at 2149, Until Neha 06/23/15 at 1232, Pain, mild to moderate pain (1-6), May give an additional 5 mg in 30 minutes once if pain not relieved., Routine Or oxyCODONE (ROXICODONE) immediate release tablet 10 mg (CANCELED)Jump to med 10 mg, Oral, EVERY 4 HOURS PRN, Starting on Neha 06/16/15 at 2149, Until Neha 06/23/15 at 1232, Pain, severe pain (7-10), May give an additional 5 mg in 30 minutes once if pain not relieved., Routine Group 2: prochlorperazine (COMPAZINE) tablet 10 mg (CANCELED) 10 mg, Oral, EVERY 6 HOURS PRN, Starting on Neha 06/16/15 at 2149, Until Neha 06/23/15 at 1232, Nausea, Nausea/Vomiting, If multiple antiemetics are ordered, use ondansetron first. If ondansetron ineffective use prochlorperazine. PO Preferred. If patient unable to take PO, may give IV if ordered., Routine Or prochlorperazine (COMPAZINE) injection 10 mg (CANCELED)Jump to med 10 mg, Intravenous, EVERY 6 HOURS PRN, Starting on Neha 16 at 2149, Until Neha 16 at 1232, Nausea, Nausea/Vomiting, If multiple antiemetics are ordered, use ondansetron first. If ondansetron ineffective use prochlorperazine. , Routine documented in this encounter Care Teams Pilot Can Router Relationship Specialty Start Date End Date Rosie Bess MD [facility] MATHEW ROMERO [address] [place] [id number] PCP - General Family Medicine 06/16/15 documented as of this encounter
--- OUTSIDE RECORDS SUMMARY | 2024-01-22 14:46 | XMS_ITS | Encounter Summary ---
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 Name Role Phone Rosie Bess MD Primary Care Provider [phone] Encounter Details Date Type Department Care Team (Late st Contact Info) Description 06/23/2020 Lab Requisition [facility] Pathology & Laboratory Medicine - [facility] [address], [place] [id number] Outr Resulting Lab, Provider Social History Tobacco [...] Procedure Name Priority Date/Time Associated Diagnosis Comments ZZCOVID-19 TEST [facility] LAB PCR Today 06/23/2020 15:00 EST COVID-19 TESTING Routine 06/23/2020 15:0 0 EST documented in this encounter Results * COVID-19 TEST [facility] LAB PCR (06/23/2020 15:00 EST) Swab ENTIRE NASOPHARYNX / Unknown 06/23/2020 15:00 EST 06/23/2020 20:31 EST Provider Outr Resulting Lab MICROBIOLOGY - GENERAL ORDERABLES [facility] [address] [place] [address] * COVID-19 TESTING (06/23/2020 15:00 EST) COVID-19 rt-PCR Result Negative Negative 06/24/2020 21:30 EST [facility] Comment: Negative results do not preclude 2019-nCoV infection and should not be used as the sole basis for treatment or other patient management decisions. Negative results must be combined with clinical observations, patient history, and epidemiological information. This test was developed and its performance characteristics determined by [facility]. It has not been cleared or approved by the [place] Food and Drug Administration. FDA does not require this test to go through premarket FDA review. This test is used for clinical purposes. It should not be regarded as investigational or for research. This laboratory is certified under the Clinical Laboratory Improvement Amendments (CLIA) as qualified to perform high complexity clinical laboratory testing. This test is based on the [facility] COVID-19 Emergency Use Authorization (EUA) assay, with minor modification as defined by the FDA Performed on the Exoo 7 Flex RT-PCR System. Performing Lab [facility] 06/24/2020 21:30 EST [facility] Swab 06/23/2020 15:0 0 EST 06/23/2020 20:31 EST Provider Outr Resulting Lab MICROBIOLOGY - GENERAL ORDERABLES [facility] [address] [place] [address] documented in this encounter Visit Diagnoses Not on filedocumented in this encounter Care Teams Oil Pipeline Dispatcher Relationship Specialty Start Date End Date Rosie Bess MD [address] [place] [address] [phone] PCP - General 05/15/11 documented as of this encounter
--- OUTSIDE RECORDS SUMMARY | 2024-01-22 14:46 | XMS_ITS | Encounter Summary ---
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 Name Role Phone Rosie Bess MD Primary Care Provider [phone] Reason for Visit * Auth/Cert Specialty Diagnoses / Procedures Referred By Ganga t Referred To Contact Diagnoses RECURRENT RIGHT INGUINAL HERNIA ; GROIN PAIN Procedures PRO LAP, INGUINAL HERNIA REPR, RECUR PRO UNLISTED PX NRVS SYS LAPAROSCOPIC HERNIA REPAIR, INGUINAL, RECURRENT MODIFIER MESH,BARD,3D MAX REG NEURECTOMY,ILIOINGUINAL NERVE Referral ID Status Reason Start Date Expiration Date Visits Re quested Visits Authorized [id number] 1 1 Encounter Details Date Type Department Care Team (Late st Contact Info) Description 07/11/2016 7:30 AM EST - 07/11/2016 9:28 AM EST Surgery [place] [address] Laura Kuhn MD [facility] [place] [address] LAPAROSCOPIC HERNIA REPAIR, INGUINAL, RECURRENT, UNILAT (WRVU 8.38) Social History Tobacco Use Types Packs/Day Years [...] Sign Reading Time Taken Comments Blood Pressure 139/77 07/11/2016 6:14 AM EST Pulse 85 07/11/2016 6:14 AM EST Temperature 36.7 ??C (98.1 ??F) 07/11/2016 6:14 AM ES T Respiratory Rate 16 07/11/2016 6:14 AM EST Oxygen Saturation 100% 07/11/2016 6:14 AM EST Inhaled Oxygen Concentration - - Weight 84 kg (185 lb 1.6 oz) 07/11/2016 6:14 AM EST Height 172.7 cm (5' 8) 07/11/2016 6:14 AM EST Body Mass Index 28.14 07/11/2016 6:14 AM EST documented in this encounter Discharge Instructions * Discharge Instructions* Jody Mao - 07/11/2016 9:36 AM EST POST ANESTHESIA INSTRUCTIONS Go home, rest, use caution on stairs. Change positions slowly. Do not smoke if you are alone. Diet light to regular as tolerated today. If nausea occurs start with clear liquids and progress slowly. No driving, operating machinery, alcoholic beverages and no important decisions for 24 hours. Monitor IV site for signs and symptoms of infection: increasing redness, swelling, foul drainage, if occurs contact M.D. Patients who have had endotrachial tubes (this tube, used by anesthesia department, is passed down your throat after you are asleep, to ensure safe air passage during your operation). A sore throat is normal due to the tube. Cold liquids or soothing lozenges will help ease the discomfort. The generalized muscle aches are due to the medication given to you just before the tube is inserted. As the medication wears off, you may develop muscle soreness, which usually goes away in 12-24 hours. * Patient Instructions* Marcia Manuel MD - 07/11/2016 9:31 AM EST Discharge Instructions CALL YOUR PHYSICIAN IF: ??? You have a fever greater than 101 degrees F, or you have shaking chills ? ? You have diarrhea or vomiting for >24 hours ??? You have had no bowel movements or have difficulty passing flatus ??? You have worsening pain, not controlled with your pain medication. ??? You develop redness, swelling, or new drainage from your wound. PHONE NUMBERS ?? [phone] during normal business hours - identify yourself and your surgeon. ?? [phone] outside normal business hours - Ask for General Surgery resident conservator artifacts. ?? [phone] on weekends/holidays - Ask for General Surgery resident conservator artifacts. Follow up: You will have a surgical followup appointment with LAURA Ervin in 4 weeks at the [facility] (Cancer Center Director 4L, [facility]). The appointment details scheduled will be mailed to you. If you do not hear from [facility] within 5 daysof your discharge, Please call [phone] to confirm your appointment. Future Appointments Date Time Provider Department Center 08/13/2016 4:00 PM Laura Kuhn MD [facility] Diet: Eat a well-balanced diet. Fresh fruits and vegetables as well as lean proteins are recommended. This will assist your postoperative recovery. Wound Care: You may shower as per usual and let water run over your incision. Do not scrub the wound vigorously. You may wash the incision area gently with soap that does not contain chemical fragrance or dyes. Pat the incision area dry with a clean, dry towel. You should keep the wound open to air if there is no drainage. Leave steri strips in place until they fall off, usually in 7-14 days. Do not soak your wound or submerge under water (no baths, pools or hot tubs) until the incision hashealed, as this may lead to infection. Do not use creams, lotions or ointments on the wound, as this can interfere with proper wound healing. See follow-up appointments below for removal of sutures/stevenson. Activity: Take it easy for two weeks. Remember, If it hurts, don't do it. Restrain from heavy lifting (>15 lbs) for at least 4 weeks. You may lift what is comfortable to lift with one arm. Walking is always beneficial after abdominal surgery. You should be walking every day after surgery. Take several slow, short walks each day for the first two weeks, and gradually increase your distance. We recommend walking at least 4 times daily. Discuss return to work or school with your surgeon at your followup visit. Driving Restrictions: No driving a vehicle or operating heavy machinery if you are too sore from surgery to enter or exit your vehicle comfortably, or if you are too sore to easily check your blind spot. No driving a vehicle or operating heavy machinery while using prescription pain medications which can cloud your judgment and slow your response time. Constipation Surgery and anesthesia can cause constipation. Narcotic pain medications also contribute to constipation. Notify your doctor if you have not had a bowel movement for 5days after surgery. Natural constipation remedies include increasing dietary fiber as well as prune and prune juice consumption. Stool softeners, such as Colace or mild laxatives, such as Milk of Magnesia, Sennakot, or Ducolax tabs can also help with your constipation. Pain Management: Some incisional soreness can be expected. Take your pain medication only as needed and as prescribed. Taper the use of pain medication as pain lessens. You may take Tylenol and/or Ibuprofen for pain, and you may also use these over the counter medication to adjunct your prescription pain medications. However, you must be aware of the following important precautions. If you are taking Tylenol, you should not take more than 4000mg of acetaminophen (Tylenol) in 24 hours. If you have been given a prescription containing acetaminophen, please be aware that this is the active drug in Tylenol. You cannot take more than 4000mg of acetaminophen in 24 hours. If you have been given a prescription for Toradol, be aware that this is an NSAID, the same class of drugs as ibuprofen. These medications are cumulative, and can erode the stomach lining when taken in excess. Do not take NSAIDs on an empty stomach. If you have been given a prescription for narcotic pain medication, please use this medication as prescribed. While taking narcotic pain medications, you should not drive as these medications may slow your reaction time. *It is important to heed the following when taking narcotic pain medication: Using narcotic pain medications (such as Percocet, Vicodin, Oxycodone or Dilaudid) may cause addiction. Addiction can occur in anyone. Read all instructions that come with your medication. Take your medication exactly as prescribed. Taking more than the prescribed amount or combining narcotics with alcohol or other drugs can causeyou to stop breathing resulting in coma, brain damage, or . Narcotic pain medication can slow reaction time, cause drowsiness, or cloud judgment. Do not drive or operative heavy machinery while taking narcotic pain medication. Narcotic pain medications are at risk of being diverted by anyone with access to your home. Narcotics should be stored in a secure manner, such as a locked cabinet. Unused opioids should be disposed of according to the label or patient information. CALL YOUR PHYSICIAN IF: ??? You have a fever greater than 101 degrees F, or you have shaking chills ? ? You have diarrhea or vomiting for >24 hours ??? You have had no bowel movements or have difficulty passing flatus ??? You have worsening pain, not controlled with your pain medication. ??? You develop redness, swelling, or new drainage from your wound. PHONE NUMBERS [phone] during normal business hours - identify yourself and your surgeon. [phone] outside normal business hours - Ask for General Surgery resident conservator artifacts. [phone] on weekends and all holidays - Ask for General Surgery resident conservator artifacts. Your surgeon may not be Student Life Coordinator, especially during the night or on weekends, so be ready to describe yourself and your surgery when you call. CC: Rosie Bess MD documented in this encounter Medications at Time of Discharge Medication Sig Dispensed Refills Start Date End Date ketorolac (TORADOL) 10 mg Tablet Take 1 tablet by mouth every 6 hours. 20 tablet 07/11/2016 gabapentin (NEURONTIN) 300 mg Capsule 1-2 capsules a day 0 02/03/2016 lisinopril (PRINIVIL;ZESTRIL) 20 mg Tablet 0 02/03/2016 amLODIPine (NORVASC) 10 mg Tablet 0 01/29/2016 acetaminophen (TYLENOL) 325 mg Tablet Take 2 [...] hr Take 75 mg by mouth daily. documented as of this encounter Progress Notes * Jody Mao - 07/11/2016 2:30 PM EST Pt still unable to void. Was sent home with straight cath and instructions, pt demonstrated understanding and states feels capable of doing it himself. Pt was instructed to use catheter when he gets home and then start the clock for another 8 hours where he must void on his own. If he is unable to void again, he knows to go to his local ED. He is also aware that if it hurts or he gets resistance advancing the catheter - to stop and either call doctor on d/c paperwork ramona or go immediately to ED. * Jody Mao - 07/11/2016 1:00 PM EST Pt is to remain in SDP for another hour to try and void. If unsuccessful, pt will go home with straight cath kit per MD Kuhn order. Pt has stated feels comfortable using catheter on self and knows that he must void 8 hours of catheter if used. 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 Vitals are stable, up ad pamela, tolerable pain. documented in this encounter H&P Notes * Laura Kuhn MD - 07/11/2016 6:58 AM EST Patient Name: Gamaliel Patel Patient Age: 55 y.o. Birthdate: 1960 Admit date: 07/11/2016 Attending Physician: Laura Kuhn MD Mr. Patel is a 55-year-old gentleman who [...] pain sometimes wakes him up from sleep. ?? He was evaluated by Dr. Weston and his note suggests neurectomy by Neurosurgery. He did not feel any recurrent hernia at this time. The patient did have a CT scan in the past. ?? Past history includes hypertension and lap cholecystectomy for gallstone pancreatitis in 2016. He also has had the above noted hernia repairs. Medications and allergies were updated in the current medical record. No family history of any major malignancy or lymphomas in the groin. He is and lives with his . 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 He is a nondrinker, nonsmoker, and denies any drug use. ?? On examination, one finds a relatively healthy-appearing gentleman in no apparent distress. His chest is clear, heart sounds are normal. On examination of his groin, I do feel a palpable, reducible, very small hernia on the right side. It is difficult to say how much of this is neurogenic pain versus recurrence. Given his previous repair performed open. Here today for laparoscopic repair with injection. If this settles things down, then I think we have resolved his issue. If he has persistent pain, then we can reconsider neurolysis at that time. * Marcia Manuel MD - 07/11/2016 6:29 AM EST [facility] Department of General Surgery Interval History and Physical Please see clinic H&P dated 05/16/2016. In summary, Gamaliel Patel presents today for lap recurrent RIGHT inguinal hernia repair, possible neurolysis. There have been no changes to his history. Vitals: 07/11/16 0614 BP: 139/77 Pulse: 85 Resp: 16 Temp: 36.7 ??C (98.1 ??F) Body mass index is 28.14 kg/(m^2). On examination, he appears well and in no distress. Head and neck exam reveals equal, reactive pupils and a supple neck. His chest is clear bilaterally and his heart sounds are normal with no adventitious sounds or murmurs. His abdomen is soft with no masses or tenderness. Extremity and Neuro examsare grossly normal. A/P: 55 y.o. male who presents today with RIGHT groin recurrent hernia. Plan for lap TEPP, poss neurectomy RIGHT. Consent signed and dated and placed in chart Perioperative antibiotic scheduled. Ok to proceed with scheduled operation. Marcia Manuel MD 07/11/2016 documented in this encounter Miscellaneous Notes * Op Note - Laura Kuhn MD - 07/11/2016 9:16 AM EST [facility] Operative Note Patient Name: Gamaliel Patel : [id number] MR#: [id number] Case Date: 07/11/2016 Surgeon: Surgeon(s) and Role: * Laura Kuhn MD - Primary * Marcia Manuel MD - No qualified resident available to assist Preoperative diagnosis: RECURRENT RIGHT INGUINAL HERNIA ; GROIN PAIN Postoperative diagnosis: RECURRENT RIGHT INGUINAL HERNIA ; GROIN PAIN Procedure(s): LAPAROSCOPIC HERNIA REPAIR, INGUINAL/FEMORAL, RECURRENT (WRVU 8.38) MODIFIER MESH,BARD,3D MAX REG BIOPSY OR EXCISION OF LYMPH NODE(S), Laparoscopic, GROIN (WRVU 3.79) INJECTION ANESTHETIC, ILIOINGUINAL, ILIOHYPOGASTRIC (WRVU 1.75) Anesthesia: General Estimated Blood Loss: 8ml Specimens removed during surgery: Right inguinal and femoral node Drains: Surgical Closure: Primary Closure - closure of [...] and Specimen details pertinent to this patient.) This 55 y.o. male presented with a history of right groin pain and some asymmetry on examination inthe office. He was diagnosed with an inguinal hernia, and he chose to have laparoscopic hernia repair. Under general anesthesia and endotracheal intubation, the patient was prepped and draped in the supine position. With infiltration with 0.25% Marcaine without epinephrine, the incision was made just below the umbilicus off to the right of midline slightly. Dissection was carried across the anteriorsheath and the rectus muscle retracted laterally. An origin balloon was then inserted in through the posterior portion of the rectus into the preperitoneal space. This was insufflated and blunt dissection was therefore achieved in the preperitoneal space. The balloon was then removed and a Michelle trocar placed and anchored with 0 Vicryl suture. Two 5-mm ports were also placed in the midline belowthe camera port. Blunt dissection was used to dissect the epigastric vessels and leave then anterior onto the posterior surface of the muscle. Blunt dissection was used to identify the direct, indirect, and femoral canals. The cord was inspected and a tiny indirect hernia sac was noted. This was reduced along with a cord lipoma. There was a dense firm area of fat behind the cord which was either an inflamed node vs fat necrosis and fibrosis. This was dissected free and a sample taken for pathology. There was no weakness in the direct space floor. There was a large femoral canal with a firm enlarged node protruding through it. This was dissected and the feeding vessel cauterized. It was removed through the 12mm port. A large 3D max mesh was then placed into position and positioned into the appropriate area to cover all 3 defects. The area was then completely infiltrated with 20 cc of Marcaine without epinephrine (0.25%). 10cc was used to inject the ilio-inguinal and ileohypogastric nerves. The insufflation was slowly decreased and the mesh was assured to be in proper position with desufflation. The skin sites were all then closed with running subcuticular 4-0 Vicryl suture. The Michelle trocar site was also closed with 0 Vicryl sutures to the fascial layer in a [id number] fashion.Steri-Strips and Band-Aids were applied. Inspection of the scrotum revealed both testes to be in position. No obvious hernia was noted on the patient coughing waking up. The patient returned to the recovery room in stable condition. Sponge and instrument counts were correct. No specimen sent to pathology Attestation: Case Date: 07/11/2016 I performed this procedure without the involvement of a resident. LAURA KUHN MD 07/11/2016 documented in this encounter Plan of Treatment Not on file documented as of this encounter Procedures Procedure Name Priority Date/Time Associated Diagnosis Comments SPECIMEN TO PATHOLOGY Routine 07/11/2016 8:38 AM EST SPECIMEN TO PATHOLOGY Routine 07/11/2016 8:35 AM EST SURGICAL PATHOLOGY REPORT Routine 07/11/2016 8:34 AM EST INJECTION ANESTHETIC, ILIOINGUINAL, ILIOHYPOGASTRIC (WRVU 1) 07/11/2016 7:35 AM EST RECURRENT RIGHT INGUINAL HERNIA ; GROIN PAIN BIOPSY OR EXCISION OF LYMPH NODE(S), OPEN, GROIN (WRVU 3.79) 07/11/2016 7:35 AM EST RECURRENT RIGHT INGUINAL HERNIA ; GROIN PAIN MODIFIER MESH,BARD,3D MAX REG 07/11/2016 7:35 AM EST RECURRENT RIGHT INGUINAL HERNIA ; GROIN PAIN LAPAROSCOPIC HERNIA REPAIR, INGUINAL, RECURRENT, UNILAT (WRVU 8.38) 07/11/2016 7:35 AM EST RECURRENT RIGHT INGUINAL HERNIA ; GROIN PAIN IMPLANTABLE DEVICES SCAN 07/11/2016 12:00 AM EST documented in this encounter Results * Specimen to Pathology (surgical or derm) (07/11/2016 8:38 AM EST) AP Specimen 07/11/2016 8:38 AM EST 07/11/2016 8:38 AM EST Narrative [facility] - 07/11/2016 8:38 AM EST Specimen requisition ordered. ??Separate Pathology report to follow Laura Kuhn MD PATHOLOGY/CYTOLOGY O RDERABLES [facility] [place] [address] * Specimen to Pathology (surgical or derm) (07/11/2016 8:35 AM EST) AP Specimen 07/11/2016 8:35 AM EST 07/11/2016 8:35 AM EST Narrative [facility] - 07/11/2016 8:35 AM EST Specimen requisition ordered. ??Separate Pathology report to follow Laura Kuhn MD PATHOLOGY/CYTOLOGY O ELMO [facility] [place] [address] * Surgical Pathology Report (07/11/2016 8:34 AM EST) Final Diagnosis [id number] ?Location: [facility]; [facility]; A The signing pathologist has (i) examined the relevant preparation(s) for the specimen(s) and (ii) rendered or confirmed the diagnosis(es). . ?Surgical Pathology DIAGNOSIS A - Portion of right inguinal lymph node, excision: ??- Fragment of fibrotic lymphoid tissue ?& adipose. Negative for ?malignancy. B - Right femoral canal lymph node node, excision: ??- Reactive lymph node hyperplasia with partial fatty replacement. ?Negative for malignancy. Electronically signed by: ??Kostas CRAWLEY, Cleopatra Higuera Verified: ??07/16/2016 ?Hematopatholo gist ADDITIONAL STUDIES N/A CLINICAL INFORMATION Specimen Submitted: A - Portion of right inguinal lymph node B - Right femoral canal node Clinical History: Recurrent right inguinal hernia; groin pain Clinical Diagnosis: Same FROZEN SECTION N/A SPECIMEN PROCESSING A - ??Labeled/Fixat lydia: Portion of right inguinal lymph node, fresh. Quantity/Size: Single, 1.4 x 0.4 x 0.4 cm. Tissue Description: Rubbery pink tissue. Sections/Proces sing: Entirely submitted. (T1) B - ??Labeled/Fixat lydia: Right femoral canal node, fresh. Quantity/Size: Single, 2.1 x 1.2 x 0.9 cm. Tissue Description: Rubbery, pink lymph node with cautery artifact and minimal overlying adipose tissue. Sections/Proces sing: Serially sectioned and entirely submitted. (T1) ??rm 07/16/2016 11:02 AM EST [facility] LYMPH NODE SPECIMEN / Unknown 07/11/2016 8:34 AM EST 07/11/2016 8:34 AM EST LYMPH NODE SPECIMEN / Unknown 07/11/2016 8:34 AM EST 07/11/2016 8:34 AM EST Laura Kuhn MD PATHOLOGY/CYTOLOGY O ELMO [facility] [place] [address] * SCAN DOC: IMPLANTABLE DEVICES (07/11/2016 12:00 AM EST) Scanning Provider MEDIA MGR SCAN EXT O RDR/RSLT documented in this encounter Visit Diagnoses Not on filedocumented in this encounter Administered Medications Inactive Administered Medications - up to 3 most recent administrations Medication Order MAR Action Action Date Dose Rate Site acetaminophen (TYLENOL) tablet 1,000 mg 1,000 mg, Oral, ONCE, 1 dose, On Sat07/11/16 at 0630, Administer with SIP of H2O only., Day of Surgery (Day of Procedure), Routine Given 07/11/2016 6:38 AM EST 1,000 mg BUpivacaine (PF) (MARCAINE) 0.25 % (2.5 mg/mL) injection ONCE PRN, Starting on Sat07/11/16 at 0855, Until Sat07/11/16 at 1644, Intra-Operative (Intra-Procedure), Routine Given 07/11/2016 8:55 AM EST 30 mLs 19- Surgical Site fentaNYL (PF) 50 mcg/mL 2mL syringe 25 mcg, Intravenous, EVERY 5 MIN PRN, Pain, for 1-4 pain score, Starting on Sat07/11/16 at 0929, Until Sat07/11/16 at 1644, for 1-4 pain score Hold for respiratory rate less than 10 per minute. Maximum dose: 250 mcg over one hour., PACU Recovery Given 07/11/2016 11:06 AM EST 25 mcg Given 07/11/2016 10:19 AM EST 25 mcg fentaNYL (PF) 50 mcg/mL 2mL syringe 50 mcg, Intravenous, EVERY 5 MIN PRN, Pain, for 5-10 pain score, Starting on Sat07/11/16 at 0929, Until Sat07/11/16 at 1644, for 5-10 pain score Hold for respiratory rate less than 10 per minute. Maximum dose: 250 mcg over one hour., PACU Recovery Given 07/11/2016 11:29 AM EST 50 mcg gabapentin (NEURONTIN) capsule 600 mg 600 mg, Oral, ONCE, 1 dose, On Sat07/11/16 at 0700, Administer with SIP of H2O only., Day of Surgery (Day of Procedure), Routine Given 07/11/2016 7:26 AM EST 600 m g HYDROmorphone (DILAUDID) syringe 0.2-0.4 mg 0.2-0.4 mg, Intravenous, EVERY 5 MIN PRN, Pain, Starting on Sat07/11/16 at 0929, Until Sat07/11/16 at 1644, For moderate pain (4-6) give: 0.2 mg every 5 minute prn For severe pain (7-10) give: 0.4 mg every 5 minutes prn Maximum dose: 4 mg per hour Hold for respiratory rate less than 10 per minute., PACU Recovery Given 07/11/2016 12:08 PM EST 0.4 mg Given 07/11/2016 11:58 AM EST 0.4 mg ketorolac (TORADOL) injection 15 mg 15 mg, Intravenous, ONCE, 1 dose, On Sat07/11/16 at 1045, STAT Given 07/11/2016 10:45 AM EST 15 mg lactated ringers infusion 1,000 mL 1,000 mL, at 100 mL/hr, Intravenous, CONTINUOUS, Starting on Sat07/11/16 at 0630, Until Sat07/11/16 at 1644, Day of Surgery (Day of Procedure) New Bag 07/11/2016 6:30 AM EST 1,000 mLs 100 mL/hr lidocaine (XYLOCAINE) 10 mg/mL (1 %) injection 3 mg 3 mg (0.3 mL), Subcutaneous, ONCE PRN, 1 dose, Starting on Sat07/11/16 at 0613, Until Sat07/11/16 at 0620, for discomfort with PIV insertion, Day of Surgery (Day of Procedure), Routine Given 07/11/2016 6:20 AM EST 3 mg ondansetron (ZOFRAN) injection 4 mg 4 mg, Intravenous, EVERY 30 MIN PRN, Starting on Sat07/11/16 at 0929, Until Sat07/11/16 at 1644, Nausea, May repeat 4 mg once in 30 minutes. If multiple antiemetics ordered, use ondansetron first and if ineffective use prochlorperazine second and if ineffective use promethazine, PACU Recovery Given 07/11/2016 12:14 PM EST 4 mg ondansetron (ZOFRAN-ODT) oral disintegrating tablet 8 mg 8 mg, Oral, ONCE, 1 dose, On Sat07/11/16 at 0700, Day of Surgery (Day of Procedure), Routine Given 07/11/2016 7:27 AM EST 8 mg sodium chloride 0.9 % flush 5-20 mL 5-20 mL, Intravenous, EVERY 1 MIN PRN, Starting on Sat07/11/16 at 0613, Until Sat07/11/16 at 1644, flush, Flush pertains to all indwelling lines. Flush per protocol found in the job aid using the link provided on this medication record., Day of Surgery (Day of Procedure), Routine documented in this encounter Active and Recently Administered Medications Times are shown in EST. Scheduled Medication Order 07/09/2016 07/10/2016 07/11/2016 acetaminophen (TYLENOL) tablet 1,000 mg (COMPLETED) 1,000 mg, Oral, ONCE, 1 dose, On Sat07/11/16 at 0630, Administer with SIP of H2O only., Day of Surgery (Day of Procedure), Routine 0638 (Given - Provid er: Ricardo Azevedo RN) ceFAZolin (ANCEF) 2g in dextrose 5% 50 mL (COMPLETED) 2 g, Intravenous, EVERY 3 HOURS, 1 dose, First dose on Sat07/11/16 at 0630, Administer over 30 Minutes, Day of Surgery (Day of Procedure), Indication for (Active or Suspected): Prophylaxis 0753 (Given - Provid er: Bennie Estrada CRNA) gabapentin (NEURONTIN) capsule 600 mg (COMPLETED) 600 mg, Oral, ONCE, 1 dose, On Sat07/11/16 at 0700, Administer with SIP of H2O only., Day of Surgery (Day of Procedure), Routine 07 (Given - Provid er: Xochitl Bronson RN) ketorolac (TORADOL) injection 15 mg (COMPLETED) 15 mg, Intravenous, ONCE, 1 dose, On Sat07/11/16 at 1045, STAT 1045 (Given - Provid er: Jody Mao) ondansetron (ZOFRAN-ODT) oral disintegrating tablet 8 mg (COMPLETED) 8 mg, Oral, ONCE, 1 dose, On Sat07/11/16 at 0700, Day of Surgery (Day of Procedure), Routine 0727 (Given - Provid er: Xochitl Bronson RN) Continuous Medication Order 07/09/2016 07/10/2016 07/11/2016 lactated ringers infusion 1,000 mL 1,000 mL, at 100 mL/hr, Intravenous, CONTINUOUS, Starting on Sat07/11/16 at 0630, Until Sat07/11/16 at 1644, Day of Surgery (Day of Procedure) 0630 (New Bag - Prov ider: Xochitl Bronson RN)0806 (Anesthesia Volume Adjustment - Provider: Bennie Estrada CRNA)0900 (Anesthesia Volume Adjustment - Provider: Bennie Estrada CRNA) PRN Medication Order 07/09/2016 07/10/2016 07/11/2016 BUpivacaine (PF) (MARCAINE) 0.25 % (2.5 mg/mL) injection (CANCELED) ONCE PRN, Starting on Sat07/11/16 at 0855, Until Sat07/11/16 at 1644, Intra-Operative (Intra-Procedure), Routine 0855 (Given - Provid er: Laura Kuhn MD) fentaNYL (PF) 50 mcg/mL 2mL syringe(Linked Group 1) 25 mcg, Intravenous, EVERY 5 MIN PRN, Pain, for 1-4 pain score, Starting on Sat07/11/16 at 0929, Until Sat07/11/16 at 1644, for 1-4 pain score Hold for respiratory rate less than 10 per minute. Maximum dose: 250 mcg over one hour., PACU Recovery 1019 (Given - Provid er: Jody Mao)1106 (Given - Provider: Jody Mao)1129 (See Alternative - Provider: Jody Galaviz-Meagan) fentaNYL (PF) 50 mcg/mL 2mL syringe(Linked Group 1) 50 mcg, Intravenous, EVERY 5 MIN PRN, Pain, for 5-10 pain score, Starting on Sat07/11/16 at 0929, Until Sat07/11/16 at 1644, for 5-10 pain score Hold for respiratory rate less than 10 per minute. Maximum dose: 250 mcg over one hour., PACU Recovery 1019 (See Alternativ e - Provider: Jody Galaviz-Hazard)1106 (See Alternative - Provider: Jody Padronce-Hazard)1129 (Given - Provider: Jody Galaviz-Rea) HYDROmorphone (DILAUDID) syringe 0.2-0.4 mg 0.2-0.4 mg, Intravenous, EVERY 5 MIN PRN, Pain, Starting on Sat07/11/16 at 0929, Until Sat07/11/16 at 1644, For moderate pain (4-6) give: 0.2 mg every 5 minute prn For severe pain (7-10) give: 0.4 mg every 5 minutes prn Maximum dose: 4 mg per hour Hold for respiratory rate less than 10 per minute., PACU Recovery 1158 (Given - Provid er: Sophia Ahumada RN)1208 (Given - Provider: Sophia Ahumada RN) lidocaine (XYLOCAINE) 10 mg/mL (1 %) injection 3 mg (COMPLETED) 3 mg (0.3 mL), Subcutaneous, ONCE PRN, 1 dose, Starting on Sat07/11/16 at 0613, Until Sat07/11/16 at 0620, for discomfort with PIV insertion, Day of Surgery (Day of Procedure), Routine 0620 (Given - Provid er: Xochitl Bronson RN) naloxone (NARCAN) injection 40 mcg 40 mcg, Intravenous, EVERY 5 MIN PRN, Starting on Sat07/11/16 at 0929, Until Sat07/11/16 at 1644, Opioid Reversal, for respiratory rate less than 6 or unresponsive., May repeat every every 5 minutes to increase respiratory rate. DO NOT exceed 120 mcg total dose. Notify anesthesia immediately if administered., PACU Recovery, Routine ondansetron (ZOFRAN) injection 4 mg 4 mg, Intravenous, EVERY 30 MIN PRN, Starting on Sat07/11/16 at 0929, Until Sat07/11/16 at 1644, Nausea, May repeat 4 mg once in 30 minutes. If multiple antiemetics ordered, use ondansetron first and if ineffective use prochlorperazine second and if ineffective use promethazine, PACU Recovery 1214 (Given - Provid er: Sophia Ahumada RN) promethazine (PHENERGAN) injection 6.25 mg 6.25 mg, Intravenous, EVERY 30 MIN PRN, Nausea, Starting on Sat07/11/16 at 0929, 2 doses, Until Sat07/11/16 at 1644, VESICANT - Dilute with a minimum of 10 mL saline. LARGE VEIN only. Inject over 10 minutes into the farthest port of a running IV infusion. Remain with the patient and STOP infusion immediately if patient reports burning. Avoid extravasation. If multiple antiemetics are ordered, use ondansetron first and if ineffective use prochlorperazine second and if ineffective use promethazine., PACU Recovery sodium chloride 0.9 % flush 5-20 mL 5-20 mL, Intravenous, EVERY 1 MIN PRN, Starting on Sat07/11/16 at 0613, Until Sat07/11/16 at 1644, flush, Flush pertains to all indwelling lines. Flush per protocol found in the job aid using the link provided on this medication record., Day of Surgery (Day of Procedure), Routine No Frequency Medication Order 07/09/2016 07/10/2016 07/11/2016 ketorolac (TORADOL) 15 mg/mL injection 1 dose, Starting on Sat07/11/16 at 1109, Until Sat07/11/16 at 1644, JODY GALAVIZ-HAZARD: cabinet override 1115 (Not Given - Pr ovider: Jody HerculesHazard - Reason: See comment - Comment: given under scheduled administration) Linked Groups Order Group 1: fentaNYL (PF) 50 mcg/mL 2mL syringeJump to med 25 mcg, Intravenous, EVERY 5 MIN PRN, Pain, for 1-4 pain score, Starting on Sat07/11/16 at 0929, Until Sat07/11/16 at 1644, for 1-4 pain score Hold for respiratory rate less than 10 per minute. Maximum dose: 250 mcg over one hour., PACU Recovery Or fentaNYL (PF) 50 mcg/mL 2mL syringeJump to med 50 mcg, Intravenous, EVERY 5 MIN PRN, Pain, for 5-10 pain score, Starting on Sat07/11/16 at 0929, Until Sat07/11/16 at 1644, for 5-10 pain score Hold for respiratory rate less than 10 per minute. Maximum dose: 250 mcg over one hour., PACU Recovery documented in this encounter Care Teams Outdoor Power Equipment Mechanic Relationship Specialty Start Date End Date Rosie Bess MD [address] [facility] [address] [place] [address] PCP - General Family Medicine 06/16/15 documented as of this encounter
--- OUTSIDE RECORDS SUMMARY | 2024-01-22 14:46 | XMS_ITS | Encounter Summary ---
[place] [address] Care Team Providers Care Principal Statistical Scientist Name Role Phone Rosie Bess MD Primary Care Provider [phone] Reason for Visit * Reason Comments Establish Care * Consultation (Routine) - Closed Specialty Diagnoses / Procedures Referred By Contac t Referred To Contact General Surgery Diagnoses right groin pain Rosie Bess MD [address] [place] [address] [facility] [address] [place] [address] [facility] [address] [place] [address] Referral ID Status Reason Start Date Expiration Date V isits Requested Visits Authorized [id number] Closed Consult, Test & Treat Connection Center 12/15/2015 12/14/2016 1 1 Encounter Details Date Type Department Care Team (Late st Contact Info) Description 02/22/2016 2:30 PM EDT Office [place] [address] Jose Weston MD [address] [place] [address] [place] [address] Chronic groin pain, right Social History Tobacco Use Types Packs/Day [...] Sign Reading Time Taken Comments Blood Pressure 132/79 02/22/2016 2:46 PM EDT Pulse 90 02/22/2016 2:46 PM EDT Temperature - - Respiratory Rate - - Oxygen Saturation 99% 02/22/2016 2:46 PM EDT Inhaled Oxygen Concentration - - Weight 84 kg (185 lb 3 oz) 02/22/2016 2:46 PM ED T Height 172 cm (5' 7.72) 02/22/2016 2:46 PM EDT Body Mass Index 28.39 02/22/2016 2:46 PM EDT documented in this encounter Progress Notes * My Thomas R - 02/22/2016 2:30 PM EDT General Surgery Outpatient Consultation [place] [address] HPI: Gamaliel Patel is a pleasant 55 y.o. male who we were asked to see by Dr. Bess regarding R groin pain. The pain began back in 2008, increased with working and squatting. His Dr at [facility] noted R and left groin hernias. The L has been asymptomatic for the duration of these issues. He had an open bilateral inguinal hernia repair, after which his R groin pain never really improved. It is nowworse after long periods of sitting or at night when hi is lying down, when it radiates to his R testicle. He has been treated with meloxicam and gabapentin to moderate effect. He has also gotten 2 injections of lidocaine and a steroid, which he says completely relieves his pain for 2 weeks, then it slowly returns. In the past month, it has begun radiating to his R hip. He has no difficulty with walking or running, no changes in bowel or urinary habits. He is exasperated with the pain, stating that it keeps him up at night and wakes him up from sleep. ROS: negative except for as noted in the HPI and below: No recent chest pain or shortness of breath No bleeding disorders or anticoagulation No prior issues with anaesthesia Past Medical History: HTN diagnosed this past year Past Surgical History: Nathan alexa 2015 for gallstone pancreatitis Medications: Outpatient Prescriptions Marked as Taking for the 02/22/16 encounter (Office Visit) with Meaghan Weston MD Medication Sig Dispense Refill ??? acetaminophen (TYLENOL) 325 mg Tablet Take 2 tablets by mouth every 4 hours as needed for Pain or Fever. 30 tablet 1 ??? ibuprofen (ADVIL;MOTRIN) 400 mg Tablet Take [...] hr Take 75 mg by mouth daily. Allergies:No Known Allergies Family History: No family history on file. 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 There are no palpable inguinal or femoral hernias. Bilateral oblique scars s/p open inguinal hernia repair. Assessment: Mr. Patel is a 55 year old man with a history of bilateral inguinal hernia repair for chronic R groin pain who presents with chronic R groin pain radiating to his testicle. It is improved with lidocaine/steroid injections, there are no palpable hernia recurrences, and he has no increased pain with walking, leading me to suspect that this is a nerve issue. He has an appointment scheduled for repeat injection next week, at which point he will discuss more permanent options for pain management. We discussed that this is unlikely to be an issue with mesh irritation that would be solved by removal. He agrees and is ready to move forward with the plan. .General Surgery Attending Addendum: I examined the patient with the medical student above and formulated the plan as outlined. The patient has had chronic intermittent pain in the right groin radiating to the right testicle which started prior to right inguinal hernia repair and did not change significantly after the repair. Removal of the mesh would be difficult and it is certainly not clear that this would decrease his pain. It is encouraging that the pain is relieved by injection with local anesthesic and steroids. If repeat injection does not relieve the pain he should consider nerve ablation with alcohol if possible. Consider evaluation by a neurosurgeon to consider neurectomy if this is not possible.. Jose Weston M.D., FACS documented in this encounter Plan of Treatment Not on file documented as of this encounter Visit Diagnoses Diagnosis Chronic groin pain, right documented in this encounter Care Teams Principal Statistical Scientist Relationship Specialty Start Date End Date Rosie Bess MD [facility] [address] [facility] [address] [place] [address] PCP - General Family Medicine 06/16/15 documented as of this encounter
--- OUTSIDE RECORDS SUMMARY | 2024-01-22 14:46 | XMS_ITS | Encounter Summary ---
Author Organization [facility] Address [address] [place] [address] Care Team Providers Care Toll Relief Operator Name Role Phone Rosie Bess MD Primary Care Provider [phone] Encounter Details Date Type Department Care Team (Late st Contact Info) Description 06/14/2023 Lab Requisition [facility] Pathology & Laboratory Medicine - [facility] [address] [place] [address] Outr Resulting Lab, Provider Social History Tobacco [...] Procedure Name Priority Date/Time Associated Diagnosis Comments HIV 1/2 ANTIGEN AND ANTIBODY, 4TH GENERATION Routine 06/13/2023 14:15 EST documented in this encounter Results * HIV 1/2 ANTIGEN AND ANTIBODY, 4TH GENERATION (06/13/2023 14:15 EST) HIV 1 and 2 Antibody/p24 Antigen, 4th Generation Negative Negative 06/14/2023 19:45 EST [facility] Comment:If acute HIV-1 infec tion is suspected in a high risk patient, submit plasma specimen for HIV-1 RNA quantitation test. Blood VENOUS BLOOD / Unknown 06/13/2023 14:15 EST 06/14/2023 17:44 EST Narrative [facility] - 06/14/2023 19:45 EST Fourth Generation assay performed on the Siemens Centaur XPT. Provider Outr Resulting Lab IMMUNOLOGY A ND SEROLOGY ORDERABLES [facility] [address] [place] [address] documented in this encounter Visit Diagnoses Not on filedocumented in this encounter Care Teams Toll Relief Operator Relationship Specialty Start Date End Date Rosie Bess MD [address] [place] [phone] PCP - General 05/15/11 documented as of this encounter
--- OUTSIDE RECORDS SUMMARY | 2024-01-22 14:46 | XMS_ITS | Clinical Summary ---
Author Organization [facility] Address [address] [place] [address] Care Team Providers Care Staffing Branch Manager Name Role Phone Rosie Bess MD Primary Care Provider [phone] Encounters Date Type Department Care Team Description 12/24/2023 Lab Requisition [facility] Pathology & Laboratory [address] [address] Outr Resulting Lab, Provider 12/23/2023 Lab Requisition [facility] Pathology & Laboratory [facility] [address] [place] [address] Outr Resulting Lab, Provider from Last 3 Months Social History Tobacco Use Types Packs/Day Years Used Date Smoking Tobacco: Never Assessed Sex and Gender Information Value Date Recorded Sex Assigned at Not on file Gender Identity Not on file Sexual Orientation Not on file Plan of Treatment Health Maintenance Due Date Last Done Comments RSV Immunization ( o r 60+ Years) (1 - 1-dose 60+ series) 2022 COVID-19 Vaccine (2022-24 season) 2023 Hepatitis C Screen Completed 12/23/2023, 10/19/2019 Procedures Procedure Name Priority Date/Time Associated Diagnosis Comments HCV RNA DETECT QUANT Today 12/23/2023 13:21 EDT ACUTE HEPATITIS PROFILE Routine 12/23/2023 13:21 EDT LYME ANTIBODY CONFIRMATION Today 12/23/2023 11:16 EDT LYME AB Routine 12/23/2023 11:16 EDT from Last 3 Months Results * HCV RNA DETECT QUANT (12/23/2023 13:21 EDT) [facility] HCV RNA Qualitative Undetected Undetected 12/25/2023 12:06 EDT [facility] Blood VENOUS BLOOD / Unknown 12/23/2023 13:21 EDT 12/24/2023 17:42 EDT Narrative [facility] - 12/25/2023 12:06 EDT The quantification range of this assay is 15 IU/mL to 100,000,000 IU/mL. Testing was performed using the Eddie HCV test ([employer] with the eddie Airtime0 System. Provider Outr Resulting Lab CHEMISTRY & BLOOD GAS ORDERABLES Performing Organization Address [facility] Co de Phone Number [facility] [address] [place] [address] * (ABNORMAL) ACUTE HEPATITIS PROFILE (12/23/2023 13:21 EDT) [facility] Hep B Surface Ag Negative Negative 12/24/2023 20:27 EDT [facility] Hep C Antibody Reactive(A) Negative 20:27 EDT [facility] Comment: Supplemental testing for HCV RNA is ordered to rule out active HCV infection. Index value ??is >=1.00 and <11.00 Hepatitis A Antibody, IgM Negative Negative 12/24/2023 20:27 EDT [facility] Comment:The results of this assay can be falsely lowered due to the consumption of Biotin. Hepatitis B Core Ab, Total Negative Negative 12/24/2023 20:27 EDT [facility] Blood VENOUS BLOOD / Unknown 12/23/2023 13:21 EDT 12/24/2023 17:42 EDT Provider Outr Resulting Lab CHEMISTRY & BLOOD GAS ORDERABLES Performing Organization Address [facility] Co de Phone Number [facility] [address] [place] [address] * (ABNORMAL) LYME ANTIBODY CONFIRMATION (12/23/2023 11:16 EDT) Pathologist [facility] Lyme IgG Antibody Negative Negative 024 10:30 EDT [facility] Comment:Specific anti-Borrel ia burgdorfei IgG antibodies are not detected. This does not exclude the possibility of B. burgdorferi infection. If exposure to B. burgdorferi is suspected, a second sample should be collected and tested 2-4 weeks later. Lyme IgM Antibody Positive(A) Negative 2023 10:30 EDT [facility] Comment:Specific anti-Borrel ia burgdorfei IgM antibodies are detected. Lyme Antibody Confirmation Interpretation See Comment 12/24/2023 10:30 EDT [facility] Comment:Indicative of possib le early B. burgdorferi infection, as Lyme IgM is of diagnostic utility only during the first four weeks after the onset of disease. In these cases a second serum specimen can be analyzed in 2-4 weeks to demonstrate seroconversion of IgG. Otherwise, specimens collected more than 1 month following the onset of disease with positive IgM and Negative IgG results more likely represent a false-positive. Blood VENOUS BLOOD / Unknown 12/23/2023 11:16 EDT 12/23/2023 16:49 EDT Provider Outr Resulting Lab IMMUNOLOGY A ND SEROLOGY ORDERABLES [facility] [address] [place] [phone] * (ABNORMAL) LYME AB (12/23/2023 11:16 EDT) Pathologist [facility] Lyme Ab Equivocal (A) Negative 12/24/2023 9:55 EDT [facility] Comment: Lyme confirmation added by reflex. The [employer] Lyme Liaison Lyme Total Antibody Plus assay contains antigens from Borrelia burgdorferi, Borrelia garinii, and Borelia afzelli. Results from the second-step confirmation tests that detect only B. burgdorferi specific antigens should be interpreted with caution. Blood VENOUS BLOOD / Unknown 12/23/2023 11:16 EDT 12/23/2023 16:49 EDT Provider Outr Resulting Lab IMMUNOLOGY A ND SEROLOGY ORDERABLES [facility] [address] [place] [address] from Last 3 Months Care Teams Staffing Branch Manager Relationship Specialty Start Date End Date Rosie Bess MD [address] [place] [phone] PCP - General 05/15/11
--- OUTSIDE RECORDS SUMMARY | 2024-01-22 14:46 | XMS_ITS | Clinical Summary ---
Author Organization [facility] [place] [address] Care Team Providers Care Hand Umbrella Tipper Name Role Phone Rosie Bess MD Primary Care Provider [phone] Allergies No known active allergies Medications Medication Sig Dispensed Refills Start Date End Date Status omeprazole (PRILOSEC) 40 mg Capsule, Delayed Release(E.C.) Take 40 mg by mouth daily. Active venlafaxine (EFFEXOR-XR) 150 mg Capsule, Sust. Release 24 hr Take 150 mg by mouth daily. Active venlafaxine (EFFEXOR-XR) 75 mg Capsule, Sust. Release 24 hr Take 75 mg by mouth daily. Active acetaminophen (TYLENOL) 325 mg Tablet Take 2 tablets by mouth every 4 hours as needed for Pain or Fever. 30 tablet 1 06/23/2015 Active gabapentin (NEURONTIN) 300 mg Capsule 1-2 capsules a day 0 02/03/2016 Active lisinopril (PRINIVIL;ZESTRIL) 20 mg Tablet 0 02/03/2016 Active amLODIPine (NORVASC) 10 mg Tablet 0 01/29/2016 Active ketorolac (TORADOL) 10 mg Tablet Take 1 tablet by mouth every 6 hours. 20 tablet 07/11/2016 Active Active Problems Problem Noted Date Diagnosed Date Groin pain, chronic, right 05/29/2016 Pancreatitis, gallstone 06/16/2015 Family History Medical History Relation Comments Anesthesia Reaction Neg Hx Social History Tobacco Use Types Packs/Day Years Used Date Smoking Tobacco: Never Smokeless Tobacco: Never Alcohol Use Standard Drinks/Week Comments No 0 (1 standard drink = 0.6 oz pur e alcohol) quit 4 years ago Sex and Gender Information Value Date Recorded Sex Assigned at Not on file Gender Identity Not on file Sexual Orientation Not on file Last Filed Vital Signs Vital Sign Reading Time Taken Comments Blood Pressure 101/65 07/11/2016 11:15 AM EST Pulse 97 07/11/2016 11:29 AM EST Temperature 36.8 ??C (98.2 ??F) 07/11/2016 9:30 AM ES T Respiratory Rate 16 07/11/2016 10:00 AM EST Oxygen Saturation 97% 07/11/2016 11:58 AM EST Inhaled Oxygen Concentration - - Weight 84 kg (185 lb 1.6 oz) 07/11/2016 6:14 AM EST Height 172.7 cm (5' 8) 07/11/2016 6:14 AM EST Body Mass Index 28.14 07/11/2016 6:14 AM EST Plan of Treatment Health Maintenance Due Date Last Done Comments CT Colonography 1962 Colonoscopy 1962 Colorectal Cancer Screening 1962 FIT DNA 1962 FIT 1962 Sigmoidoscopy (10 year) with FIT yearly 1962 Sigmoidoscopy 1962 HIV screen 1980 Hepatitis C Screening 1980 Lipid Screening 1980 Tdap adult 1981 Tetanus vaccine 1981 Zoster vaccine (1 of 2) 2012 Advance Directive 2017 Covid-19 Vaccine (1 - 2022-24 season) 2023 Influenza (Flu) vaccine (1 o f 1 - Influenza standard series) 02/09/2024 Medical Devices Implanted Type Area Powerhouse Attendant Device Identifier Shelf Expiration Date Model / Serial / Lot Mesh,3dmax,Lgh t,Lg,Rt,4x6 ([id number]) - [id number] Implanted:Qty: 1 on 07/11/2016 by Laura Lo MD at [facility] [employer]PL[employer] - 1825 02/08/2021 [id number] / / [id number] Advance Directives * Full Code (Latest Code Status on File) Date Activated Date Inactivated Comments 07/11/2016 6:29 AM 07/11/2016 4:44 PM Question Answer Comments Does patient have capacity to make decision: Yes * Full Code Date Activated Date Inactivated Comments 06/21/2015 7:10 AM 06/23/2015 12:32 PM Question Answer Comments Does patient have capacity to make decision: Yes * Full Code Date Activated Date Inactivated Comments 06/16/2015 9:43 PM 06/21/2015 7:10 AM Question Answer Comments Does patient have capacity to make decision: Yes Care Teams Hand Umbrella Tipper Relationship Specialty Start Date End Date Rosie Bess MD [address] [place] [address] PCP - General Family Medicine 06/16/15
--- OUTSIDE RECORDS SUMMARY | 2024-01-22 14:46 | XMS_ITS | Continuity of Care Document ---
Author Organization [facility] Address [address] [place] [address] Care Team Providers Care Custom Shop Worker Name Role Phone JOSEPH FERREIRA Urologist Assessment [...] Not available Not available Not available Lab CBC w/ diff 2023 024 [email or web address] (Registration ), [address] [place] [address] [place], [address], 01/22/2024 14:08:57 CMP, serum or plasma 2023 024 [email or web address] [facility] (Registration ), [address] [place] [address] [place], [address], 01/22/2024 14:08:57 Referral None recorded. Procedures None recorded. Surgeries None recorded. Imaging None recorded. Medication Orders None recorded. Patient TargetsNo targets recorded. Patient InstructionsNo instructions recorded. Reason for Referral None Reported. Results Created Date Observation Date Name Description Value Unit Range Abnormal Flag LastModifiedBy Organization Detail LastModifiedTime 12/23/19 24 12/23/2023 CT, chest + abdom en + pelvi s, w/ contr ast Patien t Name: Do lynn Reynolds Unit #: [id number] Loc: ER Jp Holguin er: Juan C Conteh PA Accoun t #: [id number] Status : REG ER Primar y Care [...] for compar ayse FINDIN GS: CHEST: Pulmon lilo Arteri es: No eviden ce of fillin [...] The heart is not dilate d. No núeñz ry artery calcif icatio ns are seen. [...] facili ty are submit earl to the Nation al Radiol ogy Data Regist ry (NRDR) Dose Index Regist ry (DIR) with the [place] an Amber barlow of Radiol ogy (ACR). RADIAT ION OPTIMI ZATION : All CT scans at this facili ty use at least one of these dose optimi zation techni ques: automa earl exposu re contro l; mA and/or kV adjust ment per patien t size (inclu dariusz target ed exams where dose is matche d to clinic al indica tion); or iterat lydia arianna juani on. 023: Total DLP = 0.00 mGy-cm Ordere d By: Juan C Conteh CC: ------ ------ ------ ------ ------ ------ ------ ------ ------ ------ ------ ------ ---- Dictat ed By: Charlotte Adkins [id number] Transc ribed By: Kaz Kent 1532 This is privil eged, confid ential inform ation intend ed only for the provid er named. Any use or distri bution by any person other than this provid er is strict ly prohib ited. If you receiv e this report in error, please notify us immedi shauna at and return the origin al report to us at the addres s above. Thank- you. [email or web address] [facility] [address] , [place], [address] 12/23/2023 16:49:14 Result Notes None recorded. Problems Name Status Onset Date Resolution Date Notes Provider Name and Address Organization Details Recorded Time Gastroesophag eal reflux disease without esophagitis Active [address], [place], [address] , [facility] 4 07:33:06 Anxiety disorder Active [address], [place], [address] , [facility] 4 20:32:39 Prediabetes Active [address], [place], [address] , [facility] 4 20:32:15 Adult health examination Active [address], [place], [address] , [facility] 4 20:31:17 Posttraumatic stress disorder Active [address], [place], [address] , [facility] 4 20:32:07 Essential hypertension Active [address], [place], [address] , [facility] 4 20:32:11 Traumatic or non-traumatic injury Completed 201502/07/2016 12/19/2015 - Comments only - Rosie Bess MD - He agrees that he does not require any further narcotics for this. He is to use [id number] ter nonsteroidals or Tylenol. Problem Code: T14.8; Problem Code Type: ICD-10; Not Available [facility] 3 05:12:36 Acute sinusitis Completed 201809/24/2018 08/25/2018 - Comments only - John Pagan MD - Given worsening after 2 weeks of symptoms, will treat as bacterial sinusitis with amox/clav. Continue supportive care with guafenicine and nasal saline. Problem Code: J01.90; Problem Code Type: ICD-10; Not Available [facility] 3 05:12:36 Visual disturbance Completed 201906/14/2023 10/19/2019 - Comments only - Rosie Bess MD - referral to optometery. ?atypical migraine, trial of magnesium 400 and vitamin B2 400 mg daily Problem Code: H53.9; Problem Code Type: ICD-10; MD [address], [place], [address] , [facility] 4 07:41:51 Nausea Completed 202011/09/2020 10/26/2020 - Comments only - Rosie Bess MD - S./p gall bladder removal for gall stone pancreatitis. Will check LFTs and lipase, referral to GI to consider EGD. Hold on imaging. Problem Code: R11.0; Problem Code Type: ICD-10; Not Available [facility] 3 05:12:36 Benign prostatic hyperplasia Active 202003/19/2022 restart rosesaterbuddy BESS MD [facility] [address], [place], [address] , [facility] 4 07:32:48 HIV screening Completed 202104/02/2022 Problem Code: Z11.4; Problem Code Type: ICD-10; Not Available [facility] 3 05:12:37 Blood in urine Completed 201503/06/2023 10/07/2015 - Comments only - Rosie Bess MD - He is scheduled to have a cystoscopy through Dr. Ferreira's office. Problem Code: R31.9; Problem Code Type: ICD-10; Not Available [facility] 3 05:12:51 Impaired fasting glycemia Completed 201403/06/2023 Not Available [facility] 3 05:12:51 Dehydration Completed 201508/20/2016 Problem Code: E86.0; Problem Code Type: ICD-10; Not Available [facility] 3 05:12:52 Gastroesophag eal reflux disease Completed 200403/06/2023 Not Available [facility] 3 05:12:53 Elevated blood-pressur e reading without diagnosis of hypertension Completed 201511/23/2015 Problem Code: R03.0; Problem Code Type: ICD-10; Not Available [facility] 3 05:12:54 Hypopituitari sm Completed 201510/19/2019 Problem Code: E23.0; Problem Code Type: ICD-10; Not Available [facility] 3 05:12:54 Microscopic hematuria Completed 201503/06/2023 10/19/2019 - Comments only - Rosie Bess MD - 4 years since cystoscopy. U/A collected today. Refer back to Dr. Ferreira if positive again. restart finasteride as also helps with nocturia. Problem Code: R31.2; Problem Code Type: ICD-10; Not Available [facility] 3 05:12:55 Blood chemistry outside reference range Completed 201609/06/2017 Problem Code: R79.89; Problem Code Type: ICD-10; Not Available [facility] 3 05:12:56 Nondependent alcohol abuse in remission Completed 201103/06/2023 Problem Code: 305.03; Problem Code Type: ICD-9; Not Available [facility] 3 05:12:58 Localized edema Completed 201610/19/2019 Problem Code: R60.0; Problem Code Type: ICD-10; Not Available [facility] 3 05:12:58 Right lower quadrant pain Completed 201410/26/2020 Problem Code: R10.31; Problem Code Type: ICD-10; Not Available [facility] 3 05:13:02 Exposure to communicable disease Completed 201910/26/2020 Problem Code: Z20.828; Problem Code Type: ICD-10; Not Available [facility] 3 05:13:05 Stomatitis Completed 201508/20/2016 Problem Code: K12.1; Problem Code Type: ICD-10; Not Available [facility] 3 05:13:06 Pruritic rash Active [address], [place], [address] , [facility] 4 07:35:03 Recurrent hematuria Active 2015 normal cystoscopy 2015, followed by urology; normal CT scan 12/2023, plan- yearly urinalysis and a repeat workup in 3 to 5 years if the hematuria persists. presumed due to prostate MD [address], [place], [address] , [facility]. 4 13:25:39 Chronic alcoholism in remission Active 2011 ROSIE BESS MD [address], [place], [address] , [facility] 4 07:41:33 Lyme disease Active 2023 Lanette Jessy andres, [facility] 4 09:26:40 Problem Notes None recorded. Medical Equipment None Reported. Allergies Allergen ID Allergen Name Allergen Category Reaction Reaction Severity Criticality Documentation Date Start Date Code Code System Note Provider Name and Address Organization Details Recorded Time acetamino phen / hydrocodo ne medicatio n nausea mild Not available 04/19/20232005 08410 2 RxNorm NAUSE A Aller gyCod e: '0012 59612 10'; Aller gyNam e: 'DHVAAL DIN'; Aller gyCon ceptT ype: 'NDC' ; Not Available [facility] 3 16:13:43 Medications Name Sig Start Date [...] by mouth every 4-6 hours as needed. 05/04/ 2016 05/18 /2016 completed Not Available Not Available Not Available [...] Available Not Available Vitals Date Recorded Body height Body mass index (BMI) Body weight Body temperature Oxygen saturation Oxygen saturation in Arterial blood by Pulse oximetry Respiratory rate Heart rate Systolic blood pressure Diastolic blood pressure Provider Name and Address Organization Details Last Updated DateTime 4 171.81 cm 28.7 kg/m2 82271.7 7 g 97.3 [degF] 98 % 98 % 16 /min 84 /min 122 mm[Hg] 86 mm[Hg] NÉSTOR ROMAN LPN [facility] 4 13:12:17 Social History Question Answer Notes LastModified by Organizat ion Details LastModified Time Tobacco Smoking Status Never Smoker NÉSTOR ROMAN LPN [facility] 06/19/2023 12:53:25 Would You Say That, [...] Recorded Time Tdap 03/10/2012 completed Not Available [facility] 06:29:24 Tdap 03/19/2022 completed Not Available [facility] 06:29:25 Influenza, split virus, quadrivalent, PF 03/03/2021 completed Not Available [facility] 04/19/2023 06:29:25 Influenza, split virus, quadrivalent, PF 03/19/2022 completed Not Available [facility] 04/19/2023 06:29:25 zoster recombinant 10/26/2020 completed Not Available [facility] 04/19/2023 06:29:25 zoster recombinant 12/26/2020 completed Not Available [facility] 04/19/2023 06:29:25 COVID-19, mRNA, LNP-S, PF, 100 mcg/0.5mL dose or 50 mcg/0.25mL dose 09/19/2020 completed Not Available [facility] 04/19/20 06:29:26 COVID-19, mRNA, LNP-S, PF, 100 mcg/0.5mL dose or 50 mcg/0.25mL dose 10/17/2020 completed Not Available [facility] 04/19/20 06:29:26 COVID-19, mRNA, LNP-S, bivalent, PF, 30 mcg/0.3 mL dose 04/24/2022 completed Not Available [facility] 04/19/2023 06:29:26 influenza, unspecified formulation 02/20/2013 completed Not Available [facility] 04/19/2023 06:29:26 influenza, unspecified formulation 06/07/2014 completed Not Available [facility] 04/19/2023 06:29:26 Past Encounters Encounter ID Performer Location Encounter Start Date Encounter Closed Date Diagnosis/Indication Diagnosis SNOMED-CT Code [id number] ROSIE BESS MD [address] [place] [facility] [place] [address] 01/22/2024 13:02:19 01/22/2024 13:47:32 History of sepsis 00442170694311 0 History of hepatitis C 21667705382617 Anxiety disorder 3907735 06 Health Concerns Section Related Observation LastModified by Organization Detai ls LastModified Time None Recorded Concern Status LastModified by Organization Details LastModified Time None Recorded Payers Encounter Date Sequence Insurance Name Policy Number Policy Oropeza Covered Member ID Oropeza Member ID Guarantor Name 01/22/2024 1 [place] [facility] [id number] Gamaliel Patel [id number] Gamaliel Patel Notes Date Note Type Note Provider Name and Address Organization Details Recorded Time 01/22/2024 text/html HPI Notes: Kerri mckeon presented at [facility] ER 12/22 with fever, chills, and [...] scan when he was an inpatient at [facility]. Plan is annual U/A, repeat workup [...] him he is a bit more irritable. ROSIE BESS MD [address], [place], [address], [facility]. 01/22/2024 14:17:12
--- OUTSIDE RECORDS SUMMARY | 2024-01-22 14:46 | XMS_ITS | Encounter Summary ---
Author Organization [facility] [place] [address] Care Team Providers Care Soaking Tank Worker Name Role Phone Rosie Bess MD Primary Care Provider [phone] Reason for Visit * Reason Comments Follow-up Encounter Details Date Type Department Care Team (Late st Contact Info) Description 07/20/2015 10:00 AM EST Office [place] [address] Maribell Bellamy, HAND KISS SETTER [facility] [place] [address] Surgery follow-up Social History Tobacco Use Types Packs/Day Years [...] Sign Reading Time Taken Comments Blood Pressure - - Pulse - - Temperature - - Respiratory Rate - - Oxygen Saturation - - Inhaled Oxygen Concentration - - Weight 80.6 kg (177 lb 11.1 oz) 07/20/2015 9:49 AM EST Height - - Body Mass Index 27.02 06/16/2015 8:59 PM EST documented in this encounter Progress Notes * Maribell Bellamy, HAND KISS SETTER - 07/20/2015 1:45 PM EST Gamaliel aPtel is here for hospital check. 06/21/15:laparoscopic cholecystectomy with cholangiogram-[facility]:Gallbladder, cholecystectomy: Chronic cholecystitis. Findings: Inflamed gallbladder with infundibulum bent on itself and long cystic duct. Attempted intraoperative cholangiogram, but unable to flush adequately without leaking around ductotomy. After several attempts and intraoperative consult by Dr. Lo, cholangiogram was aborted. Laparoscopic cholecystectomy performed. Feels very well, denies fevers chills jaundice, pale stools or dark urine. Denies abdominal pain, nausea, or vomiting, appetite and energy good, denies any incisional pain. Pleased with progress, in good spirits. Exam: Well appearing, moves easily about the exam room and onto the exam table. Sclera clear and non icteric, no jaundice. Abd soft non tender non distended, with benign trocar sites. Impression/plan: Unremarkable post discharge course At this time there is no scheduled general surgery FU indicated. However, the patient knows to feelfree to call us should there be any question, concern, or should anything specific arise. documented in this encounter Plan of Treatment Not on file documented as of this encounter Visit Diagnoses Diagnosis Surgery follow-up Follow-up examination, following unspecified surgery documented in this encounter Care Teams Soaking Tank Worker Relationship Specialty Start Date End Date Rosie Bess MD [address] [place] [address] PCP - General Family Medicine 06/16/15 documented as of this encounter
--- OUTSIDE RECORDS SUMMARY | 2024-01-22 14:46 | XMS_ITS | Encounter Summary ---
Author Organization [facility] Address [address] [place] [address] Care Team Providers Care Wire Winding Machine Operator Name Role Phone Unknown, Provider Primary Care Provider [phone] Encounter Details Date Type Department Care Team (Late st Contact Info) Description 12/05/2009 Results Only [facility] Services - [facility] ([facility]) [address] [place] [address] Milo Austin MD [address] [place] [address] Social History Tobacco Use Types Packs/Day Years Used Date Smoking Tobacco: Never Assessed Sex and Gender Information Value Date Recorded Sex Assigned at Not on file Gender Identity Not on file Sexual Orientation Not on file documented as of this encounter Plan of Treatment Not on file documented as of this encounter Procedures Procedure Name Priority Date/Time Associated Diagnosis Comments SURGICAL PATHOLOGY Routine 12/05/2009 0:00 EDT documented in this encounter Results * SURGICAL PATHOLOGY (12/05/2009 0:00 EDT) Pathology Report: SURGICAL PATHOLOGY REPORT ? Reports generated via electronic interface contain original data; ? however they are lacking the format of the original report. ? Caution should be taken when reading/interpreti ng unformatted reports. ? Name: ? MARCUS SHIRLEY ? Accession #: ? [id number] ? : ? 1960 (Age: 49) ??M ? Collect Date: ? 12/05/2009 ? Location: ? [facility] ? Receive Date: ? 12/06/2009 ? Provider: MILO AUSTIN MD ? Copy to: TIP ANGELA MD ? Final Pathologic Diagnosis: ? A. ?Soft tissue, back, excision: ? 1. ?Lipoma. ? B. ?Soft tissue, abdomen, excision: ? 1. ?Angiolipoma. ? Document reviewed and electronically signed by: ? Octaviano Holliday MD ? Report ??Date: 12/08/2009 08:24 ? By the signature above, the attending physician certifies that he/she has ? personally conducted a gross and/or microscopic examination of the described ? specimens and rendered or confirmed the above diagnosis. ? Specimen(s) Received: ? A. ?Back lipoma (#1) ? B. ? Abd lipoma (#2) ? Clinical History: ? Symptomatic lipomas back and abdomen, right groin pain ? Gross Description: ? Received in formalin labelled Marcus Shirley and 1 ??back lipoma is a 5.0 gram, 3.5 x 3.0 x 1.5 cm portion of fibrofatty tissue, one side of which is flat and has thin light fibrous tissue, while the opposite is lobular. ??The ? resection margin is black inked. ??Sections reveal a homogeneous, light yellow, ?? slightly lobular, firm, and focally mildly hyperemic cut surface with no areas ?? of degeneration nor hemorrhage. ??Four pharmaceutical sales representative sections of the specimen ?? are submitted as (A1) and (A2). ? Received in formalin labelled Marcus Shirley and 2 ??abdominal lipoma is a 9.5 gram, 5.5 x 2.5 x 2.0 cm piece of lobular fibrofatty tissue, one side of ? which is flat and has a thin pink-white fibrous-like lining over an area ? measuring 2.5 x 2.0 cm. ??The specimen is partially fragmented and the external ?? surface is inked. ??Sections reveal a lobular, light yellow, focally mildly ? hyperemic firm cut surface with no areas of cystic degeneration nor hemorrhage. Six pharmaceutical sales representative sections of the specimen are submitted as (B1) ??(B3). ??(J. ?? Tessitore)/mms ? End of Report ? [facility] 12/05/2009 12/06/2009 8:4 2 EDT Milo Austin MD PATHOLOGY ORDERABLES [facility] [address] [place] [address] documented in this encounter Visit Diagnoses Not on filedocumented in this encounter Care Teams Wire Winding Machine Operator Relationship Specialty Start Date End Date Unknown, Provider, PCP - General 12/06/09 05/14/11 documented as of this encounter
--- OUTSIDE RECORDS SUMMARY | 2024-01-22 14:46 | XMS_ITS | Encounter Summary ---
Author Organization [facility] Address [address] [place] [address] Care Team Providers Care Extension Service Agent Name Role Phone Rosie Bess MD Primary Care Provider Encounter Details Date Type Department Care Team (Late st Contact Info) Description 12/23/2023 Lab Requisition [facility] Pathology & Laboratory Medicine - [facility] [address] [place] [address] Outr Resulting Lab, Provider Social History Tobacco [...] Procedure Name Priority Date/Time Associated Diagnosis Comments LYME ANTIBODY CONFIRMATION Today 12/23/2023 11:16 EDT LYME AB Routine 12/23/2023 11:16 EDT documented in this encounter Results * (ABNORMAL) LYME ANTIBODY CONFIRMATION (12/23/2023 11:16 EDT) Lyme IgG Antibody Negative Negative 024 10:30 EDT [facility] Comment:Specific anti-Borrel ia burgdorfei IgG antibodies are not detected. This does not exclude the possibility of B. burgdorferi infection. If exposure to B. burgdorferi is suspected, a second sample should be collected and tested 2-4 weeks later. Lyme IgM Antibody Positive(A) Negative 2023 10:30 EDT [facility] Comment:Specific anti-Borrel ia burgdorfei IgM antibodies are detected. Lyme Antibody Confirmation Interpretation See Comment 12/24/2023 10:30 EDT [facility] Comment:Indicative of possib le early [...] Resulting Lab IMMUNOLOGY A ND SEROLOGY ORDERABLES Performing Organization Address [facility] Co de Phone Number [facility] [address] [place] [address] * (ABNORMAL) LYME AB (12/23/2023 11:16 EDT) Lyme Ab Equivocal (A) Negative 12/24/2023 9:55 EDT [facility] Comment: Lyme confirmation added by [...] Resulting Lab IMMUNOLOGY A ND SEROLOGY ORDERABLES Performing Organization Address [facility] Co de Phone Number [facility] [address] [place] [address] documented in this encounter Visit Diagnoses Not on filedocumented in this encounter Care Teams Extension Service Agent Relationship Specialty Start Date End Date Rosie Bess MD [address] [place] [phone] PCP - General 05/15/11 documented as of this encounter
--- OUTSIDE RECORDS SUMMARY | 2024-01-22 14:46 | XMS_ITS | Encounter Summary ---
Author Organization [facility] Address [address] [place] [address] Care Team Providers Care Canvas Repairer Name Role Phone Rosie Bess MD Primary Care Provider Encounter Details Date Type Department Care Team (Late st Contact Info) Description 12/24/2023 Lab Requisition [facility] Pathology & Laboratory Medicine - [facility] [address] [place], [place] [address] Outr Resulting Lab, Provider Social History Tobacco [...] ACUTE HEPATITIS PROFILE Routine 12/23/2023 13:21 EDT documented in this encounter Results * HCV RNA DETECT QUANT (12/23/2023 13:21 EDT) HCV RNA Qualitative Undetected Undetected 12/25/2023 12:06 EDT [facility] Blood VENOUS BLOOD / Unknown 12/23/2023 13:21 EDT 12/24/2023 17:42 EDT Narrative [facility] - 12/25/2023 12:06 EDT The quantification range of this assay is 15 IU/mL to 100,000,000 IU/mL. Testing was performed using the Eddie HCV test ([employer] with the eddie [id number] System. Provider Outr Resulting Lab CHEMISTRY & BLOOD GAS ORDERABLES Performing Organization Address [facility]/ZIP Co de Phone Number [facility] [address] [place], [place] [phone] * (ABNORMAL) ACUTE HEPATITIS PROFILE (12/23/2023 13:21 EDT) Hep B Surface Ag Negative Negative 12/24/2023 20:27 EDT [facility] Hep C Antibody Reactive(A) Negative 20:27 EDT [facility] Comment: Supplemental testing for HCV RNA is ordered to rule out active HCV infection. Index value ??is >=1.00 and <11.00 Hepatitis A Antibody, IgM Negative Negative 12/24/2023 20:27 EDT [facility] Comment:The results of this assay can be falsely lowered due to the consumption of Biotin. Hepatitis B Core Ab, Total Negative Negative 12/24/2023 20:27 EDT [facility] Blood VENOUS BLOOD / Unknown 12/23/2023 13:21 EDT 12/24/2023 17:42 EDT Provider Outr Resulting Lab CHEMISTRY & BLOOD GAS ORDERABLES Performing Organization Address [facility] Co de Phone Number [facility] [address] [place] [phone] documented in this encounter Visit Diagnoses Not on filedocumented in this encounter Care Teams Canvas Repairer Relationship Specialty Start Date End Date Rosie Bess MD [address] [place] [phone] PCP - General 05/15/11 documented as of this encounter
--- OUTSIDE RECORDS SUMMARY | 2024-01-22 14:46 | XMS_ITS | Encounter Summary ---
Author Organization [facility] [place] [address] Care Team Providers Care Sugar Presser Name Role Phone Rosie Bess MD Primary Care Provider [phone] Encounter Details Date Type Department Care Team (Latest Contact Info) Description 03/02/2016 - 03/02/2016 11:59 PM EDT Hospital Encounter [place] [address] Breanne Dee MD [facility] [place] [address] Pain Discharge Disposition: Home Social History Tobacco Use [...] on file documented as of this encounter Medications at Time of Discharge Medication Sig Dispensed Refills Start Date End Date gabapentin (NEURONTIN) 300 mg Capsule 1-2 capsules [...] hr Take 75 mg by mouth daily. meloxicam (MOBIC) 7.5 mg Tablet Reported on 05/16/2016 02/21/2016 07/11/2016 ibuprofen (ADVIL;MOTRIN) 400 mg Tablet Take 400 mg by mouth every 6 hours as needed for Pain. 07/11/2016 documented as of this encounter Plan of Treatment Not on file documented as of this encounter Procedures Procedure Name Priority Date/Time Associated Diagnosis Comments FILM LIBRARY STORAGE ONLY CT HEAD Routine 03/02/2016 12:00 AM EDT Pain documented in this encounter Results * Film Library- Storage Only CT Head (03/02/2016 12:00 AM EDT) Narrative [facility] - 03/02/2016 2:11 AM EDT This exam is for storage only and is auto-finalizing. Breanne Dee MD IMG FILM LIBRARY ORD ERABLES Performing Organization Address [facility]/State[facility] Co de Phone Number [place], [place] documented in this encounter Visit Diagnoses Diagnosis Pain Generalized pain documented in this encounter Care Teams Sugar Presser Relationship Specialty Start Date End Date Rosie Bess MD [address] [place] [address] PCP - General Family Medicine 06/16/15 documented as of this encounter
--- OUTSIDE RECORDS SUMMARY | 2024-01-22 14:46 | XMS_ITS | Encounter Summary ---
Author Organization [facility] [place] [address] Care Team Providers Care Battery Container Tester Aluminum Name Role Phone Rosie Bess MD Primary Care Provider [phone] Reason for Visit * Auth/Cert Specialty Diagnoses / Procedures Referred By Contelida t Referred To Contact Diagnoses RECURRENT RIGHT INGUINAL HERNIA ; GROIN PAIN Procedures PRO LAP, INGUINAL HERNIA REPR, RECUR PRO UNLISTED PX NRVS SYS LAPAROSCOPIC HERNIA REPAIR, INGUINAL, RECURRENT MODIFIER MESH,BARD,3D MAX REG NEURECTOMY,ILIOINGUINAL NERVE Referral ID Status Reason Start Date Expiration Date Visits Re quested Visits Authorized [id number] 1 1 Encounter Details Date Type Department Care Team (Latest Contact Info) Description 07/11/2016 5:46 AM EST - 07/11/2016 2:30 PM [facility] Hospital Encounter [place] [address] Laura Kuhn MD [facility] [place] [address] Discharge Disposition: Home Social History Tobacco Use [...] drainage from your wound. PHONE NUMBERS ?? [phone] during normal business hours - identify yourself and your surgeon. ?? [phone] outside normal business hours - Ask for General Surgery resident professional healthcare representative. ?? [phone] on weekends/holidays - Ask for General Surgery resident professional healthcare representative. Follow up: You will have a surgical followup appointment with LAURA Ervin in 4 weeks at the General Surgery Outpatient Clinic ([facility], [facility] The appointment details scheduled will be mailed to you. If you do not hear from [facility] within 5 daysof your discharge, Please call [phone] to confirm your appointment. Future Appointments Date Time Provider Department [place] 08/13/2016 4:00 PM Laura Kuhn MD [facility] Diet: Eat a well-balanced diet. Fresh [...] new drainage from your wound. PHONE NUMBERS [phone] during normal business hours - identify yourself and your surgeon. [phone] outside normal business hours - Ask for General Surgery resident professional healthcare representative. [phone] on weekends and all holidays - Ask for General Surgery resident professional healthcare representative. 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 He is a nondrinker, nonsmoker, and denies [...] Manuel MD - 07/11/2016 6:29 AM EST [facility] Department of General Surgery Interval History and [...] Kuhn MD - 07/11/2016 9:16 AM EST [facility] Operative Note Patient Name: Gamaliel Patel : [id number] MR#: [id number] Case Date: 07/11/2016 Surgeon: Surgeon(s) and Role: [...] sutures to the fascial layer in a [id number]-[id number] fashion.Steri-Strips and Band-Aids were applied. Inspection of [...] AM EST 07/11/2016 8:38 AM EST Narrative [facility] - 07/11/2016 8:38 AM EST Specimen requisition ordered. ??Separate Pathology report to follow Laura Kuhn MD PATHOLOGY/CYTOLOGY O RDERABLES [facility] [place] [address] * Specimen to Pathology (surgical or derm) (07/11/2016 8:35 AM EST) AP Specimen 07/11/2016 8:35 AM EST 07/11/2016 8:35 AM EST Narrative [facility] - 07/11/2016 8:35 AM EST Specimen requisition ordered. ??Separate Pathology report to follow Laura Kuhn MD PATHOLOGY/CYTOLOGY O ELMO [facility] [place] [address] * Surgical Pathology Report (07/11/2016 8:34 AM EST) Final Diagnosis [id number] ?Location: [facility]; A The signing pathologist has (i) examined [...] submitted. (T1) ??rm 07/16/2016 11:02 AM EST [facility] LYMPH NODE SPECIMEN / Unknown 07/11/2016 8:34 AM EST 07/11/2016 8:34 AM EST LYMPH NODE SPECIMEN / Unknown 07/11/2016 8:34 AM EST 07/11/2016 8:34 AM EST Laura Kuhn MD PATHOLOGY/CYTOLOGY O RDERABLES [facility] [place] [address] * SCAN DOC: IMPLANTABLE DEVICES (07/11/2016 12:00 [...] Given 07/11/2016 6:38 AM EST 1,000 mg fentaNYL (PF) 50 mcg/mL 2mL syringe 25 [...] Day of Surgery (Day of Procedure), Routine 06 (Given - Provid er: Ricardo Azevedo RN) [...] STAT 1045 (Given - Provid er: Jody Galaviz-Meagan) ondansetron (ZOFRAN-ODT) oral disintegrating tablet 8 mg [...] Recovery 1019 (Given - Provid er: Jody Galaviz-Hazard)1106 (Given - Provider: Jody Padronce-Hazard)1129 (See Alternative - Provider: Jody Moore Tierce-Hazard) fentaNYL (PF) 50 mcg/mL 2mL syringe(Linked Group 1) 50 mcg, Intravenous, EVERY 5 MIN PRN, Pain, for 5-10 pain score, Starting on Sat07/11/16 at 0929, Until Sat07/11/16 at 1644, for 5-10 pain score Hold for respiratory rate less than 10 per minute. Maximum dose: 250 mcg over one hour., PACU Recovery 1019 (See Alternativ e - Provider: Jody Padronce-Hazard)1106 (See Alternative - Provider: Jody Moore Tierce-Hazard)1129 (Given - Provider: Jody Galvaiz-Hazard) HYDROmorphone (DILAUDID) syringe 0.2-0.4 mg 0.2-0.4 mg, [...] er: Sophia Ahumada RN)1208 (Given - Provider: oSphia Ahumada RN) lidocaine (XYLOCAINE) 10 mg/mL (1 [...] Recovery 1214 (Given - Provid er: Sophia Ahumada, GALINDO) promethazine (PHENERGAN) injection 6.25 mg 6.25 mg, [...] 1115 (Not Given - Pr ovider: Jody Galaviz-Hazard - Reason: See comment - Comment: given under scheduled administration) Linked Groups Order Group 1: fentaNYL (PF) 50 mcg/mL 2mL syringeJump to med 25 mcg, Intravenous, EVERY 5 MIN PRN, Pain, for 1-4 pain score, Starting on Sat07/11/16 at 0929, Until Sat07/11/16 at 164, for 1-4 pain score Hold for respiratory [...] Recovery documented in this encounter Care Teams Battery Container Tester Aluminum Relationship Specialty Start Date End Date Rosie Bess MD [address] [place] [address] PCP - General Family Medicine 06/16/15 documented as of this encounter
--- OUTSIDE RECORDS SUMMARY | 2024-01-22 14:46 | XMS_ITS | Referral Summary ---
Author Organization [facility] Address [address] [place] [address] Care Team Providers Care Logging Superintendent Name Role Phone Rosie Bess MD Primary Care Provider [phone] Encounters Date Type Department Care Team Description 12/24/2023 Lab Requisition [facility] Pathology & Laboratory [facility] [address] [place] [address] Outr Resulting Lab, Provider 12/23/2023 Lab Requisition [facility] Pathology & Laboratory [facility] [address] [place] [address] Outr Resulting Lab, Provider from Last 3 Months Social History Tobacco Use Types Packs/Day Years Used Date Smoking Tobacco: Never Assessed Sex and Gender Information Value Date Recorded Sex Assigned at Not on file Gender Identity Not on file Sexual Orientation Not on file Plan of Treatment Not on file Procedures Procedure Name Priority Date/Time Associated Diagnosis Comments HCV RNA DETECT QUANT Today 12/23/2023 13:21 EDT ACUTE HEPATITIS PROFILE Routine 12/23/2023 13:21 EDT LYME ANTIBODY CONFIRMATION Today 12/23/2023 11:16 EDT LYME AB Routine 12/23/2023 11:16 EDT from Last 3 Months Results * HCV RNA DETECT QUANT (12/23/2023 13:21 EDT) HCV RNA Qualitative Undetected Undetected 12/25/2023 12:06 EDT [facility] Blood VENOUS BLOOD / Unknown 12/23/2023 13:21 EDT 12/24/2023 17:42 EDT Narrative [facility] - 12/25/2023 12:06 EDT The quantification range of this assay is 15 IU/mL to 100,000,000 IU/mL. Testing was performed using the Eddie HCV test ([employer] with the eddie 6800 System. Provider Outr Resulting Lab CHEMISTRY & BLOOD GAS ORDERABLES Performing Organization Address [facility] Co de Phone Number [facility] [address] [place], [place] [address] * (ABNORMAL) ACUTE HEPATITIS PROFILE (12/23/2023 13:21 EDT) Pathologist [facility] Hep B Surface Ag Negative Negative 12/24/2023 20:27 EDT [facility] Hep C Antibody Reactive(A) Negative 20:27 EDT [facility] Comment: Supplemental testing for HCV RNA is ordered to rule out active HCV infection. Index value ??is >=1.00 and <11.00 Hepatitis A Antibody, IgM Negative Negative 12/24/2023 20:27 EDT [facility] Comment:The results of this assay can be falsely lowered due to the consumption of Biotin. Hepatitis B Core Ab, Total Negative Negative 12/24/2023 20:27 EDT [facility] Blood VENOUS BLOOD / Unknown 12/23/2023 13:21 EDT 12/24/2023 17:42 EDT Provider Outr Resulting Lab CHEMISTRY & BLOOD GAS ORDERABLES Performing Organization Address [facility] de Phone Number [facility] [address] [place], [place] [phone] * (ABNORMAL) LYME ANTIBODY CONFIRMATION (12/23/2023 11:16 EDT) Pathologist [facility] Lyme IgG Antibody Negative Negative 024 10:30 EDT [facility] Comment:Specific anti-Borrel ia burgdorfei IgG antibodies are not detected. This does not exclude the possibility of B. burgdorferi infection. If exposure to B. burgdorferi is suspected, a second sample should be collected and tested 2-4 weeks later. Lyme IgM Antibody Positive(A) Negative 2023 10:30 EDT [facility] Comment:Specific anti-Borrel ia burgdorfei IgM antibodies are detected. Lyme Antibody Confirmation Interpretation See Comment 12/24/2023 10:30 EDT [facility] Comment:Indicative of possib le [...] A ND SEROLOGY ORDERABLES Performing Organization Address [facility] Co de Phone Number [facility] [address] [place] [phone] * (ABNORMAL) LYME AB (12/23/2023 11:16 EDT) [facility] Signature Lyme Ab Equivocal (A) Negative 12/24/2023 9:55 EDT [facility] Comment: Lyme confirmation added [...] A ND SEROLOGY ORDERABLES Performing Organization Address [facility] Co de Phone Number [facility] [address] [place] [address] from Last 3 Months Care Teams Logging Superintendent Relationship Specialty Start Date End Date Rosie Bess MD [address] [place] [phone] PCP - General 05/15/11
--- OUTSIDE RECORDS SUMMARY | 2024-01-22 14:46 | XMS_ITS | Encounter Summary ---
Author Organization [facility] Address [address] [place] [address] Care Team Providers Care Deck Builder Name Role Phone Rosie Bess MD Primary Care Provider [phone] Encounter Details Date Type Department Care Team (Late st Contact Info) Description 10/20/2019 Lab Requisition [facility] Pathology & [facility] [address] [place], [place] [address] Outr Resulting Lab, Provider Social History Tobacco [...] Procedure Name Priority Date/Time Associated Diagnosis Comments HEPATITIS C AB W REFLEX TO HCV RNA BY PCR Routine 10/19/2019 16:33 EDT documented in this encounter Results * HEPATITIS C AB W REFLEX TO HCV RNA BY PCR (10/19/2019 16:33 EDT) Hep C Antibody Negative Negative 10/21/2019 10:58 EDT [facility] Blood VENOUS BLOOD / Unknown 10/19/2019 16:33 EDT 10/20/2019 15:33 EDT Provider Outr Resulting Lab CHEMISTRY & BLOOD GAS ORDERABLES [facility] [address] [place] [address] documented in this encounter Visit Diagnoses Not on filedocumented in this encounter Care Teams Deck Builder Relationship Specialty Start Date End Date Rosie Bess MD [address] [place] [phone] PCP - General 05/15/11 documented as of this encounter
--- OUTSIDE RECORDS SUMMARY | 2024-01-22 14:46 | XMS_ITS | Encounter Summary ---
Author Organization [facility] [place] [address] Care Team Providers Care Assistant Inventory Manager Name Role Phone Rosie Bess MD Primary Care Provider [phone] Reason for Referral * Consultation (Routine) - Closed Specialty Diagnoses / Procedures Referred By Contac t Referred To Contact Dermatology Diagnoses Pruritic rash Rosie Bess MD [address] [place] [address] [facility] [address] [place] [address] Referral ID Status Reason Start Date Expiration Date V isits Requested Visits Authorized [id number] Closed Consult, Test & Treat PCP Updated and/or Approved 03/26/2022 03/26/2023 12 12 Encounter Details Date Type Department Care Team (Late st Contact Info) Description 03/26/2022 Transcribe Orders eDH Incoming Referrals [phone] Rosie Bess MD [address] [place] [address] Pruritic rash Social History Tobacco Use Types Packs/Day Years [...] as of this encounter Plan of Treatment Scheduled Referrals Name Type Priority Associated Diagnoses Order Schedule Referral to Dermatology Outpatient Referral Routine Pruritic rash Ordered: 03/26/2022 documented as of this encounter Visit Diagnoses Diagnosis Pruritic rash Prurigo documented in this encounter Care Teams Assistant Inventory Manager Relationship Specialty Start Date End Date Rosie Bess MD [address] [facility] [address] [place] [address] PCP - General Family Medicine 06/16/15 documented as of this encounter
--- OUTSIDE RECORDS SUMMARY | 2024-01-22 14:46 | XMS_ITS | Encounter Summary ---
Author Organization [facility] Address [address] [place] [address] Care Team Providers Care Frickertron Checker Name Role Phone Unknown, Provider Primary Care Provider [phone] Encounter Details Date Type Department Care Team (Late st Contact Info) Description 05/08/2011 Results Only [facility] [phone] Moisés Le, DO [address] [place] [address] Social History Tobacco Use Types Packs/Day Years Used Date Smoking Tobacco: Never Assessed Sex and Gender Information Value Date Recorded Sex Assigned at Not on file Gender Identity Not on file Sexual Orientation Not on file documented as of this encounter Plan of Treatment Not on file documented as of this encounter Procedures Procedure Name Priority Date/Time Associated Diagnosis Comments SURGICAL PATHOLOGY Routine 05/08/2011 0:00 EST documented in this encounter Results * SURGICAL PATHOLOGY (05/08/2011 0:00 EST) Pathology Report: SURGICAL PATHOLOGY REPORT Reports generated via electronic interface contain original data; however they are lacking the format of the original report. Caution should be taken when reading/interpreti ng unformatted reports. Name: ? MARCUS SHIRLEY ? Accession #: ? [id number] ? : ? 1960 (Age: 50) ??M ? Collect Date: ? 05/08/2011 ? Location: ? [facility] ? Receive Date: ? 05/09/2011 ? Provider: MOISÉS LE DO Copy to: TIP ANGELA MD ? Final Pathologic Diagnosis: A. ?Stomach, antrum, biopsy: 1. ?Antral-type mucosa with no specific histopathologic features. 2. ? No Helicobacter pylori-like microorganisms identified on H&E-stained sections. ?? B. ?Esophagus, biopsy: 1. ?Moderately active esophagitis. ??See comment. Comment: ? A PAS stain for fungal organisms is negative. ??(Dr. Rodriguez)/[facility] Document reviewed and electronically signed by: GALLO BRAVO MD Report ??Date: 05/11/2011 14:30 By the signature above, the attending physician certifies that he/she has personally conducted a gross and/or microscopic examination of the described specimens and rendered or confirmed the above diagnosis. Specimen(s) Received: A. ?Gastric antrum B. ? Esophagus Clinical History: ? Dysphagia, epigastric pain Gross Description: ? Received in formalin labelled Marcus Shirley and gastric antrum is a light chi biopsy measuring 0.5 x 0.3 x 0.3 cm. ??The specimen is submitted intact as (A). Received in formalin labelled Marcus Shirley and esophagus is a 0.3 x 0.3 x 0.2 cm, light chi biopsy. ??The specimen is submitted intact as (B). ??(Jorge Medina)/[facility] End of Report [facility] 05/08/2011 05/09/2011 9:0 7 EST Moisés Le DO PATHOLOGY ORDERABLES [facility] [address] [place] [address] documented in this encounter Visit Diagnoses Not on filedocumented in this encounter Care Teams Frickertron Checker Relationship Specialty Start Date End Date Unknown, Provider, PCP - General 12/06/09 05/14/11 documented as of this encounter
--- OUTSIDE RECORDS SUMMARY | 2024-01-22 14:46 | XMS_ITS | Encounter Summary ---
Author Organization [facility] [place] [address] Care Team Providers Care Ship Runner Name Role Phone Rosie Bess MD Primary Care Provider [phone] Reason for Visit * Auth/Cert Specialty Diagnoses / Procedures Referred By Contac t Referred To Contact Diagnoses RECURRENT RIGHT INGUINAL HERNIA ; GROIN PAIN Procedures PRO LAP, INGUINAL HERNIA REPR, RECUR PRO UNLISTED PX NRVS SYS LAPAROSCOPIC HERNIA REPAIR, INGUINAL, RECURRENT MODIFIER MESH,BARD,3D MAX REG NEURECTOMY,ILIOINGUINAL NERVE Referral ID Status Reason Start Date Expiration Date Visits Re quested Visits Authorized [id number] 1 1 Encounter Details Date Type Department Care Team (Late st Contact Info) Description 07/11/2016 7:31 AM EST Anesthesia [place] [address] Carli Petit MD [facility] [place] [address] Bennie Estrada, [address] [place] [address] Anesthesia Record Procedure Summary Procedure Name Responsible Anesthesiologist Anesthesia Start Time Anesthesia Stop Time LAPAROSCOPIC HERNIA REPAIR, INGUINAL, RECURRENT, UNILAT (WRVU 8.38) (Right: Pelvis) Carli Petit MD 07/11/16 0731 07/11/16 0931 Events Date Time Event Comment 07/11/2016 0638 0731 AN Verify 0731 Start 0736 An Start Data 0742 An Induction 0745 An Intubation 0753 Anesthesia Ready 0804 Procedure Start Time out com plete prior to surgery start. 0809 Quick Note Insufflation. 0818 An Data Art Surgeon leaning on cuff. 0909 Procedure Stop 0917 Extubation/LMA Out Extubated w/o event to at 6L. 0920 an stop data 0930 Recovery or ICU Handoff Amy ent care was transferred to the destination unit staff after review of the patient's medical history, current anesthetic/surgical status and plan, according to the Provider Handoff Checklist. VSS. 0931 Stop Meds Name Total Midazolam 2 mg IV Lidocaine 50 mg Propofol 225 mg Rocuronium 60 mg PHENYLephrine 960 mcg ePHEDrine 80 mg Dexamethasone 4 mg Neostigmine 3 mg Glycopyrrolate 0.4 mg ceFAZolin (ANCEF) 2g in dextrose 5% 50 m L 2 g Promethazine 2.5 mg Dexmedetomidine 20 mcg Ketorolac 15 mg Propofol INF 100.8 mg HYDROmorphone 0.6 mg lactated ringers infusion 1,000 mL 800 m L * Agents Name O2 Air N2O Isoflurane (et) * Blood No blood administrations on file. Lines, Drains, and Airways Type Details Placement Removal Incision 06/21/15; abdomen; laparoscopic punctures (specify) (multiple trocar sites. ); 02/05/22 (LDA cleanup utility RA#[id number]); 1715 (LDA cleanup utility RA#[id number]) 06/21/15 0000 by So Ochoa RN 02/05/22 1715 by Connie Dumont Incision 07/11/16; groin; laparoscopic punctures (specify); 02/05/22 (LDA cleanup utility RA#[id number]); 1715 (LDA cleanup utility RA#[id number]) 07/11/16 0000 by Noemi Solis RN 02/05/22 1715 by Connie Dumont (RETIRED) Peripheral IV Line - Single Lumen 07/11/16; 0633; metacarpal vein (top of hand), left; [id number] catheter system; 20 gauge; 07/11/16; 1447 07/11/16 0633 by Ricardo Azevedo RN 07/11/16 1447 by Mirella Mao ETT Mask Ventilation: Ea sy (1); ETT Type: Cuffed, Oral; ETT Size: 7.5 mm; [place] Blade: 3; Notes: Asleep, Pre-O2, Stylette; Attempts: 1; Laryngoscopy Grade: 1; ETT Placement Verified By: Auscultation, Capnometry, Visual; Secured at Teeth: 23 cm; Inserted by: Perlita Estrada CRNA; Removal Date: 07/11/16; Removal Time: 91607/11/16744 by Bennie Estrada CRNA 07/11/16916 by Bennie Estrada CRNA documented in this encounter Social History Tobacco Use Types Packs/Day Years Used Date Smoking Tobacco: Never Smokeless Tobacco: Never Alcohol Use Standard Drinks/Week Comments No 0 (1 standard drink = 0.6 oz pur e alcohol) quit 4 years ago Sex and Gender Information Value Date Recorded Sex Assigned at Not on file Gender Identity Not on file Sexual Orientation Not on file documented as of this encounter OR Notes * Anesthesia Postprocedure Evaluation - Carli Petit - 07/11/2016 9:51 AM EST [place] Department of Anesthesiology Post-procedure Note Patient: Gamaliel Patel Procedure Summary Date Anesthesia Start Anesthesia Stop Room / Location 07/11/[address] [place] [address] OR [facility] MAIN OR Procedure Diagnosis Surgeon Responsible Provider LAPAROSCOPIC HERNIA REPAIR, INGUINAL, RECURRENT (WRVU 8.38) (Right Pelvis); MODIFIER MESH,BARD,3D MAX REG (Right ); BIOPSY OR EXCISION OF LYMPH NODE(S), OPEN, GROIN (WRVU 3.79) (Right Pelvis); INJECTION ANESTHETIC, ILIOINGUINAL, ILIOHYPOGASTRIC (WRVU 1.75) (Right Pelvis) (RECURRENT RIGHT INGUINAL HERNIA ; GROIN PAIN) Laura Lo MD Dewhirst, William E, MD All Anesthesia Providers: Anesthesiologist: Carli Petit MD TOOL AND CUTTER GRINDER: Bennie Estrada CRNA Last (1hr) Vitals: BP 98/65 (07/11/16929) Temp 36.8 ??C (98.2 ??F) (07/11/16929) Pulse 75 (07/11/16929) Resp 16 (07/11/16929) SpO2 98 % (07/11/16929) Patient Location: PACU/SDP Level of Consciousness: Awake and Alert Pain Management: Satisfactory Analgesia PONV: None Cardiovascular Status: At Baseline and Hemodynamically Stable Respiratory Status: At Baseline and Room Air Postoperative Fluid Status: Intravascular EUvolemia Possible Anesthetic Complications: NONE apparent at time of evaluation Final Primary Anesthesia Type: General (The anesthetic type performed was the same as planned.) Comments: CARLI PETIT MD * Anesthesia Preprocedure Evaluation - Carli Petit - 07/10/2016 3:23 PM EST Pre-Anesthesia Evaluation for: Gamaliel Patel a 55 y.o. male. Procedure(s): LAPAROSCOPIC HERNIA REPAIR, INGUINAL, RECURRENT (WRVU 8.38) MODIFIER MESH,BARD,3D MAX REG NEURECTOMY,ILIOINGUINAL NERVE (WRVU 25.48) Patient Active Problem List Diagnosis ??? Groin pain, chronic, right ??? Pancreatitis, gallstone No past medical history on file. Past Surgical History Procedure Laterality Date ??? Pro ercp,diagnostic N/A 06/17/2015 ERCP performed by Filomena York MD at [facility] ENDOSCOPY ??? Pro lap, cholecystectomy/graph N/A 06/21/2015 LAPAROSCOPIC CHOLECYSTECTOMY WITH CHOLANGIOGRAM performed by Darrell Andrade MD at [facility] MAIN OR Social History Substance Use Topics ??? Smoking status: Never Smoker ??? Smokeless tobacco: Never Used ??? Alcohol use No Comment: quit 4 years ago History Drug Use No No Known Allergies Medications: MAR and/or home medications have been reviewed. Physical Exam: There were no vitals filed for this visit. There is no height or weight on file to calculate BMI. Airway Assessment: Mallampati: I TM distance: >3 FB Neck ROM: full Cardiovascular Assessment: Rhythm: regular Rate: normal Pulmonary Assessment: pulmonary exam normal Dental Assessment: Misc Assessment: Patient is wearing No contact(s). IV access: Peripheral line Other exam findings: Prior airway: K1FM;Gr 1 DL with Mac 4 blade Anesthesia Plan: ASA 2 general, Gamailel Patel is a 55 y.o. 84kg male with recurrent R inguinal hernia scheduled for lap herniarepair with mesh. Medical history reviewed; significant for HTN, GERD on meds, per anes note from 2016- IV drug use in the past and PTSD. non smoker. Anesthetic history: easy mask, g1v with 4 mac in 2016. Anesthetic plan: GA ETT. Anesthesiology Staff (Marisabel): Pre-op summary note as per Dr. Perez, above. Scheduled for elective laparoscopic recurrent R inguinal hernia repair. I have reviewed the history, available records and diagnostic data, then formulated and discussed the anesthetic plan with patient and Dr. . Anesthetic alternatives (where appropriate), procedures, risks (from common and minor to rare and and major) and consent for anesthesia were reviewed. The patient accepts that additional procedures and/or escalation of care may be necessary as dictated by the course of the procedure/anesthetic. All questions have been answered and the consent form signed. There are no pertinent advance directives. Plan: GA/OETT;IV induction;routine monitors. Region - Other Informed Consent: Anesthetic plan and risks discussed with patient and spouse. Use of blood products discussed with patient who consented to blood products. Plan discussed with TOOL AND CUTTER GRINDER. PAT Staff Note documented in this encounter Miscellaneous Notes * Addendum Note - Bennie Estrada CRNA - 07/12/2016 11:46 AM EST Addendum created 07/12/16 1146 by Bennie Estrada CRNA Anesthesia Intra Meds edited documented in this encounter Plan of Treatment Not on file documented as of this encounter Visit Diagnoses Not on filedocumented in this encounter Administered Medications Inactive Administered Medications - up to 3 most recent administrations Medication Order MAR Action Action Date Dose Rate Site ceFAZolin (ANCEF) 2g in dextrose 5% 50 mL 2 g, Intravenous, EVERY 3 HOURS, 1 dose, First dose on Sat07/11/16 at 0630, Administer over 30 Minutes, Day of Surgery (Day of Procedure), Indication for (Active or Suspected): Prophylaxis Given 07/11/2016 7:53 AM EST 2 g dexamethasone (DECADRON) injection PRN, Starting on Sat07/11/16 at 0758, Until Sat07/11/16 at 0932, Anesthesia Intra-op, Routine Given 07/11/2016 7:58 AM EST 4 mg dexmedetomidine (PRECEDEX) injection PRN, Starting on Sat07/11/16 at 0855, Until Sat07/11/16 at 0932, Anesthesia Intra-op, Routine Given 07/11/2016 9:05 AM EST 4 mcg Given 07/11/2016 9:00 AM EST 8 mcg Given 07/11/2016 8:55 AM EST 8 mcg ePHEDrine 5 mg/mL multi-dose injection PRN, Starting on Sat07/11/16 at 0822, Until Sat07/11/16 at 0932, Anesthesia Intra-op, Routine Given 07/11/2016 9:14 AM EST 10 mg Given 07/11/2016 9:11 AM EST 10 mg Given 07/11/2016 8:48 AM EST 10 mg glycopyrrolate (ROBINUL) multi-dose injection PRN, Starting on Sat07/11/16 at 0902, Until Sat07/11/16 at 0932, Anesthesia Intra-op, Routine Given 07/11/2016 9:02 AM EST 0.4 mg HYDROmorphone (DILAUDID) injection PRN, Starting on Sat07/11/16 at 0738, Until Sat07/11/16 at 0942, Pain, Anesthesia Intra-op, Routine Given 07/11/2016 7:38 AM EST 0.6 mg ketorolac (TORADOL) injection PRN, Starting on Sat07/11/16 at 0900, Until Sat07/11/16 at 0932, Pain, Anesthesia Intra-op, Routine Given 07/11/2016 9:00 AM EST 15 mg lidocaine (PF) (XYLOCAINE) 100 mg/5 mL (2 %) injection PRN, Starting on Sat07/11/16 at 0740, Until Sat07/11/16 at 0932, Anesthesia Intra-op, Routine Given 07/11/2016 7:40 AM EST 50 mg midazolam (PF) (VERSED) 1 mg/mL multi-dose injection PRN, Starting on Sat07/11/16 at 0731, Until Sat07/11/16 at 0932, Sleep, Anesthesia Intra-op, Routine Given 07/11/2016 7:31 AM EST 2 mg neostigmine (PROSTIGMINE) multi-dose injection PRN, Starting on Sat07/11/16 at 0902, Until Sat07/11/16 at 0932, Anesthesia Intra-op, Routine Given 07/11/2016 9:02 AM EST 3 mg PHENYLephrine HCl in NS (PF) (JOSE F-SYNEPHRINE) 0.8 mg/10 mL (80 mcg/mL) multi-dose injection Syrg PRN, Starting on Sat07/11/16 at 0801, Until Sat07/11/16 at 0932, Anesthesia Intra-op, Routine Given 07/11/2016 9:14 AM EST 80 mcg Given 07/11/2016 9:11 AM EST 80 mcg Given 07/11/2016 8:48 AM EST 40 mcg promethazine (PHENERGAN) injection PRN, Nausea, Starting on Sat07/11/16 at 0855, Until Sat07/11/16 at 0932, Anesthesia Intra-op Given 07/11/2016 8:5 5 AM EST 2.5 mg propofol (DIPRIVAN) 10 mg/mL bolus injection (Anesthesia) PRN, Starting on Sat07/11/16 at 0742, Until Sat07/11/16 at 0932, Anesthesia Intra-op Given 07/11/2016 7:44 AM EST 25 m g Given 07/11/2016 7:42 AM EST 200 mg propofol (DIPRIVAN) infusion CONTINUOUS PRN, Starting on Sat07/11/16 at 0800, Until Sat07/11/16 at 0932, Anesthesia Intra-op, Routine New Bag 07/11/2016 8:00 AM EST 20 mcg/kg/min 10.1 mL/hr rocuronium (ZEMURON) multi-dose injection PRN, Starting on Sat07/11/16 at 0742, Until Sat07/11/16 at 0932, Anesthesia Intra-op, Routine Given 07/11/2016 7:42 AM EST 60 mg documented in this encounter Care Teams Ship Runner Relationship Specialty Start Date End Date Rosie Bess MD [facility] [address] [place] [address] PCP - General Family Medicine 06/16/15 documented as of this encounter
--- OUTSIDE RECORDS SUMMARY | 2024-01-22 14:47 | XMS_ITS | Encounter Summary ---
Author Organization [facility] [address] Care Team Providers Care Case Therapist Name Role Phone Rosie Bess MD Primary Care Provider Encounter Details Date Type Department Care Team (Latest Contact Info) Description 06/16/2015 - 06/16/2015 12:04 AM [facility] En[place] [id number] Pain Discharge Disposition: Home Social History Tobacco [...] Pain or Fever. 30 tablet 1 06/23/2015 oxyCODONE (ROXICODONE) 5 mg Tablet Take 1-2 [...] mouth daily. 14 each 0 06/23/2015 07/20/2015 documented as of this encounter Plan of Treatment Not on file documented as of this encounter Procedures Procedure Name Priority Date/Time Associated Diagnosis Comments FILM LIBRARY STORAGE ONLY ULTRASOUND STUDY Routine 06/16/2015 12:00 AM EST Pain documented in this encounter Results * Film Library- Storage only Ultrasound Study (06/16/2015 12:00 AM EST) Narrative SARAHI - 06/16/2015 8:57 PM EST See PACS for result report. Dr Salinas [facility] FILM LIBRARY ORD ERABLES [place], [place] documented in this encounter Visit Diagnoses Diagnosis Pain Generalized pain documented in this encounter Care Teams Case Therapist Relationship Specialty Start Date End Date Rosie Bess MD [address] [place] [address] PCP - General Family Medicine 06/16/15 documented as of this encounter
--- OUTSIDE RECORDS SUMMARY | 2024-01-22 14:47 | XMS_ITS | Encounter Summary ---
Author Organization [facility] [place] [address] Care Team Providers Care Clinic Supervisor Name Role Phone Unavailable Primary Care Provider Unavailabl e Encounter Details Date Type Department Care Team (Latest Contact Info) Description 06/15/2015 - 06/15/2015 12:04 AM EST Hospital Encounter [place] [id number] Pain Discharge Disposition: Home Social History Tobacco [...] Associated Diagnosis Comments FILM LIBRARY STORAGE ONLY DX ABDOMEN Routine 06/15/2015 12:00 AM EST Pain documented in this encounter Results * Film Library- Storage only DX Abdomen (06/15/2015 12:00 AM EST) Narrative SARAHI - 06/16/2015 8:56 PM EST See PACS for result report. Dr Rita White [place] FILM LIBRARY ORD ERABLES [place], [place] documented in this encounter Visit Diagnoses Diagnosis Pain Generalized pain documented in this encounter
--- OUTSIDE RECORDS SUMMARY | 2024-01-22 14:47 | XMS_ITS | Encounter Summary ---
[place] [address] Care Team Providers Care Oil Pipe Inspector Helper Name Role Phone Rosie Bess MD Primary Care Provider [phone] Reason for Visit * Auth/Cert - Closed Specialty Diagnoses / Procedures Referred By Contac t Referred To Contact Diagnoses Pancreatitis, gallstone ? OBSTRUCTED COMMON BILE DUCT Procedures IPI Referral ID Status Reason Start Date Expiration Date Visits Re quested Visits Authorized [id number] Closed 1 1 Encounter Details Date Type Department Care Team (Late st Contact Info) Description 06/17/2015 12:51 PM EST Anesthesia [place] [address] Lino Cross MD [facility] [place] [address] Anesthesia Record Procedure Summary Procedure Name Responsible Anesthesiologist Anesthesia Start Time Anesthesia Stop Time ERCP (WRVU 5.85) (Trunk) Lino Cross MD 06/17/15 1251 06/17/15 1352 Events Date Time Event Comment 06/17/2015 1251 AN Verify 1251 Start 1252 1256 An Start Data 1306 An Induction 1307 An Intubation 1308 Anesthesia Ready 1312 Quick Note Iv infiltrated new 20 in right wrist 1349 Extubation/LMA Out 1352 an stop data 1352 Recovery or ICU Handoff Amy ent care was transferred to the destination unit staff after review of the patient's medical history, current anesthetic/surgical status and plan, according to the Provider Handoff Checklist. 1352 Stop Meds Name Total Propofol 350 mg Propofol INF 526.32 mg Succinylcholine 100 mg PHENYLephrine 460 mcg Lactated Ringers 725 mL * Agents Name O2 Auxiliary Flowmeter 1 * Blood No blood administrations on file. Lines, Drains, and Airways Type Details Placement Removal (RETIRED) Peripheral IV Line - Single Lumen 06/16/15; 2199; metacarpal vein right (top of hand); other (see comments); 20 gauge; outside hospital ; removed per policy/procedure, catheter intact; 06/22/15; 1400 06/16/15 2200 by Emilia Schumacher APRN 06/22/15 1400 by Deana Jha RN ETT Mask Ventilation: Ea sy (1); ETT Type: Cuffed, Oral; ETT Size: 7.5 mm; Mac Blade: 4; Notes: Asleep, Pre-O2; Attempts: 1; Laryngoscopy Grade: 1; ETT Placement Verified By: Auscultation, Capnometry, Visual; Secured at Teeth: 22 cm; Inserted by: Lalo dong; Removal Date: 06/17/15; Removal Time: 1349 06/17/15 1307 by Matthew May CRNA 06/17/15 1349 by Matthew May CRNA documented in this encounter Social History [...] OR Notes * Anesthesia Postprocedure Evaluation - Lino Cross MD - 06/17/2015 2:[address] [facility] Department of Anesthesiology Post-procedure Note Patient: Gamaliel Patel Procedure Summary Date Anesthesia Start Anesthesia Stop Room / Location 06/17/15 1251 1352 [facility] END[facility] 2 / [facility] ENDOSCOPY Procedure Diagnosis Surgeon Responsible Provider ERCP (N/A Trunk) No diagnosis on file. Filomena York MD Burrage, Peter S, MD (choledochiliathsis) Last (1hr) Vitals: BP 109/57 mmHg (06/17/15 1358) Temp Pulse 89 (06/17/15 1358) Resp 18 (06/17/15 1358) SpO2 98 % (06/17/15 1358) Patient Location: PACU/[facility] Level of Consciousness: Conscious but Sleepy Pain Management: Satisfactory Analgesia PONV: None Cardiovascular Status: At Baseline Respiratory Status: At Baseline Postoperative Fluid Status: Intravascular EUvolemia Possible Anesthetic Complications: NONE apparent at time of evaluation Final Primary Anesthesia Type: General (The anesthetic type performed was the same as planned.) Comments: * Anesthesia Preprocedure Evaluation - Lino Cross MD - 06/17/2015 11:14 AM EST Pre-Anesthesia Evaluation for: Gamaliel Patel a 54 y.o. male. Procedure(s): ERCP Patient Active Problem List Diagnosis ??? Pancreatitis, gallstone No past medical history on file. No past surgical history on file. History Substance Use Topics ??? Smoking status: Never Smoker ??? Smokeless tobacco: Never Used ??? Alcohol Use: No Comment: quit 4 years ago History Drug Use No No Known Allergies Medications: MAR and/or home medications have been reviewed. Physical Exam: Filed Vitals: 06/17/15 0749 BP: 125/72 Pulse: 78 Temp: 37 ??C (98.6 ??F) Resp: 18 Body mass index is 27.38 kg/(m^2). Height: 172.7 cm (5' 8) Weight - Scale: 81.647 kg (180 lb) (per Pt report) Anesthesia Physical Exam Anesthesia Plan: ASA 2 General, 54M with h/o depression, PTSD, etoh and IVDA (now sober x3yrs) p/w worsening abdominal pain and imaging concerning for gallstone pancreatits. Inpt labs reviewed and notable for a mildly elevated WBC and LFTs/bilis and normal Cr. NKDA. NPO status. Plan for GETA with RSI. Informed Consent: Anesthetic plan and risks discussed with patient. Use of blood products discussed with patient whom. PAT Staff Note documented in this encounter Plan of Treatment Not on file documented as of this encounter Visit Diagnoses Not on filedocumented in this encounter Administered Medications Inactive Administered Medications - up to 3 most recent administrations Medication Order MAR Action Action Date Dose Rate Site lactated ringers infusion CONTINUOUS PRN, Starting on Sat06/17/15 at 1251, Until Sat06/17/15 at 1352, Anesthesia Intra-op New Bag 06/17/2015 12:51 PM EST PHENYLephrine HCl in NS (PF) (JOSE F-SYNEPHRINE) 0.8 mg/10 mL (80 mcg/mL) multi-dose injection Syrg PRN, Starting on Sat06/17/15 at 1318, Until Sat06/17/15 at 1352, Anesthesia Intra-op, Routine Given 06/17/2015 1:37 PM EST 60 mcg Given 06/17/2015 1:28 PM EST 80 mcg Given 06/17/2015 1:25 PM EST 160 mcg propofol (DIPRIVAN) 10 mg/mL bolus injection (Anesthesia) PRN, Starting on Sat06/17/15 at 1306, Until Sat06/17/15 at 1352, Anesthesia Intra-op Given 06/17/2015 1:17 PM EST 50 mg Given 06/17/2015 1:13 PM EST 50 mg Given 06/17/2015 1:07 PM EST 50 mg propofol (DIPRIVAN) infusion CONTINUOUS PRN, Starting on Sat06/17/15 at 1306, Until Sat06/17/15 at 1352, Anesthesia Intra-op, Routine Rate/Dose Change 06/17/2015 1:17 PM EST 250 mcg/kg/min 122.4 mL/hr New Bag 06/17/2015 1:06 PM EST 200 mcg/kg/min 97.9 mL/h r succinylcholine (ANECTINE) injection PRN, Starting on Sat06/17/15 at 1306, Until Sat06/17/15 at 1352, Anesthesia Intra-op, Routine Given 06/17/2015 1:06 PM EST 100 mg documented in this encounter Care Teams Oil Pipe Inspector Helper Relationship Specialty Start Date End Date Rosie Bess MD [address] [place] [address] PCP - General Family Medicine 06/16/15 documented as of this encounter
--- OUTSIDE RECORDS SUMMARY | 2024-01-22 14:47 | XMS_ITS | Encounter Summary ---
Author Organization [facility] [place] [address] Care Team Providers Care Travel Registered Nurse Oncology Name Role Phone Rosie Bess MD Primary Care Provider [phone] Reason for Visit * Auth/Cert - Closed Specialty Diagnoses / Procedures Referred By Contac t Referred To Contact Diagnoses Pancreatitis, gallstone ? OBSTRUCTED COMMON BILE DUCT Procedures IPI Referral ID Status Reason Start Date Expiration Date Visits Re quested Visits Authorized [id number] Closed 1 1 Encounter Details Date Type Department Care Team (Late st Contact Info) Description 06/17/2015 1:00 PM EST - 06/17/2015 2:00 PM EST [place] [id number] Filomena York MD [facility] [place] [address] ERCP (V 5.85) Social History Tobacco Use Types Packs/Day Years [...] Gamaliel Queen Patient Age: 54 y.o. Language: Dutch Race: White Ethnicity: Not nor Admit date: 06/16/2015 Discharge date and time: 06/23/2015 Attending Physician: Blajit Gutierrez MD Discharge Physician: Baljit Gutierrez MD [...] please contact your inpatient physician through [place] [facility] [place] [facility] . 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 At roughly 10 AM, he noted development [...] These symptoms caused him to present to [facility] yesterday afternoon forfurther evaluation. At [facility] yesterday on admission, he was noted to [...] kept NPO. He is being transferred [place] [facility] [place]. At this time, he has no new symptoms. Nausea and abdominal pain are well controlled on current meds. Hospital Course: # Gallstone pancreatitis/Ascending cholangitis - Patient was transferred from [facility] for evaluation with an ERCP at our [...] Department Center 07/20/2015 10:00 AM Maribell Au, FIELD LIABILITY GENERALIST [facility] Your Inpatient Doctor: Baljit Gutierrez MD Your Primary Care Provider: ROSIE BESS MD [phone] For questions regarding this document or issues relating to this hospitalization on the Medical Service, please contact your inpatient physician through the [facility] . Issues afterhours and on weekends will [...] concerning symptoms The number for questions is [phone] before 5 PM weekdays and [phone] after 5 PM and on weekends (ask for the General Surgery resident production metal sprayer). Activity level: No heavy lifting greater than [...] Department Dept Phone 07/20/2015 10:00 AM Maribell Au, FIELD LIABILITY GENERALIST General Surgery [phone] Discharge References/Attachments None documented in this encounter [...] 10:00 AM Maribell Au, SENAIT [facility] Your Inpatient Doctor: Baljit Gutierrez MD Your Primary Care Provider: ROSIE BESS MD [phone] For questions regarding this document or issues relating to this hospitalization on the Medical Service, please contact your inpatient physician through the [facility] . Issues afterhours and on weekends will [...] concerning symptoms The number for questions is [phone] before 5 PM weekdays and [phone] after 5 PM and on weekends (ask for the General Surgery resident production metal sprayer). Activity level: No heavy lifting greater than [...] spent <30 minutes (Day of Discharge Code 11331) involved in the final examination of the [...] General Surgery Inpatient Progress Note ID: Gamaliel uQeen is a 54 y.o. male with hx of PTSD, IVDU, and prior EtOH [facility]. ERCP on [...] Gutierrez MD - 06/22/2015 7:01 AM EST Hospital Medicine Progress Note Patient [...] Vitals for the past 168 hrs: Weight 06/16/152058 81.647 kg (180 lb) Physical Exam: GEN: [...] PRABHAKAR RASHID MD Blue Team - Pager [phone] 06/22/2015 Attending Attestation Please see Dr. Rashid's [...] of two midnights or is on the [facility] inpatient only procedure list (status C) [...] PTSD, IVDU, and prior EtOH abuse [facility] pancreat[facility]. ERCP on [...] spontaneously Imaging: XR abd - 06/19 - . Mild gaseous distention of ascending and transverse [...] Gutierrez MD - 06/21/2015 6:21 AM EST [facility] Medicine Progress Note Patient Name: Gamaliel Queen [...] Intake/Output Summary (Last 24 hours) at 06/21/15 06 Last data filed at 06/21/15 0615 Gross per 24 hour Intake 1740 ml Output 1950 ml Net -210 ml Patient Vitals for the past 168 hrs: Weight 06/16/152058 81.647 kg (180 lb) Physical Exam: GEN: [...] PRABHAKAR RASHID MD Blue Team - Pager [phone] 06/21/2015 Attending Attestation Please see Dr. Rashid's [...] of two midnights or is on the [facility] inpatient only procedure list (status C) due to: uncontrolled pain requiring titration of medications to achieve optimal effect and to minimize immediate or severe side effects BALJIT GUTIERREZ MD 06/21/15 * Baljit Gutierrez MD - 06/20/2015 7:18 AM EST [facility] Medicine Progress Note Patient Name: Gamaliel Queen [...] PRABHAKAR RASHID MD Blue Team - Pager [phone] 06/20/2015 Attending Attestation Please see Dr. Rashid's [...] of two midnights or is on the [facility] inpatient only procedure list (status C) [...] PTSD, IVDU, and prior [facility]. ERCP on [...] four extremities spontaneously Lines/Drains: PIV Recent Labs 06/19/1551906/18/15 0536 06/17/15 0634 06/16/15 2211 WBC 10.5* 11.6* 12.8* 12.0* HGB 11.8* 12.0* 13.2* 13.6* HCT 34.2* 35.1* 39.8* 41.2 PLATELET 274 243 236 232 PT -- -- -- 15.3* INR -- -- -- 1.2* Recent Labs 06/19/15 0506/18/15 0536 06/17/15 0634 06/16/15 2211 NA 136 [...] PRABHAKAR RASHID MD Blue Team - Pager [phone] 06/19/2015 Attending Attestation Please see Dr. Rashid's [...] of two midnights or is on the [facility] inpatient only procedure list (status C) [...] Gutierrez MD - 06/18/2015 7:42 AM EST Hospital Medicine Progress Note Patient [...] Vitals for the past 168 hrs: Weight 06/16/152058 81.647 kg (180 lb) Physical Exam: GEN: [...] PRABHAKAR RASHID MD Blue Team - Pager [phone] 06/18/2015 Attending Attestation Please see Dr. Rashid's [...] of two midnights or is on the CMS inpatient only procedure list (status C) due [...] Vicente MD - 06/17/2015 6:55 PM EST Hospital Medicine Progress Note Patient Name: [...] nausea (zofran did not provide relief at [facility]) - IV LR at 200cc/hr - Continue [...] GORDON VICENTE MD (PGY-3) Hospital Medicine- pager [phone] 06/17/2015 Associated attestation - Ricardo Van MD - 06/17/2015 7:20 PM EST M2 Hospital Medicine Service Attending Documentation Please see Dr. [...] EST Office of Care Management (OCM) / Catalyst Operator(CM)/ Initial Assessment Discussed patient with Provider Team [...] Michelle in a single family home in [place], [place]. 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 Patient denies the use of assistive devicesfor ambulation/mobility. CURRENT FUNCTIONAL STATUS: Patient is lying in bed during this interview. SOCIAL / FAMILY SUPPORTS: Patient reports good support consisting of family and friends ADVANCE DIRECTIVES: none on file HEALTH /PRESCRIPTION COVERAGE: [facility] CURRENT HOME/COMMUNITY SERVICES/EQUIPMENT: DME: none Home Health Agency: none Other: none HELP DESK REPRESENTATIVE REFERRAL: as needed PRIMARY CARE PHYSICIAN: ROSIE BESS MD [facility] [phone] [facility] [address] POTENTIAL DISCHARGE NEEDS: no needs anticipated, pending hospital course PATIENT/FAMILY EDUCATION NEEDS: plan of care, DC plan ANTICIPATED BARRIERS TO DISCHARGE: none TRANSPORTATION @ D/C: - Michelle PLAN: CM will continue to monitor progress, follow for continuity of care and assist with dischargeplanning while hospitalized. 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 At roughly 10 AM, he noted development [...] These symptoms caused him to present to [facility] yesterday afternoon forfurther evaluation. At [facility] yesterday on admission, he was noted to [...] kept NPO. He is being transferred [place] [facility] [place] At this [...] nausea (zofran did not provide relief at [facility]) -IV NS at 200cc/hr -GI consult for [...] to medicine PCP: ROSIE BESS MD at [phone] A copy of this document will be sent to the patient's Primary Care Physician and/or Referring Physician. SANTI MANN MD 06/16/[address] Medicine Service Attending Documentation I certify [...] touch Goal: Fall Prevention-Safe Patient Handling 06/22/15219906/23/15 050 Musculoskeletal Interventions Activity/Level of Assistance independently -- [...] promoted;hydration promoted;environmental surveillance Goal: Discharge Needs Assessment 06/16/15210106/20/15358 Discharge Needs Assessment Concerns to be [...] known Surveillance: Rounding hourly and as needed, terence CPG GOAL OUTCOME EVALUATION: Goal: Individualization and [...] Outcome: Ongoing (Interventions Implemented as Appropriate) 06/22/15 0806/22/15 1734 Musculoskeletal Interventions Activity/Level of Assistance independently [...] Outcome: Ongoing (Interventions Implemented as Appropriate) 06/22/15 0806/22/15 173 Coping/Psychosocial Response Interventions Counseling verbalization of feelings [...] (CPG) Outcome: Ongoing (Interventions Implemented as Appropriate) 06/20/15 035 Skin Integrity Impairment, Risk/Actual Personal Related Risk [...] Review Outcome: Ongoing (Interventions Implemented as Appropriate) 06/22/15517 Plan of Care Review Plan of Care [...] 0.3 mg IV dilaudid ordered and given (seeMAR). Good effect. Pain decreased to 3/10. Will [...] make needs known. Surveillance: Purposeful rounding, terence, naomieh VS. CPG GOAL OUTCOME EVALUATION: Goal: Individualization [...] Healing Patient will demonstrate the desired outcomes. 06/22/15 0518 Skin Integrity Impairment, Risk/Actual (Adult, Obstetrics) Skin [...] Level Patient will demonstrate the desired outcomes. 06/22/1518 Pain, Acute (Adult, Obstetrics) Acceptable Pain Control/Comfort Level making progress toward outcome * Plan of Care - Emilia Patel RN - 06/21/2015 9:11 PM EST Problem: General Plan of Care Goal: Plan of Care Review Outcome: Ongoing (Interventions Implemented as Appropriate) 06/18/155 06/21/152005 Plan of Care Review Plan of Care [...] outcomes. Outcome: Ongoing (Interventions Implemented as Appropriate) 06/18/155 Skin Integrity Impairment, Risk/Actual (Adult, Obstetrics) Skin Integrity/Wound Healing making progress toward outcome Problem: Pain, Acute (Adult, Obstetrics) Goal: Acceptable Pain Control/Comfort Level Patient will demonstrate the desired outcomes. Outcome: Ongoing (Interventions Implemented as Appropriate) 06/18/15314 Pain, Acute (Adult, Obstetrics) Acceptable Pain Control/Comfort Level making progress toward outcome * Op Note - Lin Marquez - 06/21/2015 10:34 AM EST [facility] [place] Patient Name: Gamaliel Queen : [id number] MR#: [id number] Case Date: 06/21/2015 Surgeon: Surgeon(s) and Role: [...] IVDU, and prior EtOH abuse transferred from [facility] on 06/16 for gallstone pancreatitis. ERCP on [...] the end of the procedure and Dr. Stephesnon was scrubbed throughout the procedure. Infection Bundle [...] Operative Note Patient Name: Gamaliel Queen : [id number] MR#: [id number] Case Date: 06/21/2015 Surgeon: Surgeon(s) and Role: [...] Review Outcome: Ongoing (Interventions Implemented as Appropriate) 06/18/155 06/20/152208 Plan of Care Review Plan of Care [...] and as ordered. INDIVIDUALIZED FALL PREVENTION: Call pruett within easy reach. Nonslip socks on when OOB. Assist as needed OOB. PT consult if needed. Assistance: Independent Supervision: Independent Surveillance: gilberto monitor, monitor VS q 4 hours, hourly [...] (CPG) Outcome: Ongoing (Interventions Implemented as Appropriate) 06/20/15 0359 Pain, Acute Related Risk Factors [...] Control Outcome: Ongoing (Interventions Implemented as Appropriate) 06/20/1590311/16 1005 Coping/Psychosocial Response Interventions Counseling calming techniques promoted;emotional support provided;reassurance provided;relaxation techniques promoted -- Safety Interventions Isolation Precautions -- standard precautions maintained Infection Prevention environmental surveillance;rest/sleep promoted -- Problem: Skin Integrity Impairment, Risk/Actual (Adult, Obstetrics) Goal: Skin Integrity/Wound Healing Patient will demonstrate the desired outcomes. Outcome: Ongoing (Interventions Implemented as Appropriate) 06/18/15 031 Skin Integrity Impairment, Risk/Actual (Adult, Obstetrics) Skin [...] if needed. Assistance: Independent Supervision: Independent Surveillance: Gilberto, monitor VS q 4 hours, hourly rounding [...] Handling Outcome: Ongoing (Interventions Implemented as Appropriate) 06/19/1573406/19/1574306/19/15 1003 Espinal Fall Risk History of Falling [...] Control Outcome: Ongoing (Interventions Implemented as Appropriate) 06/19/1573406/19/15 100 Coping/Psychosocial Response Interventions Counseling calming techniques promoted [...] PTSD, IVDU, and [facility]. ERCP on [...] DISPO: Floor status Code status: Full My Aguilera Kayla, MS4 Pgr. [id number] * Plan of Care - Anam Keating [...] Control Outcome: Ongoing (Interventions Implemented as Appropriate) 06/18/1540 06/18/152047 Coping/Psychosocial Response Interventions Counseling calming techniques promoted [...] Ongoing (Interventions Implemented as Appropriate) 06/18/15 0315 06/18/15 0740 Plan of Care Review Plan of [...] Roman MD - 06/18/2015 2:02 PM EST [facility] Department of Surgery Inpatient Consult Note Consultation Requested by: Baljit Gutierrez MD History of Present Illness: We are seeing Gamaliel Queen today at the request of Baljit Lorenz MD for evaluation and advice about gallstone pancreatitis. This patient was admitted two days ago after presenting to [facility] with complaints of abdominal pain and nausea [...] Handling Outcome: Ongoing (Interventions Implemented as Appropriate) 06/17/15193906/17/152199 Espinal Fall Risk History of Falling 0 [...] Control Outcome: Ongoing (Interventions Implemented as Appropriate) 06/17/151939 Coping/Psychosocial Response Interventions Counseling emotional support provided;calming [...] Outcome: Ongoing (Interventions Implemented as Appropriate) 06/17/15 0756 Coping/Psychosocial Response Interventions Plan of Care Reviewed [...] York MD - 06/17/2015 11:13 AM EST [facility] Section of Gastroenterology and Hepatology Initial Inpatient [...] shift. Patient c/o abdominal pain this shift 5-12/17 receiving prn Oxycodone per order x2 with good effect noted as patient denies any pain at this time. Pt c/o nausea with prn Phenergan given per order with good effect. Patient's HR low 100s-90s, respirations 22-24, BP initially slightly elevated 151/97 decreased to 125/72, T: 101.1 at 00:00; MD Mann made aware of SIRS bundle triggered and increased temperature; MD states not wantingto draw lactate at this [...] 12: 37 PM EST FILM LIBRARY-FLUORO OR [id number] ONL Imaging Routine 06/21/2015 9:4 0 AM EST Scheduled Orders Name Type Priority Associated Diagnoses Orde r Schedule XR ERCP Imaging Routine Once PRN (for Radiant use) for 1 Occurrences starting 06/17/2015 until 06/17/2015 FILM LIBRARY-FLUORO OR [id number] ONL Imaging Routine Once PRN (f or Radiant use) for 1 Occurrences starting 06/21/2015 until 06/21/2015 documented as of this encounter Procedures Procedure Name Priority Date/Time Associated Diagnosis Comments FURNITURE POLISHER SCAN 06/24/2015 12:00 AM EST BMP W/FASTING [...] TO PATHOLOGY Routine 06/21/2015 10:03 AM EST HEMOGRAM Routine 06/21/2015 4:41 AM EST DIFFERENTIAL, [...] in this encounter Results * SCAN DOC: FURNITURE POLISHER (06/24/2015 12:00 AM EST) Anatomical Region Laterality [...] HEMATOLOGY ORDERABLE S CERNER MILLENNIUM * (ABNORMAL) BMP w/fasting Glucose (06/23/2015 3:58 [...] of Diabetes Mellitus, Position Statement from the [place] [employer]. ??Diabetes Care, Volume 33, Supplement 1, Jun 2009 Blood Urea Nitrogen 13 10 - 20 mg/dL CERNER MILLENNIUM Creatinine 0.79(L) 0.80 - 1.50 mg/dL CERNER MILLENNIUM Comment: Please note that the pediatric reference intervals supplied above were not validated at [facility]. Results from pediatric patients [...] the following links into your internet browser. [email or web address] Blood specimen (specimen) 06/23/2015 3:58 AM EST 06/23/2015 4:11 AM EST Narrative Resulting Agency Comment Spec In Lab Baljit Gutierrez MD CHEMISTRY ORDERABLES PORSCHE WELSH * (ABNORMAL) Hepatic Function Panel (06/22/2015 5:49 AM EST) Protein, Total 6.6 6.1 - 8.0 gm/dL [...] MD CHEMISTRY ORDERABLES CERNER MILLENNIUM * (ABNORMAL) Differential, Automated (06/22/2015 5:49 AM EST) Neutrophil % 77.6 % CERNER MILLENNIUM Neutrophil [...] Baljit Gutierrez MD HEMATOLOGY ORDERABLE S CERGILLES MILLENNIUM * (ABNORMAL) Hemogram (06/22/2015 5:49 AM EST) [...] MD HEMATOLOGY ORDERABLE S PORSCHE WELSH * BMP w/fasting Glucose (06/22/2015 5:49 AM EST) Glucose Fasting 96 65 - 99 mg/dL [...] of Diabetes Mellitus, Position Statement from the [place] [employer]. ??Diabetes Care, Volume 33, Supplement 1, Jun 2009 Blood Urea Nitrogen 14 10 - 20 mg/dL CERNER MILLENNIUM Creatinine 0.80 0.80 - 1.50 mg/dL CERNER MILLENNIUM Comment: Please note that the pediatric reference intervals supplied above were not validated at [facility]. Results from pediatric patients [...] the following links into your internet browser. [email or web address] Blood specimen (specimen) 06/22/2015 5:49 AM EST 06/22/2015 6:16 AM EST Narrative Resulting Agency Comment Spec In Lab Baljit Gutierrez MD CHEMISTRY ORDERABLES PORSCHE PINKIUM * Specimen to Pathology (surgical or derm) (06/21/2015 10:03 AM EST) AP Specimen 06/21/2015 10:0 3 AM EST 06/21/2015 10:03 AM EST Narrative PORSCHE PINKIUM - 06/21/2015 10:03 AM EST Specimen requisition ordered. ??Separate Pathology report to follow Baljit Gutierrez MD PATHOLOGY/CYTOLOGY O RDERABLES Performing Organization Address [facility] Co de Phone Number PORSCHE PINKIUM * Antibody screen (06/21/2015 4:41 AM EST) Ab Screen Interp Negative PORSCHE PINKIUM Expires at 2359 on: 06/24/2015 PORSCHE PINKIUM Blood specimen (specimen) 06/21/2015 4:41 AM EST 06/21/2015 5:25 AM EST Narrative Resulting Agency Comment Spec In Lab Baljit Gutierrez MD BLOOD BANK LAB ORDER EMMANUEL Performing Organization Address [facility] de Phone Number PORSCHE WELSH * ABO/Rh Typing (06/21/2015 4:41 AM EST) ABORH Type A Neg PORSCHE PINKIUM Blood specimen (specimen) 06/21/2015 4:41 AM EST 06/21/2015 5:25 AM EST Narrative Resulting Agency Comment Spec In Lab Baljit Gutierrez MD BLOOD BANK LAB ORDER EMMANUEL Performing Organization Address [facility] Co de Phone Number PORSCHE PINKIUM * (ABNORMAL) Differential, Automated (06/21/2015 4:41 AM [...] Standard Deviation 43.1 35.0 - 46.0 fL [facility] RDW coefficient of variation 14.2 10.9 - 14.4 % [facility] Mean Platelet Volume 9.3 9.0 - 12.0 fL [facility] Blood specimen (specimen) 06/21/2015 4:41 AM EST 06/21/2015 5:15 AM EST Narrative Resulting Agency Comment Spec In Lab Baljit Gutierrez MD HEMATOLOGY ORDERABLE S Performing Organization Address [facility] de Phone Number [facility] * Prothrombin Time (06/21/2015 4:41 AM EST) Prothrombin Time 14.9 12.0 - 15.0 sec [facility] Comment: Transfusion Committee Guidelines: INR less than 2.0, PTT less than OR equal to 43.5 seconds, or Fibrinogen greater than or equal to 100 mg/dl indicate adequate procoagulant activity for hemostasis in patients without underlying bleeding disorders. International Normalization Ratio 1.1 0.9 - 1.1 [facility] Blood specimen (specimen) 06/21/2015 4:41 AM EST 06/21/2015 5:15 AM EST Narrative Resulting Agency Comment Spec In Lab Baljit Gutierrez MD HEMATOLOGY ORDERABLE S Performing Organization Address [facility] Phone Number [facility] * Lipase (06/21/2015 4:41 AM EST) Lipase 11 0 - 60 unit/L [facility] Blood specimen (specimen) 06/21/2015 4:41 AM EST 06/21/2015 5:15 AM EST Narrative Resulting Agency Comment Spec In Lab Baljit Gutierrez MD CHEMISTRY ORDERABLES Performing Organization Address [facility] Phone Number [facility] * (ABNORMAL) Comprehensive metabolic panel (non-fasting) (06/21/2015 4:41 AM EST) Glucose 99 65 - 199 mg/dL CERNER MILLENNIUM Comment:Diabetes: >=200 mg/d L plus symptoms Blood Urea Nitrogen 10 10 - 20 mg/dL CERNER MILLENNIUM Creatinine 0.91 0.80 - 1.50 mg/dL CERNER MILLENNIUM Comment: Please note that the pediatric reference intervals supplied above were not validated at [facility]. Results from pediatric patients [...] the following links into your internet browser. [email or web address] Blood specimen (specimen) 06/21/2015 4:41 AM EST 06/21/2015 5:15 AM EST Narrative Resulting Agency Comment Spec In Lab Baljit Gutierrez MD CHEMISTRY ORDERABLES PORSCHE WELSH * CT Abdomen And Pelvis With Contrast [...] inflammatory change without necroticsegment. Baljit Gutierrez MD [facility] ORDERABLES * (ABNORMAL) Differential, Automated (06/20/2015 [...] ORDERABLE S CERNER MILLENNIUM * (ABNORMAL) Hemogram (06/20/2015 8:07 AM EST) [...] intervals supplied above were not validated at [facility]. Results from pediatric patients [...] MILLENNIUM Est Glomerular Filtration Rate >60 >=60 PORSCHE WELSH Comment: This estimated GFR (eGFR) value was [...] the following links into your internet browser. [email or web address] Blood specimen (specimen) 06/20/2015 8:07 AM EST 06/20/2015 8:39 AM EST Narrative Resulting Agency Comment Spec In Lab Baljit Gutierrez MD CHEMISTRY ORDERABLES PORSCHE WELSH * XR Abdomen 1 View (GENERIC) (06/19/2015 [...] 5 days. PORSCHE WELSH Blood specimen (specimen) PERIPHERAL BLOOD / Unknown 06/19/2015 5:30 AM EST 06/19/2015 5:45 AM EST Comment:R HAND Narrative Resulting Agency Comment Spec In Lab Baljit Gutierrez MD MICROBIOLOGY - BLOOD ORDERABLES CERGILLES FARFANENNIUM * Amylase (06/19/2015 5:20 AM EST) Amylase 50 28 - 100 unit/L CERNER MILLENNIUM Blood specimen (specimen) Venous Draw / Unknown 06/19/2015 5:20 AM EST 06/19/2015 5:32 AM EST Narrative Resulting Agency Comment Spec In Lab Baljit Gutierrez MD CHEMISTRY ORDERABLES CERNER NAHEEDENNIUM * (ABNORMAL) Differential, Automated (06/19/2015 5:20 AM [...] ORDERABLE S CERGILLES FARFANENNIUM * (ABNORMAL) Hemogram (06/19/2015 5:20 AM EST) [...] MD HEMATOLOGY ORDERABLE S PORSCHE PINKIUM * Lactate, whole blood, send to lab (06/19/2015 5:20 AM EST) Lactate WB 1.1 0.5 - 2.2 mmol/L CERNER MILLENNIUM Blood specimen (specimen) 06/19/2015 5:20 AM EST 06/19/2015 5:30 AM EST Narrative Resulting Agency Comment Spec In Lab Baljit Gutierrez MD CHEMISTRY ORDERABLES Performing Organization Address [facility] de Phone Number CERNER MILLENNIUM * Lipase (06/19/2015 5:20 AM EST) Lipase 16 0 - 60 unit/L CERNER MILLENNIUM Blood specimen (specimen) 06/19/2015 5:20 AM EST 06/19/2015 5:31 AM EST Narrative Resulting Agency Comment Spec In Lab Baljit Gutierrez MD CHEMISTRY ORDERABLES Performing Organization Address [facility] de Phone Number CERNER MILLENNIUM * (ABNORMAL) Hepatic Function Panel (06/19/2015 5:20 AM EST) Pathologist [facility] Protein, Total 6.4 6.1 - 8.0 gm/dL [...] Gutierrez MD CHEMISTRY ORDERABLES Performing Organization Address [facility] Co de Phone Number CERNER MILLENNIUM * (ABNORMAL) Basic Metabolic Panel (non-fasting) (06/19/2015 5:20 AM EST) Glucose 94 65 - 199 mg/dL CERNER MILLENNIUM Comment:Diabetes: >=200 mg/d L plus symptoms Blood Urea Nitrogen 7(L) 10 - 20 mg/dL CERNER MILLENNIUM Creatinine 0.77(L) 0.80 - 1.50 mg/dL CERNER MILLENNIUM Comment: Please note that the pediatric reference intervals supplied [place] [facility] [place] Results from [place] patients [...] the following links into your internet browser. [email or web address] Blood specimen (specimen) 06/19/2015 5:20 AM EST 06/19/2015 5:31 AM EST Narrative Resulting Agency Comment Spec In Lab Baljit Gutierrez MD CHEMISTRY ORDERABLES PORSCHE WELSH * Blood culture (06/19/2015 5:20 AM EST) Blood Culture No growth at 5 days. BONYGILLES PINKIUM Blood specimen (specimen) ANTECUBITAL REGION STRUCTURE / Unknown 06/19/2015 5:20 AM EST 06/19/2015 5:45 AM EST Narrative Resulting Agency Comment Spec In Lab Baljit Gutierrez MD MICROBIOLOGY - BLOOD ORDERABLES CERNER MILLENNIUM * (ABNORMAL) Differential, Automated (06/18/2015 5:36 AM [...] 0.0 - 0.3 mg/dL CERNER MILLENNIUM Comment:result rechecked- Blood specimen (specimen) 06/18/2015 5:36 AM EST 06/18/2015 6:06 AM EST Narrative Resulting Agency Comment Spec In Lab Blu Pascual MD CHEMISTRY ORDERABLES CERNER NAHEEDENNIUM * (ABNORMAL) Basic Metabolic Panel (non-fasting) (06/18/2015 5:36 AM EST) Glucose 117 65 - 199 mg/dL CERNER MILLENNIUM Comment:Diabetes: >=200 mg/d L plus symptoms Blood Urea Nitrogen 10 10 - 20 mg/dL CERNER MILLENNIUM Creatinine 0.70(L) 0.80 - 1.50 mg/dL CERNER MILLENNIUM Comment: Please note that the pediatric reference intervals supplied above were [place] [facility] [place] Results from pediatric patients [...] the following links into your internet browser. [email or web address] Blood specimen (specimen) 06/18/2015 5:36 AM EST 06/18/2015 6:06 AM EST Narrative Resulting Agency Comment Spec In Lab Blu Pascual MD CHEMISTRY ORDERABLES PORSCHE WELSH * ERCP (06/17/2015 12:57 PM EST) ERCP [facility] Patient Name: Gamaliel Queen ? Procedure Date: 06/17/2015 12:57 PM ? N: [id number] ? Date of : 1960 ? Age: 54 ? Order #: [id number] ? Procedure: ? ERCP Indications: ? Suspected ascending cholangitis, ? Gallstone associated acute ? pancreatitis Providers: ? Filomena York MD, Joby Daigle MD, ? Brittany Bradley RN, Loli ? Adeel, Strip Presser Referring MD: ?Rosie Bess MD Medicines: ? Monitored Anesthesia [...] MD HEMATOLOGY ORDERABLE S Performing Organization Address City/[facility]/ZIP Co de Phone Number CERNER MILLENNIUM * (ABNORMAL) Hemogram (06/17/2015 6:34 [...] Lab Blu Pascual MD HEMATOLOGY ORDERABLE S PORSCHE FARFANENNIUM * (ABNORMAL) Hepatic Function Panel (06/17/2015 6:34 AM EST) Protein, Total 6.5 6.1 - 8.0 gm/dL [...] In Lab Blu Pascual MD CHEMISTRY ORDERABLES CERNER MILLENNIUM * Basic Metabolic Panel (non-fasting) (06/17/2015 6:34 AM EST) [facility] Glucose 95 65 - 199 mg/dL CERNER MILLENNIUM Comment:Diabetes: >=200 mg/d L plus symptoms Blood Urea Nitrogen 11 10 - 20 mg/dL CERNER MILLENNIUM Creatinine 0.90 0.80 - 1.50 mg/dL CERNER MILLENNIUM Comment: Please note that the pediatric reference intervals supplied above were [place] [facility] [place] Results from pediatric patients [...] the following links into your internet browser. [email or web address] Blood specimen (specimen) 06/17/2015 6:34 AM EST 06/17/2015 6:40 AM EST Narrative Resulting Agency Comment Spec In Lab Blu Pascual MD CHEMISTRY ORDERABLES [facility] [employer] * (ABNORMAL) Urinalysis with reflex Culture (06/16/2015 [...] Urine Dipstick Clear Clear CERNER MILLENNIUM Specific [place] Urine Automated 1.017 1.002 - 1.030 CERNER [...] ORDERABLE S CERGILLES FARFANENNIUM * (ABNORMAL) Hemogram (06/16/2015 10:11 PM EST) [...] Lab Blu Pascual MD HEMATOLOGY ORDERABLE S PORSCHE FARFANENNIUM * Blood culture (06/16/2015 10:11 PM EST) Blood Culture No growth at 5 days. CERNER MILLENNIUM Blood specimen (specimen) ANTECUBITAL REGION STRUCTURE / Unknown 06/16/2015 10:11 PM EST 06/16/2015 10:44 PM EST Narrative Resulting Agency Comment Spec In Lab Blu Pascual MD MICROBIOLOGY - BLOOD ORDERABLES Performing Organization Address [facility] de Phone Number PORSCHE WELSH * (ABNORMAL) Prothrombin Time (06/16/2015 10:11 PM EST) Prothrombin Time 15.3(H) 12.0 - 15.0 sec CERNER MILLENNIUM Comment: Transfusion Committee Guidelines: INR less than 2.0, PTT less than OR equal to 43.5 seconds, or Fibrinogen greater than or equal to 100 mg/dl indicate adequate procoagulant activity for hemostasis in patients without underlying bleeding disorders. International Normalization Ratio 1.2(H) 0.9 - 1.1 CERNER MILLENNIUM Blood specimen (specimen) 06/16/2015 10:11 PM EST 06/16/2015 10:18 PM EST Narrative Resulting Agency Comment Spec In Lab Blu Pascual MD HEMATOLOGY ORDERABLE S Performing Organization Address [facility] de Phone Number PORSCHE WELSH * Magnesium (06/16/2015 10:11 PM EST) Magnesium 0.77 0.69 - 1.07 mmol/L CERNER MILLENNIUM Blood specimen (specimen) 06/16/2015 10:11 PM EST 06/16/2015 10:18 PM EST Narrative Resulting Agency Comment Spec In Lab Blu Pascual MD CHEMISTRY ORDERABLES Performing Organization Address [facility] de Phone Number PORSCHE WELSH * (ABNORMAL) Hepatic Function Panel (06/16/2015 10:11 PM EST) Protein, Total 6.5 6.1 - 8.0 gm/dL [...] In Lab Blu Pascual MD CHEMISTRY ORDERABLES CERNER MILLENNIUM * Basic Metabolic Panel (non-fasting) (06/16/2015 10:11 PM EST) Glucose 90 65 - 199 mg/dL CERNER MILLENNIUM Comment:Diabetes: >=200 mg/d L plus symptoms Blood Urea Nitrogen 14 10 - 20 mg/dL CERNER MILLENNIUM Creatinine 0.88 0.80 - 1.50 mg/dL CERNER MILLENNIUM Comment: Please note that the pediatric reference intervals supplied above were [place] [facility] [place] Results from [place] patients [...] the following links into your internet browser. [email or web address] Blood specimen (specimen) 06/16/2015 10:11 PM EST 06/16/2015 10:18 PM EST Narrative Resulting Agency Comment Spec In Lab Blu Pascual MD CHEMISTRY ORDERABLES Performing Organization Address [facility] Co de Phone Number PORSCHE WELSH * Blood culture (06/16/2015 10:07 PM EST) Blood Culture No growth at 5 days. PORSCHE WELSH Blood specimen (specimen) STRUCTURE OF LEFT HAND / Unknown 06/16/2015 10:07 PM EST 06/16/2015 10:45 PM EST Narrative Resulting Agency Comment Spec In Lab Blu Pascual MD MICROBIOLOGY - BLOOD ORDERABLES Performing Organization Address [facility] de Phone Number PORSCHE WELSH * Film Library- Storage only MR Abdomen (06/16/2015 12:05 AM EST) Narrative User, Generic Transmittal - 06/16/2015 10:06 PM EST See PACS for result report. [facility] FILM LIBRARY ORD ERABLES documented in this encounter Visit Diagnoses Not on filedocumented in this encounter Admitting Diagnoses Diagnosis Pancreatitis, gallstone Acute pancreatitis documented in this encounter Active and Recently [...] 5 mg, Oral, ONCE, 1 dose, On Sat06/23/15 at 1030, STAT 1014 (Given - Provider: [...] 0623 (Given - Provider: Dasha Olmedo RN)0700 (AUG Hold - Provider: Admin Adt - Reason: Transfer to a Procedural area) polyethylene glycol (MIRALAX) packet 17 g 17 g, Oral, DAILY, First dose on Sat06/22/15 at 2330, Until Discontinued, Routine 2322 (Given - Provider: Daylin Noe RN) senna-docusate (PERICOLACE) 8.6-50 mg per tablet 2 tablet 2 tablet, Oral, 2 TIMES DAILY, First dose on Neha 06/16/15 at 2215, Until Discontinued, Routine 0700 (MAR Hold - Provider: Admin Adt - Reason: Transfer to a Procedural area)0900 (Automatically Held - Provider: Admin Adt)1340 (AUG Unhold - Provider: Admin Adt)1757 (Given - Provider: Emilia Patel, GALINDO)2000 (Given - Provider: Daylin Noe RN) 08 (Given - Provider: Deana Jha RN)2112 (Given - Provider: Daylin Noe RN) 0830 (Given - Provider: Lindsey Neil RN) sodium chloride 0.9 % flush 5 mL (CANCELED) 5 mL, Intravenous, 2 TIMES DAILY, First dose on Neha 1/7/16 at 2215, Until Discontinued, Routine 0700 (AUG Hold - Provider: Admin Adt - Reason: Transfer to a Procedural area)0900 (Automatically Held - Provider: Admin Adt)1340 (AUG Unhold - Provider: Admin Adt)1757 (Given - Provider: Emilia Patel, GALINDO)2000 (Given - Provider: Daylin Noe, GALINDO) 0832 (Given - Provider: Deana Jha RN)2112 (Given - Provider: Daylin Noe, GALINDO) 08 (Given - Provider: Lindsey Neil, GALINDO) venlafaxine (EFFEXOR-XR) XR Capsule 225 mg (CANCELED) 225 mg, Oral, DAILY, First dose on Sat06/17/15 at 0900, Until Discontinued, DO NOT CRUSH OR OPEN, Routine 0700 (AUG Hold - Provider: Admin Adt - Reason: Transfer to a Procedural area)0900 (Automatically Held - Provider: Admin Adt)1340 (AUG Unhold - Provider: Admin Adt)175 (Given - Provider: Emilia Patel, GALINDO) 08 (Given - Provider: Deana Jha, GALINDO) 0830 (Given - Provider: Lindsey Neil, GALINDO) PRN Medication Order 06/21/2015 06/22/2015 06/23/2015 acetaminophen (TYLENOL) tablet 650 mg 650 mg, Oral, EVERY 4 HOURS PRN, Starting on Sat06/17/15 at 0049, Until Sat06/23/15 at 1232, Pain, Fever, Maximum dose of acetaminophen is 4000 mg from all sources in 24 hours., Routine 0700 (AUG Hold - Provider: Admin Adt - Reason: Transfer to a Procedural area)1052 (AUG Unhold - Provider: Adele Rosales, GALINDO) BUpivacaine (PF) (MARCAINE) 0.25 % (2.5 mg/mL) injection (CANCELED) ONCE PRN, Starting on Sat06/21/15 at 0800, Until Sat06/21/15 at 1052, Intra-Operative (Intra-Procedure), Routine 0800 (Given - Provider: Darrell Stephenson MD) HYDROmorphone (DILAUDID) syringe 0.2-0.4 mg (CANCELED) 0.2-0.4 mg, Intravenous, EVERY 5 MIN PRN, Pain, Starting on 06/21/15 at 1010, Until 06/21/15 at 1325, For moderate pain (4-6) give: 0.2 mg every 5 minute prn For severe pain (7-10) give: 0.4 mg every 5 minutes prn Maximum dose: 4 mg per hour Hold for respiratory rate less than 10 per minute., PACU Recovery 1113 (Given - Provider: Adele Rosales, RN)1129 (Given - Provider: Adele Rosales, GALINDO)1137 (Given - Provider: Joseph Valencia RN) oxyCODONE (ROXICODONE) immediate release tablet 10 mg (CANCELED)(Linked Group 1) 10 mg, Oral, EVERY 4 HOURS PRN, Starting on Neha 06/16/15 at 2149, Until Neha 06/23/15 at 1232, Pain, severe pain (7-10), May give an additional 5 mg in 30 minutes once if pain not relieved., Routine 0443 (Given - Provider: Dasha Olmedo RN)0700 (MAR Hold - Provider: Admin Adt - Reason: Transfer to a Procedural area)1052 (MAR Unhold - Provider: Adele Rosales RN)1759 (Given - Provider: Emilia Patel RN)2250 (Given - Provider: Daylin Noe RN) 0250 (Given - Provider: Daylin Noe RN)0832 (Given - Provider: Deana Jha RN)1244 (Given - Provider: Deana Jha, GALINDO)1646 (Given - Provider: Deana Jha RN)2113 (Given - Provider: Daylin Noe, GALINDO) 0223 (Given - Provider: Daylin Noe RN)0651 (Given - Provider: Daylin Noe RN) oxyCODONE (ROXICODONE) immediate release tablet 5 mg(Linked Group 1) 5 mg, Oral, EVERY 4 HOURS PRN, Starting on Neha 06/16/15 at 2149, Until Neha 1/14/16 at 1232, Pain, mild to moderate pain (1-6), May give an additional 5 mg in 30 minutes once if pain not relieved., Routine 0443 (See Alternative - Provider: Dasha Olmedo RN)0700 (AUG Hold - Provider: Admin Adt - Reason: Transfer to a Procedural area)1052 (AUG Unhold - Provider: Adele Rosales RN)1759 (See Alternative - Provider: Emilia Patel RN)2250 (See Alternative - Provider: Daylin Noe RN) 0250 (See Alternative - Provider: Daylin Noe, GALINDO)0832 (See Alternative - Provider: Deana Jha, GALINDO)1244 (See Alternative - Provider: Deana Jha, GALINDO)1646 (See Alternative - Provider: Deana Jha RN)2113 (See Alternative - Provider: Daylin Noe, GALINDO) 0223 (See Alternative - Provider: Daylni Noe, GALINDO)0651 (See Alternative - Provider: Daylin Noe RN) prochlorperazine (COMPAZINE) injection 10 mg (CANCELED)(Linked Group 2) 10 mg, Intravenous, EVERY 6 HOURS PRN, Starting on Neha 06/16/15 at 2149, Until Neha 06/23/15 at 1232, Nausea, Nausea/Vomiting, If multiple antiemetics are ordered, use ondansetron first. If ondansetron ineffective use prochlorperazine. , Routine 0700 (AUG Hold - Provider: Admin Adt - Reason: Transfer to a Procedural area)1052 (AUG Unhold - Provider: Adele Rosales, GALINDO)1142 (Given - Provider: Joseph Valencia RN) Linked Groups Order Group 1: oxyCODONE (ROXICODONE) immediate release tablet 5 mgJump to med 5 mg, Oral, EVERY 4 HOURS PRN, Starting on Neha 06/16/15 at 2149, Until Neha 16 at 1232, Pain, mild to moderate pain [...] Routine documented in this encounter Care Teams Travel Registered Nurse Oncology Relationship Specialty Start Date End Date Rosie Bess MD [address] [place] [address] PCP - General Family Medicine 06/16/15 documented as of this encounter
--- OUTSIDE RECORDS SUMMARY | 2024-01-22 14:47 | XMS_ITS | Encounter Summary ---
Author Organization [facility] [place] [address] Care Team Providers Care [employer] Parts Sales Representative Name Role Phone Rosie Bess MD Primary Care Provider [phone] Reason for Visit * Auth/Cert - Closed Specialty Diagnoses / Procedures Referred By Contac t Referred To Contact Diagnoses Pancreatitis, gallstone ? OBSTRUCTED COMMON BILE DUCT Procedures IPI Referral ID Status Reason Start Date Expiration Date Visits Re quested Visits Authorized [id number] Closed 1 1 Encounter Details Date Type Department Care Team (Late st Contact Info) Description 06/21/2015 7:30 AM EST - 06/21/2015 9:58 AM EST [place] [address] Darrell Stephenson MD [facility] [place] [address] LAPAROSCOPIC CHOLECYSTECTOMY WITH CHOLANGIOGRAM (WRVU 11.47) Social History Tobacco Use Types Packs/Day Years [...] Gamaliel Queen Patient Age: 54 y.o. Language: Citizen Of The [place] Race: White Ethnicity: Not nor Admit date: [...] please contact your inpatient physician through the [facility] Underwriting Account Representative . Issues afterhours and on weekends will [...] transfer for management of suspected gallstone pancreatitis. 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 At roughly 10 AM, he noted [...] These symptoms caused him to present to [facility] yesterday afternoon forfurther evaluation. At [facility] yesterday on admission, he was noted [...] kept NPO. He is being transferred to [facility] for ERCP. At this time, he has no new symptoms. Nausea and abdominal pain are well controlled on current meds. Hospital Course: # Gallstone pancreatitis/Ascending cholangitis - Patient was transferred from [facility] for evaluation with an ERCP at [...] Department Center 07/20/2015 10:00 AM Maribell Au, AGENCY DEVELOPMENT MANAGER [facility] Your Inpatient Doctor: Baljit Gutierrez MD Your Primary Care Provider: ROSIE BESS MD [phone] For questions regarding this document or issues relating to this hospitalization on the Medical Service, please contact your inpatient physician through the [facility] Underwriting Account Representative . Issues afterhours and on weekends will [...] concerning symptoms The number for questions is [phone] before 5 PM weekdays and [phone] after 5 PM and on weekends (ask for the General Surgery resident tension machine operator). Activity level: No heavy lifting greater than [...] Provider Department Dept Phone 07/20/2015 10:00 AM JosesitoMaribell singh APRN General Surgery [phone] Discharge References/Attachments None documented in this encounter [...] 10:00 AM Maribell Au APRN [facility] Your Inpatient Doctor: Baljit Gutierrez MD Your Primary Care Provider: ROSIE BESS MD [phone] For questions regarding this document or issues relating to this hospitalization on the Medical Service, please contact your inpatient physician through the [facility] Underwriting Account Representative . Issues afterhours and on weekends will [...] concerning symptoms The number for questions is [phone] before 5 PM weekdays and [phone] after 5 PM and on weekends (ask for the General Surgery resident tension machine operator). Activity level: No heavy lifting greater than [...] spent <30 minutes (Day of Discharge Code 64669) involved in the final examination of the [...] PTSD, IVDU, and prior EtOH abuse [facility]. ERCP [...] Gutierrez MD - 06/22/2015 7:01 AM EST [facility] Medicine Progress Note Patient Name: Gamaliel Queen [...] PRABHAKAR RASHID MD Blue Team - Pager [phone] 06/22/2015 Attending Attestation Please see Dr. Rashid's [...] of two midnights or is on the [facility] inpatient only procedure list (status C) due [...] PTSD, IVDU, and prior EtOH abuse [facility]. ERCP [...] Gutierrez MD - 06/21/2015 6:21 AM EST [facility] Medicine Progress Note Patient Name: Gamaliel Queen [...] PRABHAKAR RASHID MD Blue Team - Pager [phone] 06/21/2015 Attending Attestation Please see Dr. Rashid's [...] of two midnights or is on the [facility] inpatient only procedure list (status C) due to: uncontrolled pain requiring titration of medications to achieve optimal effect and to minimize immediate or severe side effects BALJIT GUTIERREZ MD 06/21/15 * Baljit Gutierrez MD - 06/20/2015 7:18 AM EST [facility] Medicine Progress Note Patient Name: Gamaliel Queen [...] PRABHAKAR RASHID MD Blue Team - Pager [phone] 06/20/2015 Attending Attestation Please see Dr. Rashid's [...] of two midnights or is on the [facility] inpatient only procedure list (status C) due [...] PTSD, IVDU, and prior EtOH [facility]. ERCP [...] extremities spontaneously Lines/Drains: PIV Recent Labs 06/19/15 0506/18/15 0536 06/17/15 0634 06/16/15 2211 WBC 10.5* [...] PRABHAKAR RASHID MD Blue Team - Pager [phone] 06/19/2015 Attending Attestation Please see Dr. Rashid's [...] of two midnights or is on the [facility] inpatient only procedure list (status C) due [...] PRABHAKAR RASHID MD Blue Team - Pager [phone] 06/18/2015 Attending Attestation Please see Dr. Rashid's [...] Vicente MD - 06/17/2015 6:55 PM EST [facility] Medicine Progress Note Patient Name: Gamaliel Queen [...] nausea (zofran did not provide relief at [facility]) - IV LR at 200cc/hr - [...] GORDON VICENTE MD (PGY-3) Hospital Medicine- pager [phone] 06/17/2015 Associated attestation - Ricardo Van MD [...] EST Office of Care Management (OCM) / Assistant Unit Forester(CM)/ Initial Assessment Discussed patient with Provider Team [...] Michelle in a single family home in [place], [place]. 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 Patient denies the use of assistive devicesfor ambulation/mobility. CURRENT FUNCTIONAL STATUS: Patient is lying in bed during this interview. SOCIAL / FAMILY SUPPORTS: Patient reports good support consisting of family and friends ADVANCE DIRECTIVES: none on file HEALTH /PRESCRIPTION COVERAGE: [facility] CURRENT HOME/COMMUNITY SERVICES/EQUIPMENT: DME: none Home Health Agency: none Other: none HOSPITAL PHARMACIST REFERRAL: as needed PRIMARY CARE PHYSICIAN: ROSIE BESS MD HEATHER [phone] [facility] [id number] POTENTIAL DISCHARGE NEEDS: no needs anticipated, pending hospital course PATIENT/FAMILY EDUCATION NEEDS: plan of care, DC plan ANTICIPATED BARRIERS TO DISCHARGE: none TRANSPORTATION @ D/C: - Michelle PLAN: CM will continue to monitor progress, follow for continuity of care and assist with dischargeplanning while hospitalized. 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 At roughly 10 AM, he noted [...] These symptoms caused him to present to [facility] yesterday afternoon forfurther evaluation. At [facility] yesterday on admission, he was noted [...] kept NPO. He is being transferred to [facility] for ERCP. At this time, he has [...] nausea (zofran did not provide relief at [facility]) -IV NS at 200cc/hr -GI consult [...] to medicine PCP: ROSIE BESS MD at [phone] A copy of this document will be sent to the patient's Primary Care Physician and/or Referring Physician. SANTI MANN MD 06/16/[address] Medicine Service Attending Documentation I certify [...] Able to make needs known. Surveillance: Purposeful terence vargas q4h VS. CPG GOAL OUTCOME EVALUATION: Goal: [...] (Interventions Implemented as Appropriate) 06/22/15 0832 06/22/15 173 Coping/Psychosocial Response Interventions Counseling verbalization of [...] 0.3 mg IV dilaudid ordered and given (Lona). Good effect. Pain decreased to 3/10. Will [...] Level Patient will demonstrate the desired outcomes. 06/22/15 0518 Pain, Acute (Adult, Obstetrics) Acceptable Pain Control/Comfort [...] Assistance: Independent with repositioning in bed. Surveillance: Masimo, purposeful rounding. CPG GOAL OUTCOME [...] Lin Marquez - 06/21/2015 10:34 AM EST [facility] Operative Note Patient Name: Gamaliel Queen : [id number] MR#: [id number] Case Date: 06/21/2015 Surgeon: Surgeon(s) and Role: [...] IVDU, and prior EtOH abuse transferred from [facility] on 06/16 for gallstone pancreatitis. ERCP [...] Operative Note Patient Name: Gamaliel Queen : [id number] MR#: [id number] Case Date: 06/21/2015 Surgeon: Surgeon(s) and Role: [...] (Interventions Implemented as Appropriate) 06/18/15 0315 06/20/15 220 Plan of Care Review Plan of Care [...] reported effect. Pt denies n/v. NPO since ND except for sips of water with meds. [...] if needed. Assistance: Independent Supervision: Independent Surveillance: annimo monitor, monitor VS q 4 hours, hourly rounding CPG GOAL OUTCOME EVALUATION: Goal: Individualization and Mutuality Outcome: Ongoing (Interventions Implemented as Appropriate) 06/16/15 210 Mutuality/Individual Preferences What anxieties, fears or concerns [...] Control Outcome: Ongoing (Interventions Implemented as Appropriate) 06/20/1590306/20/15 1005 Coping/Psychosocial Response Interventions Counseling calming techniques [...] Outcome: Ongoing (Interventions Implemented as Appropriate) 06/19/1573406/19/15 1003 Coping/Psychosocial Response Interventions Counseling calming techniques [...] PTSD, IVDU, and prior [facility]. ERCP [...] [93 %-97 %] 06/18 700 - 06/19 0700 In: 5552 [P.O.:3314; I.V.:1188] [...] Code status: Full My Garza, MS4 Pgr. 9055 * Plan of Care [...] Outcome: Ongoing (Interventions Implemented as Appropriate) 06/18/155 Pain, Acute (Adult, Obstetrics) Acceptable Pain Control/Comfort [...] Handling Outcome: Ongoing (Interventions Implemented as Appropriate) 06/18/1540 06/18/15 1600 Espinal Fall Risk History of [...] Outcome: Ongoing (Interventions Implemented as Appropriate) 06/18/1540 06/18/15 1600 Coping/Psychosocial Response Interventions Counseling calming [...] Roman MD - 06/18/2015 2:02 PM EST [facility] Department of Surgery Inpatient Consult Note Consultation Requested by: Baljit Gutierrez MD History of Present Illness: We are seeing Gamaliel Queen today at the request of Baljit Lorenz MD for evaluation and advice about gallstone pancreatitis. This patient was admitted two days ago after presenting to [facility] with complaints of abdominal pain and [...] Outcome: Ongoing (Interventions Implemented as Appropriate) 06/18/155 Pain, Acute (Adult, Obstetrics) Acceptable Pain Control/Comfort [...] York MD - 06/17/2015 11:13 AM EST [facility] Section of Gastroenterology and Hepatology Initial [...] 12: 37 PM EST FILM LIBRARY-FLUORO OR [id number]-ZXP-[id number] ONL Imaging Routine 06/21/2015 9:4 0 AM EST Scheduled Orders Name Type Priority Associated Diagnoses Orde r Schedule XR ERCP Imaging Routine Once PRN (for Radiant use) for 1 Occurrences starting 06/17/2015 until 06/17/2015 FILM LIBRARY-FLUORO OR H-GPS-MULLAEE ONL Imaging Routine Once PRN (f or Radiant use) for 1 Occurrences starting 06/21/2015 until 06/21/2015 documented as of this encounter Procedures Procedure Name Priority Date/Time Associated Diagnosis Comments DAYCARE TEACHER SCAN 06/24/2015 12:00 AM EST BMP W/FASTING [...] EST ERCP Routine 06/17/2015 12:57 PM EST HEMOGRAM Routine 06/17/2015 6:34 AM EST DIFFERENTIAL, [...] in this encounter Results * SCAN DOC: DAYCARE TEACHER (06/24/2015 12:00 AM EST) Anatomical Region Laterality [...] Lab Baljit Gutierrez MD HEMATOLOGY ORDERABLE S [facility] NAHEEDENNIUM * (ABNORMAL) BMP w/fasting Glucose (06/23/2015 3:58 [...] of Diabetes Mellitus, Position Statement from the [place] [employer]. ??Diabetes Care, Volume 33, Supplement 1, Jun 2009 Blood Urea Nitrogen 13 10 - 20 mg/dL CERNER MILLENNIUM Creatinine 0.79(L) 0.80 - 1.50 mg/dL CERNER MILLENNIUM Comment: Please note that the pediatric reference intervals supplied above were not validated at [facility]. Results from pediatric patients should be interpreted [...] the following links into your internet browser. [email or web address] [email or web address] Blood specimen (specimen) 06/23/2015 3:58 AM EST 06/23/2015 4:11 AM EST Narrative Resulting Agency Comment Spec In Lab Baljit Gutierrez MD CHEMISTRY ORDERABLES [facility] PINKIUM * (ABNORMAL) Hepatic Function Panel (06/22/2015 5:49 [...] HEMATOLOGY ORDERABLE S PORSCHE WELSH * (ABNORMAL) Hemogram (06/22/2015 5:49 AM EST) [...] of Diabetes Mellitus, Position Statement from the [place] [employer]. ??Diabetes Care, Volume 33, Supplement 1, Jun 2009 Blood Urea Nitrogen 14 10 - 20 mg/dL CERNER MILLENNIUM Creatinine 0.80 0.80 - 1.50 mg/dL CERNER MILLENNIUM Comment: Please note that the pediatric reference intervals supplied above were not validated at [facility]. Results from pediatric patients should be interpreted [...] the following links into your internet browser. [email or web address] Blood specimen (specimen) 06/22/2015 5:49 AM EST 06/22/2015 6:16 AM EST Narrative Resulting Agency Comment Spec In Lab Baljit Gutierrez MD CHEMISTRY ORDERABLES PORSCHE WELSH * Specimen to Pathology (surgical or derm) (06/21/2015 10:03 AM EST) AP Specimen 06/21/2015 10:0 3 AM EST 06/21/2015 10:03 AM EST Narrative PORSCHE FARFANENNIUM - 06/21/2015 10:03 AM EST Specimen requisition ordered. ??Separate Pathology report to follow Baljit Gutierrez MD PATHOLOGY/CYTOLOGY O RDERABLES Performing Organization Address [facility] Co de Phone Number PORSCHE PINKIUM * Antibody screen (06/21/2015 4:41 AM EST) Ab Screen Interp Negative PORSCHE FARFANENNIUM Expires at [id number] on: 06/24/2015 PORSCHE FARFANENNIUM Blood specimen (specimen) 06/21/2015 4:41 AM EST 06/21/2015 5:25 AM EST Narrative Resulting Agency Comment Spec In Lab Baljit Gutierrez MD BLOOD BANK LAB ORDER EMMANUEL Performing Organization Address [facility] de Phone Number PORSCHE PINKIUM * ABO/Rh Typing (06/21/2015 4:41 AM EST) ABORH Type A Neg PORSCHE PINKIUM Blood specimen (specimen) 06/21/2015 4:41 AM EST 06/21/2015 5:25 AM EST Narrative Resulting Agency Comment Spec In Lab Baljit Gutierrez MD BLOOD BANK LAB ORDER EMMANUEL Performing Organization Address [facility] Co de Phone Number PORSCHE PINKIUM * [...] ORDERABLE S CERNER MILLENNIUM * (ABNORMAL) Hemogram (06/21/2015 4:41 AM EST) [...] MD HEMATOLOGY ORDERABLE S Performing Organization Address [facility] Co de Phone Number [facility] * Prothrombin Time (06/21/2015 4:41 AM EST) Prothrombin Time 14.9 12.0 - 15.0 sec [facility] Comment: Transfusion Committee Guidelines: INR less than 2.0, PTT less than OR equal to 43.5 seconds, or Fibrinogen greater than or equal to 100 mg/dl indicate adequate procoagulant activity for hemostasis in patients without underlying bleeding disorders. International Normalization Ratio 1.1 0.9 - 1.1 [facility] MILLENNIUM Blood specimen (specimen) 06/21/2015 4:41 AM EST 06/21/2015 5:15 AM EST Narrative Resulting Agency Comment Spec In Lab Baljit Gutierrez MD HEMATOLOGY ORDERABLE S Performing Organization Address [facility] Co de Phone Number [facility] * Lipase (06/21/2015 4:41 AM EST) Lipase 11 0 - 60 unit/L [facility] Blood specimen (specimen) 06/21/2015 4:41 AM EST 06/21/2015 5:15 AM EST Narrative Resulting Agency Comment Spec In Lab Baljit Gutierrez MD CHEMISTRY ORDERABLES Performing Organization Address [facility] Co de Phone Number [facility] * (ABNORMAL) Comprehensive metabolic panel (non-fasting) (06/21/2015 4:41 AM EST) Glucose 99 65 - 199 mg/dL CERNER MILLENNIUM Comment:Diabetes: >=200 mg/d L plus symptoms Blood Urea Nitrogen 10 10 - 20 mg/dL CERNER MILLENNIUM Creatinine 0.91 0.80 - 1.50 mg/dL CERNER MILLENNIUM Comment: Please note that the pediatric reference intervals supplied above were not validated at [facility]. Results from pediatric patients should be interpreted [...] the following links into your internet browser. http://[email or web address] [email or web address] Blood specimen (specimen) 06/21/2015 4:41 AM EST 06/21/2015 5:15 AM EST Narrative Resulting Agency Comment Spec In Lab Baljit Gutierrez MD CHEMISTRY ORDERABLES [facility] FARFANCloudLink TechALLE[facility] * CT Abdomen And Pelvis With Contrast [...] inflammatory change without necroticsegment. Baljit Gutierrez MD IMG CT ORDERABLES * (ABNORMAL) Differential, Automated (06/20/2015 [...] intervals supplied above were not validated at [facility]. Results from pediatric patients should be interpreted [...] Direct 0.4(H) 0.0 - 0.3 mg/dL CERNER AlcrestaIUM Est Glomerular Filtration Rate >60 >=60 CERNER [employer] Comment: This estimated GFR (eGFR) value was [...] the following links into your internet browser. http://[employer]/DHnkdep [email or web address] Blood specimen (specimen) 06/20/2015 8:07 AM EST 06/20/2015 8:39 AM EST Narrative Resulting Agency Comment Spec In Lab Baljit Gutierrez MD CHEMISTRY ORDERABLES [facility] * XR Abdomen 1 View (GENERIC) (06/19/2015 [...] Culture No growth at 5 days. [facility] Blood specimen (specimen) PERIPHERAL BLOOD / Unknown 06/19/2015 5:30 AM EST 06/19/2015 5:45 AM EST Comment:R HAND Narrative Resulting Agency Comment Spec In Lab Baljit Gutierrez MD MICROBIOLOGY - BLOOD ORDERABLES PORSCHE PINKIUM * Amylase (06/19/2015 5:20 AM EST) Amylase 50 28 - 100 unit/L CERNER MILLENNIUM Blood specimen (specimen) Venous Draw / Unknown 06/19/2015 5:20 AM EST 06/19/2015 5:32 AM EST Narrative Resulting Agency Comment Spec In Lab Baljit Gutierrez MD CHEMISTRY ORDERABLES CERGILLES FARFANENNIUM * (ABNORMAL) Differential, Automated (06/19/2015 5:20 [...] MD HEMATOLOGY ORDERABLE S PORSCHE PINKIUM * (ABNORMAL) Hemogram (06/19/2015 5:20 AM EST) [...] MD HEMATOLOGY ORDERABLE S PORSCHE WELSH * Lactate, whole blood, send to lab (06/19/2015 5:20 AM EST) Lactate WB 1.1 0.5 - 2.2 mmol/L CERNER MILLENNIUM Blood specimen (specimen) 06/19/2015 5:20 AM EST 06/19/2015 5:30 AM EST Narrative Resulting Agency Comment Spec In Lab Baljit Gutierrez MD CHEMISTRY ORDERABLES CERNER MILLENNIUM * Lipase (06/19/2015 5:20 AM EST) Lipase 16 0 - 60 unit/L CERNER MILLENNIUM Blood specimen (specimen) 06/19/2015 5:20 AM EST 06/19/2015 5:31 AM EST Narrative Resulting Agency Comment Spec In Lab Baljit Gutierrez MD CHEMISTRY ORDERABLES Performing Organization Address City/[facility]/ZIP Co de Phone Number CERNER MILLENNIUM * [...] intervals supplied above were not validated at [facility]. Results from pediatric patients should be interpreted [...] the following links into your internet browser. http://[employer]/DHnkdep [email or web address]/DHMCnkf Blood specimen (specimen) 06/19/2015 5:20 AM EST 06/19/2015 5:31 AM EST Narrative Resulting Agency Comment Spec In Lab Baljit Gutierrez MD CHEMISTRY ORDERABLES PORSCHE WELSH * Blood culture (06/19/2015 5:20 AM EST) Blood Culture No growth at 5 days. PORSCHE MILLENNIUM Blood specimen (specimen) ANTECUBITAL REGION STRUCTURE [...] intervals supplied above were not validated at [facility]. Results from pediatric patients should be interpreted [...] the following links into your internet browser. http://[employer]/DHnkdep [email or web address]/DHMCnkf Blood specimen (specimen) 06/18/2015 5:36 AM EST 06/18/2015 6:06 AM EST Narrative Resulting Agency Comment Spec In Lab Blu Pascual MD CHEMISTRY ORDERABLES [facility] * ERCP (06/17/2015 12:57 PM EST) ERCP [facility] Patient Name: Gamaliel Queen ? Procedure Date: 06/17/2015 12:57 PM ? N: [id number] ? Date of : 1960 ? Age: 54 ? Order #: [id number] ? Procedure: ? ERCP Indications: ? Suspected ascending cholangitis, ? Gallstone associated acute ? pancreatitis Providers: ? Filomena York MD, Joby Daigle MD, ? Brittany Bradley, GALINOD, Loli ? Adeel, Cell Attendant Referring MD: ?Rosie Bess MD Medicines: ? [...] MD HEMATOLOGY ORDERABLE S Performing Organization Address City/[facility]/ZIP Co de Phone Number CERGILLES FARFANENNIUM * (ABNORMAL) Hemogram (06/17/2015 6:34 AM EST) [...] MD HEMATOLOGY ORDERABLE S Performing Organization Address City/[facility]/ZIP Co de Phone Number PORSCHE PINKIUM * [...] In Lab Blu Pascual MD CHEMISTRY ORDERABLES [facility] MILLENNIUM * Basic Metabolic Panel (non-fasting) (06/17/2015 6:34 AM EST) Pathologist [facility] Glucose 95 65 - 199 mg/dL CERNER MILLENNIUM Comment:Diabetes: >=200 mg/d L plus symptoms Blood Urea Nitrogen 11 10 - 20 mg/dL CERNER MILLENNIUM Creatinine 0.90 0.80 - 1.50 mg/dL CERNER MILLENNIUM Comment: Please note that the pediatric reference intervals supplied above were not validated at [facility]. Results from pediatric patients should be interpreted [...] the following links into your internet browser. http://[email or web address] [email or web address] Blood specimen (specimen) 06/17/2015 6:34 AM EST 06/17/2015 6:40 AM EST Narrative Resulting Agency Comment Spec In Lab Blu Pascual MD CHEMISTRY ORDERABLES [facility] AlcrestaIUM * (ABNORMAL) Urinalysis with reflex Culture (06/16/2015 [...] Urine Dipstick Clear Clear CERNER MILLENNIUM Specific [place] Urine Automated 1.017 1.002 - 1.030 CERNER [...] HEMATOLOGY ORDERABLE S PORSCHE FARFANENNIUM * (ABNORMAL) Hemogram (06/16/2015 10:11 PM [...] Blu Pascual MD HEMATOLOGY ORDERABLE S PORSCHE PINKIUM * Blood culture (06/16/2015 10:11 PM EST) Blood Culture No growth at 5 days. CERNER MILLENNIUM Blood specimen (specimen) ANTECUBITAL REGION STRUCTURE / Unknown 06/16/2015 10:11 PM EST 06/16/2015 10:44 PM EST Narrative Resulting Agency Comment Spec In Lab Blu Pascual MD MICROBIOLOGY - BLOOD ORDERABLES Performing Organization Address [facility] de Phone Number PORSCHE PIKNIUM * (ABNORMAL) Prothrombin Time (06/16/2015 10:11 PM [...] MD HEMATOLOGY ORDERABLE S Performing Organization Address [facility] de Phone Number PORSCHE WELSH * Magnesium (06/16/2015 10:11 PM EST) Magnesium 0.77 0.69 - 1.07 mmol/L CERGILLES MILLENNIUM Blood specimen (specimen) 06/16/2015 10:11 PM EST 06/16/2015 10:18 PM EST Narrative Resulting Agency Comment Spec In Lab Blu Pascual MD CHEMISTRY ORDERABLES Performing Organization Address [facility] de Phone Number PORSCHE PINKIUM * (ABNORMAL) Hepatic Function Panel (06/16/2015 [...] intervals supplied above were not validated at [facility]. Results from pediatric patients should be interpreted [...] the following links into your internet browser. [email or web address] Blood specimen (specimen) 06/16/2015 10:11 PM EST 06/16/2015 10:18 PM EST Narrative Resulting Agency Comment Spec In Lab Blu Pascual MD CHEMISTRY ORDERABLES Performing Organization Address [facility] Co de Phone Number PORSCHE WELSH * Blood culture (06/16/2015 10:07 PM EST) Blood Culture No growth at 5 days. BONYGILLES FARFANCARMENCASSIE Blood specimen (specimen) STRUCTURE OF LEFT HAND / Unknown 06/16/2015 10:07 PM EST 06/16/2015 10:45 PM EST Narrative Resulting Agency Comment Spec In Lab Blu Pascual MD MICROBIOLOGY - BLOOD ORDERABLES Performing Organization Address [facility] de Phone Number PORSCHE WELSH * Film [...] MAR Action Action Date Dose Rate Site BUpivacaine (PF) (MARCAINE) 0.25 % (2.5 mg/mL) injection ONCE PRN, Starting on Sat06/21/15 at 0800, Until Sat06/21/15 at 1052, Intra-Operative (Intra-Procedure), Routine Given 06/21/2015 8:00 AM EST 25 mg 19- Surgical Site documented in this encounter Active and Recently [...] - Provider: Lindsey Neil RN - Comment: MD aware of medication frequencyt, okay to give, [...] area)0900 (Automatically Held - Provider: Admin Adt)1340 (MAR Unhold - Provider: Admin Adt)175 (Given - Provider: Emilia Patel, GALINDO)2000 (Given - Provider: Daylin Noe, GALINDO) 826 (Given - Provider: Deana Jha, GALINDO)2112 (Given - Provider: Daylin Noe, GALINDO) 08 (Given - Provider: Lindsey Neil, GALINDO) sodium [...] Emilia Patel RN)2000 (Given - Provider: Daylin Noe RN) 831 (Given - Provider: Deana Jha RN)2112 (Given - Provider: Daylin Noe, GALINDO) 0831 (Given - Provider: Lindsey Neil, GALINDO) venlafaxine (EFFEXOR-XR) XR Capsule 225 mg (CANCELED) 225 mg, Oral, DAILY, First dose on Sat06/17/15 at 0900, Until Discontinued, DO NOT CRUSH OR OPEN, Routine 0700 (AUG Hold - Provider: Admin Adt - Reason: Transfer to a Procedural area)0900 (Automatically Held - Provider: Admin Adt)1340 (AUG Unhold - Provider: Admin Adt)1756 (Given - Provider: Emilia Patel, GALINDO) 08 (Given - Provider: Deana Jha, GALINDO) 0830 (Given - Provider: Lindsey Neil RN) PRN Medication Order 06/21/2015 06/22/2015 06/23/2015 acetaminophen [...] mg/mL) injection (CANCELED) ONCE PRN, Starting on 06/21/15 at 0800, Until 06/21/15 at 1052, Intra-Operative (Intra-Procedure), Routine 0800 (Given [...] Noe RN) 0250 (Given - Provider: Daylin Noe, GALINDO)0832 (Given - Provider: Deana Jha, GALINDO)1244 (Given - Provider: Deana Jha RN)1646 (Given - Provider: Deana Jha RN)2113 (Given - Provider: Daylin Noe RN) 0223 (Given - Provider: Daylin Noe RN)0651 [...] RN) 0250 (See Alternative - Provider: Daylin Noe RN)0832 (See Alternative - Provider: Deana Jha RN)1244 (See Alternative - Provider: Deana Jha RN)1646 (See Alternative - Provider: Deana Jha RN)2113 (See Alternative - Provider: Daylin Noe RN) 0223 (See Alternative - Provider: Daylin Noe RN)0651 (See Alternative - Provider: Daylin Noe RN) prochlorperazine (COMPAZINE) injection 10 mg (CANCELED)(Linked Group 2) 10 mg, Intravenous, EVERY 6 HOURS PRN, Starting on Neha 06/16/15 at 2149, Until Neha 06/23/15 at 1232, Nausea, Nausea/Vomiting, If multiple antiemetics are ordered, use ondansetron first. If ondansetron ineffective use prochlorperazine. , Routine 0700 (MAR Hold - Provider: Admin Adt - Reason: Transfer to a Procedural area)1052 (MAR Unhold - Provider: Adele Rosales RN)1142 (Given - Provider: Joseph Valencia RN) Linked [...] Routine documented in this encounter Care Teams Electronics Parts Sales Representative Relationship Specialty Start Date End Date Rosie Bess MD [address] [place] [address] PCP - General Family Medicine 06/16/15 documented as of this encounter
--- OUTSIDE RECORDS SUMMARY | 2024-01-22 14:47 | XMS_ITS | Encounter Summary ---
Author Organization [facility] [place] [address] Care Team Providers Care Gas Appliance Installer Name Role Phone Unavailable Primary Care Provider Unavailabl e Encounter Details Date Type Department Care Team (Latest Contact Info) Description 06/15/2015 12:05 AM EST - 06/15/2015 11:59 PM EST Hospital Encounter [place] [address] Pain Discharge Disposition: Home Social History Tobacco [...] Diagnosis Comments FILM LIBRARY STORAGE ONLY CT ABDOMEN AND PELVIS Routine 06/15/2015 12:05 AM EST Pain documented in this encounter Results * Film Library- Storage Only CT Abdomen & Pelvis (06/15/2015 12:05 AM EST) Narrative RAD - 06/16/2015 9:01 PM EST See PACS for result report. Dr Rita PAIGE FILM LIBRARY ORD ERABLES [place], [place] documented in this encounter Visit Diagnoses Diagnosis Pain Generalized pain documented in this encounter
--- OUTSIDE RECORDS SUMMARY | 2024-01-22 14:47 | XMS_ITS | Encounter Summary ---
[place] [address] Care Team Providers Care Character Actress Name Role Phone Rosie Bess MD Primary Care Provider [phone] Reason for Visit * Auth/Cert - Closed Specialty Diagnoses / Procedures Referred By Contac t Referred To Contact Diagnoses Pancreatitis, gallstone ? OBSTRUCTED COMMON BILE DUCT Procedures IPI Referral ID Status Reason Start Date Expiration Date Visits Re quested Visits Authorized [id number] Closed 1 1 Encounter Details Date Type Department Care Team (Late st Contact Info) Description 06/21/2015 7:31 AM EST Anesthesia Event [place] [address] [facility] [place] [address] [facility] [place] [address] Anesthesia Record Procedure Summary Procedure Name Responsible Anesthesiologist Anesthesia Start Time Anesthesia Stop Time LAPAROSCOPIC CHOLECYSTECTOMY WITH CHOLANGIOGRAM (WRVU 11.47) (Abdomen) Mariana Ledbetter MD 06/21/15 0731 06/21/15 1047 Events Date Time Event Comment 06/21/2015 0710 0731 Start 0732 AN Verify 0733 An Start Data 0742 An Induction 0744 An Intubation 0746 Anesthesia Ready 0800 Quick Note Local injected by surgeons. 0810 Quick Note Insufflation. 0846 Break/Relief In LISSETTE GOODE CRNA 0903 Break/Relief Out 1022 An Data Art Cuff reposition ed. 1030 Extubation/LMA Out 1034 an stop data 1046 Quick Note Pt. Awoke dysph oric. Treated with Propofol and Dexmedetomidine with good effect. 1047 Recovery or ICU Handoff Amy ent care was transferred to the destination unit staff after review of the patient's medical history, current anesthetic/surgical status and plan, according to the Provider Handoff Checklist. 1047 Stop Meds Name Total Midazolam 2 mg fentaNYL 250 mcg IV Lidocaine 100 mg Propofol 300 mg Rocuronium 85 mg PHENYLephrine 360 mcg Ondansetron 8 mg Dexamethasone 8 mg Neostigmine 2.5 mg Glycopyrrolate 0.4 mg Ketorolac 15 mg Dexmedetomidine 20 mcg Lactated Ringers 1,000 mL * Agents Name O2 Air Sevoflurane (et) * Blood No blood administrations on file. Lines, Drains, and Airways Type Details Placement Removal (RETIRED) Peripheral IV Line - Single Lumen 06/16/15; 2200; metacarpal vein right (top of hand); other (see comments); 20 gauge; outside hospital ; removed per policy/procedure, catheter intact; 06/22/15; 1400 06/16/15 2200 by Emilia Schumacher APRN 06/22/15 1400 by Deana Jha RN Incision 06/21/15; abdomen; laparoscopic punctures (specify) (multiple trocar sites. ); 02/05/22 (LDA cleanup utility RA#[id number]); 1715 (LDA cleanup utility RA#[id number]) 06/21/15 0000 by So Ochoa RN 02/05/22 1715 by Connie Dumont ETT Mask Ventilation: Ea sy (1); ETT Type: Cuffed, Oral; ETT Size: 7.5 mm; Mac Blade: 4; Notes: Asleep, Pre-O2, Stylette; Attempts: 1; Laryngoscopy Grade: 1; ETT Placement Verified By: Auscultation, Capnometry, Visual; Secured at Teeth: 22 cm; Inserted by: Lissette Zaragoza CRNA; Removal Date: 06/21/15; Removal Time: 1030 06/21/15 0744 by Lissette Zaragoza CRNA 06/21/15 1030 by Lissette Zaragoza CRNA NG/OG Tube 06/21/15; 0746; orogastric; 16 Fr; mouth; Secured; Stomach suctioned.; 06/21/15; 1500 06/21/15 0746 by Lissette Zaragoza CRNA 06/21/15 1500 by Emilia Zhang RN documented in this encounter Social History Tobacco [...] OR Notes * Anesthesia Postprocedure Evaluation - Joseph Caruso - 06/21/2015 1:07 PM EST [facility] [place] Department of Anesthesiology Post-procedure Note Patient: Gamaliel Patel Procedure Summary Date Anesthesia Start Anesthesia Stop Room / Location 06/21/15 07 [facility] OR 20 / [facility] MAIN OR Procedure Diagnosis Surgeon Responsible Provider LAPAROSCOPIC CHOLECYSTECTOMY WITH CHOLANGIOGRAM (N/A Abdomen) No diagnosis on file. Darrell Andrade MD Halloran, Kylene E, MD (gallstone pancreatitis) Last (1hr) Vitals: BP 95/53 mmHg (06/21/15 1300) Temp 37.2 ??C (99 ??F) (06/21/15 1221) Pulse 66 (06/21/15 1300) Resp 14 (06/21/15 1300) SpO2 93 % (06/21/15 1300) Patient Location: PACU/[facility] Level of Consciousness: Awake and Alert Pain Management: Satisfactory Analgesia PONV: None Cardiovascular Status: At Baseline Respiratory Status: At Baseline Postoperative Fluid Status: Intravascular EUvolemia Possible Anesthetic Complications: NONE apparent at time of evaluation Final Primary Anesthesia Type: General (The anesthetic type performed was the same as planned.) Comments: * Anesthesia Preprocedure Evaluation - Joseph Caruso - 06/20/2015 8:13 PM EST Pre-Anesthesia Evaluation for: Gamaliel Patel a 54 y.o. male. Procedure(s): LAPAROSCOPIC CHOLECYSTECTOMY WITH CHOLANGIOGRAM Patient Active Problem List Diagnosis ??? Pancreatitis, gallstone No past medical history on file. Past Surgical History Procedure Laterality Date ??? Pro ercp,diagnostic N/A 06/17/2015 ERCP performed by Filomena York MD at [facility] ENDOSCOPY History Substance Use Topics ??? Smoking status: Never Smoker ??? Smokeless tobacco: Never Used ??? Alcohol Use: No Comment: quit 4 years ago History Drug Use No No Known Allergies Medications: MAR and/or home medications have been reviewed. Physical Exam: Filed Vitals: 06/20/152012 BP: 121/82 Pulse: 88 Temp: 37.1 ??C (98.8 ??F) Resp: 18 Body mass index is 27.38 kg/(m^2). Height: 172.7 cm (5' 8) Weight - Scale: 81.647 kg (180 lb) (per Pt report) Anesthesia Physical Exam Anesthesia Plan: ASA 2 General, with a(n) intravenous induction Patient is a 54 yo male presenting with ascending cholangitis here for laparoscopic cholecystectomy. History significant for IV drug use in the past and PTSD. Mild Anemia, mildly elevated liver enzymes and ALP. Plan for GA w/ ETT. Region - Other Informed Consent: PAT Staff Note documented in this encounter Plan of Treatment Not on file documented as of this encounter Visit Diagnoses Not on filedocumented in this encounter Administered Medications Inactive Administered Medications - up to 3 most recent administrations Medication Order MAR Action Action Date Dose Rate Site dexamethasone (DECADRON) injection PRN, Starting on Sat06/21/15 at 0749, Until Sat06/21/15 at 1047, Anesthesia Intra-op, Routine Given 06/21/2015 7:49 AM EST 8 mg dexmedetomidine (PRECEDEX) injection PRN, Starting on Sat06/21/15 at 1045, Until Sat06/21/15 at 1736, Anesthesia Intra-op, Routine Given 06/21/2015 10:45 AM EST 20 mcg fentaNYL 50 mcg/mL multi-dose injection PRN, Starting on Sat06/21/15 at 0742, Until Sat06/21/15 at 1047, Pain, Anesthesia Intra-op, Routine Given 06/21/2015 10:43 AM EST 50 mcg Given 06/21/2015 10:07 AM EST 25 mcg Given 06/21/2015 9:50 AM EST 25 mcg glycopyrrolate (ROBINUL) multi-dose injection PRN, Starting on Sat06/21/15 at 1019, Until Sat06/21/15 at 1047, Anesthesia Intra-op, Routine Given 06/21/2015 10:19 AM EST 0.4 mg ketorolac (TORADOL) injection PRN, Starting on Sat06/21/15 at 1031, Until Sat06/21/15 at 1047, Pain, Anesthesia Intra-op, Routine Given 06/21/2015 10:31 AM EST 15 mg lactated ringers infusion CONTINUOUS PRN, Starting on Sat06/21/15 at 0731, Until Sat06/21/15 at 1047, Anesthesia Intra-op New Bag 06/21/2015 10:03 AM EST New Bag 06/21/2015 7:31 AM EST lidocaine (PF) (XYLOCAINE) 100 mg/5 mL (2 %) injection PRN, Starting on Sat06/21/15 at 0742, Until Sat06/21/15 at 1047, Anesthesia Intra-op, Routine Given 06/21/2015 7:42 AM EST 100 mg midazolam (PF) (VERSED) 1 mg/mL multi-dose injection PRN, Starting on Sat06/21/15 at 0731, Until Sat06/21/15 at 1047, Sleep, Anesthesia Intra-op, Routine Given 06/21/2015 7:31 AM EST 2 mg neostigmine (PROSTIGMINE) multi-dose injection PRN, Starting on Sat06/21/15 at 1019, Until Sat06/21/15 at 1047, Anesthesia Intra-op, Routine Given 06/21/2015 10:19 AM EST 2.5 mg ondansetron (ZOFRAN) injection PRN, Starting on Sat06/21/15 at 1019, Until Sat06/21/15 at 1047, Nausea, Anesthesia Intra-op, Routine Given 06/21/2015 10:19 AM EST 8 mg PHENYLephrine HCl in NS (PF) (JOSE F-SYNEPHRINE) 0.8 mg/10 mL (80 mcg/mL) multi-dose injection Syrg PRN, Starting on Sat06/21/15 at 0750, Until Sat06/21/15 at 1047, Anesthesia Intra-op, Routine Given 06/21/2015 8:49 AM EST 80 mcg Given 06/21/2015 8:23 AM EST 40 mcg Given 06/21/2015 8:05 AM EST 80 mcg propofol (DIPRIVAN) 10 mg/mL bolus injection (Anesthesia) PRN, Starting on Sat06/21/15 at 0742, Until Sat06/21/15 at 1047, Anesthesia Intra-op Given 06/21/2015 10:38 AM EST 30 mg Given 06/21/2015 10:06 AM EST 50 mg Given 06/21/2015 9:50 AM EST 20 mg rocuronium (ZEMURON) multi-dose injection PRN, Starting on Sat06/21/15 at 0742, Until Sat06/21/15 at 1047, Anesthesia Intra-op, Routine Given 06/21/2015 9:05 AM EST 10 mg Given 06/21/2015 8:27 AM EST 10 mg Given 06/21/2015 8:01 AM EST 15 mg documented in this encounter Care Teams Character Actress Relationship Specialty Start Date End Date Rosie Bess MD [facility] [address] [place] [id number] PCP - General Family Medicine 06/16/15 documented as of this encounter
--- OUTSIDE RECORDS SUMMARY | 2024-01-22 14:47 | XMS_ITS | Encounter Summary ---
[place] [address] Care Team Providers Care Instructional Designer Name Role Phone Rosie Bess MD Primary Care Provider [phone] Reason for Visit * Auth/Cert - Closed Specialty Diagnoses / Procedures Referred By Contac t Referred To Contact Diagnoses Pancreatitis, gallstone ? OBSTRUCTED COMMON BILE DUCT Procedures IPI Referral ID Status Reason Start Date Expiration Date Visits Re quested Visits Authorized [id number] Closed 1 1 Encounter Details Date Type Department Care Team (Latest Contact Info) Description 06/21/2015 - 06/21/2015 11:59 PM EST Hospital Encounter [place] [id number] [place] [address] Discharge Disposition: Home Social History Tobacco Use [...] Priority Date/Time Associated Diagnosis Comments SURGICAL PATHOLOGY REPORT Routine 06/21/2015 10:03 AM EST documented in this encounter Results * Surgical Pathology Report (06/21/2015 10:03 AM EST) Final Diagnosis [id number] ? Location: [facility] The signing pathologist has (i) examined the relevant preparation(s) for the specimen(s) and (ii) rendered or confirmed the diagnosis(es). . ?Surgical Pathology DIAGNOSIS Gallbladder, cholecystectomy: Chronic cholecystitis. 06/22/15 BJ 06/22/15 Verified by: ? Aamir Hernandez MD ?Pathologist ?(Electronic Signature) The attending pathologist whose signature appears on this report has reviewed all diagnostic slides and has edited the gross and/or microscopic portion of the report in rendering the final pathologic diagnosis. CLINICAL INFORMATION Specimen Submitted: A - Gallbladder and contents. Clinical History: Gallstone pancreatitis Clinical Diagnosis: Same SPECIMEN PROCESSING A - Labeled/Fixative : Gall bladder and contents, fresh. Quantity/Size: Single, 9.0 x 2.5 x 2.0 cm. Specimen Description: Gallbladder received with a transmural defect in the neck. ??External surface: The serosa is pink-red, hemorrhagic. ??Lumen contents: Scant green-brown bile. ? Gallstones: Absent. ??Mucosa: Dark green and velvety. ??Wall: Average of 0.4 cm thick. ??Duct: 1.5 x 0.3 cm, patent. ??Lymph Node: Not identified. Sections/Process ing: (1) cystic duct margin and body and fundus mucosa. ??(R1) ??sns 06/22/2015 4:[address] [facility] GALLBLADDER STRUCTURE / Unknown 06/21/2015 10:03 AM EST 06/21/2015 10:03 AM EST Darrell Andrade MD PATHOLOGY/CYTOLOGY O RDERABLES Performing Organization Address City/State/[facility] Co de Phone Number [facility] [place] [phone] documented in this encounter Visit Diagnoses Not on filedocumented in this encounter Care Teams Instructional Designer Relationship Specialty Start Date End Date Rosie Bess MD [address] [place] [address] PCP - General Family Medicine 06/16/15 documented as of this encounter
--- OUTSIDE RECORDS SUMMARY | 2024-01-22 14:47 | XMS_ITS | Encounter Summary ---
[place] [address] Care Team Providers Care Lens And Frames Prescription Clerk Name Role Phone Rosie Bess MD Primary Care Provider [phone] Encounter Details Date Type Department Care Team (Latest Contact Info) Description 06/16/2015 12:05 AM EST - 06/16/2015 8:55 PM [facility] Hospital Encounter [place] [address] Discharge Disposition: Home Social History Tobacco Use [...] Associated Diagnosis Comments FILM LIBRARY STORAGE ONLY MR ABDOMEN Routine 06/16/2015 12:05 AM EST Pain documented in this encounter Results * Film Library- Storage only MR Abdomen (06/16/2015 12:05 AM EST) Narrative User, Generic Transmittal - 06/16/2015 10:06 PM EST See PACS for result report. Dr [facility] FILM LIBRARY ORD ERABLES documented in this encounter Visit Diagnoses Not on filedocumented in this encounter Care Teams Lens And Frames Prescription Clerk Relationship Specialty Start Date End Date Rosie Bess MD [address] [place] [address] PCP - General Family Medicine 06/16/15 documented as of this encounter
[2024-01-22 19:11] LABS: Abs Immature Grans 0.02 10^3/uL (0.0-0.06); Absolute Basophil Count 0.06 10^3/uL (0.0-0.2); Absolute Eosinophil Count 0.48 10^3/uL (0.0-0.7); Absolute Lymphocyte Count 2.55 10^3/uL (1.2-3.4); Absolute Monocyte Count 0.45 10^3/uL (0.1-0.8); Absolute Neutrophil Count 4.32 10^3/uL (1.2-6.7); Basophils % 0.8 %; Eosinophils % 6.1 %; HCT 40.7 % (40.0-50.0); HGB 13.3 g/dL (13.5-17.5); Immature Grans % 0.3 %; Lymphocytes % 32.4 %; MCH 27.7 pg (27.0-33.0); MCHC 32.7 % (32.0-36.0); MCV 85 fL (80-95); Monocytes % 5.7 %; Neutrophils % 54.7 %; Platelet Count 325 10^3/uL (130-400); RDW 15.1 % (11.8-14.1); RDW-SD 47.1 fL; WBC 7.88 10^3/uL (4.4-10.8)
[2024-01-22 19:53] LABS: ALT 28 U/L (16-63); AST 20 U/L (15-37); Albumin 3.9 g/dL (3.4-5.0); Alkaline Phosphatase 97 U/L (46-116); Anion Gap 12.6 mmol/L (3-11); BUN 19 mg/dL (7-18); Bilirubin, Total 0.31 mg/dL (0.2-1.0); CO2 23.4 mmol/L (21.0-32.0); Calcium 9.6 mg/dL (8.5-10.1); Chloride 104 mmol/L (98-107); Estimated GFR 85.63 (mL/min/1.73m2); Glucose 105 mg/dL (74-106); Potassium 3.9 mmol/L (3.5-5.1); Sodium 140 mmol/L (136-145); Total Protein 7.6 g/dL (6.4-8.2)
== END 2024-01-22 14:43 | disposition home or self-care (01) ==
LOC: NCHCN 14:42
PROVIDERS: PCP Family Medicine; Visit Provider Family Medicine
DX: Z86.19 Personal history of other infectious and parasitic diseases (principal); A69.20 Lyme disease, unspecified
CPT/HCPCS: 80053; 85025

== ENCOUNTER 2024-08-24 14:58 | Outpatient (REF) | payer BC, SELFPAY ==
[2024-08-24 15:41] LABS: Anion Gap 5.9 mmol/L (3-11); BUN 22 mg/dL (7-18); CO2 29.1 mmol/L (21.0-32.0); CREATININE 1.1 mg/dL (0.70-1.30); Calcium 9.5 mg/dL (8.5-10.1); Chloride 104 mmol/L (98-107); Estimated GFR 76.37 (mL/min/1.73m2); Glucose 123 mg/dL (74-106); Potassium 4.3 mmol/L (3.5-5.1); Sodium 139 mmol/L (136-145)
[2024-08-24 15:43] LABS: Hemoglobin A1C 5.8 % (<5.7)
== END 2024-08-24 14:59 | disposition home or self-care (01) ==
LOC: NCHCN 14:58
PROVIDERS: PCP Family Medicine; Visit Provider Family Medicine
DX: R73.03 Prediabetes (principal); I10 Essential (primary) hypertension
CPT/HCPCS: 80048; 83036